=== PATIENT | female | born 1995 | race Two or more races ===

== ENCOUNTER 2023-04-12 13:47 | Emergency (ER) | payer SELFPAY ==
[2023-04-12 13:53] VITALS: BP 142/80; PULSE 83; RESP 18; TEMP 36.7; O2SAT 99; BMI 21.9
--- NOTE | 2023-04-12 14:11 | XR_ITS ---
The [address] [address] Patient Name: TRU SINGH MRN: [facility]:[id number] date: 1995 Sex: F Assigned Patient Location: ED.MAIN Current Patient Location: ED.MAIN Accession/Order Number: [id number] Exam Date: 04/12/2023 14:30 Report Date: 04/12/2023 14:48 At the request of: AARON VILLA Procedure: XR toe LT min 2V PROCEDURE: XR toe LT min 2V HISTORY: pain ; left first toe pain and swelling for 2 months; no known injury COMPARISON: None. FINDINGS: BONES:No fracture, acute abnormality, or significant arthropathy. SOFT TISSUES:No visible soft tissue swelling. EFFUSION:None visible. OTHER: Negative. XR/XR toe LT min 2V IMPRESSION: 1. No appreciable bone or soft tissue abnormality of the left first toe. Electronically authenticated by: ADRIÁN KO Date: 04/12/2023 14:48
--- NOTE | 2023-04-12 14:47 | ED.LOWEXI1 ---
HPI - Extremity Injury (Lower) General Chief Complaint: Extremity Injury, Lower Stated Complaint: LOWER EXTREMITY PAIN TO BOTH FEET Time Seen by Provider: 04/12/23 14:07 Source: patient Mode of arrival: walk-in History of Present Illness HPI Narrative: pt presents for left great toe pain, denies injury or trama. she states she has also had some similar pain to the right but has subsided. she denies injury or trama, denies hisroty or gout. pt afebrile nontoxic . no redness or swelling to great toe on exam Related Data Home Medications Medication Instructions Recorded Confirmed methylprednisolone 4 mg tablets in 4 mg PO DAILY 04/12/23 04/12/23 a dose pack (Medrol (Duong)) Allergies Allergy/AdvReac Type Severity Reaction Status Date / Time No Known Drug Allergies Allergy Verified 04/12/23 13:53 Review of Systems ROS Narrative All Systems are negative except as noted/marked.All systems reviewed and otherwise negative PFSH PFSH Social History Smoking status: Never smoker Exam Narrative Exam Narrative: Nurses note and vital signs reviewed and patient is not hypoxic. General: The patient appears well and in no apparent distress. Patient is resting comfortably on cart. Skin: Warm, dry, no pallor noted. There is no rash noted. Head: Normocephalic, atraumatic Eye: Normal conjunctiva, no drainage, EOMI. PERRL Ears, Nose, Mouth, and Throat: oral mucosa is moist. Nares patent. Mouth without vesicles. Ear canals patent. Tm's without Erythema Cardiovascular: Regular Rate and Rhythm Musculoskeletal:benign exam of left or right great toe, no redness or swelling. The patient has no evidence of calf tenderness, no pitting edema, symmetrical pulses noted bilaterally Neurological: A&O x4, normal speech Psychiatric: Cooperative Constitutional Vital Signs, click to edit/add: Last Vital Signs Temp 98.1 F 04/12/23 13:53 Pulse 83 04/12/23 13:53 Resp 18 04/12/23 13:53 BP 142/80 H 04/12/23 13:53 Pulse Ox 99 04/12/23 13:53 Course Vital Signs Vital signs: Vital Signs Temperature 98.1 F 04/12/23 13:53 Pulse Rate 83 04/12/23 13:53 Respiratory Rate 18 04/12/23 13:53 Blood Pressure 142/80 H 04/12/23 13:53 Pulse Oximetry 99 04/12/23 13:53 Temperature 98.1 F 04/12/23 13:53 Pulse Rate 83 04/12/23 13:53 Respiratory Rate 18 04/12/23 13:53 Blood Pressure 142/80 H 04/12/23 13:53 Pulse Oximetry 99 04/12/23 13:53 MDM - Extremity Injury (Lower) MDM Narrative Medical decision making narrative: pt presents for left great toe pain, xray is negative. pt states she has had pain to bilateral great toes recently but left more than right. exam is benign and xrays are normal. pt will be sent home with medrol dose duong to help with inflammation. pt encouraged to follow up with pcp. she verabalizes understanding and agrees with plan of care Medical Records Attestation: I reviewed the patient's medical records. Imaging Data foot: Attestation: I have reviewed the pertinent imaging results. My impression: Negative no acute fracture deformity no acute fracture deformity Radiologist's impression: TRU SINGH MRN: [facility]:[id number] date: 1995 Sex: F Assigned Patient Location: ED.MAIN Current Patient Location: ED.MAIN Accession/Order Number: [id number] Exam Date: 04/12/2023 14:30 Report Date: 04/12/2023 14:48 At the request of: AARON VILLA Procedure: XR toe LT min 2V PROCEDURE: XR toe LT min 2V HISTORY: pain ; left first toe pain and swelling for 2 months; no known injury COMPARISON: None. FINDINGS: BONES:No fracture, acute abnormality, or significant arthropathy. SOFT TISSUES:No visible soft tissue swelling. EFFUSION:None visible. OTHER: Negative. IMPRESSION: 1. No appreciable bone or soft tissue abnormality of the left first toe. Electronically authenticated by: ADRIÁN KO Date: 04/12/2023 14:48 Discharge Plan Discharge Chief Complaint: Extremity Injury, Lower Clinical Impression: Great toe pain Patient Disposition: Home, Self-Care Time of Disposition Decision: 14:45 Condition: Good Mode of Transportation: Private Vehicle Prescriptions / Home Meds: No Action methylprednisolone [Medrol (Duong)] 4 mg tablets,dose pack 4 mg PO DAILY Instructions: Arthralgia (ED) Stand Alone Forms: Portal Instructions Referrals: Physician,Non-Staff, MD [Primary Care Provider] - 1 week Discharge Date/Time: 04/12/23 15:05
== END 2023-04-12 15:05 | disposition home or self-care (01) ==
PROVIDERS: Emergency Provider Emergency Medicine
DX: M79.675 Pain in left toe(s) (principal)
CPT/HCPCS: 73660; 99283

== ENCOUNTER 2023-05-02 22:42 | Emergency (ER) | payer SELFPAY ==
--- OUTSIDE RECORDS SUMMARY | 2023-05-02 22:48 | XMS_ITS | CCD ---
Author Name Unknown Address [address] [place] [address] Organization [facility] Care Team Providers Care Unbundler Name Role Phone Fabrice Rey Attending Unavailable Fabrice Rey Admitting Unavailable NO FAMILY, PHYSICIAN Primary Care Unavailable Problems Problem Classification Problem Date Documented Da te Episodic/Chronic Unclassified (1 source) Cough, unspecified; Translations: [Cough, unspecified] Onset: 08-29-2022 Results Test Name Value Interpretation Reference Range Facil ity XR chest 1V portableon 08-29 XR chest 1V portable [facility] Main [place] [address] [place] [id number] XRay Report Signed Patient: Britney Tong MR#: [id number] 801 : 1995 Acct:[id number] Age/Sex: 27 / F ADM Date: 08/28/22 Loc: ER Room: Type: [facility] ER Attending Dr: Copies to: Fabrice Rey MD Ordering Provider: Fabrice Rey MD Date of Service: 08/28/22 XR/XR chest 1V portable: Upper Respiratory Infection XR chest 1V portable 08/28/2022 11:56 PM SIGNS AND SYMPTOMS: Cough PROTOCOL: Frontal radiograph of the chest COMPARISON: None FINDINGS: The trachea is midline. The heart and mediastinal structures are within normal limits. The lung parenchyma is clear. The bony thorax is intact. XR/XR chest 1V portable IMPRESSION: No acute cardiopulmonary pathology. Impression dictated by: Adelfo Shannon M.D.08/29/2022 8:58 AM Dictation Location: [place] [address] Transcribed By: [facility] 08/29/22 0858 Dictated By: Adelfo Shannon II, MD 08/29/22 0857 Signed By: 08/29/2258 [facility] Encounters Encounter Date Encounter Type Care Provider Facility Start: 08-29-2022 End: 08-29-2022 Emergency department patient visit Fabrice Rey Facility:[facility] Payers Date Payer Category Payer Self-pay 2022 Unknown [id number] Unknown [id number] Summary Purpose Family History No Family History Records Found Advance Directives No Advanced Directives Records Found Additional Source Comments INFORMATION SOURCE (unrecogn ized section and content) DATE CREATED AUTHOR 10/31/2022 [facility] FOR RECORDS PERTAINING TO PATIENTS WHO ARE OR HAVE BEEN ENROLLED IN A CHEMICAL DEPENDENCY/SUBSTANCEABUSE PROGRAM, SOME INFORMATION MAY BE OMITTED. This clinical summary was aggregated from multiple sources. Caution should be exercised in using it in the provision of clinical care. This summary normalizes information from multiple sources, and as a consequence, information in this document may materially change the coding, format and clinical context of patient data. In addition, data may be omitted in some cases. CLINICAL DECISIONS SHOULD BE BASED ON THE PRIMARY CLINICAL RECORDS. [email or web address] provides no warranty or guarantee of the accuracy or completeness of information in this document.
[2023-05-02 22:49] VITALS: BP 135/87; PULSE 110; RESP 18; TEMP 36.8; O2SAT 99; BMI 24.0
--- NOTE | 2023-05-02 23:10 | PC.NURSE ---
States it is constant for 1 month .No spinal tenderness. When palpating back she states she thinks it is here pointing to left flank area
--- NOTE | 2023-05-02 23:45 | XR_ITS ---
The [address] [address] Patient Name: TRU SINGH MRN: [facility]:[id number] date: 1995 Sex: F Assigned Patient Location: ER Current Patient Location: ER Accession/Order Number: [id number] Exam Date: 05/02/2023 23:56 Report Date: 05/03/2023 00:11 At the request of: DANIEL FELTON Procedure: XR lumbar spine 2-3V XR lumbar spine 2-3V 05/02/2023 11:56 PM EST CLINICAL INDICATION: Low back pain COMPARISON: None. TECHNIQUE: 2 views of the lumbar spine. FINDINGS: There are 5 nonrib-bearing lumbar vertebral bodies identified. Vertebral body heights and disc spaces appear maintained. No spondylolisthesis. Moderate stool burden. XR/XR lumbar spine 2-3V IMPRESSION: No acute osseous abnormality of the lumbar spine. Electronically authenticated by: BALBINA SANDOVAL Date: 05/03/2023 00:11
--- NOTE | 2023-05-02 23:46 | ED.BACK1 ---
HPI - Back Pain/Injury General Chief Complaint: Back Pain/Injury Stated Complaint: lower back pain Time Seen by Provider: 05/02/23 22:51 Source: patient Mode of arrival: walk-in Limitations: no limitations History of Present Illness HPI Narrative: About a month ago the patient developed pain to the mid lower back - she localizes it to the lumbosacral junction. She denied any known injury. 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 She has intermittently been taking tylenol or ibuprofen but nothing consistently. No fever or chills. No vomiting, diarrhea or urinary symptoms. She also complains that her left great toe, for which she was evaluated Apr 12, 2023, is also still hurting. She had negative xrays and was prescribed steroids during that encounter. Again, no injury to the great toe. Related Data Home Medications Medication Instructions Recorded Confirmed methylprednisolone 4 mg tablets in 4 mg PO DAILY 04/12/23 04/12/23 a dose pack (Medrol (Duong)) Previous Rx's Medication Instructions Recorded methocarbamol 750 mg tablet 750 mg PO Q6H pain #30 tabs 05/03/23 nabumetone 750 mg tablet 750 mg PO BID PRN pain #14 tabs 05/03/23 Allergies Allergy/AdvReac Type Severity Reaction Status Date / Time No Known Drug Allergies Allergy Verified 05/02/23 22:52 [facility] Social History Smoking status: Never smoker Exam Narrative Exam Narrative: General: Alert, no acute distress, patient resting comfortably Skin: warm, intact, no pallor noted Head: Normocephalic, atraumatic Eye: Normal conjunctiva Respiratory: No acute distress Abdomen: Normal bowel sounds, soft, nontender, no masses detected. No rebound, guarding, or rigidity noted. Back: inspection of the back shows no obvious deformity, no swelling, no ecchymosis, contusion, abrasion, swelling, erythema, fluctuance or induration. Tenderness noted to lumbosacral junction as well as to the lower right and left paralumbar soft tissue. Straight leg raise on left is negative. Straight leg raise on right is negative. No CVA tenderness noted bilaterally. Musculoskeletal: No deformity noted to bilateral lower extremities. no cyanosis or mottling noted. normal pulses at DP and PT 2+ bilaterally and symmetrically. Normal 5/5 strength at ankles with dorsiflexion and plantar flexion. Patient is able to ambulate. Normal sensation noted to both lower extremities. Neurological: AAOx4, normal sensory and motor observed. L5-S1 reflexes intact symmetrically. DTR 2+ at patellar bilaterally. Psychiatric: Cooperative and interactive. Constitutional Vital Signs, click to edit/add: Last Vital Signs Temp 98.3 F 05/02/23 22:49 Pulse 110 H 05/02/23 22:49 Resp 18 05/02/23 22:49 BP 135/87 05/02/23 22:49 Pulse Ox 99 05/02/23 22:49 O2 Del Method Room Air 05/02/23 22:49 Course Vital Signs Vital signs: Vital Signs Temperature 98.3 F 05/02/23 22:49 Pulse Rate 110 H 05/02/23 22:49 Respiratory Rate 18 05/02/23 22:49 Blood Pressure 135/87 05/02/23 22:49 Pulse Oximetry 99 05/02/23 22:49 Oxygen Delivery Method Room Air 05/02/23 22:49 Temperature 98.3 F 05/02/23 22:49 Pulse Rate 110 H 05/02/23 22:49 Respiratory Rate 18 05/02/23 22:49 Blood Pressure 135/87 05/02/23 22:49 Pulse Oximetry 99 05/02/23 22:49 Oxygen Delivery Method Room Air 05/02/23 22:49 MDM - Back Pain/Injury MDM Narrative Medical decision making narrative: Patient denied any chance of . She received IM Toradol and oral Robaxin and was sent for xrays of the lumber spine. XRays did not show any worrisome pathology, per radiologist report. Patient was informed of result and discharged home with prescriptions for relafen and robaxin and information of back exercises to help with the pain. Imaging Data xr lumbar spine: Radiologist's impression: Patient Name: TRU SINGH MRN: [facility]:[id number] date: 1995 Sex: F Assigned Patient Location: ER Current Patient Location: ER Accession/Order Number: [id number] Exam Date: 05/02/2023 23:56 Report Date: 05/03/2023 00:11 At the request of: DANIEL FELTON Procedure: XR lumbar spine 2-3V XR lumbar spine 2-3V 05/02/2023 11:56 PM EST CLINICAL INDICATION: Low back pain COMPARISON: None. TECHNIQUE: 2 views of the lumbar spine. FINDINGS: There are 5 nonrib-bearing lumbar vertebral bodies identified. Vertebral body heights and disc spaces appear maintained. No spondylolisthesis. Moderate stool burden. IMPRESSION: No acute osseous abnormality of the lumbar spine. Electronically authenticated by: BALBINA SANDOVAL Date: 05/03/2023 00:11 Discharge Plan Discharge Chief Complaint: Back Pain/Injury Clinical Impression: Low back pain, Great toe pain Patient Disposition: Home, Self-Care Time of Disposition Decision: 00:18 Prescriptions / Home Meds: New nabumetone 750 mg tablet 750 mg PO BID PRN (Reason: pain) Qty: 14 0RF methocarbamol 750 mg tablet 750 mg PO Q6H Qty: 30 0RF No Action methylprednisolone [Medrol (Duong)] 4 mg tablets,dose pack 4 mg PO DAILY Instructions: Acute Low Back Pain (ED), Lower Back Exercises (ED), Core Strengthening Exercises (ED) Stand Alone Forms: Portal Instructions Referrals: Physician,Non-Staff, MD [Primary Care Provider] - 1 week
[2023-05-03] MEDS: KETOROLAC TROMETHAMINE 60 MG/2 ML VIAL IM (00:07)
[2023-05-03] MEDS: METHOCARBAMOL 500 MG TABLET 1000 MG PO (00:08)
== END 2023-05-03 00:32 | disposition home or self-care (01) ==
PROVIDERS: Emergency Provider Emergency Medicine
DX: M54.50 Low back pain, unspecified (principal); M79.675 Pain in left toe(s)
CPT/HCPCS: 72100; 96374; 99284

== ENCOUNTER 2023-12-11 16:35 | Emergency (ER) | payer OTHER, SELFPAY ==
[2023-12-11 16:40] VITALS: BP 116/81; PULSE 101; TEMP 36.7; O2SAT 98; BMI 24.0
--- NOTE | 2023-12-11 16:53 | ECG_ITS ---
The [facility] Test Date: 2023-12-11 Pat Name: TRU SINGH Department: Room: - Gender: Female Emt Intermediate: : 1995 Requested By: Order Number: [id number] Reading MD: BRAD WADDELL Measurements Intervals [place] Rate: 89 P: 68 DC: 134 QRS: 58 QRSD: 76 T: 15 QT: 360 QTc: 406 Interpretive Statements 1100 Sinus rhythm 4068 Nonspecific Twave abnormality 8102 Low QRS voltage in chest leads 9130 borderline ECG No previous ECG available for comparison Electronically Signed On 12-11-2023 22:14:03 EDT by BRAD WADDELL
--- NOTE | 2023-12-11 16:54 | ED_ITS ---
HPI - Psych General Chief Complaint: Psychiatric Symptoms Stated Complaint: Anxiety Time Seen by Provider: 12/11/23 16:47 Source: Reports patient and family Mode of arrival: walk-in Limitations: Reports no limitations History of Present Illness HPI Narrative: Patient is a 28-year-old female referred to the emergency department by her primary care office in [place], the patient was being seen today for an emergenc y appointment regarding mental health issues after she answered several questions regarding depression and suicidality. She was referred from her [employer] office for an emergency appointment today at [facility] in [place], patient states when she got to the office they told her she needed to go to an emergency department. Patient states she has felt suicidal for most of her life. She attempted suicide 1 year ago but was never hospitalized. She states she often feels suicidal and often has a plan about how she would hurt herself but she does not currently feel suicidal or homicidal. She does not take any regular medications. She is not concerned for . She has no focal medical complaints Related Data Home Medications ?Medication ?Instructions ?Recorded ?Confirmed methylprednisolone 4 mg tablets in 4 mg PO DAILY 04/12/23 04/12/23 a dose pack (Medrol (Duong)) Previous Rx's ?Medication ?Instructions ?Recorded methocarbamol 750 mg tablet 750 mg PO Q6H pain #30 tabs 05/03/23 nabumetone 750 mg tablet 750 mg PO BID PRN pain #14 tabs 05/03/23 Allergies Allergy/AdvReac Type Severity Reaction Status Date / Time No Known Drug Allergies Allergy Verified 05/02/23 22:52 Review of Systems ROS Constitutional Denies: fever or chills Ears, nose, mouth, and throat Denies: throat pain or nasal congestion Cardiovascular Denies: chest pain Respiratory Denies: shortness of breath Gastrointestinal Denies: nausea or vomiting Integumentary/Breast Denies: rash Neurological Denies: headache Psychiatric Reports: suicidal ideation Hematologic/Lymphatic Denies: easy bruising or easy bleeding PFSH PFSH Social History Smoking status: Never smoker Exam Narrative Exam Narrative: Gen.: Awake, alert, in no distress Head: Normocephalic, atraumatic ENT: Moist mucous membranes Respiratory: No respiratory distress, lungs clear bilaterally Cardio: Regular rate and rhythm Extremities: Moves extremities equally Psych: Normal mood and affect Neuro: No focal neuro deficit Skin: Warm, dry, intact Constitutional Vital Signs, click to edit/add: Last Vital Signs Temp 98.1 F 12/11/23 16:40 Pulse 92 H 12/11/23 17:46 Resp 18 12/11/23 17:46 BP 129/78 12/11/23 17:46 Pulse Ox 98 12/11/23 17:46 O2 Del Method Room Air 12/11/23 16:40 Course Vital Signs Vital signs: Vital Signs Temperature 98.1 F 12/11/23 16:40 Pulse Rate 101 H 12/11/23 16:40 Respiratory Rate 18 12/11/23 16:40 Blood Pressure 116/81 12/11/23 16:40 Pulse Oximetry 98 12/11/23 16:40 Oxygen Delivery Method Room Air 12/11/23 16:40 Temperature 98.1 F 12/11/23 16:40 Pulse Rate 92 H 12/11/23 17:46 Respiratory Rate 18 12/11/23 17:46 Blood Pressure 129/78 12/11/23 17:46 Pulse Oximetry 98 12/11/23 17:46 Oxygen Delivery Method Room Air 12/11/23 16:40 MDM - Psych MDM Narrative Medical decision making narrative: 1817: While the patient was being evaluated, she had a screening conversation with [facility] mental health counseling services over the phone, they feel strongly that the patient does need counselor evaluation as she may need to be placed. Shortly after this conversation, the patient's family members became aggressive and combative stating that they wanted to leave. Because the counseling services had not yet evaluated the patient, a pink slip was filed to keep her in the emergency department until she was cleared by counseling services. At this time, her blood sugar is elevated but she has no evidence of acidosis and the remainder of her labs are pending. Patient was evaluated by counseling services and found to be appropriate for safety plan home. She was encouraged to recheck her blood sugar with primary care in the next several weeks. She has no electrolyte disturbance or evidence of acidosis. Return to the ER if symptoms change or worsen. SUPERVISED APC VISIT, PHYSICIAN ATTESTATION: Based on the medical record the care appears appropriate. ? Medical Records Attestation: I reviewed the patient's medical records. Lab Data Attestation: I reviewed the patient's lab results. Labs: Lab Results 12/11/23 12/11/23 Range/Units 16:59 17:03 WBC 11.6 H (4.0-11.0) 10^3/uL RBC 6.07 H (4.20-5.40) 10^6/uL Hgb 12.2 (12.0-16.0) g/dL Hct 40.6 (36.0-48.0) % MCV 66.9 L (81.0-99.0) fL MCH 20.1 L (26.7-34.0) pg MCHC 30.0 (29.9-35.2) g/dL RDW 15.8 H (11.0-15.0) % Plt Count 521 H (150-450) 10^3/uL MPV 9.9 (9.5-13.5) fL Neut % (Auto) 63.6 (43.0-75.0) % Lymph % (Auto) 26.7 (20.5-60.0) % [place] % (Auto) 7.1 (1.7-12.0) % Eos % (Auto) 1.6 (0.9-7.0) % Baso % (Auto) 0.8 (0.2-2.0) % Neut # (Auto) 7.4 H (1.4-6.5) 10^3/uL Lymph # (Auto) 3.1 (1.2-3.8) 10^3/uL [place] # (Auto) 0.8 (0.3-0.8) 10^3/uL Eos # (Auto) 0.2 (0.0-0.7) 10^3/uL Baso # (Auto) 0.1 (0.0-0.1) 10^3/uL Abs Immat Gran (auto) 0.02 (0.00-0.03) 10^3/uL Imm/Tot Granulo (auto) 0.2 (0.0-0.5) % Sodium 138 (136-145) mmol/L Potassium 3.9 (3.5-5.1) mmol/L Chloride 100 (98-107) mmol/L Carbon Dioxide 24.4 (21.0-32.0) mmol/L Anion Gap 17.5 BUN 8.0 (7.0-18.0) mg/dL Creatinine 0.93 (0.55-1.02) mg/dL Est GFR ( Amer) >60 (>=60) Est GFR (Non-Af Amer) >60 (>=60) BUN/Creatinine Ratio 8.6 Glucose 346 H (74-106) mg/dL Calcium 9.3 (8.5-10.1) mg/dL Total Bilirubin 0.5 (0.2-1.0) mg/dL AST 24 (15-37) U/L ALT 42 (14-59) U/L Alkaline Phosphatase 66 (46-116) U/L Total Protein 8.3 H (6.4-8.2) g/dL Albumin 4.1 (3.4-5.0) g/dL Globulin 4.2 g/dL Albumin/Globulin Ratio 1.0 Urine Opiates Screen Negative (NEGATIVE) Ur Buprenorphine Scrn Negative (NEGATIVE) Ur Oxycodone Screen Negative (NEGATIVE) Urine Methadone Screen Negative (NEGATIVE) Ur Barbiturates Screen Negative (NEGATIVE) U Tricyclic Antidepress Negative (NEGATIVE) Ur Phencyclidine Scrn Negative (NEGATIVE) Ur Amphetamines Screen Negative (NEGATIVE) U Methamphetamines Scrn Negative (NEGATIVE) U Benzodiazepines Scrn Negative (NEGATIVE) Urine Cocaine Screen Negative (NEGATIVE) U Cannabinoids Screen Negative (NEGATIVE) ECG Data Attestation: I personally reviewed and interpreted this ECG as follows: (Normal sinus rhythm at a rate of 89, no acute ST elevation or ectopy. EKG reviewed by attending physician) Discharge Plan Discharge Stand Alone Forms: Portal Instructions Chief Complaint: Psychiatric Symptoms Clinical Impression: Depression, Hyperglycemia Patient Disposition: Home, Self-Care Time of Disposition Decision: 18:57 Condition: Good Prescriptions / Home Meds: No Action nabumetone 750 mg tablet 750 mg PO BID PRN (Reason: pain) Qty: 14 0RF methocarbamol 750 mg tablet 750 mg PO Q6H Qty: 30 0RF methylprednisolone [Medrol (Duong)] 4 mg tablets,dose pack 4 mg PO DAILY Print Language: Romanian Instructions: Depression (ED), Nondiabetic Hyperglycemia (ED) Additional Instructions: Please follow up with [facility] counseling -Please see your primary care provider to have your blood sugar rechecked Referrals: Physician,Non-Staff, [Primary Care Provider] - 1 week
--- OUTSIDE RECORDS SUMMARY | 2023-12-11 17:02 | XMS_ITS | CCD ---
Author Organization [facility] Care Team Providers Care Senior Software Development Manager Name Role Phone Fabrice Rey Attending Unavailable Fabrice Rey Admitting Unavailable NO FAMILY, PHYSICIAN Primary Care Unavailable Problems Problem Classification Problem Date Documented Da te Episodic/Chronic Unclassified (1 source) Cough, unspecified; Translations: [Cough, unspecified] Onset: 08-29-2022 Results Test Name Value Interpretation Reference Range Facil ity XR chest 1V portableon 08-29 [address] [facility] Main [address] [address] XRay Report Signed Patient: Britney Tong MR#: [id number] 801 : 1995 Acct:[id number] Age/Sex: 27 / F ADM Date: 08/28/22 Loc: ER Room: Type: [facility] ER Attending Dr: Copies to: Fabrice Rey [...] Adelfo Shannon M.D.08/29/2022 8:58 AM Dictation Location: [place] [address] Transcribed By: [facility] 08/29/22 0858 Dictated By: Adelfo Shannon II, MD 08/29/22 0857 Signed By: 08/29/22 0858 [facility] Encounters Encounter Date Encounter Type Care Provider Facility Start: 08-29-2022 End: 08-29-2022 Emergency department patient visit Fabrice Rey Facility:[facility] Payers Date Payer Category Payer Self-pay 2022 Unknown [id number] Unknown [id number] Summary Purpose Family History No Family History Records Found Advance Directives No Advanced Directives Records Found Additional Source Comments INFORMATION SOURCE (unrecogn ized section and content) DATE CREATED AUTHOR 10/31/2022 [facility] FOR RECORDS PERTAINING TO PATIENTS WHO ARE [...] BE BASED ON THE PRIMARY CLINICAL RECORDS. [employer] provides no warranty or guarantee of the accuracy or completeness of information in this document.
[2023-12-11 17:04] VITALS: PULSE 74
[2023-12-11 17:35] LABS: Alanine Aminotransferase 42 U/L (14-59); Albumin Level 4.1 g/dL (3.4-5.0); Alkaline Phosphatase 66 U/L (46-116); Anion Gap 17.5; Aspartate Amino Transferase 24 U/L (15-37); BUN Creatinine Ratio 8.6; Bilirubin Total 0.5 mg/dL (0.2-1.0); Calcium 9.3 mg/dL (8.5-10.1); Carbon Dioxide 24.4 mmol/L (21.0-32.0); Chloride 100 mmol/L (98-107); Estimated GFR (African America >60 (>=60); Estimated GFR (Non-African Ame >60 (>=60); Globulin 4.2 g/dL; Glucose 346 mg/dL (74-106); Potassium 3.9 mmol/L (3.5-5.1); Sodium 138 mmol/L (136-145); Total Protein 8.3 g/dL (6.4-8.2)
[2023-12-11 17:46] VITALS: BP 129/78; PULSE 92; O2SAT 98
[2023-12-11 17:49] LABS: Basophils Absolute Auto 0.1 10^3/uL (0.0-0.1); Basophils Percent Auto 0.8 % (0.2-2.0); Eosinophils Absolute Auto 0.2 10^3/uL (0.0-0.7); Eosinophils Percent Auto 1.6 % (0.9-7.0); Hematocrit 40.6 % (36.0-48.0); Hemoglobin 12.2 g/dL (12.0-16.0); Immature Granulocytes Abs Auto 0.02 10^3/uL (0.00-0.03); Immature Granulocytes Pct Auto 0.2 % (0.0-0.5); Lymphocytes Absolute Auto 3.1 10^3/uL (1.2-3.8); Lymphocytes Percent Auto 26.7 % (20.5-60.0); Mean Corpuscular Hemoglobin 20.1 pg (26.7-34.0); Mean Corpuscular Volume 66.9 fL (81.0-99.0); Mean Platelet Volume 9.9 fL (9.5-13.5); Monocytes Absolute Auto 0.8 10^3/uL (0.3-0.8); Monocytes Percent Auto 7.1 % (1.7-12.0); Neutrophils Absolute Auto 7.4 10^3/uL (1.4-6.5); Neutrophils Percent Auto 63.6 % (43.0-75.0); Platelet Count 521 10^3/uL (150-450); Red Blood Count 6.07 10^6/uL (4.20-5.40); Red Cell Distribution Width 15.8 % (11.0-15.0); White Blood Count 11.6 10^3/uL (4.0-11.0)
[2023-12-11 18:11] LABS: Amphetamine Screen Urine NEGATIVE (NEGATIVE); Barbiturates Screen Urine NEGATIVE (NEGATIVE); Benzodiazepines Screen Urine NEGATIVE (NEGATIVE); Buprenorphine Screen Urine NEGATIVE (NEGATIVE); Cannabinoid Screen Urine NEGATIVE (NEGATIVE); Cocaine Screen Urine NEGATIVE (NEGATIVE); Methadone Screen Urine NEGATIVE (NEGATIVE); Methamphetamines Screen Urine NEGATIVE (NEGATIVE); Opiate Screen Urine NEGATIVE (NEGATIVE); Oxycodone Screen Urine NEGATIVE (NEGATIVE); Phencyclidine Screen Urine NEGATIVE (NEGATIVE); Tricyclic Antidepressant Urine NEGATIVE (NEGATIVE)
[2023-12-11 18:59] LABS: Ethanol <3 mg/dL
[2023-12-11 19:01] LABS: Acetaminophen <2.0 ug/mL (10.0-30.0)
[2023-12-11 19:02] LABS: Salicylate <2.8 mg/dL (<=19.9)
[2023-12-11 19:06] LABS: HCG Quantitative <1 mIU/mL
[2023-12-11 19:08] VITALS: BP 134/80; PULSE 70; O2SAT 99
== END 2023-12-11 19:08 | disposition home or self-care (01) ==
PROVIDERS: Physician Assistant; Emergency Provider Student in an Organized Health Care Education/Training Program
DX: F32.A Depression, unspecified (principal); R73.9 Hyperglycemia, unspecified
CPT/HCPCS: 36415; 80053; 80179; 80307; 80320; 80329; 84702; 85025; 93005; 99285

== ENCOUNTER 2024-03-04 15:17 | Emergency (ER) | payer OTHER, SELFPAY ==
[2024-03-04] VITALS (17 sets, daily range): BP systolic 108–120; BP diastolic 79–89; PULSE 78–98; TEMP 37.1; O2SAT 99–100; BMI 25.2
--- OUTSIDE RECORDS SUMMARY | 2024-03-04 15:27 | XMS_ITS | CCD ---
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 Name Role Phone MARGRET GABRIEL Referring Unavailable Oscar Logan Attending Unavailab Oscar Erazo Admitting Unavailab le [facility], PHYSICIAN Primary Care Unavailable NONE, XXXX Primary Care Physician Unavailab DO Jemma Pool Attending Unavailable Jemma Stout Attending Unavailable Medications Current Medications Medication Drug Class(es) Dates Sig (Normalized) Sig (Original) metFORMIN hydrochloride 1000 mg oral tablet (1 source) Biguanide Start: 02-29-2024 take 1 tablet by mouth twice daily metformin 1000 mg Tab 1,000 mg = 1 tab(s), Oral, BID, # 28 tab(s), Refills(s) 0, Pharmacy: [facility]/pharmacy #[id number], 162, cm, 02/28/24 23:04:00 EDT, Height/Length Dosing, 64.3, kg, 02/28/24 23:04:00 EDT, Weight Dosing Start Date: 02/29/24 Status: Ordered Problems Problem Classification Problem Date Documented Da te Episodic/Chronic Diabetes mellitus without complication (1 source) Type 2 diabetes mellitus without complication; Translations: [Type 2 diabetes mellitus without complications] Onset: 02-29-2024 Chronic Results Test Name Value Interpretation Reference Range Facility C Urineon 03-02-2024 Bacteria identified Cx Nom (U) Microbiology PROCEDURE: Urine Culture [R1] SOURCE: U CleanCatch BODY SITE: COLLECTED DATE/TIME: 02/29/2024 00:30 EDT RECEIVED DATE/TIME: 02/29/2024 05:52 EDT START DATE/TIME: 02/29/2024 05:52 EDT FREE TEXT SOURCE: Jemma Stout DO, DO, Kaylinn A FINAL REPORTS Final Report [] Verified Date/Time: 03/02/2024 10:46 EDT 50,000 cfu/ml Staphylococcus aureus SUSCEPTIBILITY RESULTS LEGEND: S=Susceptible, N/R=Not Reported, Blank=Data not available, or drug not advisable or tested, I=Intermediate, ESBL=Extended spectrum beta-lactamase, R=Resistant, TFG=Thymidine-depende nt strain, HERBERT=Beta-lactamase positive, TIFFANIE=mcg/m;(mg/L), S*=Predicted susceptible interp, R*=Predicted resistant interp SA Antibiotic TIFFANIE Dilutn TIFFANIE Interp Amoxicillin/ <=4/2 S Clavulanate Ampicillin <=2 HERBERT Ampicillin/ <=8/4 S Sulbactam Cefazolin <=8 S Ceftaroline <=0.5 S Ciprofloxacin <=1 S Daptomycin <=1 S Gentamicin <=4 S Levofloxacin <=1 S Linezolid <=2 S Nitrofurantoin <=32 S Oxacillin <=0.25 S Penicillin 0.12 HERBERT Rifampin <=1 S Tetracycline <=4 S Trimethoprim/ <=0.5/9.5 S Sulfa Vancomycin 1 S Performing Locations R1: This test was performed at: [facility], [address] [place] [address], [id number] , [place], Normal [facility] Comment on above: Performed By: #### 2 [id number] #### [facility] [address] [place] [id number] ED Clinical Summaryon 2023 ED Clinical Summary ED Clinical Summary [address] [address] ED Clinical Summary Person Information Name: TRU SINGH Jennifer/[facility] Age: 28 Years : 1995 Sex: Female Language: Icelandic PCP: NONE, XXXX Marital Status: Single Visit Id: Visit Reason: Hyperglycemia; HIGH BLOOD SUGAR Speciality: Acuity: 3 Enc Type: Emergency Med Service: Emergency Arrival: 02/28/2024 22:53:58 Discharge: 02/29/2024 01:56:15 LOS: 000 03:03 Checkin: 02/28/2024 22:53:58 Checkout: 02/29/2024 01:56:15 Dispo Type: Home (Routine DC) EVENTS: Event Name Event Status Request Date/Time Start Date/Time Complete Date/Time Arrive Complete 02/28/2024 22:53:58 02/28/2024 22:53:58 02/28/2024 22:53:58 Document Home Meds Request 02/28/2024 22:53:58 Triage Complete 02/28/2024 22:53:58 02/28/2024 23:04:37 02/28/2024 23:04:37 Bed Assign Complete 02/28/2024 22:57:55 02/28/2024 22:57:55 02/28/2024 22:57:55 Dr Exam Complete 02/28/2024 22:57:55 02/28/2024 22:58:41 02/28/2024 22:58:41 RN Exam Complete 02/28/2024 22:57:55 02/28/2024 23:28:31 02/28/2024 23:28:31 Registration Complete 02/28/2024 22:58:41 02/28/2024 23:05:15 02/28/2024 23:05:15 Pending Labs Complete 02/28/2024 23:03:17 02/28/2024 23:03:17 02/28/2024 23:03:18 Reg Complete Request 02/28/2024 23:05:15 Reg Bed Request Complete 02/28/2024 23:05:15 02/28/2024 23:05:15 02/28/2024 23:05:15 EKG Complete 02/28/2024 23:20:22 02/28/2024 23:30:55 Meds Admin Cancel 02/28/2024 23:20:22 02/28/2024 23:20:38 Pending Labs Complete 02/28/2024 23:20:22 02/29/2024 00:44:22 RT Tx/ABG Request 02/28/2024 23:20:22 Lab Complete 02/28/2024 23:20:22 02/29/2024 00:37:35 X-Ray Complete 02/28/2024 23:20:22 02/28/2024 23:52:35 02/29/2024 00:02:35 Pending Labs Complete 02/28/2024 23:50:55 02/28/2024 23:50:55 02/29/2024 00:13:56 Lab Complete 02/28/2024 23:50:55 02/28/2024 23:50:55 02/29/2024 00:13:56 Pending Labs Complete 02/28/2024 23:52:06 02/28/2024 23:52:06 02/29/2024 00:22:25 Pending Labs Complete 02/28/2024 23:52:42 02/28/2024 23:52:42 02/29/2024 00:25:49 Wet Read Request 02/29/2024 00:02:35 Pending Labs Complete 02/29/2024 00:20:06 02/29/2024 00:20:06 02/29/2024 00:20:07 Pending Labs Collected 02/29/2024 00:44:22 02/29/2024 00:44:22 Lab Collected 02/29/2024 00:44:22 02/29/2024 00:44:22 Meds Admin Cancel 02/29/2024 00:46:20 02/29/2024 00:49:12 Meds Admin Complete 02/29/2024 00:49:29 02/29/2024 01:32:17 Discharge Complete 02/29/2024 00:50:59 02/29/2024 01:56:19 02/29/2024 01:56:19 Transfer Complete 02/29/2024 01:56:19 02/29/2024 01:56:19 02/29/2024 01:56:19 ADDRESS: [address] [facility] [id number] PHYS DOC NOTES: MEDICAL INFORMATION: Prescriptions Given: New Medications [id number], [address] [place], [place] [id number], [phone] metformin (metformin 1000 mg Tab) 1 Tablets By Mouth 2 times a day. Refills: 0. PATIENT EDUCATION INFORMATION: Instructions: Type 2 Diabetes Mellitus, Diagnosis, Adult; Diabetes Mellitus Basics; Diabetes Mellitus and Nutrition, Adult Follow up: With: Address: When: Lilian Gomez [address], [address], [place] [address] [place] [address] Business (1) In 3 days 03/03/2024 Comments: Take the metformin twice a day. Please follow-up with your primary care doctor for further evaluation management. Please return to the ED for any new or worsening symptoms. With: Address: When: XXXX NONE , [place] In 3 days DIAGNOSIS: Diabetes Normal [facility] ED Note-Physicianon 02-29-20 ED Note-Physician ED Note-Physician Basic Information Time Seen: Jemma Stout DO 02/28/2024 22:58 Chief Complaint pt to ED with c/o high blood sugar. states not eating since 1600 and having a glucose of 357 at home. family member checked her sugar d/t signs and symptoms. pt denies known diabetes. glucose 215 in triage. denies n/v/d. History of Present Illness Patient is a 28-year-old female with no past medical history presenting to the ED for evaluation of elevated blood sugar. Patient states she has not been feeling well with chest pain, palpitations and general fatigue for the last several weeks. Several days ago family member checked her blood sugar and noted it was in the 300s. Is not feeling well again today and blood sugar was checked several hours after eating and was noted to be 357. Was starting to gain water on the way here blood sugars 215. Does not have a primary care doctor does have a family history of diabetes. Review of Systems A 10 point review of systems is negative except as noted above. Medical and Surgical History: Reviewed and noted Social history: Lives at home Tobacco: Denies Physical Exam Vitals & Measurements T: 36.7 ?C(Oral) HR: 77(Peripheral) RR: 18 BP: 122/79 SpO2: 99% HT: 162 cm WT: 64.3 kg BMI: 24.5 General: Well developed, non toxic appearing, no acute distress HEENT: Head atraumatic, Mucosa moist, hearing grossly normal Neck: No JVD, tracheal deviation Cardiac: Regular rate, rhythm, no murmurs, or gallops, 2+ radial pulses Respiratory: Lungs clear to auscultation B/L, normal respiratory effort Abdomen: Soft non tender, no rebound or guarding, no peritoneal signs Extremities: No edema noted in the LE B/L, no tenderness to palpation Neurologic: Alert and oriented, speech clear Skin: No rashes or lesions Psych: Appropriate mood and behavior Medical Decision Making MEDICAL DECISION MAKING Number and Complexity of Problems Differential Diagnosis: [] [facility] Data External documents reviewed: [] My EKG interpretation: [] My CT interpretation: [] My X-ray interpretation: [] My Ultrasound interpretation: [] Decision rules/scores evaluated: [] Discussed with: [] Treatment and Disposition ED Course: Patient is a 28-year-old female presenting to the ED for evaluation of elevated blood sugar. Patient is nontoxic and on arrival, no acute distress. Blood sugar on arrival was 215. Due to her complaints laboratory evaluation is obtained. Laboratory evaluation reveals an elevated blood glucose of 233, no evidence of DKA, A1c is elevated at 11.3. Patient started on metformin and is advised she needs to establish care with a primary care doctor is given referral. She is to follow-up with her primary care doctor for further evaluation management. She is to return to the ED for any new or worsening symptoms. Shared decision making: [] Code status: [] Assessment/Plan Diabetes (E11.9: Type 2 diabetes mellitus without complications) Orders: metformin, 1,000 mg = 2 tab(s), Tab, Oral, Once, Stop date 02/29/24 0:49:00 EDT, STAT, Start date 02/29/24 0:49:00 EDT, 02/29/24 0:49:00 EDT metformin, 1,000 mg = 1 tab(s), Oral, BID, # 28 tab(s), Refills(s) 0, Pharmacy: [facility]/pharmacy #[id number], 162, cm, 02/28/24 23:04:00 EDT, Height/Length Dosing, 64.3, kg, 02/28/24 23:04:00 EDT, Weight Dosing Basic Metabolic Panel Beta hCG Qual Beta-hydroxybutyrate Blood Gas Christofer CBC w/ Auto Diff ECG 12 Lead Adult ED Cardiac Monitoring eGFR Extra Blue Tube Hepatic Function Panel HgbA1c Routine Capillary Glucose POC Troponin UA with Cult Rflx Urine Culture XR Chest Single View Disposition Plan Discharge Prescription List Prescriptions metformin 1000 mg Tab, 1000 mg= 1 tab(s), Oral, BID Follow-up With When Contact Information Lilian Gomez In 3 days 03/03/2024 EDT [address], [place] [address] [place] [address] [facility] (1) Additional Instructions: Take the metformin twice a day. Please follow-up with your primary care doctor for further evaluation management. Please return to the ED for any new or worsening symptoms. XXXX NONE In 3 days [place] Additional Instructions: Patient Education Type 2 Diabetes Mellitus, Diagnosis, Adult Diabetes Mellitus Basics Diabetes Mellitus and Nutrition, Adult Problem List/Past Medical History Ongoing No qualifying data Historical No qualifying data Medications Inpatient No active inpatient medications Home No active home medications Allergies No Known Allergies Social History Alcohol - Denies Alcohol Use, 02/28/2024 Substance Abuse - Denies Substance Abuse, 02/28/2024 Tobacco - Denies Tobacco Use, 02/28/2024 Lab Results WBC: 10.6 E9/L (02/28/24 23:46:00) RBC: 5.7 E12/L (02/28/24 23:46:00) HGB: 11.9 gm/dL Low (02/28/24 23:46:00) Hct: 36.9 % (02/28/24 23:46:00) MCV: 64.6 fL Low (02/28/24 23:46:00) MCH: 20.8 pg Low (02/28/24 23:46:00) MCHC: 32.2 gm/dL (02/28/24 23:46:00) (more content not included)... Normal [facility] Comment on above: Result Comment: Elec tronically Signed By: Jemma Stout DO\.br\Date and Time Signed: 02/29/24 01:07 EDT ED Patient Summaryon 024 ED Patient Summary ED Patient Summary [address] [address] Patient Discharge Instructions Person Information Name: TRU SINGH Age: 28 Years Arrival Date: 02/28/2024 22:53:58 Discharge Diagnosis: Diabetes Primary Care Physician: NONE, XXXX Provider Information Primary Provider: Jemma Stout DO Advanced Editor City:[place] The exam and treatment you received in the Emergency Department were for an urgent problem and are not intended as complete care. It is important that you follow up with a doctor, nurse practitioner, or physician?s data assistant for ongoing care. If your symptoms become worse or you do not improve as expected and you are unable to reach your usual health care provider, you should return to the Emergency Department. We are available 24 hours a day. TRU SINGH has been given the following list of patient education materials, prescriptions and follow-up instructions: Follow-up Instructions: With: Address: When: Lilian Gomez [facility] [address], [address], [facility] [address] [place] [address] [facility] (1) In 3 days 03/03/2024 Comments: Take the metformin twice a day. Please follow-up with your primary care doctor for further evaluation management. Please return to the ED for any new or worsening symptoms. With: Address: When: XXXX [place] , [place] In 3 days In the event that this physician does not participate in your insurance network, please consult with your insurance company to find a nearby participating provider. Patient Education Materials: Type 2 Diabetes Mellitus, Diagnosis, Adult; Diabetes Mellitus Basics; Diabetes Mellitus and Nutrition, Adult A MESSAGE TO ALL PATIENTS REGARDING OPIOIDS PRESCRIPTION OPIOIDS: WHAT YOU NEED TO KNOW Prescription opioids can be used to help relieve qznktcud-am-qlyraz pain and are often prescribed following a surgery or injury, or for certain health conditions. These medications can be an important part of the treatment but also come with serious risks. It is important to work with your healthcare provider to make sure you are getting the safest, most effective care. WHAT ARE THE RISKS AND SIDE EFFECTS OF OPIOID USE? Prescription opioids carry serious risks of addiction and overdose, especially with prolonged use. An opioid overdose, often marked by slowed breathing, can cause sudden . The use of prescription opioids can have a number of side effects as well, even when taken as directed: ? Tolerance?meaning you might need to take more of the medication for the same pain relief ? Physical dependence?meaning you have symptoms of withdrawal when a medication is stopped ? Increased sensitivity to pain ? Constipation ? Nausea, vomiting, and dry mouth ? Sleepiness and dizziness ? Confusion ? Depression ? Low levels of testosterone that can result in lower sex drive, energy, and strength ? Itching and sweating RISKS ARE GREATER WITH: ? History of drug misuse, substance use disorder, or overdose ? Mental health conditions (such as depression or anxiety) ? Sleep apnea ? Older age (65 years and older) ? Avoid alcohol while taking prescription opioids. Also, unless specifically advised by your health care provider, medications to avoid include: ? Benzodiazepines (such as Xanax or Valium) ? Muscle relaxants (such as Soma or Flexeril) ? Hypnotics (such as Ambien or Lunesta) ? Other prescription opioids KNOW YOUR OPTIONS Talk to your health care provider about ways to manage your pain that don?t involve prescription opioids. Some of these options may actually work better and have fewer risks and side effects. Options may include: ? Pain relievers such as acetaminophen, ibuprofen, and naproxen ? Some medication that are also used for depression or seizures ? Physical therapy and exercise ? Cognitive behavioral therapy, a psychological, goal-directed approach, in which patients learn how to modify physical, behavioral, and emotional triggers of pain and stress. IF YOU ARE PRESCRIBED OPIOIDS FOR PAIN: ? Never take opioids in greater amounts or more often than prescribed. ? Follow up with your primary health care provider. o Work together to create a plan on how to manage your pain. o Talk about ways to help manage your pain that don?t involve prescription opioids. o Talk about any and all concerns and side effects. ? Help prevent misuse and abuse o Never sell or share prescription opioids. o Never use another person?s prescription opioids. ? Store prescription opioids in a secure place and out of reach of others (this may include visitors, children, friends, and family). ? Safely dispose of unused prescription opioids: Find your community drug take-back program or your pharmacy mail-back program, or flush them down the toilet, following guidance from the Food and Drug (more content not included)... Normal [facility] UA with Cult Rflxon 02-29-20 24 Bilirubin Ql (U) Negative Normal Negative [facility] Comment on above: Performed By: #### 4 [id number] #### [facility] [address] [place] [address] Clarity (U) Clear Normal Clear [facility] Comment on above: Performed By: #### 4 [id number] #### [facility] [address] [place] [address] Color (U) Light-Yellow Normal Yellow [facility] Comment on above: Result Comment: Micr oscopic readings are only performed on those samples that meet specific criteria set forth by [facility]. Performed By: #### 4 [id number] #### [facility] [address] [place] [address] Epithelial cells.squamous Auto (Urine sed) [#/Area] 0-2 Invalid Interpretation Code [facility] Comment on above: Performed By: #### 4 [id number] #### [facility] [address] [place] [address] Glucose Ql (U) 4+ mg/dL Abnormal Negative [facility] Comment on above: Performed By: #### 4 [id number] #### [facility] [address] [place] [address] Hemoglobin Auto test strip (U) [Mass/Vol] 3+ mg/dL Abnormal Negative [facility] Comment on above: Performed By: #### 4 [id number] #### [facility] [address] [place] [address] Ketones Auto test strip Ql (U) Negative Normal Negative [facility] Comment on above: Performed By: #### 4 [id number] #### [facility] [address] [place] [address] Leukocyte esterase Auto test strip Ql (U) Negative Normal Negative [facility] Comment on above: Performed By: #### 4 [id number] #### [facility] [address] [place] [address] Mucus Auto Ql (U) Negative Normal Negative [facility] Comment on above: Performed By: #### 4 [id number] #### [facility] [address] [place] [address] Nitrite Auto test strip Ql (U) Negative Normal Negative [facility] Comment on above: Performed By: #### 4 [id number] #### [facility] [address] [place] [address] pH (U) 6.0 [pH] Invalid Interpretation Code 5.0-9.0 [facility] Comment on above: Performed By: #### 4 [id number] #### [facility] [address] [place] [address] Protein Ql (U) Negative Normal Negative [facility] Comment on above: Performed By: #### 4 [id number] #### [facility] [address] [place] [address] RBC Ql (U) >75 Abnormal 0-3 [facility] Comment on above: Performed By: #### 4 [id number] #### [facility] [address] [place] [address] Specific gravity (U) [Rel density] 1.027 Invalid Interpretation Code 1.005-1.030 [facility] Comment on above: Performed By: #### 4 [id number] #### [facility] [address] [place] [address] Urobilinogen (U) [Mass/Vol] Negative Normal Negative [facility] Comment on above: Performed By: #### 4 [id number] #### [facility] [address] [place] [address] WBC Auto (Urine sed) [#/Area] 6-15 Abnormal 0-5 [facility] Comment on above: Performed By: #### 4 [id number] #### [facility] [address] [place] [address] URINALYSISOrdered By: SYSTEM SYSTEM on 02-29-2024 Bilirubin Ql (U) Negative Normal Negativemg/ d L [facility] UA Auto SS Clarity (U) Clear (02/29/24 12:30 AM) Normal Clear [facility] UA Auto SS Color (U) Light-Yellow 1 (02/29/24 12:30 AM) Normal Yellow [facility] UA Auto SS Comment on above: Interpretive Data: M icroscopic readings are only performed on those samples that meet specific criteria set forth by [facility]. Epithelial cells.squamous Auto (Urine sed) [#/Area] 0-2 graded/HPF Invalid Interpretation Code [facility] UA Auto SS Glucose Ql (U) 4+ mg/dL Invalid Interpretation Code Negativemg/d L [facility] UA Auto SS Hemoglobin Auto test strip (U) [Mass/Vol] 3+ mg/dL Invalid Interpretation Code Negativemg/d L [facility] UA Auto SS Ketones Auto test strip Ql (U) Negative Normal Negativemg/d L [facility] UA Auto SS Leukocyte esterase Auto test strip Ql (U) Negative Normal NegativeLeu/ uL [facility] UA Auto SS Mucus Auto Ql (U) Negative Normal Negativegr ad ed/LPF [facility] UA Auto SS Nitrite Auto test strip Ql (U) Negative Normal Negativemg/d L [facility] UA Auto SS pH (U) 6.0 *NA* (02/29/24 12:30 AM) Invalid Interpretation Code 5.0 - 9.0 [facility] UA Auto SS Protein Ql (U) Negative Normal Negativemg/d L [facility] UA Auto SS RBC Ql (U) >75 graded/HPF Invalid Interpretation Code 0-3graded/HP F [facility] UA Auto SS Specific gravity (U) [Rel density] 1.027 *NA* (02/29/24 12:30 AM) Invalid Interpretation Code 1.005 - 1.030 [facility] UA Auto SS Urobilinogen (U) [Mass/Vol] Negative Normal Negativemg/d L [facility] UA Auto SS WBC Auto (Urine sed) [#/Area] 6-15 graded/HPF Invalid Interpretation Code 0-5graded/HP F [facility] UA Auto SS URINALYSISOrdered By: Sweta Stout on 02-29-2024 UA Spec Desc Clean Catch (02/29/24 12:30 AM) Normal [facility] UA Auto SS XR Chest Single Viewon 02-28 XR Chest Single View Exam Date/Time: 02/29/2024 00:02 EDT Reason for Exam: Shortness of breath (SOB) Report IMPRESSION: NO ACUTE CARDIOPULMONARY DISEASE. CLINICAL HISTORY: Shortness of breath (SOB) COMPARISON: NONE. FINDINGS: Osseous structures are intact. Cardiopericardial silhouette is normal. Pulmonary vasculature is normal. Lungs are clear. Ordering Provider: Jemma Stout FINAL REPORT Dictated: 02/29/2024 8:20 am Benton Lea MD Signed (Electronic Signature): 02/29/2024 8:20 am Signed by: Benton Lea MD Transcribed by: BARRETT Technologist: WILDA Technical Comments Radiation Dose: Kar in mGy = na DAP = na Normal [facility] CHEMISTRYOrdered By: SYSTEM SYSTEM on 02-28-2024 Albumin [Mass/Vol] 4.1 g/dL Normal 3.3 - 5.0 gm/dL Remisol Chem Albumin/Globulin [Mass ratio] 1.2 {ratio} Normal 1.1 - 2.2 [facility] Chem ALP [Catalytic activity/Vol] 48 [iU]/d Normal 21 - 98 Int._Unit/L [facility] Chem ALT No additional P-5'-P [Catalytic activity/Vol] 19 [iU]/d Normal 6 - 46 Int._Unit/L [facility] Anion gap [Moles/Vol] 11 mmol/L Normal 6 - 16 mEq/L R emisol Chem AST [Catalytic activity/Vol] 14 [iU]/d Normal 5 - 43 Int._Unit/L [facility] Beta HB Qnt 0.13 mmol/L Normal 0.02 - 0.27 mmol/L [facility] Bilirubin [Mass/Vol] 0.3 mg/dL Normal 0.0 - 1 .1 mg/dL [facility] Bilirubin.direct [Mass/Vol] 0.1 mg/dL Normal 0.0 - 0.4 mg/dL [facility] Bilirubin.indirect [Mass or moles/Vol] 0.2 mg/dL Normal 0.1 - 0.9 mg/dL [facility] Calcium [Mass/Vol] 8.7 mg/dL Low 8.9 - 11. 1 mg/dL [facility] Chloride [Moles/Vol] 102 mmol/L Normal 101 - 1 11 mmol/L [facility] CO2 [Moles/Vol] 25 mmol/L Normal 21 - 31 mmol/L [facility] Creatinine [Mass/Vol] 0.5 mg/dL Normal 0.5 - 1.3 mg/dL [facility] eGFR 132 mL/min/1.73 m2 Normal >=59mL/mi n/1 .73 m2 [facility] Globulin (S) [Mass/Vol] 3.4 g/dL Normal 1.4 - 4.0 gm/dL [facility] Glucose [Mass/Vol] 233 mg/dL High 55 - 199 mg/dL [facility] Potassium [Moles/Vol] 3.6 mmol/L Normal 3.5 - 5.3 mmol/L [facility] Protein [Mass/Vol] 7.5 g/dL Normal 6.0 - 7.8 gm/dL [facility] Sodium [Moles/Vol] 134 mmol/L Low 135 - 145 mmol/L [facility] Troponin HS pg/mL Low 10.10 - 27.10 pg/mL [facility] Comment on above: Interpretive Data: T he 95% CI (Confidence Interval) PPV (Positive Predictive Value) for myocardial infarction in females is 38 pg/mL, in males 51 pg/mL. The results should be used in conjunction with clinical conditions of myocardial infarction. (Access High Sensitivity Troponin I Instructions For Use, Earle Gilda, December 2017) Urea nitrogen [Mass/Vol] 10 mg/dL Normal 5 - 21 mg/dL [facility] Urea nitrogen/Creatinine [Mass ratio] 20 mg/mg Normal 10 - 20 [facility] CHEMISTRYOrdered By: Keith adkinsolasio on 02-28-2024 HbA1c (Bld) [Mass fraction] 11.3 % High <=5.9% [facility] ChemAutoSS CHEMISTRYOrdered By: Lab ROP User on 02-28-2024 Glucose [Mass/Vol] 215 mg/dL High 55 - 99 mg/dL [facility] POC Subsection Comment on above: Result Comment: Tiffanie mendoza RN/ POC Device SN [id number] Invalid Interpretation Code [facility] [facility] Sub[place] POC User ID [id number] Invalid Interpretation Code [facility] Sub[place] POC Username TONY BARBOUR Invalid Interpretation Code [facility] Subsection FT Blood GasesOrdered By: Carlo Guzmán on 02-28-2024 Allens Test Not Applicable (02/28/24 11:47 PM) Normal [facility] Resp Auto SS Drawn by lab Invalid Interpretation Code [facility] [place] Auto SS FIO2 BG 21 1 Invalid Interpretation Code [facility] [place] Auto SS pCO2 Christofer 48.0 mm[Hg] Normal 38.0 - 50.0 mmHg [facility] [place] Auto SS pH (Bld) 7.327 [pH] Normal 7.320 - 7.430 [facility] [place] Auto SS Sample Site OTHER (02/28/24 11:47 PM) Normal [facility] [place] Auto SS Sample Type Venous Draw (02/28/24 11:47 PM) Normal [facility] Resp Auto SS HEMATOLOGYOrdered By: SYSTEM SYSTEM on 02-28-2024 Basophils/100 WBC (Bld) 0.9 % Normal 0.0 - 2.0 % Remisol Heme Basophils/Leukocytes Auto (Bld) [Pure # fraction] 0.1 E9/L Normal 0.0 - 0.2 E9/L Remisol Heme Eosinophils (Bld) [#/Vol] 0.3 E9/L Normal 0.0 - 0.5 E9/L Remisol Heme Eosinophils/100 WBC (Bld) 2.7 % Normal 0.0 - 8.0 % Remisol Heme Erythrocyte distribution width (RBC) [Ratio] 16.6 % High 10.9 - 14.2 % Remisol Heme Hematocrit (Bld) [Volume fraction] 36.9 % Normal 34.0 - 46.0 % Remisol Heme Hemoglobin (Bld) [Mass/Vol] 11.9 g/dL Low 12.0 - 16.0 gm/dL Remisol Heme Hypochromia Auto Ql (Bld) PRESENT *NA* (02/28/24 11:46 PM) Invalid Interpretation Code Remisol Heme Lymphocytes (Bld) [#/Vol] 3.9 E9/L Normal 1.0 - 4.0 E9/L Remisol Heme Lymphocytes/100 WBC (Bld) 36.7 % Normal 14.0 - 50.0 % Remisol Heme MCH (RBC) [Entitic mass] 20.8 pg Low 27.0 - 34.0 pg Remisol Heme MCHC (RBC) [Mass/Vol] 32.2 g/dL Normal 31.4 - 36.0 gm/dL Remisol Heme MCV (RBC) [Entitic vol] 64.6 fL Low 80.0 - 100.0 fL Remisol Heme Microcytes Ql (Bld) PRESENT *NA* (02/28/24 11:46 PM) Invalid Interpretation Code Remisol Heme Monocytes (Bld) [#/Vol] 0.7 E9/L Normal 0.2 - 1.0 E9/L Remisol Heme Monocytes/100 WBC (Bld) 6.6 % Normal 4.0 - 14.0 % Remisol Heme Neutrophils (Bld) [#/Vol] 5.7 E9/L Normal 2.0 - 7.5 E9/L Remisol Heme Neutrophils/100 WBC (Bld) 53.1 % Normal 36.0 - 75.0 % Remisol Heme Platelet 407.0 E9/L Normal 150.0 - 500.0 E9/L Remisol Heme Platelet mean volume (Bld) [Entitic vol] 8.1 fL Normal 6.4 - 10.8 fL Remisol Heme RBC (Bld) [#/Vol] 5.7 E12/L Normal 4.3 - 5.9 E12/L Remisol Heme RBC size Nom (Bld) SEE MORPHOLOGY *NA* (02/28/24 11:46 PM) Invalid Interpretation Code Remisol Heme WBC corrected for nucl RBC Auto (Bld) [#/Vol] 10.6 E9/L Normal 4.0 - 11.0 E9/L Remisol Heme SEROLOGYOrdered By: Keith guzman on 02-28-2024 Beta HCG ( test) Ql Negative (02/28/24 11:46 PM) Normal [facility] Man Sero UA with Cult Rflxon 02-28-20 Type of Urine collection method Clean Catch Normal [facility] Comment on above: Performed By: #### [id number] #### [facility] [address] [place] [address] Cytologyon 12-11-2023 Cytology Normal [facility] Comment on above: Result Comment: [facility] [address] [place] [address] Gynecologic Cytology Consultation Patient Name:DWAIN SINGHB:1995 (Age: 28)Gender:FTaken:4Reported:12/18/2023hysician(s):Margret Gabriel APRN-CNPCopy To: Rec. #:[id number]: #[id number] Final Cytologic Interpretation ThinPrep Pap Test (Cervical): Satisfactory for evaluation. A transformazion zone component is not identified via imaging-assisted review, using [facility] Thin Prep Imaging System, within 22 microscopic plaza of view. NEGATIVE FOR INTRAEPITHELIAL LESION OR MALIGNANCY. pjt/12/18/2023 [facility] [address] [place] [address], License number: [id number]. Electronically Signed Out By ROBYN Maher(ASCP) Date of Last Menstrual Period: 11/27/23 Other Clinical Conditions: Z01.419 Compensation And Benefits Analyst exam wo/abn findings Source of Specimen ThinPrep Pap Test (Cervical) Thin Prep Pap (SLAB LIFTING ENGINEER) Fee Code(s): G0145 The Pap test is a screening test with an inherent, but low, probability of error. The Pap test is primarily effective for the diagnosis and prevention of squamous cell carcinoma. Regular screening is critical for prevention. ThinPrep liquid-based slides, which meet the Senior Application Software Engineer criteria for automated screening, have been screened by the ThinPrep Imaging System (as of 01/27/07) along with an additional manual rescreening by a school childcare attendant and, if indicated, by a pathologist. Vital Signs Date Time Vital Sign Value Performing Clinician Faci lity 02-29-2024 01:29-0400 Heart rate 89 /min Jemma Whitmoreen [facility] 02-29-2024 01:29-0400 Respiratory rate 16 /min Swetan Dokken [facility] 02-29-2024 01:29-0400 SaO2% (BldA) [Mass fraction] 99 % Roldaninn Dokelseyen [facility] 02-28-2024 23:47-0400 SaO2% (BldA) [Mass fraction] 65.4 % Swetan kken [facility] [place] Auto SS 02-28-2024 22:58-0400 Body temperature 98.06 [degF] Jemma Stout [facility] 02-28-2024 22:58-0400 Diastolic blood pressure 79 mm[Hg] Swetan Myrandaen [facility] 02-28-2024 22:58-0400 Heart rate 77 /min Swetan kken [facility] 02-28-2024 22:58-0400 Respiratory rate 18 /min Jemma Whitmoreen [facility] 02-28-2024 22:58-0400 SaO2% (BldA) [Mass fraction] 99 % Jemma Whitmoreen [facility] 02-28-2024 22:58-0400 Systolic blood pressure 122 mm[Hg] Swetan kken [facility] Encounters Encounter Date Encounter Type Care Provider Facility Start: 02-28-2024 End: 02-29-2024 Emergency department patient visit Jemma Stout [facility] Start: 01-07-2024 ambulatory Oscar Claudio acility:[facility] Start: 12-11-2023 End: 12-11-2023 ambulatory [facility] Start: 12-11-2023 Encounter for gynecological examination (general) (routine) without abnormal findings [facility] Start: 12-11-2023 End: 12-11-2023 ambulatory [facility] Siddhartha [facility] Start: 12-11-2023 Encounter for gynecological examination (general) (routine) without abnormal findings [facility] Payers Date Payer Category Payer Self-pay 2023 Unknown [id number] 1995 Unknown [id number] [id number] 1995 Unknown [id number] [id number] [id number] 1995 Unknown [id number] [id number] [id number] 1995 Unknown [id number] [id number] [id number] Unknown [id number] [id number] [id number] Social History Date Type Detail Facility Tobacco smoking status No Smoking Status Entered [facility] Sex Assigned At Female [facility] Functional Status Date Assessment Result Facility 02-28-2024 Functional Status N/A [facility] Discharge instructions 02-29-2024 Note Date & Type Note Facility 02-29-2024 Hospital Discharg e instructions Patient Education 02/29/2024 01:50:28 Type 2 Diabetes Mellitus, Diagnosis, Adult Type 2 Diabetes Mellitus, Diagnosis, Adult Type 2 diabetes (type 2 diabetes mellitus) is a long-term, or chronic, disease. In type 2 diabetes, one or both of these problems may be present: The pancreas does not make enough of a hormone called insulin. Cells in the body do not respond properly to the insulin that the body makes (insulin resistance). Normally, insulin allows blood sugar (glucose) to enter cells in the body. The cells use glucose for energy. Insulin resistance or lack of insulin causes excess glucose to build up in the blood instead of going into cells. This causes high blood glucose (hyperglycemia). What are the causes? The exact cause of type 2 diabetes is not known. What increases the risk? The following factors may make you more likely to develop this condition: Having a family member with type 2 diabetes. Being overweight or obese. Being inactive (sedentary). Having been diagnosed with insulin resistance. Having a history of prediabetes, diabetes when you were (gestational diabetes), or polycystic ovary syndrome (PCOS). What are the signs or symptoms? In the early stage of this condition, you may not have symptoms. Symptoms develop slowly and may include: Increased thirst or hunger. Increased urination. Unexplained weight loss. Tiredness (fatigue) or weakness. Vision changes, such as blurry vision. Dark patches on the skin. How is this diagnosed? This condition is diagnosed based on your symptoms, your medical history, a physical exam, and your blood glucose level. Your blood glucose may be checked with one or more of the following blood tests: A fasting blood glucose (FBG) test. You will not be allowed to eat (you will fast) for 8 hours or longer before a blood sample is taken. A random blood glucose test. This test checks blood glucose at any time of day regardless of when you ate. An A1C (hemoglobin A1C) blood test. This test provides information about blood glucose levels over the previous 2 3 months. An oral glucose tolerance test (OGTT). This test measures your blood glucose at two times: ?After fasting. This is your baseline blood glucose level. ?Two hours after drinking a beverage that contains glucose. You may be diagnosed with type 2 diabetes if: Your fasting blood glucose level is 126 mg/dL (7.0 mmol/L) or higher. Your random blood glucose level is 200 mg/dL (11.1 mmol/L) or higher. Your A1C level is 6.5% or higher. Your oral glucose tolerance test result is higher than 200 mg/dL (11.1 mmol/L). These blood tests may be repeated to confirm your diagnosis. How is this treated? Your treatment may be managed by a specialist called an computer clerk. Type 2 diabetes may be treated by following instructions from your health care provider about: Making dietary and lifestyle changes. These may include: ?Following a personalized nutrition plan that is developed by a registered dietitian. ?Exercising regularly. ?Finding ways to manage stress. Checking your blood glucose level as often as told. Taking diabetes medicines or insulin daily. This helps to keep your blood glucose levels in the healthy range. Taking medicines to help prevent complications from diabetes. Medicines may include: ?Aspirin. ?Medicine to lower cholesterol. ?Medicine to control blood pressure. Your health care provider will set treatment goals for you. Your goals will be based on your age, other medical conditions you have, and how you respond to diabetes treatment. Generally, the goal of treatment is to maintain the following blood glucose levels: Before meals: 80 130 mg/dL (4.4 7.2 mmol/L). After meals: below 180 mg/dL (10 mmol/L). A1C level: less than 7%. Follow these instructions at home: Questions to ask your health care provider Consider asking the following questions: Should I meet with a certified diabetes care and educational manager? What diabetes medicines do I need, and when should I take them? What equipment will I need to manage my diabetes at home? How often do I need to check my blood glucose? Where can I find a support group for people with diabetes? What number can I call if I have questions? When is my next appointment? General instructions Take ywmo-wbl-yaujfsb and prescription medicines only as told by your health care provider. Keep all follow-up visits. This is important. Where to find more information For help and guidance and for more information about diabetes, please visit: [place] Diabetes Association (ADA): www.diabetes.org [place] Association of Diabetes Care and Education Specialists (ADCES): www.diabeteseducator.org International Diabetes Federation (IDF): www.idf.org Contact a health care provider if: Your blood glucose is at or above 240 mg/dL (13.3 mmol/L) for 2 days in a row. You have been sick or have had a fever for 2 days or longer, and you are not getting better. You have any of the following problems for more than 6 hours: ?You cannot eat or drink. ?You have nausea and vomiting. ?You have diarrhea. Get help right away if: You have severe hypoglycemia. This means your blood glucose is lower than 54 mg/dL (3.0 mmol/L). You become confused or you have trouble thinking clearly. You have difficulty breathing. You have moderate or large ketone levels in your urine. These symptoms may represent a serious problem that is an emergency. Do not wait to see if the symptoms will go away. Get medical help right away. Call your local emergency services (911 in the [place] Do not drive yourself to the hospital. Summary Type 2 diabetes mellitus is a long-term, or chronic, disease. In type 2 diabetes, the pancreas does not make enough of a hormone called insulin, or cells in the body do not respond properly to insulin that the body makes. This condition is treated by making dietary and lifestyle changes and taking diabetes medicines or insulin. Your health care provider will set treatment goals for you. Your goals will be based on your age, other medical conditions you have, and how you respond to diabetes treatment. Keep all follow-up visits. This is important. This information is not intended to replace advice given to you by your health care provider. Make sure you discuss any questions you have with your health care provider. Document Revised: 07/24/2021 Document Reviewed: 07/24/2021 [employer] Patient Education 2023 [email or web address] 02/29/2024 01:50:28 Diabetes Mellitus Basics Diabetes Mellitus Basics Diabetes mellitus, or diabetes, is a long-term (chronic) disease. It occurs when the body does not properly use sugar (glucose) that is released from food after you eat. Diabetes mellitus may be caused by one or both of these problems: Your pancreas does not make enough of a hormone called insulin. Your body does not react in a normal way to the insulin that it makes. Insulin lets glucose enter cells in your body. This gives you energy. If you have diabetes, glucose cannot get into cells. This causes high blood glucose (hyperglycemia). How to treat and manage diabetes You may need to take insulin or other diabetes medicines daily to keep your glucose in balance. If you are prescribed insulin, you will learn how to give yourself insulin by injection. You may need to adjust the amount of insulin you take based on the foods that you eat. You will need to check your blood glucose levels using a glucose monitor as told by your health care provider. The readings can help determine if you have low or high blood glucose. Generally, you should have these blood glucose levels: Before meals (preprandial): 80 130 mg/dL (4.4 7.2 mmol/L). After meals (postprandial): below 180 mg/dL (10 mmol/L). Hemoglobin A1c (HbA1c) level: less than 7%. Your health care provider will set treatment goals for you. Keep all follow-up visits. This is important. Follow these instructions at home: Diabetes medicines Take your diabetes medicines every day as told by your health care provider. List your diabetes medicines here: Name of medicine: ?Amount (dose): Time (a.m./p.m.): Notes: Name of medicine: ?Amount (dose): Time (a.m./p.m.): Notes: Name of medicine: ?Amount (dose): Time (a.m./p.m.): Notes: Insulin If you use insulin, list the types of insulin you use here: Insulin type: ?Amount (dose): Time (a.m./p.m.): Notes: Insulin type: ?Amount (dose): Time (a.m./p.m.): Notes: Insulin type: ?Amount (dose): Time (a.m./p.m.): Notes: Insulin type: ?Amount (dose): Time (a.m./p.m.): Notes: Insulin type: ?Amount (dose): Time (a.m./p.m.): Notes: Managing blood glucose Check your blood glucose levels using a glucose monitor as told by your health care provider. Write down the times that you check your glucose levels here: Time: Notes: Time: Notes: Time: Notes: Time: Notes: Time: Notes: Time: Notes: Low blood glucose Low blood glucose (hypoglycemia) is when glucose is at or below 70 mg/dL (3.9 mmol/L). Symptoms may include: Feeling: ?Hungry. ?Sweaty and clammy. ?Irritable or easily upset. ?Dizzy. ?Sleepy. Having: ?A fast heartbeat. ?A headache. ?A change in your vision. ?Numbness around the mouth, lips, or tongue. Having trouble with: ?Moving (coordination). ?Sleeping. Treating low blood glucose To treat low blood glucose, eat or drink something containing sugar right away. If you can think clearly and swallow safely, follow the 15:15 rule: Take 15 grams of a fast-acting carb (carbohydrate), as told by your health care provider. Some fast-acting carbs are: ?Glucose tablets: take 3 4 tablets. ?Hard candy: eat 3 5 pieces. ?Fruit juice: drink 4 oz (120 mL). ?Regular (not diet) soda: drink 4 6 oz (120 180 mL). ?Honey or sugar: eat 1 Tbsp (15 mL). Check your blood glucose levels 15 minutes after you take the carb. If your glucose is still at or below 70 mg/dL (3.9 mmol/L), take 15 grams of a carb again. If your glucose does not go above 70 mg/dL (3.9 mmol/L) after 3 tries, get help right away. After your glucose goes back to normal, eat a meal or a snack within 1 hour. Treating very low blood glucose If your glucose is at or below 54 mg/dL (3 mmol/L), you have very low blood glucose (severe hypoglycemia). This is an emergency. Do not wait to see if the symptoms will go away. Get medical help right away. Call your local emergency services (911 in the [place] Do not drive yourself to the hospital. Questions to ask your health care provider Should I talk with a primary special educator? What equipment will I need to care for myself at home? What diabetes medicines do I need? When should I take them? How often do I need to check my blood glucose levels? What number can I call if I have questions? When is my follow-up visit? Where can I find a support group for people with diabetes? Where to find more information [place] Diabetes Association: www.diabetes.org Association of Diabetes Care and Education Specialists: www.diabeteseducator.org Contact a health care provider if: Your blood glucose is at or above 240 mg/dL (13.3 mmol/L) for 2 days in a row. You have been sick or have had a fever for 2 days or more, and you are not getting better. You have any of these problems for more than 6 hours: ?You cannot eat or drink. ?You feel nauseous. ?You vomit. ?You have diarrhea. Get help right away if: Your blood glucose is lower than 54 mg/dL (3 mmol/L). You get confused. You have trouble thinking clearly. You have trouble breathing. These symptoms may represent a serious problem that is an emergency. Do not wait to see if the symptoms will go away. Get medical help right away. Call your local emergency services (911 in the [place] Do not drive yourself to the hospital. Summary Diabetes mellitus is a chronic disease that occurs when the body does not properly use sugar (glucose) that is released from food after you eat. Take insulin and diabetes medicines as told. Check your blood glucose every day, as often as told. Keep all follow-up visits. This is important. This information is not intended to replace advice given to you by your health care provider. Make sure you discuss any questions you have with your health care provider. Document Revised: 08/30/2020 Document Reviewed: 08/30/2020 [employer] Patient Education 2023 [email or web address] 02/29/2024 01:50:28 Diabetes Mellitus and Nutrition, Adult Diabetes Mellitus and Nutrition, Adult When you have diabetes, or diabetes mellitus, it is very important to have healthy eating habits because your blood sugar (glucose) levels are greatly affected by what you eat and drink. Eating healthy foods in the right amounts, at about the same times every day, can help you: Manage your blood glucose. Lower your risk of heart disease. Improve your blood pressure. Reach or maintain a healthy weight. What can affect my meal plan? Every person with diabetes is different, and each person has different needs for a meal plan. Your health care provider may recommend that you work with a dietitian to make a meal plan that is best for you. Your meal plan may vary depending on factors such as: The calories you need. The medicines you take. Your weight. Your blood glucose, blood pressure, and cholesterol levels. Your activity level. Other health conditions you have, such as heart or kidney disease. How do carbohydrates affect me? Carbohydrates, also called carbs, affect your blood glucose level more than any other type of food. Eating carbs raises the amount of glucose in your blood. It is important to know how many carbs you can safely have in each meal. This is different for every person. Your dietitian can help you calculate how many carbs you should have at each meal and for each snack. How does alcohol affect me? Alcohol can cause a decrease in blood glucose (hypoglycemia), especially if you use insulin or take certain diabetes medicines by mouth. Hypoglycemia can be a life-threatening condition. Symptoms of hypoglycemia, such as sleepiness, dizziness, and confusion, are similar to symptoms of having too much alcohol. Do not drink alcohol if: ?Your health care provider tells you not to drink. ?You are , may be , or are planning to become . If you drink alcohol: ?Limit how much you have to: ?0 1 drink a day for women. ?0 2 drinks a day for men. ?Know how much alcohol is in your drink. In the [place] one drink equals one 12 oz bottle of beer (355 mL), one 5 oz glass of wine (148 mL), or one 1 oz glass of hard liquor (44 mL). ?Keep yourself hydrated with water, diet soda, or unsweetened iced tea. Keep in mind that regular soda, juice, and other mixers may contain a lot of sugar and must be counted as carbs. What are tips for following this plan? Reading food labels Start by checking the serving size on the Nutrition Facts label of packaged foods and drinks. The number of calories and the amount of carbs, fats, and other nutrients listed on the label are based on one serving of the item. Many items contain more than one serving per package. Check the total grams (g) of carbs in one serving. Check the number of grams of saturated fats and trans fats in one serving. Choose foods that have a low amount or none of these fats. Check the number of milligrams (mg) of salt (sodium) in one serving. Most people should limit total sodium intake to less than 2,300 mg per day. Always check the nutrition information of foods labeled as low-fat or nonfat. These foods may be higher in added sugar or refined carbs and should be avoided. Talk to your dietitian to identify your daily goals for nutrients listed on the label. Shopping Avoid buying canned, pre-made, or processed foods. These foods tend to be high in fat, sodium, and added sugar. Shop around the outside edge of the grocery store. This is where you will most often find fresh fruits and vegetables, bulk grains, fresh meats, and fresh dairy products. Cooking Use low-heat cooking methods, such as baking, instead of high-heat cooking methods, such as deep frying. Cook using healthy oils, such as olive, canola, or sunflower oil. Avoid cooking with butter, cream, or high-fat meats. Meal planning Eat meals and snacks regularly, preferably at the same times every day. Avoid going long periods of time without eating. Eat foods that are high in fiber, such as fresh fruits, vegetables, beans, and whole grains. Eat 4 6 oz (112 168 g) of lean protein each day, such as lean meat, chicken, fish, eggs, or tofu. One ounce (oz) (28 g) of lean protein is equal to: ?1 oz (28 g) of meat, chicken, or fish. ?1 egg. ? cup (62 g) of tofu. Eat some foods each day that contain healthy fats, such as avocado, nuts, seeds, and fish. What foods should I eat? Fruits Berries. Apples. Oranges. Peaches. Apricots. Plums. Grapes. Mangoes. Papayas. Pomegranates. Kiwi. Cherries. Vegetables Leafy greens, including lettuce, spinach, kale, chard, cesar greens, mustard greens, and cabbage. Beets. Cauliflower. Broccoli. Carrots. Green beans. Tomatoes. Peppers. Onions. Cucumbers. [place]st sprouts. Grains Whole grains, such as whole-wheat or whole-grain bread, crackers, tortillas, cereal, and pasta. Unsweetened oatmeal. Quinoa. Brown or wild rice. Meats and other proteins Seafood. Poultry without skin. Lean cuts of poultry and beef. Tofu. Nuts. Seeds. Dairy Low-fat or fat-free dairy products such as milk, yogurt, and cheese. The items listed above may not be a complete list of foods and beverages you can eat and drink. Contact a dietitian for more information. What foods should I avoid? Fruits Fruits canned with syrup. Vegetables Canned vegetables. Frozen vegetables with butter or cream sauce. Grains Refined white flour and flour products such as bread, pasta, snack foods, and cereals. Avoid all processed foods. Meats and other proteins Fatty cuts of meat. Poultry with skin. Breaded or fried meats. Processed meat. Avoid saturated fats. Dairy Full-fat yogurt, cheese, or milk. Beverages Sweetened drinks, such as soda or iced tea. The items listed above may not be a complete list of foods and beverages you should avoid. Contact a dietitian for more information. Questions to ask a health care provider Do I need to meet with a certified diabetes care and educational manager? Do I need to meet with a dietitian? What number can I call if I have questions? When are the best times to check my blood glucose? Where to find more information: Spanish Diabetes Association: diabetes.org Academy of Nutrition and Dietetics: eatright.org National [place] of Diabetes and Digestive and Kidney Diseases: niddk.nih.gov Association of Diabetes Care & Education Specialists: diabeteseducator.org Summary It is important to have healthy eating habits because your blood sugar (glucose) levels are greatly affected by what you eat and drink. It is important to use alcohol carefully. A healthy meal plan will help you manage your blood glucose and lower your risk of heart disease. Your health care provider may recommend that you work with a dietitian to make a meal plan that is best for you. This information is not intended to replace advice given to you by your health care provider. Make sure you discuss any questions you have with your health care provider. Document Revised: 11/30/2020 Document Reviewed: 11/30/2020 [employer] Patient Education 2023 [email or web address]. Follow Up Care 02/28/2024 22:56:06 With:Lilian Gomez Address: [address], [address] [address] Business (1) When:03/03/2024 Comments:Take the metformin twice a day. Please follow-up with your primary care doctor for further evaluation management. Please return to the ED for any new or worsening symptoms. With:XXXX NONE Address: [place] When:Within 3 Day(s) [facility] Clinical Note 02-29-2024 Note Date & Type Note Facility 02-29-2024 Note ED Patient Education Note Endocrinology Type 2 Diabetes Mellitus, Diagnosis, Adult Type 2 diabetes (type 2 diabetes mellitus) is a long-term, or chronic, disease. In type 2 diabetes, one or both of these problems may be present: ? The pancreas does not make enough of a hormone called insulin. ? Cells in the body do not respond properly to the insulin that the body makes (insulin resistance). Normally, insulin allows blood sugar (glucose) to enter cells in the body. The cells use glucose for energy. Insulin resistance or lack of insulin causes excess glucose to build up in the blood instead of going into cells. This causes high blood glucose (hyperglycemia). What are the causes? The exact cause of type 2 diabetes is not known. What increases the risk? The following factors may make you more likely to develop this condition: ? Having a family member with type 2 diabetes. ? Being overweight or obese. ? Being inactive (sedentary). ? Having been diagnosed with insulin resistance. ? Having a history of prediabetes, diabetes when you were (gestational diabetes), or polycystic ovary syndrome (PCOS). What are the signs or symptoms? In the early stage of this condition, you may not have symptoms. Symptoms develop slowly and may include: ? Increased thirst or hunger. ? Increased urination. ? Unexplained weight loss. ? Tiredness (fatigue) or weakness. ? Vision changes, such as blurry vision. ? Dark patches on the skin. How is this diagnosed? This condition is diagnosed based on your symptoms, your medical history, a physical exam, and your blood glucose level. Your blood glucose may be checked with one or more of the following blood tests: ? A fasting blood glucose (FBG) test. You will not be allowed to eat (you will fast) for 8 hours or longer before a blood sample is taken. ? A random blood glucose test. This test checks blood glucose at any time of day regardless of when you ate. ? An A1C (hemoglobin A1C) blood test. This test provides information about blood glucose levels over the previous 2?3 months. ? An oral glucose tolerance test (OGTT). This test measures your blood glucose at two times: ? After fasting. This is your baseline blood glucose level. ? Two hours after drinking a beverage that contains glucose. You may be diagnosed with type 2 diabetes if: ? Your fasting blood glucose level is 126 mg/dL (7.0 mmol/L) or higher. ? Your random blood glucose level is 200 mg/dL (11.1 mmol/L) or higher. ? Your A1C level is 6.5% or higher. ? Your oral glucose tolerance test result is higher than 200 mg/dL (11.1 mmol/L). These blood tests may be repeated to confirm your diagnosis. How is this treated? Your treatment may be managed by a specialist called an computer clerk. Type 2 diabetes may be treated by following instructions from your health care provider about: ? Making dietary and lifestyle changes. These may include: ? Following a personalized nutrition plan that is developed by a registered dietitian. ? Exercising regularly. ? Finding ways to manage stress. ? Checking your blood glucose level as often as told. ? Taking diabetes medicines or insulin daily. This helps to keep your blood glucose levels in the healthy range. ? Taking medicines to help prevent complications from diabetes. Medicines may include: ? Aspirin. ? Medicine to lower cholesterol. ? Medicine to control blood pressure. Your health care provider will set treatment goals for you. Your goals will be based on your age, other medical conditions you have, and how you respond to diabetes treatment. Generally, the goal of treatment is to maintain the following blood glucose levels: ? Before meals: 80?130 mg/dL (4.4?7.2 mmol/L). ? After meals: below 180 mg/dL (10 mmol/L). ? A1C level: less than 7%. Follow these instructions at home: Questions to ask your health care provider Consider asking the following questions: ? Should I meet with a certified diabetes care and educational manager? ? What diabetes medicines do I need, and when should I take them? ? What equipment will I need to manage my diabetes at home? ? How often do I need to check my blood glucose? ? Where can I find a support group for people with diabetes? ? What number can I call if I have questions? ? When is my next appointment? General instructions ? Take itnn-sjw-qhrbikq and prescription medicines only as told by your health care provider. ? Keep all follow-up visits. This is important. Where to find more information For help and guidance and for more information about diabetes, please visit: ? [place] Diabetes Association (ADA): www.diabetes.org ? [place] Association of Diabetes Care and Education Specialists (ADCES): www.diabeteseducator.org ? International Diabetes Federation (IDF): www.idf.org Contact a health care provider if: ? Your blood glucose is at o (more content not included)... [facility] Evaluation + Plan note 02-28-2024 Note Date & Type Note Facility 02-28-2024 Evaluation + Plan note Extrac kit from: Title:ED Note Author:Jemma Stout DO Date :02/28/24 Diabetes (E11.9: Type 2 diab etes mellitus without complications) Orders: metformin, 1,000 mg = 2 tab(s), Tab, Oral, Once, Stop date 02/29/24 0:49:00 EDT, STAT, Start date 02/29/24 0:49:00 EDT, 02/29/24 0:49:00 EDT metformin, 1,000 mg = 1 tab(s), Oral, BID, # 28 tab(s), Refills(s) 0, Pharmacy: [facility]/pharmacy #[id number], 162, cm, 02/28/24 23:04:00 EDT, Height/Length Dosing, 64.3, kg, 02/28/24 23:04:00 EDT, Weight Dosing Basic Metabolic Panel Beta hCG Qual Beta-hydroxybutyrate Blood Gas Christofer CBC w/ Auto Diff ECG 12 Lead Adult ED Cardiac Monitoring eGFR Extra Blue Tube Hepatic Function Panel HgbA1c Routine Capillary Glucose POC Troponin UA with Cult Rflx Urine Culture XR Chest Single View Diagnostic Tests Pending * Urine Culture 02/29/24 [facility] Hospital course Narrative Note Date & Type Note Facility Hospital course Narrative No data available for this section [facility] Progress note Note Date & Type Note Facility Progress note No data available for this section [facility] Summary Purpose Family History No Family History Records FoundNo Family History Records FoundNo Family History Records Found No data available for this section No Family History Records FoundNo Family History Records Found Advance Directives No Advanced Directives Records FoundNo Advanced Directives Records FoundNo Advanced Directives Records FoundNo Advanced Directives Records FoundNo Advanced Directives Records Found Additional Source Comments INFORMATION SOURCE (unrecogn ized section and content) DATE CREATED AUTHOR 12/13/2023 [facility] DATE CREATED AUTHOR AUTHOR'S ORGANIZ ATION 12/21/2023 [facility] DATE CREATED AUTHOR AUTHOR'S ORGANIZ ATION 01/15/2024 [facility] DATE CREATED AUTHOR AUTHOR'S ORGANIZ ATION 03/02/2024 [place] DATE CREATED AUTHOR AUTHOR'S ORGANIZ ATION 03/03/2024 [place] FOR RECORDS PERTAINING TO PATIENTS WHO ARE [...] BE BASED ON THE PRIMARY CLINICAL RECORDS. [facility] Fwd: [employer] provides no warranty or guarantee of the accuracy or completeness of information in this document.
--- NOTE | 2024-03-04 15:30 | ECG_ITS ---
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
[2024-03-04 15:33] LABS: Glucometer 134 mg/dL (74-106)
--- NOTE | 2024-03-04 15:39 | ED.GENADUL1 ---
HPI HPI - General Adult General Chief complaint: Chest Pain Stated complaint: Dizziness Time Seen by Provider: 03/04/24 15:28 Source: patient and friend Mode of arrival: walk-in Limitations: no limitations History of Present Illness HPI narrative: Patient is a 28-year-old female who presents to the emergency department for a 2-hour history of dizziness that she describes as both a sensation of spinning and lightheadedness. She further complains of intermittent left anterior chest pain as well as shortness of breath and generalized weakness. She denies any syncopal episodes, she is able to ambulate. She denies fevers, chills, cough, congestion. She denies abdominal pain, nausea, vomiting, or peripheral edema. She denies a possibility of . She was started on metformin last week for an elevated hemoglobin A1c. Related Data Home Medications ?Medication ?Instructions ?Recorded ?Confirmed methylprednisolone 4 mg tablets in 4 mg PO DAILY 04/12/23 04/12/23 a dose pack (Medrol (Duong)) metformin 1,000 mg tablet 1,000 mg PO BID 03/04/24 03/04/24 Previous Rx's ?Medication ?Instructions ?Recorded methocarbamol 750 mg tablet 750 mg PO Q6H pain #30 tabs 05/03/23 nabumetone 750 mg tablet 750 mg PO BID PRN pain #14 tabs 05/03/23 cephalexin 500 mg capsule 500 mg PO Q8H 7 days #21 caps 03/04/24 meclizine 25 mg chewable tablet 25 mg PO QID PRN dizziness #12 tabs 03/04/24 (Antivert) ondansetron 4 mg disintegrating 4 mg PO Q6H PRN nausea and 03/04/24 tablet vomiting #12 tabs Allergies Allergy/AdvReac Type Severity Reaction Status Date / Time No Known Drug Allergies Allergy Verified 05/02/23 22:52 Opioid HPI Opioid Management Most Recent Opioid Data: Last Pain Scale 8 03/04/24 16:43 03/04/24 Last ED Pain Assessment 03/04/24 16:43 Ur Phencyclidine Scrn Negative (NEGATIVE) 12/11/23 16:59 12/11/23 Review of Systems ROS Constitutional Denies: fever or chills Ears, nose, mouth, and throat Denies: throat pain or nasal congestion Cardiovascular Reports: chest pain Respiratory Reports: shortness of breath Gastrointestinal Denies: abdominal pain, nausea or vomiting Genitourinary Denies: painful urination Integumentary/Breast Denies: rash Neurological Reports: dizziness; Denies: numbness in extremities or weakness in extremities Hematologic/Lymphatic Denies: easy bruising or easy bleeding PFSH PFSH Social History Smoking status: Never smoker Little interest or pleasure in doing things: not at all Feeling down, depressed, or hopeless: not at all Exam Narrative Exam Narrative: Gen.: Awake, alert, in no distress Head: Normocephalic, atraumatic ENT: Moist mucous membranes Respiratory: No respiratory distress, lungs clear bilaterally Cardio: Regular rate and rhythm Gastrointestinal: Abdomen is soft, nondistended and nontender to palpation Extremities: Moves extremities equally, no pedal edema Psych: Flat affect Neuro: No focal neuro deficit Skin: Warm, dry, intact Constitutional Vital Signs, click to edit/add: Last Vital Signs Temp 98.7 F 03/04/24 15:23 Pulse 90 03/04/24 15:23 Resp 18 03/04/24 15:23 BP 114/88 03/04/24 15:23 Pulse Ox 100 03/04/24 15:46 O2 Del Method Room Air 03/04/24 15:46 Course Vital Signs Vital signs: Vital Signs Temperature 98.7 F 03/04/24 15:23 Pulse Rate 90 03/04/24 15:23 Respiratory Rate 18 03/04/24 15:23 Blood Pressure 114/88 03/04/24 15:23 Pulse Oximetry 99 03/04/24 15:23 Oxygen Delivery Method Room Air 03/04/24 15:23 Temperature 98.7 F 03/04/24 15:23 Pulse Rate 90 03/04/24 15:23 Respiratory Rate 18 03/04/24 15:23 Blood Pressure 114/88 03/04/24 15:23 Pulse Oximetry 100 03/04/24 15:46 Oxygen Delivery Method Room Air 03/04/24 15:46 Medical Decision Making MDM Narrative Medical decision making narrative: CT of the brain, chest x-ray are unremarkable and lab studies including D-dimer and troponin are within normal limits. Patient found to have mild urinary tract infection. She was given IV fluids, Antivert in the ER and tolerated crackers and water with no difficulty. She is discharged home with Keflex, Antivert and Zofran. Work note provided and return to the ER if symptoms change or worsen. SUPERVISED APC VISIT, PHYSICIAN ATTESTATION: Based on the medical record the care appears appropriate. ? Medical Records Medical records reviewed: Yes I reviewed the patient's medical records Lab Data Lab results reviewed: Yes I reviewed the patient's lab results Labs: Lab Results 03/04/24 03/04/24 03/04/24 Range/Units 15:30 15:43 16:25 WBC 10.3 (4.0-11.0) 10^3/uL RBC 5.51 H (4.20-5.40) 10^6/uL Hgb 11.2 L (12.0-16.0) g/dL Hct 37.0 (36.0-48.0) % MCV 67.2 L (81.0-99.0) fL MCH 20.3 L (26.7-34.0) pg MCHC 30.3 (29.9-35.2) g/dL RDW 15.6 H (11.0-15.0) % Plt Count 457 H (150-450) 10^3/uL MPV 9.7 (9.5-13.5) fL Neut % (Auto) 51.7 (43.0-75.0) % Lymph % (Auto) 38.9 (20.5-60.0) % [place] % (Auto) 6.4 (1.7-12.0) % Eos % (Auto) 1.9 (0.9-7.0) % Baso % (Auto) 0.9 (0.2-2.0) % Neut # (Auto) 5.3 (1.4-6.5) 10^3/uL Lymph # (Auto) 4.0 H (1.2-3.8) 10^3/uL [place] # (Auto) 0.7 (0.3-0.8) 10^3/uL Eos # (Auto) 0.2 (0.0-0.7) 10^3/uL Baso # (Auto) 0.1 (0.0-0.1) 10^3/uL Abs Immat Gran (auto) 0.02 (0.00-0.03) 10^3/uL Imm/Tot Granulo (auto) 0.2 (0.0-0.5) % PT 10.6 (9.0-11.6) sec INR 1.00 D-Dimer <0.19 (<=0.59) mg/L FEU Sodium 138 (136-145) mmol/L Potassium 3.6 (3.5-5.1) mmol/L Chloride 101 (98-107) mmol/L Carbon Dioxide 25.1 (21.0-32.0) mmol/L Anion Gap 15.5 BUN 7.0 (7.0-18.0) mg/dL Creatinine 0.66 (0.55-1.02) mg/dL Est GFR ( Amer) >60 (>=60 mL/min/1.73m^2) Est GFR (Non-Af Amer) >60 (>=60 mL/min/1.73m^2) BUN/Creatinine Ratio 10.6 Glucose 134 H (74-106) mg/dL Lactate 1.9 (0.4-2.0) mmol/L Calcium 9.1 (8.5-10.1) mg/dL Total Bilirubin 0.4 (0.2-1.0) mg/dL AST 20 (15-37) U/L ALT 30 (14-59) U/L Alkaline Phosphatase 53 (46-116) U/L Troponin I High Sens <4.0 L (4.0-51.3) pg/mL Total Protein 8.1 (6.4-8.2) g/dL Albumin 3.8 (3.4-5.0) g/dL Globulin 4.3 g/dL Albumin/Globulin Ratio 0.9 TSH 3.265 (0.358-3.740) uIU/mL Serum HCG, Qual Negative (NEGATIVE) Urine Color Lt yellow (YELLOW) Urine Clarity Clear (CLEAR) Urine pH 5.5 (5.0-9.0) Ur Specific [place] <=1.005 A (1.005-1.025) Urine Protein Negative (NEG/TRACE) mg/dL Urine Glucose (UA) Negative (NEGATIVE) mg/dL Urine Ketones Negative (NEGATIVE) mg/dL Urine Occult Blood Small A (NEGATIVE) Urine Nitrite Negative (NEGATIVE) Urine Bilirubin Negative (NEGATIVE) Urine Urobilinogen 0.2 (0.2-1.0) EU/dL Ur Leukocyte Esterase Small A (NEGATIVE) Urine RBC 2-5 A (0-2) #/HPF Urine WBC 2-5 A (NONE SEEN) #/HPF Ur Squamous Epith Cells Few A (NONE/RARE) #/LPF Urine Crystals None seen (None Seen) #/HPF Urine Bacteria Small A (NONE SEEN) #/HPF Urine Casts None seen (NONE SEEN) #/LPF Urine Mucus None seen (NONE SEEN) Ur Culture Indicated? Yes POC Glucose 134 H (74-106) mg/dL Imaging Data CT scan - head: Attestation: I have reviewed the pertinent imaging results. Radiologist's impression: ITS Impressions Chest X-Ray 03/04/24 16:52 IMPRESSION: No acute abnormality identified. Electronically authenticated by: Kyra WU Date: 03/04/2024 17:[address] 03/04/24 16:54 IMPRESSION: No acute intracranial abnormality identified. Electronically authenticated by: Kyra WU Date: 03/04/2024 17:30 ECG Data Attestation: I personally reviewed and interpreted this ECG as follows: (Normal sinus rhythm at a rate of 89 with occasional PVC, no acute ST elevation. EKG reviewed by attending physician) Discharge Plan Discharge Chief Complaint: Chest Pain Clinical Impression: UTI (urinary tract infection), Chest pain, Dizziness Patient Disposition: Home, Self-Care Time of Disposition Decision: 17:44 Condition: Good Prescriptions / Home Meds: New cephalexin 500 mg capsule 500 mg PO Q8H 7 Days Qty: 21 0RF ondansetron 4 mg tablet,disintegrating 4 mg PO Q6H PRN (Reason: nausea and vomiting) Qty: 12 0RF meclizine [Antivert] 25 mg tablet,chewable 25 mg PO QID PRN (Reason: dizziness) Qty: 12 0RF No Action nabumetone 750 mg tablet 750 mg PO BID PRN (Reason: pain) Qty: 14 0RF methocarbamol 750 mg tablet 750 mg PO Q6H Qty: 30 0RF metformin 1,000 mg tablet 1,000 mg PO BID methylprednisolone [Medrol (Duong)] 4 mg tablets,dose pack 4 mg PO DAILY Print Language: Luxembourgish Instructions: Urinary Tract Infection in Women (ED), Dizziness (ED), Noncardiac Chest Pain (ED) Referrals: Physician,Non-Staff, MD [Primary Care Provider] - 1 week
[2024-03-04] MEDS: 0.9 % SODIUM CHLORIDE 1,000 ML 999 ML IV (15:43)
[2024-03-04] MEDS: MECLIZINE HCL 12.5 MG TABLET 25 MG PO (15:49)
[2024-03-04 15:50] LABS: Basophils Absolute Auto 0.1 10^3/uL (0.0-0.1); Basophils Percent Auto 0.9 % (0.2-2.0); Eosinophils Absolute Auto 0.2 10^3/uL (0.0-0.7); Eosinophils Percent Auto 1.9 % (0.9-7.0); Hemoglobin 11.2 g/dL (12.0-16.0); Immature Granulocytes Abs Auto 0.02 10^3/uL (0.00-0.03); Immature Granulocytes Pct Auto 0.2 % (0.0-0.5); Lymphocytes Percent Auto 38.9 % (20.5-60.0); Mean Corpuscular HGB Conc 30.3 g/dL (29.9-35.2); Mean Corpuscular Hemoglobin 20.3 pg (26.7-34.0); Mean Corpuscular Volume 67.2 fL (81.0-99.0); Mean Platelet Volume 9.7 fL (9.5-13.5); Monocytes Absolute Auto 0.7 10^3/uL (0.3-0.8); Monocytes Percent Auto 6.4 % (1.7-12.0); Neutrophils Absolute Auto 5.3 10^3/uL (1.4-6.5); Neutrophils Percent Auto 51.7 % (43.0-75.0); Platelet Count 457 10^3/uL (150-450); Red Blood Count 5.51 10^6/uL (4.20-5.40); Red Cell Distribution Width 15.6 % (11.0-15.0); White Blood Count 10.3 10^3/uL (4.0-11.0)
[2024-03-04 16:03] LABS: HCG Qualitative NEGATIVE (NEGATIVE); Internal Control Within Normal Limits
[2024-03-04 16:05] LABS: Alanine Aminotransferase 30 U/L (14-59); Albumin Globulin Ratio 0.9; Albumin Level 3.8 g/dL (3.4-5.0); Alkaline Phosphatase 53 U/L (46-116); Anion Gap 15.5; Aspartate Amino Transferase 20 U/L (15-37); BUN Creatinine Ratio 10.6; Bilirubin Total 0.4 mg/dL (0.2-1.0); Calcium 9.1 mg/dL (8.5-10.1); Carbon Dioxide 25.1 mmol/L (21.0-32.0); Chloride 101 mmol/L (98-107); Estimated GFR (African America >60 (>=60 mL/min/1.73m^2); Estimated GFR (Non-African Ame >60 (>=60 mL/min/1.73m^2); Globulin 4.3 g/dL; Glucose 134 mg/dL (74-106); Potassium 3.6 mmol/L (3.5-5.1); Sodium 138 mmol/L (136-145); Total Protein 8.1 g/dL (6.4-8.2)
[2024-03-04 16:06] LABS: Prothrombin Time 10.6 sec (9.0-11.6)
[2024-03-04 16:10] LABS: Lactate/Lactic Acid 1.9 mmol/L (0.4-2.0)
[2024-03-04 16:14] LABS: Thyroid Stimulating Hormone 3.265 uIU/mL (0.358-3.740); Troponin I High Sensitivity <4.0 pg/mL (4.0-51.3)
[2024-03-04 16:23] LABS: D Dimer <0.19 mg/L FEU (<=0.59)
[2024-03-04 16:38] LABS: Bilirubin Urine NEGATIVE (NEGATIVE); Blood Urine SMALL (NEGATIVE); Clarity Urine CLEAR (CLEAR); Color Urine LT YELLOW (YELLOW); Glucose Urine UA NEGATIVE (NEGATIVE); Ketones Urine NEGATIVE (NEGATIVE); Nitrite Urine NEGATIVE (NEGATIVE); Protein Urine NEGATIVE (NEG/TRACE); Specific Gravity Urine <=1.005 (1.005-1.025); Urobilinogen Urine 0.2 EU/dL (0.2-1.0); pH Urine 5.5 (5.0-9.0)
[2024-03-04 16:39] LABS: Leukocyte Esterase Urine SMALL (NEGATIVE); Urine Microscopic Indicated YES
[2024-03-04 16:46] LABS: Bacteria Urine SMALL #/HPF (NONE SEEN); Cast Seen? NONE SEEN #/LPF (NONE SEEN); Crystals Seen? None Seen #/HPF (None Seen); Mucus Urine NONE SEEN (NONE SEEN); Squamous Epithelial Cell Urine FEW #/LPF (NONE/RARE); Urine Culture Indicated YES
--- NOTE | 2024-03-04 16:52 | XR_ITS ---
The [address] [address] Patient Name: TRU SINGH MRN: [id number] date: 1995 Sex: F Assigned Patient Location: ER Current Patient Location: ER Accession/Order Number: [id number] Exam Date: 03/04/2024 16:48 Report Date: 03/04/2024 17:30 At the request of: GEORGINA WHEELER Procedure: XR chest 1V ONE-VIEW CHEST RADIOGRAPH, 03/04/2024 4:48 PM EDT COMPARISON: None. CLINICAL HISTORY: Chest pain, sweating with shortness of breath and dizziness. FINDINGS: No acute cardiopulmonary disease. No pulmonary edema, pneumothorax, or pleural effusion. Normal heart size. No acute osseous abnormality. XR/XR chest 1V IMPRESSION: No acute abnormality identified. Electronically authenticated by: Kyra WU Date: 03/04/2024 17:30
--- NOTE | 2024-03-04 16:54 | CT_ITS ---
The [address] [address] Patient Name: TRU SINGH MRN: [id number] date: 1995 Sex: F Assigned Patient Location: ER Current Patient Location: Accession/Order Number: [id number] Exam Date: 03/04/2024 16:50 Report Date: 03/04/2024 18:41 At the request of: GEORGINA WHEELER Procedure: CT head/brain wo con HEAD CT WITHOUT CONTRAST, 03/04/2024 4:50 PM EDT: COMPARISON: None CLINICAL HISTORY: Dizziness , chest pain, sweating and shortness of breath which started at 13:30 hours. Chest pain comes and goes TECHNIQUE: 3 mm axial images performed through the head without contrast. 3 mm sagittal and coronal MPR reconstructions performed. Dose reduction techniques were achieved by using automated exposure control and/or adjustment of mA and/or kV according to patient size and/or use of iterative reconstruction technique. FINDINGS: No acute hemorrhage, mass effect, or midline shift. The ventricles are normal in size, shape, and position. Visualized paranasal sinuses, mastoid air cells and bony structures are unremarkable. CT/CT head/brain wo con IMPRESSION: No acute intracranial abnormality identified. Electronically authenticated by: Kyra WU Date: 03/04/2024 18:41
== END 2024-03-04 17:53 | disposition home or self-care (01) ==
PROVIDERS: Physician Assistant; Emergency Provider Emergency Medicine
DX: N39.0 Urinary tract infection, site not specified (principal); R07.9 Chest pain, unspecified; R42 Dizziness and giddiness; Z79.84 Long term (current) use of oral hypoglycemic drugs
CPT/HCPCS: 36415; 70450; 71045; 80053; 81001; 83605; 84443; 84484; 84703; 85025; 85378; 85610; 87086; 93005; 96360; 99285

== ENCOUNTER 2024-03-14 10:38 | Outpatient (OUT) | payer OTHER, SELFPAY ==
--- OUTSIDE RECORDS SUMMARY | 2024-03-14 10:42 | XMS_ITS | CCD ---
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 Role Phone MARGRET GABRIEL Referring Unavailable NONE, XXXX Primary Care Physician Unavailab DO eJmma Pool Attending Unavailable Jemma Stout Attending Unavailable NO FAMILY, PHYSICIAN Primary Care Provider MD Oscar Fritz Attending Provider [phone] SpaANASTACIA huang Attending Provider [phone] Maliha Glass Attending Unavailable Maliha Glass Admitting Unavailable NO FAMILY, PHYSICIAN Primary Care Unavailable Oscar Logan Admitting Unavailab Oscar Erazo Attending Unavailab le Medications Current Medications Medication Drug Class(es) Dates Sig (Normalized) Sig (Original) azithromycin 250 mg oral tablet (1 source) Macrolide Antimicrobial Start: 08-29-2022 take 1 mg by mouth once daily Azithromycin (Zithromax) 250 mg tablet Active 250 MG PO Daily August 29, 2022 12:00am one daily x 4 days, first dose given in ER metFORMIN hydrochloride 1000 mg oral tablet (1 source) Biguanide Start: 02-29-2024 take 1 tablet by mouth twice daily metformin 1000 mg Tab 1,000 mg = 1 tab(s), Oral, BID, # 28 tab(s), Refills(s) 0, Pharmacy: [facility]/pharmacy #[id number], 162, cm, 02/28/24 23:04:00 EDT, Height/Length Dosing, 64.3, kg, 02/28/24 23:04:00 EDT, Weight Dosing Start Date: 02/29/24 Status: Ordered Problems Problem Classification Problem Date Documented Da te Episodic/Chronic Diabetes mellitus without complication (2 sources) Type 2 diabetes mellitus without complication; Translations: [Type 2 diabetes mellitus without complications] Onset: 02-29-2024 Chronic Pneumonia (except that caused by tuberculosis or sexually transmitted disease) (1 source) Pneumonia; Translations: [Pneumonia, unspecified organism] 04-24-2023 Episodic Results Test Name Value Interpretation Reference Range Facility Alanine aminotransferase [En zymatic activity/volume] in Serum or PlasmaOrdered By: Maliha Glass on 03-10-2024 ALT [Catalytic activity/Vol] 29 U/L Normal 7-52 [facility] Comment on above: Order Comment: Reaso n for Exam Type 2 diabetes mellitus without complication, without long- Performed By: #### C MP, TSH3 wRFLX, SCAN CBC, B12, LIPID #### [facility] [address] [place] [id number] [place] Albumin [Mass/volume] in Ser um or Plasma by Bromocresol green (BCG) dye binding methoOrdered By: Maliha Glass on 03-10-2024 Albumin BCG dye [Mass/Vol] 4.6 g/dL 3.5-5.7 [facility] Alkaline phosphatase [Enzyma tic activity/volume] in Serum or PlasmaOrdered By: Maliha Glass on 03-10-2024 ALP [Catalytic activity/Vol] 46 U/L Normal 34-104 [facility] Comment on above: Order Comment: Reaso n for Exam Type 2 diabetes mellitus without complication, without long- Performed By: #### C MP, TSH3 wRFLX, SCAN CBC, B12, LIPID #### [facility] [address] [place] [address] [place] Anisocytosis [Presence] in B lood by Light microscopyOrdered By: Maliha Glass on 03-10-2024 Anisocytosis Ql (Bld) Marked Normal [facility] Comment on above: Order Comment: Reaso n for Exam Type 2 diabetes mellitus without complication, without long- Performed By: #### C MP, TSH3 wRFLX, SCAN CBC, B12, LIPID #### [facility] [address] [place] [address] [place] Aspartate aminotransferase [ Enzymatic activity/volume] in Serum or PlasmaOrdered By: Maliha Glass on 03-10-2024 AST [Catalytic activity/Vol] 24 U/L Normal 13-39 [facility] Comment on above: Order Comment: Reaso n for Exam Type 2 diabetes mellitus without complication, without long- Performed By: #### C MP, TSH3 wRFLX, SCAN CBC, B12, LIPID #### [facility] [address] Automated basophil %Ordered By: Maliha Glass on 03-10-2024 Basophils/100 WBC (Bld) 0.3 % Normal . [facility] Comment on above: Order Comment: Reaso n for Exam Type 2 diabetes mellitus without complication, without long- Performed By: #### C MP, TSH3 wRFLX, SCAN CBC, B12, LIPID #### [facility] [address] Automated basophil countOrde red By: Maliha Rosec on 03-10-2024 Basophils (Bld) [#/Vol] 0.0 10*3/uL Normal 0.0-0.2 [facility] Comment on above: Order Comment: Reaso n for Exam Type 2 diabetes mellitus without complication, without long- Performed By: #### C MP, TSH3 wRFLX, SCAN CBC, B12, LIPID #### [facility] [address] Automated blood monocyte cou ntOrdered By: Maliha Glass on 03-10-2024 Monocytes (Bld) [#/Vol] 0.8 10*3/uL Normal 0.0-0.8 [facility] Comment on above: Order Comment: Reaso n for Exam Type 2 diabetes mellitus without complication, without long- Performed By: #### C MP, TSH3 wRFLX, SCAN CBC, B12, LIPID #### [facility] [address] Automated eosinophil %Ordere d By: Maliha Miltonc on 03-10-2024 Eosinophils/100 WBC (Bld) 2.3 % Normal . [facility] Comment on above: Order Comment: Reaso n for Exam Type 2 diabetes mellitus without complication, without long- Performed By: #### C MP, TSH3 wRFLX, SCAN CBC, B12, LIPID #### [facility] [address] Automated eosinophil countOr dered By: Maliha Miltonc on 03-10-2024 Eosinophils (Bld) [#/Vol] 0.2 10*3/uL Normal 0.0-0.45 [facility] Comment on above: Order Comment: Reaso n for Exam Type 2 diabetes mellitus without complication, without long- Performed By: #### C MP, TSH3 wRFLX, SCAN CBC, B12, LIPID #### [facility] [address] Automated monocyte %Ordered By: Maliha Miltonc on 03-10-2024 Monocytes/100 WBC (Bld) 7.6 % Normal . [facility] Comment on above: Order Comment: Reaso n for Exam Type 2 diabetes mellitus without complication, without long- Performed By: #### C MP, TSH3 wRFLX, SCAN CBC, B12, LIPID #### [facility] [address] Automated neutrophil %Ordere d By: Maliha Davontesic on 03-10-2024 Neutrophils/100 WBC (Bld) 55.6 % Normal . [facility] Comment on above: Order Comment: Reaso n for Exam Type 2 diabetes mellitus without complication, without long- Performed By: #### C MP, TSH3 wRFLX, SCAN CBC, B12, LIPID #### [facility] [address] [place] [address] [place] Bilirubin.total [Mass/volume ] in Serum or PlasmaOrdered By: Maliha Rosec on 03-10-2024 Bilirubin [Mass/Vol] 0.3 mg/dL Normal 0.3-1.0 [facility] Comment on above: Order Comment: Reaso n for Exam Type 2 diabetes mellitus without complication, without long- Performed By: #### C MP, TSH3 wRFLX, SCAN CBC, B12, LIPID #### [facility] [address] [place] [address] [place] Calcium [Mass/volume] in Ser um or PlasmaOrdered By: Maliha Spasic on 03-10-2024 Calcium [Mass/Vol] 10.5 mg/dL High 8.6-10.3 [facility] Comment on above: Order Comment: Reaso n for Exam Type 2 diabetes mellitus without complication, without long- Performed By: #### C MP, TSH3 wRFLX, SCAN CBC, B12, LIPID #### [facility] [address] [place] [id number] [place] Carbon dioxide, total [Moles /volume] in Serum or PlasmaOrdered By: Maliha Glass on 03-10-2024 CO2 [Moles/Vol] 28.3 mmol/L Normal 21.0-31.0 [facility] Comment on above: Order Comment: Reaso n for Exam Type 2 diabetes mellitus without complication, without long- Performed By: #### C MP, TSH3 wRFLX, SCAN CBC, B12, LIPID #### [facility] [address] [place] [id number] [place] Chloride [Moles/volume] in S rosie or PlasmaOrdered By: Maliha Glass on 03-10-2024 Chloride [Moles/Vol] 101 mmol/L Normal 98-107 [facility] Comment on above: Order Comment: Reaso n for Exam Type 2 diabetes mellitus without complication, without long- Performed By: #### C MP, TSH3 wRFLX, SCAN CBC, B12, LIPID #### [facility] [address] [place] [id number] [place] Cholesterol [Mass/volume] in Serum or PlasmaOrdered By: Maliha Glass on 03-10-2024 Cholesterol [Mass/Vol] 139 mg/dL Low 140-200 [facility] Comment on above: Chol less than 200 m g/dl low riskChol 201-239 mg/dl borderline riskChol 240 mg/dl and greater high risk Order Comment: Reaso n for Exam Type 2 diabetes mellitus without complication, without long- Result Comment: Chol less than 200 mg/dl low risk Chol 201-239 mg/dl borderline risk Chol 240 mg/dl and greater high risk Performed By: #### C MP, TSH3 wRFLX, SCAN CBC, B12, LIPID #### [facility] [address] [place] [id number] [place] Cholesterol in LDL Calc [Mas s/Vol]Ordered By: Maliha Glass on 03-10-2024 Cholesterol in LDL [Mass/Vol] 64 mg/dL 0-100 [facility] Comment on above: LDL ATP III CLASSIFI CATIONLDL less than 100 mg/dL OptimalLDL 100-129 mg/dL Near or above optimalLDL 130-159 mg/dL Borderline highLDL 160-189 mg/dL HighLDL greater than 189 mg/dL Very high Cholesterol in VLDL Calc [Ma ss/Vol]Ordered By: Maliha Glass on 03-10-2024 Cholesterol in VLDL [Mass/Vol] 36 mg/dL [facility] Comprehensive Metabolic Pane jed 03-10-2024 Albumin [Mass/Vol] 4.6 g/dL Normal 3.5-5.7 [facility] Comment on above: Order Comment: Reaso n for Exam Type 2 diabetes mellitus without complication, without long- Performed By: #### C MP, TSH3 wRFLX, SCAN CBC, B12, LIPID #### [facility] [address] [place] [address] GFR/1.73 sq M.predicted MDRD (S/P/Bld) [Vol rate/Area] mL/min/{1.73_m2} Normal [facility] Comment on above: Order Comment: Reaso n for Exam Type 2 diabetes mellitus without complication, without long- Performed By: #### C MP, TSH3 wRFLX, SCAN CBC, B12, LIPID #### [facility] [address] Creatinine [Mass/volume] in Serum or PlasmaOrdered By: Maliha Glass on 03-10-2024 Creatinine [Mass/Vol] 0.55 mg/dL Low 0.60-1.20 [facility] Comment on above: Order Comment: Reaso n for Exam Type 2 diabetes mellitus without complication, without long- Performed By: #### C MP, TSH3 wRFLX, SCAN CBC, B12, LIPID #### [facility] [address] [place] [address] [place] Erythrocyte distribution wid th [Ratio] by Automated countOrdered By: Maliha Glass on 03-10-2024 Erythrocyte distribution width (RBC) [Ratio] 16.5 % High 11.9-15.3 [facility] Comment on above: Order Comment: Reaso n for Exam Type 2 diabetes mellitus without complication, without long- Performed By: #### C MP, TSH3 wRFLX, SCAN CBC, B12, LIPID #### [facility] [address] Erythrocytes [#/volume] in B lood by Automated countOrdered By: Maliha Glass on 03-10-2024 RBC (Bld) [#/Vol] 5.80 10*6/uL High 3.60-5.00 [facility] Comment on above: Order Comment: Reaso n for Exam Type 2 diabetes mellitus without complication, without long- Performed By: #### C MP, TSH3 wRFLX, SCAN CBC, B12, LIPID #### [facility] [address] [place] [address] [place] Glucose [Mass/volume] in Ser um or PlasmaOrdered By: Maliha Glass on 03-10-2024 Glucose [Mass/Vol] 150 mg/dL High 70-100 [facility] Comment on above: ADA recommended refe rence rangeRandom Glucose Reference Range is dependent on time and content of last meal. Glucose of more than 200 mg/dL in a nonstressed, ambulatory subject supports the diagnosis of Diabetes Mellitus. Order Comment: Reaso n for Exam Type 2 diabetes mellitus without complication, without long- Result Comment: [place] om Glucose Reference Range is dependent on time and content of last meal. Glucose of more than 200 mg/dL in a nonstressed, ambulatory subject supports the diagnosis of Diabetes Mellitus. ADA recommended reference range Performed By: #### C MP, TSH3 wRFLX, SCAN CBC, B12, LIPID #### [facility] [address] [place] [address] [place] Hematocrit [Volume Fraction] of Blood by Automated countOrdered By: Maliha Glass on 03-10-2024 Hematocrit (Bld) [Volume fraction] 37.5 % Normal 34.0-46.4 [facility] Comment on above: Order Comment: Reaso n for Exam Type 2 diabetes mellitus without complication, without long- Performed By: #### C MP, TSH3 wRFLX, SCAN CBC, B12, LIPID #### [facility] [address] [place] [id number] [facility] Hemoglobin [Mass/volume] in BloodOrdered By: Maliha Glass on 03-10-2024 Hemoglobin (Bld) [Mass/Vol] 11.7 g/dL Low 11.8-15.4 [facility] Comment on above: Order Comment: Reaso n for Exam Type 2 diabetes mellitus without complication, without long- Performed By: #### C MP, TSH3 wRFLX, SCAN CBC, B12, LIPID #### [facility] [address] [place] [id number] [facility] Hypochromia LM Ql (Bld)Order ed By: Maliha Glass on 03-10-2024 Hypochromia Ql (Bld) Slight [facility] Leukocytes [#/volume] correc kit for nucleated erythrocytes in Blood by Automated counOrdered By: Maliha Glass on 03-10-2024 WBC corrected for nucl RBC Auto (Bld) [#/Vol] 10.7 10*3/uL 3.8-11.6 [facility] Leukocytes [#/volume] in Blo od by Automated countOrdered By: Maliha Glass on 03-10-2024 WBC (Bld) [#/Vol] 10.7 10*3/uL Normal 3.8-11.6 [facility] Comment on above: Order Comment: Reaso n for Exam Type 2 diabetes mellitus without complication, without long- Performed By: #### C MP, TSH3 wRFLX, SCAN CBC, B12, LIPID #### [facility] [address] [place] [id number] [facility] Lipid Panelon 03-10-2024 LDL Cholesterol,Calculated 64 mg/dL Normal 0-100 [facility] Comment on above: Order Comment: Reaso n for Exam Type 2 diabetes mellitus without complication, without long- Result Comment: LDL ATP III CLASSIFICATION LDL less than 100 mg/dL Optimal LDL 100-129 mg/dL Near or above optimal LDL 130-159 mg/dL Borderline high LDL 160-189 mg/dL High LDL greater than 189 mg/dL Very high Performed By: #### C MP, TSH3 wRFLX, SCAN CBC, B12, LIPID #### [address] Triglyceride w/Reflex 180 mg/dL High 0-149 [facility] Comment on above: Order Comment: Reaso n for Exam Type 2 diabetes mellitus without complication, without long- Result Comment: TRIG ATP III CLASSIFICATION TRIG less than 150 mg/dL Normal TRIG 150-199 mg/dL Borderline high TRIG 200-500 mg/dL High TRIG greater than 500 mg/dL Very high Standard traceable to the Center for Disease Conrtrol and Prevention (CDC) test method. Performed By: #### C MP, TSH3 wRFLX, SCAN CBC, B12, LIPID #### [address] VLDL CHOLESTEROL 36 mg/dL Normal [facility] Comment on above: Order Comment: Reaso n for Exam Type 2 diabetes mellitus without complication, without long- Performed By: #### C MP, TSH3 wRFLX, SCAN CBC, B12, LIPID #### [address] Lymphocytes [#/volume] in Bl ood by Automated countOrdered By: Maliha Glass on 03-10-2024 Lymphocytes (Bld) [#/Vol] 3.7 10*3/uL Normal 1.00-4.8 [facility] Comment on above: Order Comment: Reaso n for Exam Type 2 diabetes mellitus without complication, without long- Performed By: #### C MP, TSH3 wRFLX, SCAN CBC, B12, LIPID #### [place] [address] [place] Lymphocytes/100 leukocytes i n Blood by Automated countOrdered By: Maliha Glass on 03-10-2024 Lymphocytes/100 WBC (Bld) 34.2 % Normal . [facility] Comment on above: Order Comment: Reaso n for Exam Type 2 diabetes mellitus without complication, without long- Performed By: #### C MP, TSH3 wRFLX, SCAN CBC, B12, LIPID #### [place] [address] [place] MCH [Entitic mass] by Automa kit countOrdered By: Maliha Glass on 03-10-2024 MCH (RBC) [Entitic mass] 20.3 pg Low 24.7-34.3 [facility] Comment on above: Order Comment: Reaso n for Exam Type 2 diabetes mellitus without complication, without long- Performed By: #### C MP, TSH3 wRFLX, SCAN CBC, B12, LIPID #### [facility] [address] [place] [address] [place] MCHC Auto (RBC) [Mass/Vol]Or dered By: Maliha Glass on 03-10-2024 MCHC (RBC) [Mass/Vol] 31.3 g/dL Low 32.0-35.0 [facility] MCV [Entitic volume] by Auto mated countOrdered By: Maliha Glass on 03-10-2024 MCV (RBC) [Entitic vol] 64.7 fL Low 80-100 [facility] Comment on above: Order Comment: Reaso n for Exam Type 2 diabetes mellitus without complication, without long- Performed By: #### C MP, TSH3 wRFLX, SCAN CBC, B12, LIPID #### [facility] [address] Microcytes LM Ql (Bld)Ordere d By: Maliha Glass on 03-10-2024 Microcytes Ql (Bld) Marked [facility] Neutrophils [#/volume] in Bl ood by Automated countOrdered By: Maliha Glass on 03-10-2024 Neutrophils (Bld) [#/Vol] 5.9 10*3/uL Normal 1.8-7.7 [facility] Comment on above: Order Comment: Reaso n for Exam Type 2 diabetes mellitus without complication, without long- Performed By: #### C MP, TSH3 wRFLX, SCAN CBC, B12, LIPID #### [facility] [address] No Panel InformationOrdered By: Maliha Glass on 03-10-2024 Estimated GFR (CKD-EPI) > 60.0 mL/Min [facility] Creatinine Clearance (Chem N/A [facility] Nucleated erythrocytes [Pres ence] in Blood by Automated countOrdered By: Maliha Glass on 03-10-2024 Nucleated RBC Auto Ql (Bld) 0.0 /100{WBC} 0-0.5 [facility] Platelet adequacy [Presence] in Blood by Light microscopyOrdered By: Maliha Glass on 03-10-2024 Platelets LM Ql (Bld) Increased Normal [facility] Platelet mean volume [Entiti c volume] in Blood by Automated countOrdered By: Maliha Glass on 03-10-2024 Platelet mean volume (Bld) [Entitic vol] 8.1 fL Normal 6.3-10.7 [facility] Comment on above: Order Comment: Reaso n for Exam Type 2 diabetes mellitus without complication, without long- Performed By: #### C MP, TSH3 wRFLX, SCAN CBC, B12, LIPID #### [facility] [address] Platelet morphology finding [Identifier] in BloodOrdered By: Maliha Glass on 03-10-2024 Platelet morphology finding Nom (Bld) Normal Normal [facility] Platelets [#/volume] in Bloo d by Automated countOrdered By: Maliha Glass on 03-10-2024 Platelets (Bld) [#/Vol] 491 10*3/uL High 150-450 [facility] Comment on above: Order Comment: Reaso n for Exam Type 2 diabetes mellitus without complication, without long- Performed By: #### C MP, TSH3 wRFLX, SCAN CBC, B12, LIPID #### [facility] [address] [place] [address] [place] Poikilocytosis [Presence] in Blood by Light microscopyOrdered By: Maliha Glass on 03-10-2024 Poikilocytosis LM Ql (Bld) Moderate [facility] Potassium [Moles/volume] in Serum or PlasmaOrdered By: Maliha Glass on 03-10-2024 Potassium [Moles/Vol] 4.5 mmol/L Normal 3.5-5.1 [facility] Comment on above: Order Comment: Reaso n for Exam Type 2 diabetes mellitus without complication, without long- Performed By: #### C MP, TSH3 wRFLX, SCAN CBC, B12, LIPID #### [address] Protein [Mass/volume] in Ser um or PlasmaOrdered By: Maliha Glass on 03-10-2024 Protein [Mass/Vol] 8.0 g/dL Normal 6.4-8.9 [facility] Comment on above: Order Comment: Reaso n for Exam Type 2 diabetes mellitus without complication, without long- Performed By: #### C MP, TSH3 wRFLX, SCAN CBC, B12, LIPID #### [address] RBC morphologyOrdered By: Milana Glass on 03-10-2024 RBC morphology finding Nom (Bld) N/A [facility] Scan and CBCon 03-10-2024 Hypochromasia Slight Normal [facility] Comment on above: Order Comment: Reaso n for Exam Type 2 diabetes mellitus without complication, without long- Performed By: #### C MP, TSH3 wRFLX, SCAN CBC, B12, LIPID #### [address] Mean Corpuscular HGB Conc 31.3 g/dL Low 32.0-35.0 [facility] Comment on above: Order Comment: Reaso n for Exam Type 2 diabetes mellitus without complication, without long- Performed By: #### C MP, TSH3 wRFLX, SCAN CBC, B12, LIPID #### [address] Microcytosis Marked Normal [facility] Comment on above: Order Comment: Reaso n for Exam Type 2 diabetes mellitus without complication, without long- Performed By: #### C MP, TSH3 wRFLX, SCAN CBC, B12, LIPID #### [place] [address] [place] NRBC% 0.0 /100{WBC} Normal 0-0.5 [facility] Comment on above: Order Comment: Reaso n for Exam Type 2 diabetes mellitus without complication, without long- Performed By: #### C MP, TSH3 wRFLX, SCAN CBC, B12, LIPID #### [address] [place] [address] [place] Platelet Estimate Increased Normal Normal [facility] Comment on above: Order Comment: Reaso n for Exam Type 2 diabetes mellitus without complication, without long- Performed By: #### C MP, TSH3 wRFLX, SCAN CBC, B12, LIPID #### [facility] [address] [place] [address] Platelet Morphology Normal Normal Normal [facility] Comment on above: Order Comment: Reaso n for Exam Type 2 diabetes mellitus without complication, without long- Result Comment: PERF ORMED BY: [place] [address] PATHOLOGIST PROGRAM AIDE RANDOLPH BAH M.D. Performed By: #### C MP, TSH3 wRFLX, SCAN CBC, B12, LIPID #### [address] Poikilocytosis Moderate Normal [facility] Comment on above: Order Comment: Reaso n for Exam Type 2 diabetes mellitus without complication, without long- Performed By: #### C MP, TSH3 wRFLX, SCAN CBC, B12, LIPID #### [facility] [address] [place] [address] Serum globulin measurement b y calculation (mass/volume)Ordered By: Maliha Glass on 03-10-2024 Globulin (S) [Mass/Vol] 3.4 g/dL Normal [facility] Comment on above: Order Comment: Reaso n for Exam Type 2 diabetes mellitus without complication, without long- Performed By: #### C MP, TSH3 wRFLX, SCAN CBC, B12, LIPID #### [facility] [address] [place] [address] [place] Serum or plasma albumin/glob ulin mass ratioOrdered By: Maliha Glass on 03-10-2024 Albumin/Globulin [Mass ratio] 1.4 {ratio} Normal [facility] Comment on above: Order Comment: Reaso n for Exam Type 2 diabetes mellitus without complication, without long- Performed By: #### C MP, TSH3 wRFLX, SCAN CBC, B12, LIPID #### [facility] [address] [place] [address] Serum or plasma anion gap de terminationOrdered By: Maliha Glass on 03-10-2024 Anion gap [Moles/Vol] 12.2 mmol/L Normal 6.0-15.0 [facility] Comment on above: Order Comment: Reaso n for Exam Type 2 diabetes mellitus without complication, without long- Performed By: #### C MP, TSH3 wRFLX, SCAN CBC, B12, LIPID #### [facility] [address] Serum or plasma high density lipoprotein (HDL) cholesterol measurementOrdered By: Maliha Glass on 03-10-2024 Cholesterol in HDL [Mass/Vol] 39 mg/dL Normal 23-92 [facility] Comment on above: HDL CHOL ATP-III CLA SSIFICATION Cardiovascular RiskHDL > or equal to 60 mg/dL LOWHDL < 40 mg/dL HIGH Order Comment: Reaso n for Exam Type 2 diabetes mellitus without complication, without long- Result Comment: HDL CHOL ATP-III CLASSIFICATION Cardiovascular Risk HDL > or equal to 60 mg/dL LOW HDL < 40 mg/dL HIGH Performed By: #### C MP, TSH3 wRFLX, SCAN CBC, B12, LIPID #### [facility] [address] Serum or plasma total choles terol/high density lipoprotein (HDL) cholesterol mass ratOrdered By: Maliha Glass on 03-10-2024 Cholesterol.total/Meghna sterol in HDL [Mass ratio] 3.6 {ratio} Normal <5.0 [facility] Comment on above: Order Comment: Reaso n for Exam Type 2 diabetes mellitus without complication, without long- Performed By: #### C MP, TSH3 wRFLX, SCAN CBC, B12, LIPID #### [facility] [address] Sodium [Moles/volume] in Ser um or PlasmaOrdered By: Maliha Glass on 03-10-2024 Sodium [Moles/Vol] 137 mmol/L Normal 136-145 [facility] Comment on above: Order Comment: Reaso n for Exam Type 2 diabetes mellitus without complication, without long- Performed By: #### C MP, TSH3 wRFLX, SCAN CBC, B12, LIPID #### [facility] [address] Thyroid Stim Hormone w/Rflxo n 03-10-2024 Thyroid Stim Hormone w/Rflx 3.08 u[iU]/mL Normal 0.45-5.33 [facility] Comment on above: Order Comment: Reaso n for Exam Type 2 diabetes mellitus without complication, without long- Result Comment: PERF ORMED BY: [place] [address] PATHOLOGIST PROGRAM AIDE RANDOLPH BAH M.D. Performed By: #### C MP, TSH3 wRFLX, SCAN CBC, B12, LIPID #### [facility] [address] [place] [address] Thyrotropin [Units/volume] i n Serum or PlasmaOrdered By: Maliha Glass on 03-10-2024 TSH Qn 3.08 m[IU]/L 0.45-5.33 [facility] Triglyceride [Mass/volume] i n Serum or PlasmaOrdered By: Maliha Glass on 03-10-2024 Triglyceride [Mass/Vol] 180 mg/dL High 0-149 F [facility] Comment on above: TRIG ATP III CLASSIF ICATIONTRIG less than 150 mg/dL NormalTRIG 150-199 mg/dL Borderline highTRIG 200-500 mg/dL High TRIG greater than 500 mg/dL Very highStandard traceable to the Center for Disease Conrtrol and Prevention (CDC) test method. Urea nitrogen [Mass/volume] in Serum or PlasmaOrdered By: Maliha Glass on 03-10-2024 Urea nitrogen [Mass/Vol] 14 mg/dL Normal 7-25 [facility] Comment on above: Order Comment: Reaso n for Exam Type 2 diabetes mellitus without complication, without long- Performed By: #### C MP, TSH3 wRFLX, SCAN CBC, B12, LIPID #### [facility] [address] [place] [address] Vitamin B12 ser/plasOrdered By: Maliha Glass on 03-10-2024 Cobalamin (Vitamin B12) [Mass/Vol] 303 pg/mL Normal 180-914 [facility] Comment on above: Order Comment: Reaso n for Exam Type 2 diabetes mellitus without complication, without long- Performed By: #### C MP, TSH3 wRFLX, SCAN CBC, B12, LIPID #### [facility] [address] [place] [address] [facility] C Urineon 03-02-2024 Bacteria identified Cx Nom [...] Locations R1: This test was performed at: [facility], [address] [place] [address], [address]- , , [facility] Comment on above: Performed By: #### 2 [id number] #### [facility] [address] [place] [id number] ED Clinical Summaryon 2023 ED Clinical Summary ED Clinical Summary [address] [address] ED Clinical Summary Person Information Name: TRU SINGH/[facility] Age: 28 Years : 1995 Sex: Female Language: Belgian PCP: NONE, XXXX Marital Status: Single Visit [...] 02/29/2024 01:56:19 02/29/2024 01:56:19 ADDRESS: [address] [facility] [id number] PHYS DOC NOTES: MEDICAL INFORMATION: Prescriptions Given: New Medications [id number], [address], [place] [id number], [phone] metformin (metformin 1000 mg Tab) 1 Tablets By Mouth 2 times a day. Refills: 0. PATIENT EDUCATION INFORMATION: Instructions: Type 2 Diabetes Mellitus, Diagnosis, Adult; Diabetes Mellitus Basics; Diabetes Mellitus and Nutrition, Adult Follow up: With: Address: When: Ashanti Forman, [facility] [address] [place] [address] Business (1) In 3 days 03/03/2024 Comments: Take the metformin twice a day. Please follow-up with your primary care doctor for further evaluation management. Please return to the ED for any new or worsening symptoms. With: Address: When: XXXX NONE , [place] In 3 days DIAGNOSIS: Diabetes Normal [facility] ED Note-Physicianon 02-29-20 ED Note-Physician ED Note-Physician [...] and Complexity of Problems Differential Diagnosis: [] [facility] Data External documents reviewed: [] My [...] BID, # 28 tab(s), Refills(s) 0, Pharmacy: [id number], 162, cm, 02/28/24 23:04:00 EDT, Height/Length [...] Gomez In 3 days 03/03/2024 EDT [address], [address], [place] [address] [place] [address]- Business (1) Additional Instructions: Take the metformin twice [...] (02/28/24 23:46:00) (more content not included)... Normal [facility] Comment on above: Result Comment: Elec tronically Signed By: Jemma Stout DO\.br\Date and Time Signed: 02/29/24 01:07 EDT ED Patient Summaryon ED Patient Summary ED Patient Summary [place] [id number] Patient Discharge Instructions Person Information Name: TRU SINGH Age: 28 Years Arrival Date: 02/28/2024 22:53:58 Discharge Diagnosis: Diabetes Primary Care Physician: NONE, XXXX Provider Information Primary Provider: Jemma Stout DO Advanced Mica Layer:None The exam and treatment you received in the Emergency Department were for an urgent problem and are not intended as complete care. It is important that you follow up with a doctor, nurse practitioner, or physician?s dental assistant for ongoing care. If your symptoms become worse or you do not improve as expected and you are unable to reach your usual health care provider, you should return to the Emergency Department. We are available 24 hours a day. TRU SINGH has been given the following list of patient education materials, prescriptions and follow-up instructions: Follow-up Instructions: With: Address: When: Lilian Patricia [address] [place] [address] [place] [address] [facility] (1) In 3 days 03/03/2024 Comments: Take the metformin twice a day. Please follow-up with your primary care doctor for further evaluation management. Please return to the ED for any new or worsening symptoms. With: Address: When: XXXX [facility] , [place] In 3 days In the event that [...] opioids can be used to help relieve omrnzeva-ek-yxobuw pain and are often prescribed following a [...] and Drug (more content not included)... Normal [facility] UA with Cult Rflxon 02-29-20 Bilirubin Ql (U) Negative Normal Negative [facility] Comment on above: Performed By: #### 4 [id number] #### [facility] [address] [place] [address] Clarity (U) Clear Normal Clear [facility] Comment on above: Performed By: #### 4 [id number] #### [facility] [address] [place] [address] Color (U) Light-Yellow Normal Yellow [facility] Comment on above: Result Comment: Micr oscopic readings are only performed on those samples that meet specific criteria set forth by [facility]. Performed By: #### 4 [id number] #### [facility] [address] [place] [address] Epithelial cells.squamous Auto (Urine sed) [#/Area] 0-2 Invalid Interpretation Code [facility] Comment on above: Performed By: #### 4 [id number] #### [facility] [address] [place] [address] Glucose Ql (U) 4+ mg/dL Abnormal Negative [facility] Comment on above: Performed By: #### 4 [id number] #### [facility] [address] [place] [address] Hemoglobin Auto test strip (U) [Mass/Vol] 3+ mg/dL Abnormal Negative [facility] Comment on above: Performed By: #### 4 [id number] #### [facility] [address] [place] [address] Ketones Auto test strip Ql (U) Negative Normal Negative [facility] Comment on above: Performed By: #### 4 [id number] #### [facility] [address] [place] [address] Leukocyte esterase Auto test strip Ql (U) Negative Normal Negative [facility] Comment on above: Performed By: #### 4 [id number] #### [facility] [address] [place] [address] Mucus Auto Ql (U) Negative Normal Negative [facility] Comment on above: Performed By: #### 4 [id number] #### [facility] [address] [place] [address] Nitrite Auto test strip Ql (U) Negative Normal Negative [facility] Comment on above: Performed By: #### 4 [id number] #### [facility] [address] [place] [address] pH (U) 6.0 [pH] Invalid Interpretation Code 5.0-9.0 [facility] Comment on above: Performed By: #### 4 [id number] #### [facility] [address] [place] [address] Protein Ql (U) Negative Normal Negative [facility] Comment on above: Performed By: #### 4 [id number] #### [facility] [address] [place] [address] RBC Ql (U) >75 Abnormal 0-3 [facility] Comment on above: Performed By: #### 4 [id number] #### [facility] [address] [place] [address] Specific gravity (U) [Rel density] 1.027 Invalid Interpretation Code 1.005-1.030 [facility] Comment on above: Performed By: #### 4 [id number] #### [facility] [address] [place] [address] Urobilinogen (U) [Mass/Vol] Negative Normal Negative [facility] Comment on above: Performed By: #### 4 [id number] #### [facility] [address] [place] [address] WBC Auto (Urine sed) [#/Area] 6-15 Abnormal 0-5 [facility] Comment on above: Performed By: #### 4 [id number] #### [facility] [address] [place] [address] URINALYSISOrdered By: SYSTEM SYSTEM on 02-29-2024 Bilirubin Ql (U) Negative Normal Negativemg/ d L [facility] UA Auto SS Clarity (U) Clear (02/29/24 12:30 AM) Normal Clear [facility] UA Auto SS Color (U) Light-Yellow 1 (02/29/24 12:30 AM) Normal Yellow [facility] UA Auto SS Comment on above: Interpretive Data: M icroscopic readings are only performed on those samples that meet specific criteria set forth by [facility]. Epithelial cells.squamous Auto (Urine sed) [#/Area] 0-2 graded/HPF Invalid Interpretation Code [facility] UA Auto SS Glucose Ql (U) 4+ mg/dL Invalid Interpretation Code Negativemg/d L [facility] UA Auto SS Hemoglobin Auto test strip (U) [Mass/Vol] 3+ mg/dL Invalid Interpretation Code Negativemg/d L [facility] UA Auto SS Ketones Auto test strip Ql (U) Negative Normal Negativemg/d L [facility] UA Auto SS Leukocyte esterase Auto test strip Ql (U) Negative Normal NegativeLeu/ uL [facility] UA Auto SS Mucus Auto Ql (U) Negative Normal Negativegr ad ed/LPF [facility] UA Auto SS Nitrite Auto test strip Ql (U) Negative Normal Negativemg/d L [facility] UA Auto SS pH (U) 6.0 *NA* (02/29/24 12:30 AM) Invalid Interpretation Code 5.0 - 9.0 [facility] UA Auto SS Protein Ql (U) Negative Normal Negativemg/d L [facility] UA Auto SS RBC Ql (U) >75 graded/HPF Invalid Interpretation Code 0-3graded/HP F [facility] UA Auto SS Specific gravity (U) [Rel density] 1.027 *NA* (02/29/24 12:30 AM) Invalid Interpretation Code 1.005 - 1.030 [facility] UA Auto SS Urobilinogen (U) [Mass/Vol] Negative Normal Negativemg/d L [facility] UA Auto SS WBC Auto (Urine sed) [#/Area] 6-15 graded/HPF Invalid Interpretation Code 0-5graded/HP F [facility] UA Auto SS URINALYSISOrdered By: Sweta Stout on 02-29-2024 UA Spec Desc Clean Catch (02/29/24 12:30 AM) Normal [facility] UA Auto SS Work Phone: XR Chest Single Viewon 02-28 XR Chest [...] BARRETT Technologist: WILDA Technical Comments Radiation Dose: Ka,r in mGy = na DAP = na Normal [facility] CHEMISTRYOrdered By: SYSTEM SYSTEM on 02-28-2024 Albumin [...] Chem Comment on above: Interpretive Data: T katia 95% CI (Confidence Interval) PPV (Positive Predictive Value) for myocardial infarction in females is 38 pg/mL, in males 51 pg/mL. The results should be used in conjunction with clinical conditions of myocardial infarction. (Access High Sensitivity Troponin I Instructions For Use, Earle [employer], December 2017) Urea nitrogen [Mass/Vol] 10 mg/dL Normal 5 - 21 mg/dL Remisol Chem Urea nitrogen/Creatinine [Mass ratio] 20 mg/mg Normal 10 - 20 Remisol Chem CHEMISTRYOrdered By: Keith jones on 02-28-2024 HbA1c (Bld) [Mass fraction] 11.3 % High <=5.9% [facility] ChemAutoSS CHEMISTRYOrdered By: Lab ROP User on 02-28-2024 Glucose [Mass/Vol] 215 mg/dL High 55 - 99 mg/dL [facility] POC Subsection Comment on above: Result Comment: Tiffanie mendoza RN/ POC Device SN [id number] Invalid Interpretation Code [facility] POC Subsection POC User ID [id number] 1 Invalid Interpretation Code [facility] POC Subsection POC Username TONY BARBOUR Invalid Interpretation Code [facility] POC Subsection FT Blood GasesOrdered By: Carlo Guzmán on 02-28-2024 Allens Test Not Applicable (02/28/24 11:47 PM) Normal [facility] Resp Auto SS Drawn by lab Invalid Interpretation Code [facility] Resp Auto SS FIO2 BG 21 1 Invalid Interpretation Code [facility] Resp Auto SS pCO2 Christofer 48.0 mm[Hg] Normal 38.0 - 50.0 mmHg [facility] Resp Auto SS pH (Bld) 7.327 [pH] Normal 7.320 - 7.430 [facility] Resp Auto SS Sample Site OTHER (02/28/24 11:47 PM) Normal [facility] Resp Auto SS Sample Type Venous Draw (02/28/24 11:47 PM) Normal [facility] Resp Auto SS HEMATOLOGYOrdered By: SYSTEM SYSTEM [...] test) Ql Negative (02/28/24 11:46 PM) Normal [facility] Man Sero UA with Cult Rflxon 02-28-20 Type of Urine collection method Clean Catch Normal [facility] Comment on above: Performed By: #### 4 [id number] #### [facility] [address] [place] [address] Cytologyon 12-11-2023 Cytology Normal [facility] Comment on above: Result Comment: [facility] [address] [place] [address] Gynecologic Cytology Consultation Patient Name:DWAIN SINGHB:1995 (Age: 28)Gender:FTaken:4Reported:4Physician(s):Margret Gabriel APRN-CNPCopy To: Rec. #:[id number]: #[id number] Final Cytologic Interpretation ThinPrep Pap Test (Cervical): Satisfactory for evaluation. A transformazion zone component is not identified via imaging-assisted review, using [employer] Thin Prep Imaging System, within 22 microscopic plaza of view. NEGATIVE FOR INTRAEPITHELIAL LESION OR MALIGNANCY. pjt/12/18/2023 [facility]ation [facility] [place] [address], License number: [id number]. Electronically Signed Out By ROBYN Maher(ASCP) Date of Last Menstrual Period: 11/27/23 Other Clinical Conditions: Z01.419 Small Craft Operator exam wo/abn findings Source of Specimen ThinPrep Pap Test (Cervical) Thin Prep Pap (TOOL ADJUSTER) Fee Code(s): G0145 The Pap test is a screening test with an inherent, but low, probability of error. The Pap test is primarily effective for the diagnosis and prevention of squamous cell carcinoma. Regular screening is critical for prevention. ThinPrep liquid-based slides, which meet the Media Center Specialist criteria for automated screening, have been screened by the ThinPrep Imaging System (as of 01/27/07) along with an additional manual rescreening by a retail project merchandiser and, if indicated, by a pathologist. Vital Signs Date Time Vital Sign Value Performing Clinician Faci lity 02-29-2024 01:29-0400 Heart rate 89 /min [facility] 02-29-2024 01:29-0400 Respiratory rate 16 /min ashtyn Stout [facility] 02-29-2024 01:29-0400 SaO2% (BldA) [Mass fraction] 99 % ashtyn Stout [facility] 02-28-2024 23:47-0400 SaO2% (BldA) [Mass fraction] 65.4 % ashtyn Stout [facility] Resp Auto SS 02-28-2024 22:58-0400 Body temperature 98.06 [degF] ashtyn Stout [facility] 02-28-2024 22:58-0400 Diastolic blood pressure 79 mm[Hg] Swetan Argelia [facility] 02-28-2024 22:58-0400 Heart rate 77 /min [facility] 02-28-2024 22:58-0400 Respiratory rate 18 /min [facility] 02-28-2024 22:58-0400 SaO2% (BldA) [Mass fraction] 99 % shavonnegavi Stout [facility] 02-28-2024 22:58-0400 Systolic blood pressure 122 mm[Hg] [facility] Encounters Encounter Date Encounter Type Care Provider Facility Start: 03-10-2024 End: 03-10-2024 ambulatory PHYSICIAN NO [facility] Work Phone: Start: 03-10-2024 End: 03-10-2024 Departed Referred PHYSICIAN NO [facility] Start: 02-28-2024 End: 02-29-2024 Emergency department patient visit Jemma Stout [facility] Start: 01-07-2024 ambulatory PHYSICIAN NO [facility] ility:[facility] Start: 01-07-2024 Registered Recurring PHYSICIAN NO JOSE L [facility] Start: 12-11-2023 End: 12-11-2023 ambulatory [facility] Start: 12-11-2023 Encounter for gynecological examination (general) (routine) without abnormal findings [facility] Start: 12-11-2023 End: 12-11-2023 ambulatory [facility] Start: 12-11-2023 Encounter for gynecological examination (general) (routine) without abnormal findings [facility] Payers Date Payer Category Payer Self-pay 2023 Unknown [id number] 1995 Unknown [id number] 2.16.8 [id number] 1995 Unknown [id number] 2.16.8 [id number] 1995 Unknown [id number] 2.16.8 [id number] 1995 Unknown [id number] 2.16.8 [id number] Unknown HCAP/HFA/FAP Active [id number] Unknown [id number] 2.16.8 [id number] Unknown [id number] 2.16.8 [id number] Social History Date Type Detail Facility Tobacco smoking status [facility] Sex Assigned At Female [facility] Start: 08-28-2022 Tobacco smoking stat [facility] Never smoked tobacco (finding) [facility] Start: 1995 Sex Assigned At Female F [facility] Functional Status Date Assessment Result Facility 02-28-2024 Functional Status N/A [facility] Discharge instructions 02-29-2024 Note Date [...] be managed by a specialist called an unit reactor operator. Type 2 diabetes may be treated by [...] meet with a certified diabetes care and health education director? What diabetes medicines do I need, and when should I take them? What equipment will I need to manage my diabetes at home? How often do I need to check my blood glucose? Where can I find a support group for people with diabetes? What number can I call if I have questions? When is my next appointment? General instructions Take ghrd-eee-bjgsnbj and prescription medicines only as told by your health care provider. Keep all follow-up visits. This is important. Where to find more information For help and guidance and for more information about diabetes, please visit: [place] Diabetes Association (ADA): www.diabetes.org [place] Association of Diabetes Care and Education Specialists [...] provider. Document Revised: 07/24/2021 Document Reviewed: 07/24/2021 [employer] Patient Education 2023 [employer]. 02/29/2024 01:50:28 Diabetes Mellitus Basics Diabetes Mellitus [...] care provider Should I talk with a family living educator? What equipment will I need to [...] with diabetes? Where to find more information [place] Diabetes Association: www.diabetes.org Association of Diabetes Care [...] provider. Document Revised: 08/30/2020 Document Reviewed: 08/30/2020 [employer] Patient Education 2023 [employer]. 02/29/2024 01:50:28 Diabetes Mellitus and Nutrition, Adult [...] Carrots. Green beans. Tomatoes. Peppers. Onions. Cucumbers. Dexter sprouts. Grains Whole grains, such as whole-wheat [...] meet with a certified diabetes care and health education director? Do I need to meet with a dietitian? What number can I call if I have questions? When are the best times to check my blood glucose? Where to find more information: [place] Diabetes Association: diabetes.org Academy of Nutrition and Dietetics: eatright.org National [place] of Diabetes and Digestive and Kidney Diseases: [...] provider. Document Revised: 11/30/2020 Document Reviewed: 11/30/2020 [employer] Patient Education 2023 [employer]. Follow Up Care 02/28/2024 22:56:06 With:Lilian Gomez Address: [address] [place] [address] [facility] (1) When:03/03/2024 Comments:Take the metformin twice a day. Please follow-up with your primary care doctor for further evaluation management. Please return to the ED for any new or worsening symptoms. With:XXXX NONE Address: [place] When:Within 3 Day(s) [facility] Clinical Note 02-29-2024 Note Date & Type [...] be managed by a specialist called an unit reactor operator. Type 2 diabetes may be treated by [...] meet with a certified diabetes care and health education director? ? What diabetes medicines do I need, [...] my next appointment? General instructions ? Take dsqu-veh-pktalof and prescription medicines only as told by your health care provider. ? Keep all follow-up visits. This is important. Where to find more information For help and guidance and for more information about diabetes, please visit: ? [place] Diabetes Association (ADA): www.diabetes.org ? [place] Association of Diabetes Care and Education Specialists (ADCES): www.diabeteseducator.org ? International Diabetes Federation (IDF): www.idf.org Contact a health care provider if: ? Your blood glucose is at o (more content not included)... [facility] Evaluation + Plan note 02-28-2024 Note Date & Type Note Facility 10-18-2024 Evaluation + Plan note Extrac kit from: Title:ED Note Author:guillermo Sweta ADLERvi Velasquez Date :02/28/24 Diabetes (E11.9: Type 2 diab etes mellitus without complications) Orders: metformin, 1,000 mg = 2 tab(s), Tab, Oral, Once, Stop date 02/29/24 0:49:00 EDT, STAT, Start date 02/29/24 0:49:00 EDT, 02/29/24 0:49:00 EDT metformin, 1,000 mg = 1 tab(s), Oral, BID, # 28 tab(s), Refills(s) 0, [facility]acy[id number], 162, cm, 02/28/24 23:04:00 EDT, Height/Length [...] Diagnostic Tests Pending * Urine Culture 02/29/24 [facility] Evaluation note Note Date & Type Note Facility Evaluation note [facility]: Hospital course Narrative Note Date & Type Note Facility Hospital course Narrative No data available for this section [facility] Progress note Note Date & Type Note Facility Progress note No data available for this section [facility] Summary Purpose Family History No Family History Records FoundNo Family History Records Found No data available for this section No Family History Records FoundNo Family History Records FoundNo Family History Records Found Advance Directives No Advanced Directives Records Found Advance Directive Response Recorded Date/ Time Advance Directives No August 29, 023 12:08am Chief Complaint and Reason for Visit Chief Complaint bh Type 2 diabetes mellitus without complication, wit Additional Source Comments INFORMATION SOURCE (unrecogn ized section and content) DATE CREATED AUTHOR 12/13/2023 [facility] DATE CREATED AUTHOR AUTHOR'S ORGANIZ ATION 12/21/2023 [facility] DATE CREATED AUTHOR AUTHOR'S ORGANIZ ATION 03/02/2024 [facility] DATE CREATED AUTHOR AUTHOR'S ORGANIZ ATION 03/03/2024 [facility] DATE CREATED AUTHOR AUTHOR'S ORGANIZ ATION 03/12/2024 [facility] Care Teams (unrecognized sec tion and content) Team Status: Active Member Role Status Dates PHYSICIAN NO FAMILY Primary Care Provider Active Start: January 07, 2024 Oscar Logan MD Attending Provider Active Start: January 07, 2024 Team Status: Inactive Member Role Status Dates ANASTACIA James Attending Provider Active Start: March 10, 2024 End: March 10, 2024 Goals (unrecognized section and content) Goals may be documented in a n alternate section FOR RECORDS PERTAINING TO PATIENTS WHO ARE [...] BE BASED ON THE PRIMARY CLINICAL RECORDS. [employer] provides no warranty or guarantee of the accuracy or completeness of information in this document.
[2024-03-14 11:16] LABS: Estimated Average Glucose 252 mg/dL; Glycohemoglobin A1C 10.4 % (4.5-6.2)
== END 2024-03-14 10:39 | disposition home or self-care (01) ==
LOC: LAB 10:40
PROVIDERS: PCP Nurse Practitioner Adult Health; Visit Provider Nurse Practitioner Adult Health
DX: E11.9 Type 2 diabetes mellitus without complications (principal)
CPT/HCPCS: 36415; 83036

== ENCOUNTER 2025-03-21 20:56 | Emergency (ER) | payer OTHER, SELFPAY ==
--- OUTSIDE RECORDS SUMMARY | 2025-02-22 05:00 | XMS_ITS ---
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 Name Role Phone Maliha Glass Primary Care Provider [phone] Mylene Leary Unavailable [phone] Bia Raygoza Unavailable [phone] REASON FOR VISIT FILLING Social History Sex Assigned At : Social History Observation Description Sex Assigned At Female Encounters Encounter Location Date Provider Diagnosis [facility] [address] [place] [address] 02/22/2025 Bia Raygoza Plan Of Treatment Next Appt Details Provider Name:Maliha Maria Luisa, 03/30/2025 10:30:00 AM, [address] [facility], [place], [address], Provider Name:Hali Rand, 04/13/2025 04:30:00 PM, [address], [place], [address], Provider Name:Cyndi capone, 04/19/2025 11:45:00 AM, [address] [place], [address], Provider Name:Roland Montenegro, 0 06/23/2025 01:30:00 PM, [address] [place], [address], Provider Name:Roland Montenegro, 0 06/30/2025 03:00:00 PM, [address] [place], [address], Progress Notes * MATTIE SINGHDEREKB:1995 (29 yo F)Acc No.[id number]:02/22/2025 Patient:TRU LARA :?Bia IdalmisDOB:1995???Age:29 Y???Sex:Female Date:02/22/2025Phone:[phone]:[address] [place], [place]-[address] Pcp:Maliha Glass Subjective: * Chief Complaints: * F ILLING * Electronic signature of Bia Raygoza , [id number] on 03/21/2025 at 10:15 PM ESTSign off status: Pending * Provider: Reva Raygoza Date: Generated for Printing/Faxing/eTransmitting on:?03/21/2025 10:15 PM EST
--- OUTSIDE RECORDS SUMMARY | 2025-02-22 05:15 | XMS_ITS ---
Author Organization [facility] es Address [address] [place] [address] Care Team Providers Care Water Inspector Name Role Phone Maria Luisa Maliha Primary Care Provider SapphireMylene machado Unavailable [phone] Preeti Sheffield Unavailable REASON FOR VISIT FILLING (apt with Claudia at 11am) Social History Sex Assigned At : Social History Observation Description Sex Assigned At Female Encounters Encounter Location Date Provider Diagnosis [facility] [address] [place] [address] 02/22/2025 Preeti Bashir Plan Of Treatment Next Appt Details Provider Name:Maliha Glass, 03/30/2025 10:30:00 AM, [address] [facility], [address], [place], [address], Provider Name:Hali Rand, 04/13/2025 04:30:00 PM, [address], [place], [address], Provider Name:Cyndi capone, 04/19/2025 11:45:00 AM, [address] [place], [address], Provider Name:Roland Montenegro, 0 06/23/2025 01:30:00 PM, [address] [place], [address], Provider Name:Roland Montenegro, 0 06/30/2025 03:00:00 PM, [address] [facility] [place], [address], Progress Notes * MATTIE SINGHKEO:1995 (29 yo F)Acc No.[id number]:02/22/2025 Patient:?TRU SINGH :?PREETI BASHIR DDSDOB:1995???Age: 29 Y???Sex:FemaleDate:02/22/2025Phone:[phone]:[facility] [place], [place]-[address]Pcp:Maliha Glass Subjective: * Chief Complaints: * F ILLING (apt with Claudia at 11am) * Electronic signature of Preeti Bashir DDS on 03/21/2025 at 10:15 PM ESTSign off status: Pending * Provider: Shanon BASHIR DDS Date: Generated for Printing/Faxing/eTransmitting on:?03/21/2025 10:15 PM EST
--- OUTSIDE RECORDS SUMMARY | 2025-02-25 04:00 | XMS_ITS ---
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 Name Role Phone Maliha Glass Primary Care Provider [phone] Mylene Leary Unavailable [phone] REASON FOR VISIT BH 1 month f/u Social History Sex Assigned At : Social History Observation Description Sex Assigned At Female Encounters Encounter Location Date Provider Diagnosis [facility] Evel[address] [place] [address] 02/25/2025 Mylene Leary Plan Of Treatment Next Appt Details Provider Name:Maliha Glass, 03/30/2025 10:30:00 AM, [address] [facility], [place], [address], Provider Name:Hali Rand, 04/13/2025 04:30:00 PM, [address] [place], [address], Provider Name:Cyndi capone, 04/19/2025 11:45:00 AM, [address] [place], [address], Provider Name:Roland Montenegro, 0 06/23/2025 01:30:00 PM, [address] [place], [address], Provider Name:Roland Montenegro, 0 06/30/2025 03:00:00 PM, [address] [place], [address], Progress Notes * MATTIE SINGHADOB:1995 (29 yo F)Acc No.[id number]:02/25/2025 Behavioral Health Patient: TRU VIZCARRA :?Mylene Leary CNPDOB:1995???Age:29 Y ???Sex:FemaleDate:02/25/2025Phone:[phone]:[address] [place] [address]Pcp:Malhia Glass Subjective: * Chief Complaints: * B H 1 month f/u * Electronic signature of LILLIE Redd on 03/21/2025 at 10:14 PM ESTSign off status: Pending * Provider: Jake Leary CNP Date: Generated for Printing/Faxing/eTransmitting on:?03/21/2025 10:14 PM EST
--- OUTSIDE RECORDS SUMMARY | 2025-03-18 04:30 | XMS_ITS ---
Author Organization [facility] Address [address] [place] [address] Care Team Providers Care Bracelet Former Name Role Phone DavonteMaliha huang Primary Care Provider [phone] Mylene Leary Unavailable [phone] Allergies No Known Allergies REASON FOR VISIT BH 1 month f/u, Pt states she does not feel the medication is working; having more nightmares than usual., Pt states she wakes up in the middle of the night with sweats and shaking., Pt states appetite is good., Pt states she is not sleeping well due to nightmares; attempts to return to sleep but nightmares continue. Medications Medication SIG (Take, Route, Frequency, Duration) Notes Start Date End Date Status hydrOXYzine HCl 10 MG Tablet 1 tablet as needed Orally Once a day; Duration: 90 days ActiveVenlafaxine HCl ER 75 MG Capsule Extended Release 24 Hour 1 capsule with food Orally Once a day; Duration: 30 days total 225 mg 5ActiveOmeprazole 20 MG Capsule Delayed ReleaseTAKE 1 CAPSULE BY MOUTH 1/2 TO 1 HOUR BEFORE MORNING MEAL EACH DAY; Duration: 30ActiveTylenol 325 MG Tablet1 tablet as needed Orally every 6 hrsNot-Taking/PRNScopolamine 1 MG/3DAYS Patch 72 Hour 1 patch to skin behind the ear Transdermal every 72 hours; Duration: 30 days As needed ActivePrazosin HCl 5 MG Capsule1 capsule at bedtime Orally Once a day; Duration: 90 daysActiveFamotidine 40 MG TabletTAKE 1 TABLET BY MOUTH EVERYDAY AT BEDTIME; Duration: 30ActiveOLANZapine 2.5 MG Tablet1 tablet Orally Once a day; Duration: 30 days2025ActiveCariprazine HCl 3 MG Capsule1 capsule Orally Once a day; Duration: 30 01/25/2025Not-Taking/PRNVenlafaxine HCl ER 150 MG Capsule Extended Release 24 HourTAKE 1 CAPSULE BY MOUTH EVERY DAY WITH FOOD FOR 30 DAYS; Duration: 30 daysActivemetFORMIN HCl 500 MG TabletTAKE 1 TABLET BY MOUTH TWICE A DAY; Duration: ActiveFerrous Sulfate 325 (65 Fe) MG Tablet1 tablet Orally daily; Duration: 30 daysActiveLevothyroxine Sodium 25 MCG Tablet1 tablet in the morning on an empty stomach Orally Once a day; Duration: 30 5Active Synthroid 25 MCG TabletTAKE 1 TABLET BY MOUTH EVERY DAY IN THE MORNING ON EMPTY STOMACH; Duration: ActiveMetoprolol Succinate ER 25 MG Tablet Extended Release 24 Hour1/2 tablet Orally Once a day; Duration: 30 5Active Social History Tobacco Use: Social History Observation Description Date Details (start date - stop date) Never Smoker NA - NA Sex Assigned At : Social History Observation Description Sex Assigned At Female Social History GeneralSocial InfoQuestionAnswerNotesTransition of Care:ER//hospital since last office visit?NoSpecialist seen since last office visit?NoRapid Mood ScreeningHave there been at least 6 different periods of time (at least 2 weeks) when you felt deeply depressed?YesDid you have problems with depression before the age of 18?YesHave you ever had to stop or change your antidepressant because it made you highly irritable or hyper?NoHave you ever had a period of at least 1 week during which you were more talkative than normal withthoughts racing in your head?YesHave you ever had a period of at least 1 week during which you felt any of the following: unusuallyhappy; unusually outgoing; or unusually energetic?NoHave you ever had a period of at least 1 week during which you needed much less sleep than usual?YesDepression Screening (PHQ-9):Little interest or pleasure in doing thingsMore than half the daysFeeling down, depressed, or hopelessMore than half the daysTrouble falling or staying asleep, or sleeping too muchSeveral daysFeeling tired or having little energyNearly every dayPoor appetite or overeatingNot at allFeeling bad about yourself-or that you are a failure or have let yourself or your family downMore than half the daysTrouble concentrating on things, such as reading the newspaper or watching televisionNot at allMoving or speaking so slowly that other people could have noticed. Or the opposite being so fidgetyor restless that you have been moving around a lot more than usualNot at allThoughts that you would be better off , or of hurting yourself in some wayNot at allTotal [id number] Moderate DepressionSubstance abuse/mental health issues of patient/familyPatient -DeniesAbility to understand healthcare/treatmentPatient:FairSocial/Support Concerns:Patient:NoBehaviors affecting healthPoor/Risky Behaviors:Denies- Communication Barrier:Language Barrier?:NoFood Insecurity ScreeningSocial Info QuestionAnswerNotesFood Insecurity ScreeningWithin the last 12 months, have you been worried about your food running out before you received money to buy more? NoWithin the last 12 months, did the food you buy not last, and you didn't have money to buy more?NoWithin the last 12 months, have you had any difficulty affording to eat balanced meals including all food groups (fruits, vegetables, protein, and whole grains)?NoDrug/Alcohol:Social InfoQuestionAnswerNotesAUDIT-C (Standard)Did you have a drink containing alcohol in the past year?Yes? How often did you have a drink containing alcohol in the past year?Monthly or less (1 point)? How many drinks did you have on a typical day when you were drinking in the past year?1 or 2 drinks (0 point)? How often did you have six or more drinks on one occasion in the past year?Less than monthly (1 point)Points2 InterpretationNegativeDAST-10 (2020 Edition)1. Have you used drugs other than those required for medical reasons?No2. Do you abuse more than one drug at a time?No3. Are you always able to stop using drugs when you want to?No4. Have you had blackouts or flashbacks as a result of drug use?No5. Do you ever feel bad or guilty about your drug use?No6. Does your spouse (or parents) ever complain about your involvement with drugs?No7. Have you neglected your family because of your use of drugs?No8. Have you engaged in illegal activities in order to obtain drugs?No9. Have you ever experienced withdrawal symptoms (felt sick) when you stopped taking drugs?No10. Have you had medical problems as a result of your drug use (e.g., memory loss, hepatitis, convulsions, bleeding etc.)?NoResults:1Interpretation of Score:Low levelTobacco Use:Social Info QuestionAnswerNotesTobacco Control (Standard)Tobacco use:Nonsmoker Problems Problem Type SNOMED Code ICD Code Onset Dates Problem Status W/U Status Risk Notes Problem Nightmares ([id number]) Nightmares (F51.5) Activeconfirmed Vital Signs Temperature 97.5 degrees Fahrenheit 03/18/20 25 Blood pressure systolic 124 mm Hg 03/18/20 25 Blood pressure diastolic 81 mm Hg 025 Heart Rate 116 /min 03/18/2025 Height 64 in 03/18/2025 Weight 144.2 lbs 03/18/2025 BMI 24.75 kg/m2 03/18/2025 Oximetry 95 % 03/18/2025 Encounters Encounter Location Date Provider Diagnosis [address] [address] 03/18/2025 Mylene Sapphire Nightmares F51.5 and PTSD (post-traumatic stress disorder) F43.10 Assessments Encounter Date Diagnosis (ICD Code) Assessment Notes Treatment Notes Treatment Clinical Notes Section Notes 03/18/2025 Nightmares (ICD-10 - F51.5) will increase Prazosin to 5mg good sleep hygiene discussed. Avoid stimulants such as tv, electronic, exercises before bed. Relaxation techniques also discussed. f/u in 1 month and PRN 03/18/2025PTSD (post-traumatic stress disorder) (ICD-10 - F43.10) Post Traumatic Stress Disorder: -SSRI s -SNRI s -propranolol -Mirtazapine (for insomnia) continue medications as prescribed denies needing refills today f/u in 1 month and PRN Plan Of Treatment Medication Medication Name Sig Start Date Stop Date Notes Prazosin HCl 5 MG Capsule 1 capsule at b edtime Orally Once a day; Duration: 90 days Treatment Notes Assessment Notes Nightmares will increase Prazosin to 5mg good sleep hygiene discussed. Avoid stimulants such as tv, electronic, exercises before bed. Relaxation techniques also discussed. f/u in 1 month and PRN PTSD (post-traumatic stress disorder) Post Traumatic Stress Disorder: -SSRI s -SNRI s -propranolol -Mirtazapine (for insomnia) continue medications as prescribed denies needing refills today f/u in 1 month and PRN Next Appt Details Follow Up: 4 Weeks, Reason: BH Provider Name:Maliha Roseirvin, 03/30/2025 10:30:00 AM, [address] , [address], [place], [address], Provider Name:Hali Giorgi, 04/13/2025 04:30:00 PM, [address], [place], [address], Provider Name:Cyndi capone, 04/19/2025 11:45:00 AM, [address], [facility] [place], [address], Provider Name:Roland Montenegro, 0 06/23/2025 01:30:00 PM, [address], [place], [address], Provider Name:Roland Montenegro, 0 06/30/2025 03:00:00 PM, [address], [place], [address], History and Physical Notes * HPI (History of Present Illness) CategorySub-CategoryDetailNotesCategory NotesDepression ScreeningPHQ-2 (2015 Edition)Little interest or pleasure in doing things?: Not at all Pt is being seen today for follow up via in-office visit. Pt is taking medications daily and tolerating meds well. . Pt states she continues to have nightmares every night but different every night. SHe will wake up in the nightmare but when she tries to go back to sleep the same nightmare will continue. . Pt denies mood fluctuation. Energy and motivation are stable. Depressive symptoms are not persistent. Denies episodes of having sadness, anhedonia, isolating behaviors, or crying spells. Anxiety controlled. Concentration intact without distractibility. . is not sleeping through the night, never feels rested. c/o Nightmares. Appetite is good. . Denies Euphoria. Pervasive irritability is controlled today. Meaningful relationships intact. Denies increased goal-oriented behavior or increase in purposeless activity. Attending work as scheduled. . Denies suicidal or homicidal ideation or plan. No morbid thoughts. Interpersonal issues discussed. Support provided. Insight oriented/ Behavior modifying/ Supportive therapy . Feeling down, depressed, or hopeless?: Several daysTotal Score: 1 Examination CategorySub-CategoryDetailNotesCategory NotesGeneral Examination . AIMS EXAM: . AIMS Muscles of Facial Expression: None AIMS Lips and Perioral Area: None AIMS Jaw Area Involuntary Movements: None AIMS Tongue Involuntary Movements: None AIMS Upper Arms, Wrists, Hands, Fingers: None AIMS Lower Legs, Knees, Ankles, Toes: None AIMS Overall Abnormal Movement Severity: None AIMS Incapacitation Abnormal Movement: None AIMS Self Awareness of Abnormal Movement: Aware, None noted AIMS Current Teeth, Denture Problems: No AIMS Movements Disappear in Sleep: No . . MENTAL STATUS EXAM: . Appearance: Appropriately dressed and groomed, good eye contact, cooperative, pleasant Behavior/Motor Activity: Normal Gait/Station: Within normal limits Speech: Normal Mood: Good Affect: Full Thought processes/Associations: Logical and goal directed Thought Content: Non-psychotic Cognition/Attention/Memory/Concentration: Alert and oriented x 4; grossly intact attention; memory-recent/remote judged adequate by interviewer Insight: Good Judgement: Good language: Within normal limits Fund of Knowledge: Adequate . Progress Notes * ZACH SINGH:1995 (29 yo F)Acc No.[id number]:03/18/2025 Behavioral Health Patient: TRU VIZCARRA :?BECKY CobosB:1995???Age:29 Y ???Sex:FemaleDate:03/18/2025Phone:[phone]:[address] [facility], [id number]:Maliha Glass Subjective: * Chief Complaints: * B H 1 month f/uPt states she does not feel the medication is working; having more nightmares than usual.Pt states she wakes up in the middle of the night with sweats and shaking.Pt states appetite is good.Pt states she is not sleeping well due to nightmares; attempts to return to sleep but nightmares continue. * HPI: ???Depression Screening:?PHQ-2 (2015 Edition)?Little interest or pleasure in doing things? Not at all ?Feeling down, depressed, or hopeless??Several days ?Total Score?1 ? Pt is being seen today for follow up via in-office visit. Pt is taking medications daily and tolerating meds well. . Pt states she continues to have nightmares every night but different every night. SHe will wake up in the nightmare but when she tries to go back to sleep the same nightmare will continue.? . Pt denies mood fluctuation. Energy and motivation are stable. Depressive symptoms are not persistent. Denies episodes of having sadness, anhedonia, isolating behaviors, or crying spells. Anxiety controlled. Concentration intact without distractibility. . is not sleeping through the night, never feels rested.?c/o Nightmares. Appetite is good. . Denies Euphoria. Pervasive irritability is controlled today. Meaningful relationships intact. Denies increased goal-oriented behavior or increase in purposeless activity. Attending work? as scheduled. . Denies suicidal or homicidal ideation or plan. No morbid thoughts. Interpersonal issues discussed. Support provided. Insight oriented/ Behavior modifying/ Supportive therapy . * ROS: ???CONSTITUTIONAL: No fever, chills, sweats, weakness SKIN: No jaundice, rash, lesions, petechiae GASTROINTESTINAL: No nausea, vomiting, diarrhea, or GI bleeding MUSCULOSKELETAL: No muscle pain or weakness NEUROLOGIC: No headache, dizziness, numbness, or weakness . * Medical History: VERTIGO DM DEPRESSION Medical History Verified * Surgical History: left ear surgery ? Surgical History verified.? * [place] Diagn[place]ic [place] [facility] [place] [facility] [place] Hospitalization Verified.? * Family History: P aternal Grand Mother: diagnosed with Heart Disease. 3 brother(s) - healthy. . F amily History Verified.. * Social History: ???Drug/Alcohol:?DAST-10 (2020 Edition)?1. Have you used drugs other than those required for medical reasons?? No ?2. Do you abuse more than one drug at a time? No ?3. Are you always able to stop using drugs when you want to??No ?4. Have you had blackouts or flashbacks as a result of drug use??No ?5. Do you ever feel bad or guilty about your drug use??No ?6. Does your spouse (or parents) ever complain about your involvement with drugs??No ?7. Have you neglected your family because of your use of drugs??No ?8. Have you engaged in illegal activities in order to obtain drugs??No ?9. Have you ever experienced withdrawal symptoms (felt sick) when you stopped taking drugs??No ?10. Have you had medical problems as a resultof your drug use (e.g., memory loss, hepatitis, convulsions, bleeding etc.)??No ?Results:?1 ?Interpretation of Score:?Low level ?AUDIT-C (Standard)?Did you have a drink containing alcohol in the past year??Yes ?How often did you have a drink containing alcohol in the past year?? Monthly or less (1 point) ?How many drinks did you have on a typical daywhen you were drinking in the past year??1 or 2 drinks (0 point) ?How often did you have six or more drinks on one occasion in the past year??Less than monthly (1 point) ?Points?2 ?Interpretation?Negative ???General:?Depression Screening (PHQ-9)?Little interest or pleasure in doing things More than half the days ?Feeling down, depressed, or hopeless?More than half the days ?Trouble falling or staying asleep, or sleeping too much?Several days ?Feeling tired or having little energy?Nearly every day ?Poor appetite or overeating?Not at all ?Feeling bad about yourself-or that you are a failure or have let yourself or your family down?More than half the days ?Trouble concentrating on things, such as reading the newspaper or watching television?Not at all ?Moving or speaking so slowly that other people could have noticed. Or the opposite being so fidgety or restless that you have been moving around a lot more than usual?Not at all ?Thoughts that you would be better off , or of hurting yourself in some way?Not at all ?Total Score?10 ?Intepretation?Moderate Depression ?Rapid Mood Screening?Have there been at least 6 different periods of time (at least 2 weeks) when you felt deeply depressed??Yes ?Did you have problems with depression before the age of 18??Yes ?Have you ever had to stop or change your antidepressant because it made you highly irritable or hyper??No ?Have you ever had a period of at least 1 weekduring which you were more talkative than normal with thoughts racing in your head??Yes ?Have you ever had a period of at least 1 weekduring which you felt any of the following: unusually happy; unusually outgoing; or unusually energetic?? No ?Have you ever had a period of at least 1 weekduring which you needed much less sleep than usual??Yes ?Transition of Care?ER/UC/hospital since last office visit??No ?Specialist seen since last office visit??No ?Behaviors affecting health?Poor/Risky Behaviors:?Denies- ?Substance abuse/mental health issues of patient/family?Patient -?Denies ?Social/Support Concerns?Patient:?No ?Ability to understand healthcare/treatment?Patient:?Fair ?Communication Barrier?Language Barrier?:?No ???Food Insecurity Screening:?Food Insecurity Screening?Within the last 12 months, have you been worried about your food running out before you received money to buy more??No ?Within the last 12 months, did the food you buy not last, and you didn't have money to buy more??No ?Within the last 12 months, have you had any difficulty affording to eat balanced meals including all food groups (fruits, vegetables, protein, and whole grains)??No ???Tobacco Use:?Tobacco Control (Standard)?Tobacco use:?Nonsmoker ???Social History Verified. * Medications: T akingVenlafaxine HCl ER 150 MG Capsule Extended Release 24 Hour TAKE 1 CAPSULE BY MOUTH EVERY DAY WITH FOOD FOR 30 DAYS Venlafaxine HCl ER 75 MG Capsule Extended Release 24 Hour 1 capsule with food Orally Once a day total 225 mghydrOXYzine HCl 10 MG Tablet 1 tablet as needed Orally Once a day Omeprazole 20 MG Capsule Delayed Release TAKE 1 CAPSULE BY MOUTH 1/2 TO 1 HOUR BEFORE MORNING MEAL EACH DAY Scopolamine 1 MG/3DAYS Patch 72 Hour 1 patch to skin behind the ear Transdermal every 72 hours As neededmetFORMIN HCl 500 MG Tablet TAKE 1 TABLET BY MOUTH TWICE A DAY Levothyroxine Sodium 25 MCG Tablet 1 tablet in the morning on an empty stomach Orally Once a day Ferrous Sulfate 325 (65 Fe) MG Tablet 1 tablet Orally daily Metoprolol Succinate ER 25 MG Tablet Extended Release 24 Hour 1/2 tablet Orally Once a day Synthroid 25 MCG Tablet TAKE 1 TABLET BY MOUTH EVERY DAY IN THE MORNING ON EMPTY STOMACH Famotidine 40 MG Tablet TAKE 1 TABLET BY MOUTH EVERYDAY AT BEDTIME OLANZapine 2.5 MG Tablet 1 tablet Orally Once a day Prazosin HCl 2 MG Capsule TAKE 1 CAPSULE BY MOUTH AT BEDTIME ONCE A DAY Taking Venlafaxine HCl ER 150 MG Capsule Extended Release 24 Hour TAKE 1 CAPSULE BY MOUTH EVERY DAY WITH FOOD FOR 30 DAYS Taking Venlafaxine HCl ER 75 MG Capsule Extended Release 24 Hour 1 capsule with food Orally Once a day total 225 mgTaking hydrOXYzine HCl 10 MG Tablet 1 tablet as needed Orally Once a day Taking Omeprazole 20 MG Capsule Delayed Release TAKE 1 CAPSULE BY MOUTH 1/2 TO 1 HOUR BEFORE MORNING MEAL EACH DAY Taking Scopolamine 1 MG/3DAYS Patch 72 Hour 1 patch to skin behind the ear Transdermal every 72 hours As neededTaking metFORMIN HCl 500 MG Tablet TAKE 1 TABLET BY MOUTH TWICE A DAY Taking Levothyroxine Sodium 25 MCG Tablet 1 tablet in the morning on an empty stomach Orally Once a day Taking Ferrous Sulfate 325 (65 Fe) MG Tablet 1 tablet Orally daily Taking Metoprolol Succinate ER 25 MG Tablet Extended Release 24 Hour 1/2 tablet Orally Once a day Taking Synthroid 25 MCG Tablet TAKE 1 TABLET BY MOUTH EVERY DAY IN THE MORNING ON EMPTY STOMACH Taking Famotidine 40 MG Tablet TAKE 1 TABLET BY MOUTH EVERYDAY AT BEDTIME Taking OLANZapine 2.5 MG Tablet 1 tablet Orally Once a day Taking Prazosin HCl 2 MG Capsule TAKE 1 CAPSULE BY MOUTH AT BEDTIME ONCE A DAY Not-Taking/PRNTylenol 325 MG Tablet 1 tablet as needed Orally every 6 hrs Cariprazine HCl 3 MG Capsule 1 capsule Orally Once a day Medication List reviewed and reconciled with the patientNot-Taking/PRN Tylenol 325 MG Tablet 1 tablet as needed Orally every 6 hrs Not-Taking/PRN Cariprazine HCl 3 MG Capsule 1 capsule Orally Once a day Medication List reviewed and reconciled with the patient * Allergies: Lisa Lane.yesAllergies Verified. Objective: * Vitals: H t: 64 in, Wt: 144.2 lbs, BMI:24.75Index, Temp: 97.5 F, BP: 124/81 mm Hg, SaO2:95%, HR: 116 /min. * Examination: ???General Examination: ???. AIMS EXAM: . AIMS Muscles of Facial Expression: None AIMS Lips and Perioral Area: None AIMS Jaw Area Involuntary Movements: None AIMS Tongue Involuntary Movements: None AIMS Upper Arms, Wrists, Hands, Fingers: None AIMS Lower Legs, Knees, Ankles, Toes: None AIMS Overall Abnormal Movement Severity: None AIMS Incapacitation Abnormal Movement: None AIMS Self Awareness of Abnormal Movement: Aware, None noted AIMS Current Teeth, Denture Problems: No AIMS Movements Disappear in Sleep: No . . MENTAL STATUS EXAM: . Appearance: Appropriately dressed and groomed, good eye contact, cooperative, pleasant Behavior/Motor Activity: Normal Gait/Station: Within normal limits BH Speech: Normal Mood: Good Affect: Full Thought processes/Associations: Logical and goal directed Thought Content: Non-psychotic Cognition/Attention/Memory/Concentration: Alert and oriented x 4; grossly intact attention; memory-recent/remote judged adequate by interviewer Insight: Good Judgement: Good language: Within normal limits Fund of Knowledge: Adequate . . Assessment: * Assessment: 1.?PTSD (post-traumatic stress disorder) - F43.10 (Primary)???2.?Nightmares - F51.5??? Plan: * Treatment: Notes: Post Traumatic Stress Disorder: -SSRI s -SNRI s -propranolol -Mirtazapine (for insomnia) continue medications as prescribed? denies needing refills today f/u in 1 month and PRN??2.?Nightmares? Increase Prazosin HCl Capsule, 5 MG, 1 capsule at bedtime, Orally, Once a day, 90 days, 90 Capsule,Refills 1.?? Notes: will increase Prazosin to 5mg? ?good sleep hygiene discussed. ?Avoid stimulants such as tv, electronic, exercises before bed. ?Relaxation techniques also discussed. f/u in 1 month and PRN?? * Procedure Codes: 3 079F DIAST BP 80-89 MM [id number] SYST BP LT 130 MM [id number] RVW MEDS BY RX/DR IN [facility] * Preventive Medicine: ??COUNSELING:?Communication to patient:?Counseling for Nutrition Provided?Yes ?Counseling for Physical Activity Provided?Yes ?BMI management provided?Yes ?Nutrition/Dietary Counseling provided Yes ?Patient Primary Pharmacy Discussion?Patient agrees to primary pharmacy being set to [facility] [place]?No ?Patient Declines: Explain Why?Patient explained that location of pharmacy is a barrier ???[facility] pharmacy information given. * Follow Up: 4 Weeks (Reason: BH) Billing Information: * Procedure Codes: 3079F DIAST BP 80-89 MM HG. 3074F SYST BP LT 130 MM HG. 1160F RVW MEDS BY RX/DR IN [facility]. * ign off status: Completed true * Provider: Jake Leary CNP Date: 05/18/2024 Generated for Printing/Faxing/eTransmitting on:?03/21/2025 10:14 PM EST
[2025-03-21 21:05] VITALS: BP 134/99; PULSE 96; TEMP 37; O2SAT 97; BMI 24.0
--- NOTE | 2025-03-21 21:30 | ED.ABDPAIN1 ---
HPI - Abdominal Pain General Chief Complaint: Abdominal Pain Stated Complaint: Abdominal Pain Time Seen by Provider: 03/21/25 21:26 Source: patient Mode of arrival: walk-in History of Present Illness HPI narrative: cc - abdominal pain Pt developed right lower abd pain 2-3 days ago. Waxes and wanes but does not go away. No OTC pain meds tried at home. Admitted to some nausea but denied vomiting. Had some diarrhea today. No urinary symptoms. No blood in stool or urine. No flank pain or back pain. No adnexal or pelvic pain. No vaginal discharge or bleeding. Last menstrual period was March 01. She denies any other symptoms suggestive of . Related Data Home Medications ?Medication ?Instructions ?Recorded ?Confirmed famotidine 40 mg tablet 40 mg PO QPM 03/21/25 03/21/25 ferrous sulfate 325 mg (65 mg 325 mg PO DAILY 03/21/25 03/21/25 iron) tablet (iron) hydroxyzine HCl 10 mg tablet 10 mg PO DAILY PRN anxiety 03/21/25 03/21/25 levothyroxine 25 mcg tablet 25 mcg PO DAILY 03/21/25 03/21/25 metformin 500 mg tablet 500 mg PO BID 03/21/25 03/21/25 metoprolol succinate 25 mg 12.5 mg PO DAILY 03/21/25 03/21/25 tablet,extended release 24 hr olanzapine 2.5 mg tablet 2.5 mg PO DAILY 03/21/25 03/21/25 prazosin 5 mg capsule 5 mg PO DAILY 03/21/25 03/21/25 semaglutide 0.25 mg or 0.5 mg (2 0.5 mg subcut QWEEK 03/21/25 03/21/25 mg/3 mL) subcutaneous pen injector (Ozempic) venlafaxine 150 mg 150 mg PO DAILY 03/21/25 03/21/25 capsule,extended release 24 hr venlafaxine 37.5 mg 75 mg PO DAILY 03/21/25 03/21/25 capsule,extended release 24 hr Previous Rx's ?Medication ?Instructions ?Recorded hyoscyamine sulfate 0.125 mg 0.125 mg PO Q6H PRN abdominal pain 03/21/25 sublingual tablet (Levsin/SL) #20 tabs ondansetron 4 mg disintegrating 4 mg PO Q6H PRN nausea and 03/21/25 tablet vomiting #20 tabs Allergies Allergy/AdvReac Type Severity Reaction Status Date / Time No Known Drug Allergies Allergy Verified 05/02/23 22:52 PFSH PFS Social History Smoking status: Never smoker Little interest or pleasure in doing things: not at all Feeling down, depressed, or hopeless: not at all Exam Narrative Exam Narrative: Nurses notes and vital signs reviewed and patient is not hypoxic. afebrile General: Well-appearing and in no apparent distress. Skin: Warm, dry, no pallor noted. No rash to abdomen at location of pain. Eye: Pupils are equal, round and EOMI. No scleral icterus. Ears, Nose, Mouth, and Throat: Oral mucosa is moist Cardiovascular: Regular Rate and Rhythm without murmur, gallop or rub. Respiratory: No accessory muscle use or respiratory distress. Lungs are clear to auscultation, no wheezing, rales or rhonchi Back: No CVA tenderness Musculoskeletal: normal ROM, no calf or popliteal tenderness, no lower extremity edema/swelling GI: Abdomen is soft, non-distended. Normal bowel sounds. No masses appreciated. Diffuse right-sided tenderness to palpation. No rebound, guarding, or rigidity noted. Negative Rovsing's. No umbilicus tenderness. Negative heel strike. Neurological: A&O x4. No cranial nerve dysfunction observed. No truncal ataxia. Moves all extremities. Sensation intact. Psychiatric: Cooperative and interactive. Normal mood and affect. Constitutional Vital Signs, click to edit/add: Last Vital Signs Temp 98.6 F 03/21/25 21:05 Pulse 96 H 03/21/25 21:05 Resp 18 03/21/25 21:05 BP 134/99 H 03/21/25 21:05 Pulse Ox 97 03/21/25 21:05 O2 Del Method Room Air 03/21/25 21:05 Course Vital Signs Vital signs: Vital Signs Temperature 98.6 F 03/21/25 21:05 Pulse Rate 96 H 03/21/25 21:05 Respiratory Rate 18 03/21/25 21:05 Blood Pressure 134/99 H 03/21/25 21:05 Pulse Oximetry 97 03/21/25 21:05 Oxygen Delivery Method Room Air 03/21/25 21:05 Temperature 98.6 F 03/21/25 21:05 Pulse Rate 96 H 03/21/25 21:05 Respiratory Rate 18 03/21/25 21:05 Blood Pressure 134/99 H 03/21/25 21:05 Pulse Oximetry 97 03/21/25 21:05 Oxygen Delivery Method Room Air 03/21/25 21:05 MDM - Abdominal Pain MDM Narrative Medical decision making narrative: Urine sent for testing and was negative. Blood was also sent for testing and found to be unremarkable with normal white blood cell count, unremarkable CMP including normal bilirubin. Urinalysis did not reveal acute urinary tract infection. the patient was ordered to undergo CT scanning of the abdomen pelvis with IV contrast. Radiologist report indicated no acute process. Appendix is normal. No evidence of inflamed small bowel or colon. No obstruction. No associated mesenteric adenopathy. Vasculature is unremarkable. There is some hepatomegaly and hepatic steatosis noted incidentally. The patient was informed of results and discharged home with prescription for Zofran and Levsin to be taken as needed. We discussed clear liquid diet. Advancement as tolerated. Lab Data Attestation: I reviewed the patient's lab results. Labs: Lab Results 03/21/25 03/21/25 Range/Units 21:20 21:41 WBC 10.8 (4.0-11.0) 10^3/uL RBC 5.40 (4.20-5.40) 10^6/uL Hgb 15.3 (12.0-16.0) g/dL Hct 44.7 (36.0-48.0) % MCV 82.8 (81.0-99.0) fL MCH 28.3 (26.7-34.0) pg MCHC 34.2 (29.9-35.2) g/dL RDW 12.2 (11.0-15.0) % Plt Count 341 (150-450) 10^3/uL MPV 9.5 (9.5-13.5) fL Neut % (Auto) 45.3 (43.0-75.0) % Lymph % (Auto) 43.2 (20.5-60.0) % [place] % (Auto) 7.7 (1.7-12.0) % Eos % (Auto) 2.3 (0.9-7.0) % Baso % (Auto) 0.9 (0.2-2.0) % Neut # (Auto) 4.9 (1.4-6.5) 10^3/uL Lymph # (Auto) 4.7 H (1.2-3.8) 10^3/uL [place] # (Auto) 0.8 (0.3-0.8) 10^3/uL Eos # (Auto) 0.3 (0.0-0.7) 10^3/uL Baso # (Auto) 0.1 (0.0-0.1) 10^3/uL Abs Immat Gran (auto) 0.06 H (0.00-0.03) 10^3/uL Imm/Tot Granulo (auto) 0.6 H (0.0-0.5) % Sodium 135 L (136-145) mmol/L Potassium 3.8 (3.5-5.1) mmol/L Chloride 100 (98-107) mmol/L Carbon Dioxide 27.2 (21.0-32.0) mmol/L Anion Gap 11.6 BUN 8.0 (7.0-18.0) mg/dL Creatinine 0.69 (0.55-1.02) mg/dL Est GFR ( Amer) >60 (>=60 mL/min/1.73m^2) Est GFR (Non-Af Amer) >60 (>=60 mL/min/1.73m^2) BUN/Creatinine Ratio 11.6 Glucose 310 H (74-106) mg/dL Calcium 9.4 (8.5-10.1) mg/dL Total Bilirubin 0.3 (0.2-1.0) mg/dL AST 29 (15-37) U/L ALT 82 H (14-59) U/L Alkaline Phosphatase 55 (46-116) U/L Total Protein 7.9 (6.4-8.2) g/dL Albumin 4.2 (3.4-5.0) g/dL Globulin 3.7 g/dL Albumin/Globulin Ratio 1.1 Lipase 46.0 (16.0-77.0) U/L Urine Color Lt. yellow (YELLOW) Urine Clarity Clear (CLEAR) Urine pH 7.5 (5.0-9.0) Ur Specific [place] 1.015 (1.005-1.025) Urine Protein Negative (NEG/TRACE) mg/dL Urine Glucose (UA) >=1000 A (NEGATIVE) mg/dL Urine Ketones Trace A (NEGATIVE) mg/dL Urine Occult Blood Negative (NEGATIVE) Urine Nitrite Negative (NEGATIVE) Urine Bilirubin Negative (NEGATIVE) Urine Urobilinogen 0.2 (0.2-1.0) EU/dL Ur Leukocyte Esterase Negative (NEGATIVE) Urine HCG, Qual Negative (NEGATIVE) Imaging Data CT scan - abdomen: Attestation: I have reviewed the pertinent imaging results. Radiologist's impression: No acute process. Hepatomegaly and hepatic steatosis. Discharge Plan Discharge Chief Complaint: Abdominal Pain Clinical Impression: Abdominal pain Patient Disposition: Home, Self-Care Time of Disposition Decision: 22:36 Prescriptions / Home Meds: New hyoscyamine sulfate [Levsin/SL] 0.125 mg tablet, sublingual 0.125 mg PO Q6H PRN (Reason: abdominal pain) Qty: 20 0RF ondansetron 4 mg tablet,disintegrating 4 mg PO Q6H PRN (Reason: nausea and vomiting) Qty: 20 0RF No Action ferrous sulfate [iron] 325 mg (65 mg iron) tablet 325 mg PO DAILY famotidine 40 mg tablet 40 mg PO QPM hydroxyzine HCl 10 mg tablet 10 mg PO DAILY PRN (Reason: anxiety) levothyroxine 25 mcg tablet 25 mcg PO DAILY metformin 500 mg tablet 500 mg PO BID metoprolol succinate 25 mg tablet extended release 24 hr 12.5 mg PO DAILY olanzapine 2.5 mg tablet 2.5 mg PO DAILY prazosin 5 mg capsule 5 mg PO DAILY Ozempic 0.25 mg or 0.5 mg (2 mg/3 mL) pen injector 0.5 mg SUBCUT QWEEK venlafaxine 150 mg capsule,extended release 24hr 150 mg PO DAILY venlafaxine 37.5 mg capsule,extended release 24hr 75 mg PO DAILY Print Language: Sami Instructions: Abdominal Pain (ED) Referrals: Maliha Glass NP [Primary Care Provider] - 1 week
[2025-03-21 21:38] LABS: Glucose Urine UA >=1000 mg/dL (NEGATIVE)
[2025-03-21 21:45] LABS: HCG Qualitative Urine* NEGATIVE (NEGATIVE)
[2025-03-21 21:49] LABS: Hematocrit 44.7 % (36.0-48.0); Hemoglobin 15.3 g/dL (12.0-16.0); Immature Granulocytes Abs Auto 0.06 10^3/uL (0.00-0.03); Immature Granulocytes Pct Auto 0.6 % (0.0-0.5); Lymphocytes Absolute Auto 4.7 10^3/uL (1.2-3.8); Mean Corpuscular HGB Conc 34.2 g/dL (29.9-35.2); Mean Corpuscular Hemoglobin 28.3 pg (26.7-34.0); Mean Corpuscular Volume 82.8 fL (81.0-99.0); Platelet Count 341 10^3/uL (150-450); Red Blood Count 5.40 10^6/uL (4.20-5.40); White Blood Count 10.8 10^3/uL (4.0-11.0)
[2025-03-21 22:06] LABS: Alanine Aminotransferase 82 U/L (14-59); Albumin Globulin Ratio 1.1; Albumin Level 4.2 g/dL (3.4-5.0); Alkaline Phosphatase 55 U/L (46-116); Anion Gap 11.6; Aspartate Amino Transferase 29 U/L (15-37); Blood Urea Nitrogen 8.0 mg/dL (7.0-18.0); Calcium 9.4 mg/dL (8.5-10.1); Carbon Dioxide 27.2 mmol/L (21.0-32.0); Chloride 100 mmol/L (98-107); Estimated GFR (African America >60 (>=60 mL/min/1.73m^2); Estimated GFR (Non-African Ame >60 (>=60 mL/min/1.73m^2); Globulin 3.7 g/dL; Glucose 310 mg/dL (74-106); Lipase 46.0 U/L (16.0-77.0); Potassium 3.8 mmol/L (3.5-5.1); Sodium 135 mmol/L (136-145); Total Protein 7.9 g/dL (6.4-8.2)
--- OUTSIDE RECORDS SUMMARY | 2025-03-21 22:15 | XMS_ITS | CCD ---
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 Role Phone NONE, XXXX Primary Care Physician Unavailab DO Jemma Pool Attending Unavailable NO FAMILY, PHYSICIAN Primary Care Provider Unava MD Oscar Hernandez Attending Provider Spasic, OIL DRILLING ENGINEER-C Pamela E Attending Provider Unavailable Primary Care Provider Unavailabl e Spasic OIL DRILLING ENGINEER-C, Pamela E Primary Care Provider Spasic OIL DRILLING ENGINEER-C, Pamela E Referring Provider Юлия Troncoso APRN Attending Provider Unavailable Primary Care Provider Unavailabl e Spasic OIL DRILLING ENGINEER-C, Pamela E Primary Care Provider Spasic OIL DRILLING ENGINEER-C, Pamela E Referring Provider Юлия Troncoso APRN Attending Provider Spasic OIL DRILLING ENGINEER-C, Pamela E Attending Provider SPASIC, PAMELA E Primary Care Physician BOBY MCPHERSON Attending Unavailable BOBY MCPHERSON Attending Unavailable BOBY MCPHERSON Attending Unavailable PARISA DENT Attending Unavailable Unavailable Primary Care Provider UnavailMARGRET Hutchinson Attending Unavailable MARGRET GABRIEL Referring Unavailable MARGRET WAGNER Attending Unavailable MARGRET WAGNER Referring Unavailable Fabrice Cavanaugh Attending Unavailable Renato Terry Attending Unavailable Renato Terry Attending Unavailable Fabrice Cavanaugh Attending Unavailable Spasic OIL DRILLING ENGINEER-C, Pamela Reva Attending Provider Spasic OIL DRILLING ENGINEER-CPamela Referring Provider Юлия Troncoso APRN Attending Provider NO FAMILY, PHYSICIAN Primary Care Provider Oscar Fritz MD Attending Provider [phone] CHETAN GIVENS Referring Unavailab cecily GIVENS, CHETAN Brown Attending Unavailab cecily GIVENS, CHETAN Brown Attending Unavailab cecily GIVENS, CHETAN Ardon. Admitting Unavailab Fabrice Crawford Attending Unavailable BRIAN CEJA Attending Unavailable BRIAN CEJA Admitting Unavailable YASHIRA GIVENS Admitting Unavailable YASHIRA GIVENS Attending Unavailable SpasicPamela Referring Unavailable Юлия Troncoso Admitting Unavail able Aba, Юлия Montgomery Attending Unavail able NO FAMILY, PHYSICIAN Primary Care Unavailable Spasic, Pamela E Admitting Unavailable Spasic, Pamela Ardon Attending Unavailable Spasic, Pamela Ardon Attending Unavailable Spasic, Pamela E Admitting Unavailable Spasic, Pamela E Attending Unavailable Spasic, Pamela E Admitting Unavailable Spasic, Pamela E Attending Unavailable Spasic, Pamela E Admitting Unavailable NO FAMILY, PHYSICIAN Primary Care Unavailable Oscar Logan Admitting Unavailab Oscar Erazo Attending Unavailab le BRIAN CEJA Admitting Unavailable BRIAN CEJA Attending Unavailable Renato Terry Attending Unavailable YASHIRA GIVESN Attending Unavailable SPASIPAMELA Santamaria Admitting Unavailable SPASIC, PAMELA Ardon Attending Unavailable SPASIC, PAMELA E Referring Unavailable Fabrice Cavanaugh Attending Unavailable Renato Terry Attending Unavailable YASHIRA GIVENS Attending Unavailable YASHIRA GIVENS Attending Unavailable Medications Current Medications MedicationDrug Class(es)DatesSig (Normalized)Sig (Original)acetaminophen 325 mg / oxyCODONE hydrochloride 5 mg oral tablet (1 source)Opioid AgonistStart: 07-07-2024 End: 05-53-6446Zkbhouqq 5 mg-325 mg oral tablet 1 tab(s), Oral, q6hr for 3 day(s), 10 tab(s), Refill(s) 0, [id number], 163, cm, 07/07/24 21:13:00 EST, Height/Length Dosing, 63.9, kg, 07/07/24 21:13:00 EST, Weight Dosing Start Date: 07/07/24 Stop Date: 07/10/24 Status: Orderedbrompheniramine maleate 0.4 mg/ml / dextromethorphan hydrobromide 2 mg/ml / pseudoephedrine hydrochloride 6 mg/ml oral solution (2 sources)alpha-Adrenergic Agonist, Uncompetitive D-fzayjq-L-aspartate Receptor Antagonist, Sigma-1 AgonistStart: 26-81-9854jbrk 5 mL by mouth four times daily Bromfed DM oral syrup 5 mL, Oral, QID for cold symptoms, 200 mL, Refill(s) 0, [facility]/pharmacy #[id number], 163, cm, 09/23/24 7:48:00 EDT, Height/Length Dosing, 63.9, kg, 09/23/24 7:48:00 EDT, Weight Dosing Start Date: 09/23/24 Status: Ordered Quantity: 200.0 Unit: mL Repeat number: 1cyclobenzaprine hydrochloride 10 mg oral tablet (2 sources)Muscle RelaxantStart: 42-71-2309lsrp 1 tablet by mouth twice daily as neededcyclobenzaprine (Flexeril) 10 MG tablet TAKE 1 TABLET BY MOUTH TWICE A DAY NEEDED FOR 30 DAYS 05/28/2024 Active0.5 ml dulaglutide 3 mg/ml auto-injector (5 sources)GLP-1 Receptor AgonistStart: 64-47-3534Nzgkmvvui 1.5 MG/0.5ML solution auto-injector INJECT 1 PEN SUBCUTANEOUSLY ONCE A WEEK DIRECTED ActiveStart: 18-39-2236bmaptezcts 40 mg oral tablet (3 sources)Histamine-2 Receptor AntagonistStart: 37-03-6986mgfbmjbaad (PEPCID) 40 mg tablet Take 1 tablet (40 mg total) by mouth. 07/02/2024 Activeferrous sulfate 325 mg oral tablet (8 sources)Start: 25-28-7171xxid 1 tablet by mouth every other daytake 1 tablet by mouth once daily at breakfastferrous sulfate 325 (65 FE) MG tablet Take 1 tablet (325 mg total) by mouth daily with breakfast. Activegabapentin 100 mg oral capsule (3 sources)Anti-epileptic AgentStart: 31-60-6450yjvp 1 capsule by mouth every twelve hoursgabapentin (NEURONTIN) 100 mg capsule 1 capsule (100 mg total) every 12 (twelve) hours. 07/22/2024 Activeibuprofen 800 mg oral tablet (8 sources)Nonsteroidal Anti-inflammatory DrugStart: 60-12-3298pzfo 1 tablet by mouth three times daily as neededibuprofen (MOTRIN) 800 mg tablet TAKE 1 TABLET BY MOUTH 3 TIMES A DAY NEEDED WITH MILK OR FOOD 03/12/2024 Activeketorolac tromethamine 10 mg oral tablet (8 sources)Nonsteroidal Anti-inflammatory Drug, Cyclooxygenase InhibitorStart: 02-73-4023fpll 1 tablet by mouth every eight hoursStart: 32-17-1198pkpv 1 tablet by mouth every six hours at mealtime as neededketorolac (TORADOL) 10 mg tablet TAKE 1 TABLET BY MOUTH EVERY 6 HOURS WITH FOOD OR MILK NEEDED FOR 5 DAYS 05/28/2024 Activelevothyroxine sodium 0.025 mg oral tablet (1 source)l-ThyroxineStart: 02-04-9607cqzvaxymxiomh (SYNTHROID, LEVOTHROID) 25 MCG tablet Take 1 tablet (25 mcg total) by mouth. 11/20/2024 ActivemetFORMIN hydrochloride 1000 mg oral tablet (15 sources)BiguanideStart: 58-78-2822jgaMUXKFY (GLUCOPHAGE) 1000 mg tablet Take 0.5 tablets (500 mg total) by mouth. 02/29/2024 ActiveStart: 55-05-1626azgj 1 tablet by mouth twice dailymethylPREDNISolone 4 mg oral tablet (3 sources)CorticosteroidStart: 14-24-4514Bacwsb Dosepack 4 mg Tab = 1 tab(s), Oral, As Directed, Take as directed on pack, # 1 EA, Refills(s) 0, Pharmacy: [facility]/pharmacy #[id number], 163, cm, 09/23/24 7:48:00 EDT, Height/Length Dosing, 63.9, kg, 09/23/24 7:48:00 EDT, Weight Dosing Start Date: 09/23/24 Status: Ordered Quantity: 1.0 Unit: EA Repeat number: 1Start: 07-07-2024 End: 72-48-1094Giyfsf 4 mg Tab = 1 packet(s), Oral, As Directed, as directed on package labeling, X 6 day(s), # 21tab(s), Refills(s) 0, [id number] 163, cm, 07/07/24 21:13:00 EST, Height/Length Dosing, 63.9, kg, 07/07/24 21:13:00 EST, Weight Dosing Start Date: 07/07/24 Stop Date: 07/13/24 Status: O rderedmetoprolol tartrate 25 mg oral tablet (3 sources)beta-Adrenergic Blockertake 1 tablet by mouth in the morning, then take 1 tablet by mouth at bedtimemetoprolol tartrate (LOPRESSOR) 25 mg tablet Take 1 tablet (25 mg total) by mouth in the morning and 1 tablet (25 mg total) before bedtime. ActivemetroNIDAZOLE 500 mg oral tablet (1 source)Nitroimidazole AntimicrobialStart: 09-17-2024 End: 13-68-5879ekrb 1 tablet by mouth in the morning, then take 1 tablet by mouth at bedtimemetroNIDAZOLE (FLAGYL) 500 mg tablet Indications: BV (bacterial vaginosis) Take 1 tablet (500 mg total) by mouth in the morning and 1 tablet (500 mg total) before bedtime. Do all this for 7 days. 14 tablet 09/17/2024 09/24/2024 Activenaproxen 500 mg oral tablet (1 source)Nonsteroidal Anti-inflammatory DrugStart: 07-07-2024 End: 62-36-1785upqz 1 tablet by mouth twice dailynaproxen 500 mg Tab 500 mg = 1 tab(s), Oral, BID, X 10 day(s), # 20 tab(s), Refills(s) 0, Pharmacy:[facility]/pharmacy #[id number], 163, cm, 07/07/24 21:13:00 EST, Height/Length Dosing, 63.9, kg, 07/07/24 21:13:00 EST, Weight Dosing Start Date: 07/07/24 Stop Date: 07/17/24 Status: Orderedomeprazole 20 mg delayed release oral capsule (3 sources)Proton Pump InhibitorStart: 79-29-5955wrfg 1 capsule by mouth once daily at breakfastomeprazole (PriLOSEC) 20 mg capsule TAKE 1 CAPSULE BY MOUTH 1/2 TO 1 HOUR BEFORE MORNING MEAL EACH DAY 07/02/2024 Activeprazosin 1 mg oral capsule (8 sources)alpha-Adrenergic BlockerStart: 11-00-0950dimyrfaf (MINIPRESS) 1 mg capsule 2 capsules (2 mg total) once daily at bedtime. 05/28/2024 ActiveStart: 54-65-9384xwba 1 capsule by mouth once daily at opaojzf97 hr scopolamine 0.0139 mg/hr transdermal system (3 sources)AnticholinergicStart: 53-85-2897utreq 1 dose transdermal route once dailyscopolamine (TRANSDERM-SCOP) 1 mg/3 days Apply 1 patch topically. 11/20/2024 ActiveStart: 07-22-2024 End: 98-20-5601pnrqqsrcopz (TRANSDERM-SCOP) 1 mg/3 days 1 patch to skin behind the ear as needed Transdermal every72 hours for 30 days 07/22/2024 09/20/2024 Activetirzepatide (MOUNJARO) 2.5 mg/0.5 mL pen injector (3 sources)Start: 13-72-2534lsmwwlubqsm (MOUNJARO) 2.5 mg/0.5 mL pen injector 07/27/2024 ActivetiZANidine 2 mg oral tablet (1 source)Central alpha-2 Adrenergic AgonistStart: 07-07-2024 End: 54-51-1910oqrg 1 tablet by mouth every eight hourstiZANidine 2 mg Tab 2 mg = 1 tab(s), Oral, q8hr, X 7 day(s), # 21 tab(s), Refills(s) 0, [facility]: [id number], 163, cm, 07/07/24 21:13:00 EST, Height/Length Dosing, 63.9, kg, 07/07/24 21:13:00EST, Weight Dosing Start Date: 07/07/24 Stop Date: 07/14/24 Status: Orderedvenlafaxine 75 mg oral tablet (11 sources)Serotonin and Norepinephrine Reuptake InhibitorStart: 03-80-5183zcxh 1 tablet by mouth once dailyStart: 31-74-9032btzeipmxbsr XR (EFFEXOR XR) 75 mg 24 hr capsule 2 capsules (150 mg total). 05/28/2024 ActiveStart: 71-15-6640gfcp 1 capsule by mouth once daily at mealtimevenlafaxine XR (Effexor XR) 75 MG 24 hr capsule TAKE 1 CAPSULE BY MOUTH EVERY DAY WITH FOOD FOR 30 DAYS 05/28/2024 ActiveStart: 04-28-2024 End: 49-29-3659hgpa 1 capsule by mouth once dailyVenlafaxine 37.5 mg capsule,extended release 24hr Discontinued 37.5 MG PO Daily April 28, 2024 1:00am June 09, 2024 3:22pm Completed/Discontinued Medications MedicationDrug Class(es)DatesSig (Normalized)Sig (Original)acetaminophen 325 mg oral capsule (3 sources)Start: 04-02-2024 End: 14-36-3689urfw 1 capsule by mouth every six hours as neededAcetaminophen 325 mg capsule Discontinued 325 MG PO Every 6 hours as needed April 02, 2024 1:00am April 14, 2024 9:55amazithromycin 250 mg oral tablet (4 sources)Macrolide AntimicrobialStart: 08-29-2022 End: 29-16-4456hvuu 1 mg by mouth once dailyAzithromycin (Zithromax) 250 mg tablet Discontinued 250 MG PO Daily August 29, 2022 12:00am April 02, 2024 9:26am one daily x 4 days, first dose given in ER24 hr buPROPion hydrochloride 150 mg extended release oral tablet (3 sources)AminoketoneStart: 04-14-2024 End: 72-05-1575uxyd 1 tablet by mouth every twenty-four hoursBupropion Hcl 150 mg tablet extended release 24 hr Discontinued MG PO April 14, 2024 1:00am April 28, 2024 3:24pmStart: 04-14-2024 End: 25-41-7623thnr 1 tablet by mouth every twenty-four hoursBupropion Hcl 150 mg tablet extended release 24 hr Discontinued MG PO April 14, 2024 12:00am April 28, 2024 2:24pmmeclizine hydrochloride 12.5 mg oral tablet (3 sources)AntiemeticStart: 04-02-2024 End: 75-08-3842ywjs 1 tablet by mouth three times daily as neededMeclizine 12.5 mg tablet Discontinued 12.5 MG PO Three times daily as needed April 02, 2024 1:00am April 14, 2024 9:55amondansetron 4 mg disintegrating oral tablet (3 sources)Serotonin-3 Receptor AntagonistStart: 04-13-2024 End: 91-65-2694Elcqmigalqv 4 mg tablet,disintegrating Discontinued 4 MG PO As Directed April 13, 2024 1:00am April 14, 2024 9:55amtemazepam 15 mg oral capsule (3 sources)BenzodiazepineStart: 04-28-2024 End: 68-50-5786fyip 1 capsule by mouth once daily at bedtimeTemazepam 15 mg capsule Discontinued 15 MG PO Daily at bedtime April 28, 2024 1:00am June 09, 2024 3:22pm Problems Active Problems Problem ClassificationProblemDateDocumented DateEpisodic/ChronicAbdominal pain (2 sources)Pain in pelvis; Translations: [Pelvic and perineal pain]Onset: [id number] and other anemia (3 sources)Iron deficiency anemia due to blood loss; Translations: [Iron deficiency anemia secondary to blood loss (chronic)]64-97-1861SurvfxwGfrzlcpxas and other anemia (3 sources)Thalassemia; Translations: [Thalassemia, unspecified]04-14-2024 ChronicDeficiency and other anemia (6 sources)Iron deficiency anemia secondary to blood loss (chronic); Translations: [Iron deficiency anemia secondary to blood loss (chronic)] 71-68-4521HcfngegXupczaedkl and other anemia (7 sources)Thalassemia, unspecified; Translations: [Thalassemia, unspecified] Onset: 869670-32-5773RokqpdmQzskypeepg and other anemia (3 sources)Anemia; Translations: [Anemia, unspecified]51-65-8153Cpxsngds Deficiency and other anemia (3 sources)Iron deficiency anemia; Translations: [Iron deficiency anemia, unspecified]41-12-2138FdltxzdeNkgwvworyn and other anemia (6 sources)Anemia, unspecified; Translations: [Anemia, unspecified]04-14-2024 EpisodicDiabetes mellitus without complication (2 sources)Type 2 diabetes mellitus without complication; Translations: [Type 2 diabetes mellitus without complications]Onset: 02-66-3864OqceiixNhilvxvhluedp and screening for infectious disease (1 source)Patient encounter status; Translations: [Encounter for screening for infections with a predominantly sexual mode of transmission]35-67-9283Qcccmxfv Inflammatory diseases of female pelvic organs (1 source)Bacterial vaginosis; Translations: [Acute vaginitis]73-39-2446Lnbssasj Nonspecific chest pain (1 source)Chest pain; Translations: [Chest pain, unspecified]Onset: 09-23-2024 EpisodicOther ear and sense organ disorders (3 sources)Conductive hearing loss, unilateral, left ear, with unrestricted hearing on the contralateral side;Translations: [Conductive hearing loss, unilateral]24-25-2297PuoxcmtXhmbk female genital disorders (1 source)Pain in female genitalia on intercourse; Translations: [Unspecified dyspareunia]22-75-3941QammepvUsvxz female genital disorders (1 source)Unspecified dyspareunia; Translations: [Unspecified dyspareunia]Onset: 23-42-8820EohkdjoBknys female genital disorders (1 source)Burning sensation of vagina; Translations: [Other specified conditions associated with female genital organs and menstrual cycle]87-62-3673Omgfixya Other non-traumatic joint disorders (1 source)Pain of left hip joint; Translations: [Pain in left hip]Onset: 22-38-0499YulvgmxlPppui upper respiratory infections (1 source)Acute upper respiratory infection; Translations: [Acute upper respiratory infection, unspecified]Onset: 72-12-7078JpiofssaOyyjpn media and related conditions (3 sources)Perforation of left tympanic membrane; Translations: [Unspecified perforation of tympanic membrane,left ear]98-54-2639LlfgrcuyTrrlzgiwg (except that caused by tuberculosis or sexually transmitted disease) (4 sources)Pneumonia; Translations: [Pneumonia, unspecified organism]04-24-2023 EpisodicComment on above:Problem List clean-up per request of Phys. EHR Cmte Screening and history of mental health and substance abuse codes (3 sources)Standardized adult depression screening tool completed ; Translations: [Encounter for screening fordepression]Onset: EpisodicSpondylosis; intervertebral disc disorders; other back problems (2 sources)Lumbar radiculopathy; Translations: [Radiculopathy, lumbar region] Onset: 82-48-7016RcfdqgbjZrmixek and intentional self-inflicted injury (1 source)Suicidal thoughts; Translations: [Suicidal ideations]Onset: 11-03-2024 EpisodicUnclassified (1 source)Annual ExamOnset: 11-03-0421Wljsjagdtqcj (1 source)Pain with IntercourseOnset: 09-16-2024 Past or Other Problems Problem ClassificationProblemDateDocumented DateEpisodic/Chronic Administrative/social admission (1 source)Other problems related to medical facilities and other health care; Translations: [Other specified conditions influencing health status]12-11-2023 EpisodicDeficiency and other anemia (7 sources)Iron deficiency anemia, unspecified; Translations: [Iron deficiency anemia, unspecified]Onset: 410647-50-6279NjhqumppDpks disorders (5 sources)Mood disordersOnset: 12-11-2023 Resolved: Results Test NameValueInterpretationReference RangeFacilityMRI Spine Lumbar w/o Contrast on 70-61-6272SMG Spine Lumbar w/o ContrastExam Date/Time: 03/15/2025 09:28 EST Reason for Exam: M54.16, M51.9 Report IMPRESSION: MODERATE L5-S1 DISC HERNIATION, NOTED. OTHERWISE, NEGATIVE LUMBAR SPINE MRI EXAM: MRI Spine Lumbar w/o Contrast DATE: 03/15/2025 8:51 AM CLINICAL HISTORY: M54.16, M51.9. Technologist Comments: PT states lower back pain for 2 yrs. denies injury or sx. COMPARISON: 07/07/2024. TECHNIQUE: Multiplanar MR imaging of the lumbar spine was performed without contrast. FINDINGS: The spine is visualized from T11-12 through S2, on the diagnostic sagittal sequences. Bone marrow signal/fracture: Unremarkable. Alignment: Lumbar lordosis and alignment are maintained. Conus: The conus is within normal limits of signal intensity and morphology. Paraspinal soft tissues: The visualized soft tissues are unremarkable. Lower thoracic spine: No central spinal stenosis or neural foraminal narrowing. L1-2: No significant disc space narrowing, discrete disc protrusion, central spinal stenosis or neural foraminal narrowing. L2-3: No significant disc space narrowing, discrete disc protrusion, central spinal stenosis or neural foraminal narrowing. L3-4: No significant disc space narrowing, discrete disc protrusion, central spinal stenosis or neural foraminal narrowing. L4-5: No significant disc space narrowing, discrete disc protrusion, central spinal stenosis or neural foraminal narrowing. L5-S1: Approximately 1.0 x 1.2 x 1.3 cm (AP, transverse and sagittal dimensions) central disc protrusion/extrusion, which results in euyk-kz-cenpwacv central spinal stenosis No significant neural foraminal narrowing. Sacrum and iliac wings: Unremarkable visualized segments. Report Ordering Provider: , FINAL REPORT Dictated: 03/16/2025 4:20 pm Matthew Lal MD Signed (Electronic Signature): 03/16/2025 4:20 pm Signed by: Matthew Lal MD Transcribed by: BARRETT Technologist: [facility] CenterED Note-Physicianon [id number] Note-PhysicianED Note-Physician Basic Information Time Seen: Gal Reynolds PA-C. 03/08/2025 15:27 Chief Complaint pt rpeorts SLATER, cough, congestion, and body aches. states started yesterday. History of Present Illness A 29-year-old female reports to the ED with concerns of headache cough congestion and bodyaches. Reports all symptoms started yesterday. Reports sick contacts at work. Just has not been feeling well.Like to get checked out. No allergies. No known fevers but has felt feverish. Denies any medications that she is taken for symptoms so far. Would like to be evaluated. Review of Systems No other aggravating or relieving factors no other associated symptoms no other prior treatments orcomplaints. Family: Reviewed and noncontributory Social: lives at home Review of systems negative unless otherwise specified in the HPI. Physical Exam Vitals & Measurements T: 37 ???C(Tympanic) HR: 88(Monitored) RR: 18 BP: 122/82 SpO2: 99% HT: 463 cm WT: 66 kg BMI: 3.08 General: The patient appears well and in no apparent distress. Patient is resting comfortably on bed. Afebrile Skin: Warm, dry, no pallor noted. Head: Normocephalic, atraumatic Neck: No JVD Eye: PERRLA, EOMI ENT: Moist mucus membranes. Pharynx pink moist no erythema or exudates. Cardiovascular: Regular rate. normal peripheral perfusion Respiratory: No respiratory distress. no accessory muscle use. no obvious audible wheezing. Lung sounds clear to auscultation Chest Wall: no deformity Musculoskeletal: normal ROM, no deformity, no swelling GI: No obvious distention Neurological: A&O. moves all extremities equal strength and symmetry Psychiatric: Cooperative and appropriate Medical Decision Making 29-year-old female reports to the ED with concerns of cough congestion body aches. Symptoms startedyesterday. Has had sick contacts at work. Reports that she wants to be evaluated and thinks something going on. Patient is nontoxic- appearing. No acute distress. Due to concerns, we did do a chest x-ray. No signs of pneumonia. Discussed likely viral URI. Discussed with patient was understanding. Discussed supportive treatment. Follow-up with your primary care provider in 3 to 5 days. If symptoms worsen, do not improve, or new symptoms arise please report back to emergency department for furtherevaluation. The patient was understanding and agreeable to plan moving forward. [x] The patient was diagnosed with upper respiratory infection and was not prescribed an antibiotic. [SATISFIES MIPS PERFORMANCE] [ ] The patient has competing comorbid condition within the last 12 months. The comorbid condition was [] (e.g., neutropenia, cystic fibrosis, chronic bronchitis, pulmonary edema, respiratory failure, rheumatoid lung disease). [MIPS PERFORMANCE EXCEPTION/EXCLUSION [ ] The patient is already on antibiotics, or has taken them within the last 30 days. [MIPS PERFORMANCE EXCEPTION/EXCLUSION] [ ] The patient had a competing diagnosis of [] (e.g. acute otitis media, chronic sinusitis, UTI, etc.) [MIPS PERFORMANCE EXCEPTION/EXCLUSION] [ ] The patient was diagnosed with upper respiratory infection and was prescribed or dispensed an antibiotic. [DOES NOT SATISFY MIPS PERFORMANCE] Assessment/Plan Acute URI (J06.9: Acute upper respiratory infection, unspecified) Orders: brompheniramine/dextromethorphan/PSE, 5 mL, Oral, QID for cold symptoms, 200 mL, Refill(s) 0, [facility]/pharmacy #[id number], 463, cm, 03/08/25 15:30:00 EDT, Height/Length Dosing, 66, kg, 03/08/25 15:30:00 EDT, Weight Dosing methylPREDNISolone, = 1 tab(s), Oral, As Directed, Take as directed on pack, # 1 EA, Refills(s) 0, Pharmacy: [facility]/pharmacy #[id number], 463, cm, 03/08/25 15:30:00 EDT, Height/Length Dosing, 66, kg, 03/08/2515:30:00 EDT, Weight Dosing XR Chest 2 Views Disposition Plan Patient Discharge Condition Stable Discharge Disposition To home Discharge Prescription List Prescriptions Bromfed DM oral syrup, 5 mL, Oral, QID, PRN Medrol Dosepack 4 mg Tab, 1 tab(s), Oral, As Directed Follow-up With When Contact Information PAMELA SU In 3 days 03/11/2025 EDT [address] [address] [facility] (1) Additional Instructions: Call Dr for diagnosis based follow up Patient Education Upper Respiratory Infection, Adult Attestation Patient seen and evaluated by the physician assistant statistician. Attending physician was present in the emergency department and supervised care. This visit was performed by both the physician and an APC. I performed all aspects of the MDM as documented. This report was transcribed using voice recognition software. Every effort was made to ensure accuracy, however, inadvertently computerized community center coordinator mistakes may be present. Appropriate healthcare PPE was used in evaluating this patient. The patient was placed in a mask. The healthcare provider was wearing mask, gloves, and utilizing proper hand hygiene. All equipment was properly cleansed. I performed a substanti (more content not included)...[facility] HospitalComment on above:Result Comment: Electronically Signed By: Gal Reynolds PA-C\.br\Date and Time Signed: 03/08/2519:20 EDT\.br\Electronically Co-Signed By: Fabrice Cavanaugh DO\.syed\Date and Time Co-Signed: 10/28/25 14:57 EDTED Clinical Summaryon [id number] Clinical SummaryED Clinical Summary [place] [id number] ED Clinical Summary Person Information Name: BRITNEY TONG/[place] Age: 29 Years : 1995 Sex: Female Language: Hungarian PCP: PAMELA SU CNP Marital Status: Single Visit Id: Visit Reason: Sinus Pain/Congestion; Cough; Malaise; Body aches; CHEST PAIN, DIZZINESS Speciality: Acuity: 4 Enc Type: Emergency Med Service: Emergency Arrival: 03/08/2025 15:23:18 Discharge: 03/08/2025 17:14:06 LOS: 000 01:51 Checkin: 03/08/2025 15:23:18 Checkout: 03/08/2025 17:14:06 Dispo Type: Home (Routine DC) EVENTS: Event Name Event Status Request Date/Time Start Date/Time Complete Date/Time Arrive Complete 03/08/2025 15:23:18 03/08/2025 15:23:18 03/08/2025 15:23:18 Document Home Meds Request 03/08/2025 15:23:18 Triage Complete 03/08/2025 15:23:18 03/08/2025 15:30:17 03/08/2025 15:30:17 Bed Assign Complete 03/08/2025 15:26:31 03/08/2025 15:26:31 03/08/2025 15:26:31 Dr Exam Complete 03/08/2025 15:26:31 03/08/2025 15:27:47 03/08/2025 15:27:47 RN Exam Complete 03/08/2025 15:26:31 03/08/2025 16:12:30 03/08/2025 16:12:30 Registration Complete 03/08/2025 15:27:47 03/08/2025 15:27:58 03/08/2025 15:29:11 Reg Complete Request 03/08/2025 15:29:11 Reg Bed Request Complete 03/08/2025 15:29:11 03/08/2025 15:29:11 03/08/2025 15:29:11 Dr Exam Complete 03/08/2025 15:29:13 03/08/2025 15:29:13 03/08/2025 15:29:13 Registration Request 03/08/2025 15:29:13 X-Ray Complete 03/08/2025 15:41:45 03/08/2025 16:09:49 03/08/2025 16:17:35 Wet Read Request 03/08/2025 16:17:35 Discharge Complete 03/08/2025 17:02:24 03/08/2025 17:14:39 03/08/2025 17:14:39 Transfer Complete 03/08/2025 17:14:39 03/08/2025 17:14:39 03/08/2025 17:14:39 ADDRESS: [address] [id number] PHYS DOC NOTES: MEDICAL INFORMATION: Prescriptions Given: Medications to Continue Taking That Have Changed [facility]/pharmacy #[id number], [address], [place] [id number], [phone] START: brompheniramine/dextromethorphan/PSE (Bromfed DM oral syrup) 5 Milliliter By Mouth 4 times aday as needed for cold symptoms. Refills: 0. START: methylPREDNISolone (Medrol Dosepack 4 mg Tab) 1 Tablets By Mouth As Directed. Take as directed on pack. Refills: 0. Other Medications START: brompheniramine/dextromethorphan/PSE (Bromfed DM oral syrup) 5 Milliliter By Mouth 4 times aday as needed for cold symptoms. Refills: 0. START: methylPREDNISolone (Medrol Dosepack 4 mg Tab) 1 Tablets By Mouth As Directed. Take as directed on pack. Refills: 0. Medications to Continue with No Changes Other Medications chlorhexidine topical (chlorhexidine 0.12% mucous membrane liquid) famotidine (famotidine 40 mg Tab) ferrous sulfate (ferrous sulfate 325 mg Tab) hydrOXYzine (hydrOXYzine hydrochloride 10 mg Tab) levothyroxine (levothyroxine 25 mcg (0.025 mg) Tab) metformin (metformin 1000 mg Tab) 1 Tablets By Mouth 2 times a day. Refills: 0. prazosin (prazosin 2 mg oral capsule) scopolamine (scopolamine 1 mg/72 hr transdermal film, extended release) semaglutide (Ozempic 2 mg/3 mL (0.25 mg or 0.5 mg dose) subcutaneous solution) venlafaxine (venlafaxine 75 mg Cap-ER) PATIENT EDUCATION INFORMATION: Instructions: Upper Respiratory Infection, Adult Follow up: With: Address: When: PAMELA SHARLENE [address] [place] [address] [facility] () In 3 days 03/11/2025 Comments: Call Dr for diagnosis based follow up DIAGNOSIS: Acute [facility]INormalFisher [facility] Patient Summaryon [id number] Patient SummaryED Patient Summary [address] [address] Patient Discharge Instructions Person Information Name: BRITNEY TONG Age: 29 Years Arrival Date: 03/08/2025 15:23:18 Discharge Diagnosis: Acute URI Primary Care Physician: PAMELA SU CNP Provider Information Primary Provider: Fabrice Cavanaugh DO Advanced Cephalometric Analyst:Gal Reynolds PA-C. The exam and treatment you received in the Emergency Department were for an urgent problem and are not intended as complete care. It is important that you follow up with a doctor, nurse practitioner,or physician???s assistant statistician for ongoing care. If your symptoms become worse or you do not improve asexpected and you are unable to reach your usual health care provider, you should return to the Emergency Department. We are available 24 hours a day. BRITNEY TONG has been given the following list of patient education materials, prescriptions and follow-up instructions: Follow-up Instructions: With: Address: When: PAMELARon SU [address] [place] [address] [facility] (1) In 3 days 03/11/2025 Comments: Call Dr for diagnosis based follow up In the event that this physician does not participate in your insurance network, please consult with your insurance company to find a nearby participating provider. Patient Education Materials: Upper Respiratory Infection, Adult A MESSAGE TO ALL PATIENTS REGARDING OPIOIDS PRESCRIPTION OPIOIDS: WHAT YOU NEED TO KNOW Prescription opioids can be used to help relieve qcwrkkcw-gs-lumaze pain and are often prescribed following a [...] as well, even when taken as directed: ??? Tolerance???meaning you might need to take more of the medication for the same pain relief ??? Physical dependence???meaning you have symptoms of withdrawal when a medication is stopped ??? Increased sensitivity to pain ??? Constipation ??? Nausea, vomiting, and dry mouth ??? Sleepiness and dizziness ??? Confusion ??? Depression ??? Low levels of testosterone that can result in lower sex drive, energy, and strength ??? Itching and sweating RISKS ARE GREATER WITH: ??? History of drug misuse, substance use disorder, or overdose ??? Mental health conditions (such as depression or anxiety) ??? Sleep apnea ??? Older age (65 years and older) ??? Avoid alcohol while taking prescription opioids. Also, unless specifically advised by your health care provider, medications to avoid include: ??? Benzodiazepines (such as Xanax or Valium) ??? Muscle relaxants (such as Soma or Flexeril) ??? Hypnotics (such as Ambien or Lunesta) ??? Other prescription opioids KNOW YOUR OPTIONS Talk to your health care provider about ways to manage your pain that don???t involve prescription opioids. Some of these options may actually work better and have fewer risks and side effects. Options may include: ??? Pain relievers such as acetaminophen, ibuprofen, and naproxen ??? Some medication that are also used for depression or seizures ??? Physical therapy and exercise ??? Cognitive behavioral therapy, a psychological, goal-directed approach, in which patients learn how to modify physical, behavioral, and emotional triggers of pain and stress. IF YOU ARE PRESCRIBED OPIOIDS FOR PAIN: ??? Never take opioids in greater amounts or more often than prescribed. ??? Follow up with your primary health care provider. o Work together to create a plan on how to manage your pain. o Talk about ways to help manage your pain that don???t involve prescription opioids. o Talk about any and all concerns and side effects. ??? Help prevent misuse and abuse o Never sell or share prescription opioids. o Never use another person???s prescription opioids. ??? Store prescription opioids in a secure place and out of reach of others (this may include visitors, children, friends, and family). ??? Safely dispose of unused prescription opioids: Find your community drug take-back program or your pharmacy mail-back program, or flush them down the toilet, following guidance from the Food and Drug Administration (www.fda.gov/Drugs/ResourcesForYou). ??? Visit www.cdc.gov/drugoverdose to learn about the risks of opioids abuse and overdose. ??? If you believe you may be strug (more content not included)...[facility] HospitalXR Chest 2 Viewson [id number] Chest 2 ViewsExam Date/Time: 03/08/2025 16:17 EDT Reason for Exam: Cough Report IMPRESSION: NO EVIDENCE OF ACTIVE CARDIOPULMONARY DISEASE. EXAM: XR Chest 2 Views DATE: 03/08/2025 4:09 PM CLINICAL HISTORY: Cough. Technologist Comments: pt reports SLATER, cough, congestion, and body aches. states started yesterday. denies hx of surgery. nonsmoker. COMPARISON: Portable chest 09/23/2024. TECHNIQUE: Upright PA and lateral radiographs of the chest were obtained. FINDINGS: There are shallow inspiratory volumes, without significant infiltrate, cardiomegaly, vascular congestion, pleural effusion, pneumothorax, or other significant changes identified. Ordering Provider: Gal Reynolds FINAL REPORT Dictated: 03/08/2025 4:44 pm Matthew Lal MD Signed (Electronic Signature): 03/08/2025 4:44 pm Signed by: Matthew Lal MD Transcribed by: BARRETT Technologist: SAMSONMercy Health St. [facility] HospitalCapillary Glucose POCon [id number] [Mass/Vol]216 mg/dCCrwx92-44WufxdcGrant HospitalComment on above:Result Comment: Notified RN/MDPerformed By: #### [id number] #### [facility] [address] [place], [place] [id number] Clinical Summaryon [id number] Clinical SummaryED Clinical Summary [address] [address] ED Clinical Summary Person Information Name: BRITNEY TONG Jennifer/[facility] Age: 29 Years : 1995 Sex: Female Language: Hungarian PCP: PAMELA SU CNP Marital Status: Single Visit Id: Visit Reason: Hyperglycemia; HYPERGLYCEMIA, DIZZINESS Speciality: Acuity: 3 Enc Type: Emergency Med Service: Emergency Arrival: 01/28/2025 22:32:25 Discharge: 01/29/2025 01:30:37 LOS: 000 02:58 Checkin: 01/28/2025 22:32:25 Checkout: 01/29/2025 01:30:37 Dispo Type: Home (Routine DC) EVENTS: Event Name Event Status Request Date/Time Start Date/Time Complete Date/Time Arrive Complete 01/28/2025 22:32:25 01/28/2025 22:32:25 01/28/2025 22:32:25 Document Home Meds Request 01/28/2025 22:32:25 Triage Complete 01/28/2025 22:32:25 01/28/2025 22:43:37 01/28/2025 22:43:37 Registration Complete 01/28/2025 22:35:26 01/28/2025 22:35:26 01/28/2025 22:35:26 Reg Complete Request 01/28/2025 22:35:26 Reg Bed Request Complete 01/28/2025 22:35:26 01/28/2025 22:35:26 01/28/2025 22:35:26 Bed Assign Complete 01/28/2025 22:52:26 01/28/2025 22:52:26 01/28/2025 22:52:26 Dr Exam Complete 01/28/2025 22:52:26 01/28/2025 23:42:19 01/28/2025 23:42:19 RN Exam Complete 01/28/2025 22:52:26 01/28/2025 23:18:16 01/28/2025 23:18:16 EKG Complete 01/28/2025 22:56:23 01/29/2025 00:01:26 Pending Labs Complete 01/28/2025 22:56:23 01/29/2025 00:49:37 RT Tx/ABG Request 01/28/2025 22:56:23 Lab Complete 01/28/2025 22:56:23 01/28/2025 23:40:55 Pending Labs Complete 01/28/2025 23:10:37 01/28/2025 23:10:37 01/28/2025 23:40:55 Lab Complete 01/28/2025 23:10:37 01/28/2025 23:10:37 01/28/2025 23:40:55 Registration Request 01/28/2025 23:42:19 Pending Labs Complete 01/29/2025 00:02:15 01/29/2025 00:02:15 01/29/2025 00:02:15 Meds Admin Request 01/29/2025 00:21:29 Pending Labs Complete 01/29/2025 00:49:37 01/29/2025 00:49:37 01/29/2025 00:59:33 Pending Labs Complete 01/29/2025 01:16:04 01/29/2025 01:16:04 01/29/2025 01:16:04 Discharge Complete 01/29/2025 01:17:06 01/29/2025 01:30:41 01/29/2025 01:30:41 Transfer Complete 01/29/2025 01:30:41 01/29/2025 01:30:41 01/29/2025 01:30:41 ADDRESS: [address] [place] [id number] PHYS DOC NOTES: MEDICAL INFORMATION: Prescriptions Given: Medications to Continue with No Changes Other Medications brompheniramine/dextromethorphan/PSE (Bromfed DM oral syrup) 5 Milliliter By Mouth 4 times a day asneeded for cold symptoms. Refills: 0. chlorhexidine topical (chlorhexidine 0.12% mucous membrane liquid) famotidine (famotidine 40 mg Tab) ferrous sulfate (ferrous sulfate 325 mg Tab) hydrOXYzine (hydrOXYzine hydrochloride 10 mg Tab) levothyroxine (levothyroxine 25 mcg (0.025 mg) Tab) metformin (metformin 1000 mg Tab) 1 Tablets By Mouth 2 times a day. Refills: 0. methylPREDNISolone (Medrol Dosepack 4 mg Tab) 1 Tablets By Mouth As Directed. Take as directed on pack. Refills: 0. prazosin (prazosin 2 mg oral capsule) scopolamine (scopolamine 1 mg/72 hr transdermal film, extended release) semaglutide (Ozempic 2 mg/3 mL (0.25 mg or 0.5 mg dose) subcutaneous solution) venlafaxine (venlafaxine 75 mg Cap-ER) PATIENT EDUCATION INFORMATION: Instructions: Hyperglycemia; Diabetes Mellitus and Nutrition, Adult Follow up: With: Address: When: PAMELA SU [address] [place] [address] [facility] ([place] In 3 days 02/01/2025 Comments: Call the office of your primary care doctor to arrange for follow-up within the above-stated timeframe. Follow-up with your primary care doctor about this ED visit. You should review your labs, imaging, and diagnoses from this ED visit with your primary care physician. There are occasionally non-emergent findings that require additional follow-up after your ED visit. If you were prescribed medications you should discuss possible side-effects and drug interactions with your pharmacist. Call 911 or go to the nearest Emergency Department if you develop any new or worsening symptoms. DIAGNOSIS: HyperglycemiaNormalFisher Adarsh Medical CenterED Note-Physicianon [id number] Note-PhysicianED Note-Physician Basic Information Time Seen: Renato Terry DO 01/28/2025 23:42 Chief Complaint states blood sugar has been elevated to day. 322 at home after insulin. denies nausea History of Present Illness 29-year-old female to the emergency department with chief complaint of elevated blood glucose. She reports it was 322 at home. Her fianc??? reports she did eat a lot of sweets today. She denies any nausea or vomiting. She is otherwise at her baseline health. Her htzmts-vj-jvv gave her 10 units of fast acting insulin prior to her coming here. She has been a diabetic for a little over a year. She takes Ozempic, metformin. Review of Systems A 10 point review of systems is negative except as noted above. Medical and Surgical History: Reviewed and noted Social history: Lives at home Tobacco: Denies Physical Exam Vitals & Measurements T: 36.6 ???C(Oral) HR: 89(Monitored) RR: 19 BP: 123/86 SpO2: 99% HT: 163 cm WT: 66.3 kg BMI: 24.95 VITALS: I have reviewed the triage vital signs. GENERAL: Well developed, well appearing adult female in no acute distress. NEURO: Alert and oriented. Moves all extremities. Face is symmetric and expressive. EYES: PERRL. No scleral icterus or conjunctival injection. No discharge. HENT: Normocephalic, atraumatic. Hearing is grossly intact. Nares grossly patent and without discharge. Mucous membranes moist. NECK: No JVD. Patient moves neck without restriction. CARDIO: Rhythm regular. Normal rate. No murmur, rub, or gallop. Pulses equal bilaterally in the upper and lower extremity. No lower extremity edema. PULM: Lungs clear to auscultation in all plaza. No wheezes, rales, or rhonchi. No conversational dyspnea. No splinting, stridor, or accessory muscle use. GI/: Abdomen is soft and non-tender. Normoactive bowel sounds. EXTREMITIES: Symmetric muscle bulk. No joint swelling. No clubbing, cyanosis, or deformity. SKIN: Warm and dry. Normal turgor. No rash or lesions appreciated. PSYCH: Mood, affect, and interaction is appropriate to the setting. Medical Decision Making 29-year-old female to the emergency department chief complaint of elevated blood sugar. Vital stable, the patient is afebrile. Patient has no other complaints. She was given rapid acting insulin justprior to arrival. Basic labs, VBG obtained to rule out DKA. Fluids. Patient agrees with this plan. She request a work note. CBC and chemistry without major abnormality. She is hyperglycemic at 273 on the chemistry. VBG withnormal pH. She is not in DKA. Fluids were given. Blood glucose is less than 250, at a safe point. She instructed maintain a diabetic diet. Return precautions were discussed. All questions were answered she will follow-up with lilliana. Patient was discharged home. Assessment/Plan Hyperglycemia (R73.9: Hyperglycemia, unspecified) Orders: Sodium Chloride 0.9% intravenous solution 1,000 mL, 1,000 mL, IV, 999 mL/hr, STAT, Start date 01/29/25 0:21:00 EDT, 1 hour(s), Total volume (mL): 1,000, 66.3 kg, 1.73, m2 Basic Metabolic Panel Blood Gas Christofer CBC w/ Auto Diff ECG 12 Lead Adult ED Cardiac Monitoring eGFR Extra Blue Tube Extra SST Tube Routine Capillary Glucose POC UA with Cult Rflx SP Disposition Plan Patient Discharge Condition Stable Home Discharge Prescription List Prescriptions No active prescription medications Follow-up With When Contact Information PAMELA SU In 3 days 02/01/2025 EDT [address] [place] [address]- Business (1) Additional Instructions: Call the office of your primary care doctor to arrange for follow-up within the above-stated timeframe. Follow-up with your primary care doctor about this ED visit. You should review your labs, imaging, and diagnoses from this ED visit with your primary care physician. There are occasionally non-emergent findings that require additional follow-up after your ED visit. If you were prescribed medications you should discuss possible side- effects and drug interactions with your pharmacist. Call 911 or go to the nearest Emergency Department if you develop any new or worsening symptoms. Patient Education Hyperglycemia Diabetes Mellitus and Nutrition, Adult Problem List/Past Medical History Ongoing No qualifying data Historical No qualifying data Procedure/Surgical History Ear drum (07/11/2024). Medications Inpatient Sodium Chloride 0.9% IV Dipti 1000 mL 1,000 mL, 1000 mL, IV Home Bromfed DM oral syrup, 5 mL, Oral, QID, PRN chlorhexidine 0.12% mucous membrane liquid famotidine 40 mg Tab ferrous sulfate 325 mg Tab hydrOXYzine hydrochloride 10 mg Tab levothyroxine 25 mcg (0.025 mg) Tab Medrol Dosepack 4 mg Tab, 1 tab(s), Oral, As Directed metformin 1000 mg Tab, 1000 mg= 1 tab(s), Oral, BID Ozempic 2 mg/3 mL (0.25 mg or 0.5 mg dose) subcutaneous solution prazosin 2 mg oral capsule scopolamine 1 mg/72 hr transdermal film, extended release venlafaxine 75 mg Cap-ER Allergies No (more content not included)...[facility]erry HospitalComment on above:Result Comment: Electronically Signed By: Renato Terry DO\.br\Date and Time Signed: 01/29/25 01:27 EDTED Patient Summaryon [id number] Patient Summary ED Patient Summary [address] [address] Patient Discharge Instructions Person Information Name: BRITNEY TONG Age: 29 Years Arrival Date: 01/28/2025 22:32:25 Discharge Diagnosis: Hyperglycemia Primary Care Physician: PAMELA SU CNP Provider Information Primary Provider: Renato Terry DO Advanced Cephalometric Analyst:None The exam and treatment you received in the Emergency Department were for an urgent problem and are not intended as complete care. It is important that you follow up with a doctor, nurse practitioner,or physician???s assistant statistician for ongoing care. If your symptoms become worse or you do not improve asexpected and you are unable to reach your usual health care provider, you should return to the Emergency Department. We are available 24 hours a day. BRITNEY TONG has been given the following list of patient education materials, prescriptions and follow-up instructions: Follow-up Instructions: With: Address: When: PAMELA SU [address] [place] [address] [facility] (1) In 3 days 02/01/2025 Comments: Call the office of your primary care doctor to arrange for follow-up within the above-stated timeframe. Follow-up with your primary care doctor about this ED visit. You should review your labs, imaging, and diagnoses from this ED visit with your primary care physician. There are occasionally non-emergent findings that require additional follow-up after your ED visit. If you were prescribed medications you should discuss possible side-effects and drug interactions with your pharmacist. Call 911 or go to the nearest Emergency Department if you develop any new or worsening symptoms. In the event that this physician does not participate in your insurance network, please consult with your insurance company to find a nearby participating provider. Patient Education Materials: Hyperglycemia; Diabetes Mellitus and Nutrition, Adult A MESSAGE TO ALL PATIENTS REGARDING OPIOIDS PRESCRIPTION OPIOIDS: WHAT YOU NEED TO KNOW Prescription opioids can be used to help relieve ukdprmkr-ko-mkhfws pain and are often prescribed following a [...] as well, even when taken as directed: ??? Tolerance???meaning you might need to take more of the medication for the same pain relief ??? Physical dependence???meaning you have symptoms of withdrawal when a medication is stopped ??? Increased sensitivity to pain ??? Constipation ??? Nausea, vomiting, and dry mouth ??? Sleepiness and dizziness ??? Confusion ??? Depression ??? Low levels of testosterone that can result in lower sex drive, energy, and strength ??? Itching and sweating RISKS ARE GREATER WITH: ??? History of drug misuse, substance use disorder, or overdose ??? Mental health conditions (such as depression or anxiety) ??? Sleep apnea ??? Older age (65 years and older) ??? Avoid alcohol while taking prescription opioids. Also, unless specifically advised by your health care provider, medications to avoid include: ??? Benzodiazepines (such as Xanax or Valium) ??? Muscle relaxants (such as Soma or Flexeril) ??? Hypnotics (such as Ambien or Lunesta) ??? Other prescription opioids KNOW YOUR OPTIONS Talk to your health care provider about ways to manage your pain that don???t involve prescription opioids. Some of these options may actually work better and have fewer risks and side effects. Options may include: ??? Pain relievers such as acetaminophen, ibuprofen, and naproxen ??? Some medication that are also used for depression or seizures ??? Physical therapy and exercise ??? Cognitive behavioral therapy, a psychological, goal-directed approach, in which patients learn how to modify physical, behavioral, and emotional triggers of pain and stress. IF YOU ARE PRESCRIBED OPIOIDS FOR PAIN: ??? Never take opioids in greater amounts or more often than prescribed. ??? Follow up with your primary health care provider. o Work together to create a plan on how to manage your pain. o Talk about ways to help manage your pain that don???t involve prescription opioids. o Talk about any and all concerns and side effects. ??? Help prevent misuse and abuse o Never sell or share prescription opioids. o Never use another pe (more content not included)...NormalGrant HospitalExtra Blueon [id number] Collected PlasmaYesInvalid Interpretation Code Grant HospitalComment on above:Performed By: #### [id number] #### [facility] [address] [place], [place] [address]VV with Cult Rflxon [id number] (U)ColorlessAbnormalYellow Grant HospitalComment on above:Order Comment: Added by Eryn ExpertResult Comment: Microscopic readings are only performed on those samples that meet specific criteria set forth by [facility]. Performed By: #### [id number] #### [facility] [address] [place], [place] [address]Tumgizq Ql (U)NegativeNormalNegativeGrant Hospital Comment on above:Order Comment: Added by Eryn ExpertPerformed By: #### [id number] #### [facility] [address] [place], [place] [id number] BloodNegativeNormalNegFirelands Regional Medical Center [facility] Comment on above:Order Comment: Added by Eryn ExpertPerformed By: #### [id number] #### [facility] [address] [place], [place] [address]PW ClarityClearNormalClearGrant HospitalComment on above:Order Comment: Added by Eryn ExpertPerformed By: #### [id number] #### [facility] [address] [place], [place] [id number] Glucose4+ mg/dLAbnormParkview Health Comment on above:Order Comment: Added by Eryn ExpertPerformed By: #### [id number] #### [facility] [address] [place], [place] [address]XG Leuk EstNegativeNormalNegFirelands Regional [facility] Comment on above:Order Comment: Added by Eryn ExpertPerformed By: #### [id number] #### [facility] [address] [place], [place] [address]PB NitriteNegativeNormalNegFirelands Regional [facility] Comment on above:Order Comment: Added by Eryn ExpertPerformed By: #### [id number] #### [facility] [address] [place], [place] [id number] pH6.0Invalid Interpretation Code5.0-9.0Grant HospitalComment on above:Order Comment: Added by Eryn ExpertPerformed By: #### [id number] #### [facility] [address] [place], [place] [id number] ProteinNegativeNormalNegFirelands Regional [facility] Comment on above:Order Comment: Added by Eryn ExpertPerformed By: #### [id number] #### [facility] [address] [place], [place] [id number] Spec Grav1.006Invalid Interpretation Code1.005-1.030Grant HospitalComment on above:Order Comment: Added by Discern Expert Performed By: #### [id number] #### [facility] [address] [place], [place] [address]CX UrobilinogenNegativeNormalNegFirelands Regional Medical Center South CampusComment on above:Order Comment: Added by Eryn ExpertPerformed By: #### [id number] #### [facility] [address], [place] [address]Lwvbpzdsofow (U) [Mass/Vol]NegativeNormalNegFirelands Regional Medical Center South CampusComment on above:Order Comment: Added by Discern ExpertPerformed By: #### [id number] #### [facility] [address], [place] [address]UTXqj 71-99-2882Wipts gap [Moles/Vol]15 mmol/LNormal6-16Grant HospitalComment on above:Performed By: #### [id number] #### [facility] [address], [place] [address]VTV/Creat Ratio18 No PpbzoTyzthj85-83XblhhcGrant HospitalComment on above:Performed By: #### [id number] #### [facility] [address], [place] [address]Spumzlq [Mass/Vol]9.0 mg/dLNormal8.9-11.1FTriHealth Good Samaritan HospitalComment on above:Performed By: #### [id number] #### [facility] [address], [place] [address]Xvrnxygx [Moles/Vol]98 mmol/MSqf916-156DeyjnuGrant HospitalComment on above:Performed By: #### [id number] #### [facility] [address], [place] [address]TB0 [Moles/Vol]23 mmol/FYxdahm57-25ClqivmGrant Hospital Comment on above:Performed By: #### [id number] #### [facility] [address], [place] [address]Exlhwrnhge [Mass/Vol]0.6 mg/dLNormal0.5-1.3FTriHealth Good Samaritan HospitalComment on above:Performed By: #### [id number] #### [facility] [address], [place] [address]Aukapgh [Mass/Vol]273 mg/tDYqmp24-373DvkpunGrant HospitalComment on above:Performed By: #### [id number] #### [facility] [address], [place] [address]Khiqajacb [Moles/Vol]3.9 mmol/LNormal3.5-5.3FTriHealth Good Samaritan HospitalComment on above:Performed By: #### [id number] #### [facility] [address] [place], [place] [address]Mggcwc [Moles/Vol]132 mmol/FBpb094-768OhczlqGrant HospitalComment on above:Performed By: #### [id number] #### [facility] [address], [place] [address]Cpvk nitrogen [Mass/Vol]11 mg/dLNormal5-21Grant HospitalComment on above:Performed By: #### [id number] #### [facility] [address], [place] [address]Msa Gas Venon 83-73-2543Gdamho TestNot ApplicableNormalGrant HospitalComment on above:Performed By: #### [id number] #### [facility] [address], [place] [address]Ytntm byERInvalid Interpretation [facility] Medical CenterComment on above:Performed By: #### [id number] #### [facility] [address], [place] [address]MLZ8 FZ30Dqrprsd Interpretation [facility] Comment on above:Performed By: #### [id number] #### [facility] [address] [place], [place] [address]Gswrtd saturation in Blood94.1 %High50.0-70.0Grant HospitalComment on above:Performed By: #### [id number] #### [facility] [address] [place], [place] [address]zWN7 Ven38.9 lgCpXjqrsr32.0-50.0[facility] Comment on above:Performed By: #### [id number] #### [facility] [address] [place], [place] [address]xH Ven7.395Izsszc3.320-7.430Grant HospitalComment on above:Performed By: #### [id number] #### [facility] [address] [place] [address]Srjmwl SiteOTHERNormalGrant HospitalComment on above:Performed By: #### [id number] #### [facility] [address] [place] [address]Qtizlb TypeVenous DrawNormalGrant HospitalComment on above:Performed By: #### [id number] #### [facility] [address] [place] [address]TEH w/ Auto Diffon 37-22-8510Oodtwjdw Absolute0.2 E9/LNormal 0.0-0.2FTriHealth Good Samaritan HospitalComment on above:Performed By: #### [id number] #### [facility] [address] [place] [address]Svpwypqpp/100 WBC (Bld)1.3 %Normal0.0-2.0Grant HospitalComment on above:Performed By: #### [id number] #### [facility] [address] [place] [address]Jyl Absolute0.3 E9/LNormal0.0-0.5FTriHealth [facility] Comment on above:Performed By: #### [id number] #### [facility] [address] [place] [address]Ofiomdhhqkh/100 WBC (Bld)2.2 %Normal0.0-8.0Grant HospitalComment on above:Performed By: #### [id number] #### [facility] [address] [place] [address]Gonolfuzmes distribution width (RBC) [Ratio]12.4 %Normal 10.9-14.2FTriHealth Good Samaritan HospitalComment on above:Performed By: #### [id number] #### [facility] [address] [place] [address]Tauiaaweyq (Bld) [Volume fraction]42.6 %Chmgrw54.0-46.0Grant HospitalComment on above:Performed By: #### [id number] #### [facility] [address] [place], [place] [address]Ufsoufusxn (Bld) [Mass/Vol]14.3 g/qGGzcbuy65.0-16.0Grant HospitalComment on above:Performed By: #### [id number] #### [facility] [address] [place] [address]Sztad Absolute4.0 E9/LNormal1.0-4.0[facility] Comment on above:Performed By: #### [id number] #### [facility] [address] [place] [address]Zziagbplvwe/100 WBC (Bld)34.0 %Fnvfwu89.0-50.0Grant HospitalComment on above:Performed By: #### [id number] #### [facility] [address] [place] [address]INB (RBC) [Entitic mass]27.8 xyIrpimg50.0-34.0Grant HospitalComment on above:Performed By: #### [id number] #### [facility] [address] [place] [address]UYUG (RBC) [Mass/Vol]33.6 g/zISddwfb77.4-36.0Grant HospitalComment on above:Performed By: #### [id number] #### [facility] [address] [place] [address]MTN (RBC) [Entitic vol]82.8 tYWbxcxl30.0-100.0Grant HospitalComment on above:Performed By: #### [id number] #### [facility] [address] [place] [address]Sqqi Absolute0.8 E9/LNormal0.2-1.0[facility] Comment on above:Performed By: #### [id number] #### [facility] [address] [place], [place] [address]Rhqoqixki/100 WBC (Bld)6.7 %Normal4.0-14.0Grant HospitalComment on above:Performed By: #### [id number] #### [facility] [address] [place], [place] [address]Ndyzvv Absolute6.5 E9/LNormal2.0-7.5FTri[facility] Comment on above:Performed By: #### [id number] #### [facility] [address] [place], [place] [address]Izjwgo Auto55.8 %Rswbaw24.0-75.0[facility] Comment on above:Performed By: #### [id number] #### [facility] [address] [place], [place] [address]Vwktwjcy860.0 E9/XIzaepj713.0-500.0[facility] Comment on above:Performed By: #### [id number] #### [facility] [address] [place], [place] [address]Uqiaslxk mean volume (Bld) [Entitic vol]7.3 fLNormal6.4-10.8 Grant HospitalComment on above:Performed By: #### [id number] #### [facility] [address] [place], [place] [address]AYG6.2 E12/LNormal4.3-5.9Grant HospitalComment on above:Performed By: #### [id number] #### [facility] [address], [place] [address]HCU39.7 E9/LHigh4.0-11.0Grant HospitalComment on above:Performed By: #### [id number] #### [facility] [address], [place] [address]QO with Cult Rflx SPon 80-29-5484WO Spec DescClean CatchNormal Grant HospitalComment on above:Performed By: #### [id number] #### [facility] [address], [place] [address]iYKWzv 08-84-8934rCPK995 mL/min/1.73 u6Kxuwvr>=59Grant HospitalComment on above:Performed By: #### [id number] #### [facility] [address] [place] [address]Siuutfj IIon 34-59-0000PSG Qn1.34 m[IU]/LNormal0.34-5.60Grant HospitalComment on above:Performed By: #### [id number] #### [facility] [address] [place] [address]PVA6.70 ng/dLNormal5.90-13.10Grant HospitalComment on above:Performed By: #### [id number] #### [facility] [address] [place] [address]S42.7 microgram/dLNormal4.6-9.1FT[facility] Comment on above:Performed By: #### [id number] #### [facility] [address] [place] [address]C5 Avkryd04.2 %Qnuuzl42.0-48.4FTri[facility] Comment on above:Performed By: #### [id number] #### [facility] [address] [place] [address]AIG w/ Auto Diffon 54-43-3834Yalslzii Absolute0.1 E9/LNormal 0.0-0.2FTriHealth Good Samaritan HospitalComment on above:Performed By: #### [id number] #### [facility] [address] [place] [address]Rgessqxes/100 WBC (Bld)0.8 %Normal0.0-2.0Grant HospitalComment on above:Performed By: #### [id number] #### [facility] [address] [place] [address]Lsd Absolute0.3 E9/LNormal0.0-0.5FT[facility] Comment on above:Performed By: #### [id number] #### [facility] [address] [place] [address]Nwpgchzghep/100 WBC (Bld)2.1 %Normal0.0-8.0Grant HospitalComment on above:Performed By: #### [id number] #### [facility] [address] [place], [place] [address]Ympsvkjjdll distribution width (RBC) [Ratio]12.0 %Normal 10.9-14.2FTriHealth Good Samaritan HospitalComment on above:Performed By: #### [id number] #### [facility] [address] [place], [place] [address]Mgrkdfbmjg (Bld) [Volume fraction]43.7 %Fmdvof98.0-46.0Grant HospitalComment on above:Performed By: #### [id number] #### [facility] [address] [place], [place] [address]Fwngnthqgg (Bld) [Mass/Vol]14.6 g/iESilnzc18.0-16.0Grant HospitalComment on above:Performed By: #### [id number] #### [facility] [address] [place] [address]Mhzyq Absolute3.6 E9/LNormal1.0-4.0[facility] Comment on above:Performed By: #### [id number] #### [facility] [address] [place] [address]Ifxhumqaece/100 WBC (Bld)27.4 %Rxbhsy80.0-50.0Grant HospitalComment on above:Performed By: #### [id number] #### [facility] [address], [place] [address]PKH (RBC) [Entitic mass]27.8 qlPpuzuf47.0-34.0Grant HospitalComment on above:Performed By: #### [id number] #### [facility] [address] [place], [place] [address]TYLP (RBC) [Mass/Vol]33.4 g/wXVlgdea73.4-36.0Grant HospitalComment on above:Performed By: #### [id number] #### [facility] [address] [place], [place] [address]YXB (RBC) [Entitic vol]83.4 sFPawvmu69.0-100.0Grant HospitalComment on above:Performed By: #### [id number] #### [facility] [address] [place], [place] [address]Hbfu Absolute1.0 E9/LNormal0.2-1.0[facility] Comment on above:Performed By: #### [id number] #### [facility] [address], [place] [address]Cpbykvtbu/100 WBC (Bld)7.5 %Normal4.0-14.0Grant HospitalComment on above:Performed By: #### [id number] #### [facility] [address], [place] [address]Cqukcr Absolute8.2 E9/LHigh2.0-7.5FT[facility] Comment on above:Performed By: #### [id number] #### [facility] [address], [place] [address]Hmwkhp Auto62.2 %Bgxgjo89.0-75.0[facility] Comment on above:Performed By: #### [id number] #### [facility] [address], [place] [address]Lvtxdwni490.0 E9/FOeccko099.0-500.0[facility] Comment on above:Performed By: #### [id number] #### [facility] [address], [place] [address]Yjulqisi mean volume (Bld) [Entitic vol]7.1 fLNormal6.4-10.8 Grant HospitalComment on above:Performed By: #### [id number] #### [facility] [address], [place] [address]EPY8.2 E12/LNormal4.3-5.9Grant HospitalComment on above:Performed By: #### [id number] #### [facility] [address], [place] [address]YKD46.1 E9/LHigh4.0-11.0Grant HospitalComment on above:Performed By: #### [id number] #### [facility] [address], [place] [address]IFKub 80-75-4253Nindwkk [Mass/Vol]4.8 g/dLNormal3.3-5.0Grant HospitalComment on above:Performed By: #### [id number] #### [facility] [address] [place], [place] [address]Wdsfsjj/Globulin [Mass ratio]1.4 {ratio}Normal1.1-2.2FTriHealth Good Samaritan HospitalComment on above:Performed By: #### [id number] #### [facility] [address] [place], [place] [address]Wwu Phos46 Int._Unit/HChmhlq33-30CbytruGrant Hospital Comment on above:Performed By: #### [id number] #### [facility] [address], [place] [address]NEF06 Int._Unit/LNormal6-46Grant HospitalComment on above:Performed By: #### [id number] #### [facility] [address], [place] [address]Ygxhj gap [Moles/Vol]12 mmol/LNormal6-16Grant HospitalComment on above:Performed By: #### [id number] #### [facility] [address], [place] [address]LTX14 Int._Unit/LNormal5-43Grant HospitalComment on above:Performed By: #### [id number] #### [facility] [address] [place], [place] [address]Xust Total0.2 mg/dLNormal0.0-1.1FT[facility] Comment on above:Performed By: #### [id number] #### [facility] [address], [place] [address]YAV/Creat Ratio17 No AwdqdHwfoew28-17JcuhxoGrant HospitalComment on above:Performed By: #### [id number] #### [facility] [address], [place] [address]Ezielcp [Mass/Vol]9.4 mg/dLNormal8.9-11.1FTriHealth Good Samaritan HospitalComment on above:Performed By: #### [id number] #### [facility] [address], [place] [address]Sdpmuesj [Moles/Vol]102 mmol/ZRwirua454-889EpkgkvGrant HospitalComment on above:Performed By: #### [id number] #### [facility] [address], [place] [address]BN6 [Moles/Vol]25 mmol/ESdghtg30-47LnkutyGrant Hospital Comment on above:Performed By: #### [id number] #### [facility] [address], [place] [address]Mfgmorrdqv [Mass/Vol]0.6 mg/dLNormal0.5-1.3FTriHealth [facility] Samaritan HospitalComment on above:Performed By: #### [id number] #### [facility] [address], [place] [address]Zduzrixb (S) [Mass/Vol]3.4 g/dLNormal1.4-4.0Grant HospitalComment on above:Performed By: #### [id number] #### [facility] [address], [place] [address]Qbejcgp [Mass/Vol]150 mg/vHUhtsfe48-576ZbaannGrant HospitalComment on above:Performed By: #### [id number] #### [facility] [address], [place] [address]Gobwmqzyc [Moles/Vol]4.1 mmol/LNormal3.5-5.3FTri[facility] Samaritan HospitalComment on above:Performed By: #### [id number] #### [facility] [address], [place] [address]Jykjtqn [Mass/Vol]8.2 g/dLHigh6.0-7.8Grant HospitalComment on above:Performed By: #### [id number] #### [facility] [address], [place] [address]Serzbn [Moles/Vol]135 mmol/VWnqame454-914EivdrcGrant HospitalComment on above:Performed By: #### [id number] #### [facility] [address] [place] [address], [place] [address]Ghdh nitrogen [Mass/Vol]10 mg/dLNormal5-21Grant HospitalComment on above:Performed By: #### [id number] #### [facility] [address], [place] [address]Eanjwokwds 54-37-2534Ibdmbdlr Lec108 ng/hXNstipx97-708WkeufjGrant HospitalComment on above:Performed By: #### [id number] #### [facility] [address], [place] [address]Mcjciu 39-81-4327Xpvz05 microgram/wOUnabjr57-302LsleeqGrant HospitalComment on above:Performed By: #### [id number] #### [facility] [address], [place] [address]Xpck Saturationon 48-22-0188Tyso Sat9 %Tun92-96EmgqlbGrant HospitalComment on above:Performed By: #### [id number] #### [facility] [address], [place] [address]NUKC809 microgram/rVJnui993-485TulpdwGrant Hospital Comment on above:Performed By: #### [id number] #### [facility] [address], [place] [address]NVH With T4fr Reflexon 73-18-1705PYE Qn1.18 m[IU]/LNormal 0.34-5.60Grant HospitalComment on above:Performed By: #### [id number] #### [facility] [address], [place] [address]Xpfpzwiftkvev 06-56-9257Qnjvnaxwonl [Mass/Vol]298 mg/dLNormal 200-370Grant HospitalComment on above:Performed By: #### [id number] #### [facility] [address], [place] [address]Ayy B12on 52-56-6791Asvdgdo B12 Lvl>2172Qlkbzo16-1119KpbgatGrant HospitalComment on above:Performed By: #### [id number] #### [facility] [address], [place] [address]wPWXze 80-99-6820uXUI497 mL/min/1.73 t1Brvffd>=59Grant HospitalComment on above:Performed By: #### [id number] #### [facility] [address], [place] [address]Emredbr aminotransferase [Enzymatic activity/volume] in Serum or PlasmaOrdered By: Pamela Su on 03-09-4550WCU [Catalytic activity/Vol]32 U/LNormal7-52A[facility]ike Medical CenterComment on above:Order Comment: Reason for Exam Type 2 diabetes mellitus without complication, without long-Performed By: #### SCAN CBC, B12, LIPID, CMP, TSH3 wRFLX #### [facility] [address] [id number] USAAlbumin [Mass/volume] in Serum or Plasma by Bromocresol green (BCG) dye binding methoOrdered By: Pamela Su on 48-35-8578Blhzxsy BCG dye [Mass/Vol]4.5 g/dL3.5-5.7FWooster Community HospitalAlkaline phosphatase [Enzymatic activity/volume] in Serum or PlasmaOrdered By: Pamela Su on 31-69-7715KGW [Catalytic activity/Vol]38 U/NAkemuy00-979LihcbkbmjAdena Pike Medical CenterComment on above:Order Comment: Reason for Exam Type 2 diabetes mellitus without complication, without long-Performed By: #### SCAN CBC, B12, LIPID, CMP, TSH3 wRFLX #### [facility] [address] [id number] USAAspartate aminotransferase [Enzymatic activity/volume] in Serum or PlasmaOrdered By: Pamela Su on 99-92-0884FJW [Catalytic activity/Vol]21 U/JQxyoht19-23KqeerbeclAdena Pike Medical CenterComment on above: Order Comment: Reason for Exam Type 2 diabetes mellitus without complication, without long-Performed By: #### SCAN CBC, B12, LIPID, CMP, TSH3 wRFLX #### [facility] [address] [place] [address] USABasophils [#/volume] in Blood by Automated countOrdered By: Pamela Su on 14-88-3486Eqcrsunqx (Bld) [#/Vol]0.1 10*3/uLNormal0.0-0.2 [facility] Medical CenterComment on above:Order Comment: Reason for Exam Type 2 diabetes mellitus without complication, without long-Result Comment: PERFORMED BY: [place] [address] PATHOLOGIST NONPROFIT FUNDRAISER BRYANNA SARAVIA M.D.Performed By: #### SCAN CBC, B12, LIPID, CMP, TSH3 wRFLX #### [facility] [address] [place], [place] [id number] USABasophils/100 leukocytes in Blood by Automated count Ordered By: Pamela Su on 45-10-3020Hvvpdlgfs/100 WBC (Bld)0.9 %Normal. [facility] Medical CenterComment on above:Order Comment: Reason for Exam Type 2 diabetes mellitus without complication, without long-Performed By: #### SCAN CBC, B12, LIPID, CMP, TSH3 wRFLX #### [facility] [address] [id number] USABilirubin.total [Mass/volume] in Serum or PlasmaOrdered By: Pamela Su on 88-57-7546Qmpdixbpm [Mass/Vol]0.5 mg/dLNormal0.3-1.0 [facility] CenterComment on above:Order Comment: Reason for Exam Type 2 diabetes mellitus without complication, without long-Performed By: #### SCAN CBC, B12, LIPID, CMP, TSH3 wRFLX #### [facility] [address] [place] [address] USACalcium [Mass/volume] in Serum or PlasmaOrdered By: Pamela Su on 59-26-1988Mnvkxnx [Mass/Vol]9.3 mg/dLNormal8.6-10.3FWooster Community HospitalComment on above:Order Comment: Reason for Exam Type 2 diabetes mellitus without complication, without long-Performed By: #### SCAN CBC, B12, LIPID, CMP, TSH3 wRFLX #### [facility] [address] [place] [address] USACarbon dioxide, total [Moles/volume] in Serum or Plasma Ordered By: Pamela Su on 66-56-9482DY7 [Moles/Vol]23.0 mmol/YXeplzp05.0-31.0 [facility] Medical CenterComment on above:Order Comment: Reason for Exam Type 2 diabetes mellitus without complication, without long-Performed By: #### SCAN CBC, B12, LIPID, CMP, TSH3 wRFLX #### [facility] [address] [place] [address] USAChloride [Moles/volume] in Serum or PlasmaOrdered By: Pamela Su on 47-78-9142Xnxvqiac [Moles/Vol]104 mmol/EAalusp86-075QsxoxoxehAdena Pike Medical CenterComment on above:Order Comment: Reason for Exam Type 2 diabetes mellitus without complication, without long-Performed By: #### SCAN CBC, B12, LIPID, CMP, TSH3 wRFLX #### [facility] [address] [place] [address] USAComplete Blood Count Auto Diffon 03-93-6705Weew Corpuscular HGB Conc33.4 g/mDAfkuaf75.0-35.0The [facility] Physician GroupComment on above:Order Comment: Reason for Exam Type 2 diabetes mellitus without complication, without long-Performed By: #### SCAN CBC, B12, LIPID, CMP, TSH3 wRFLX #### [facility] [address] [place] [address] USANRBC%0.1 /100{WBC}Normal0-0.5[facility] Comment on above:Order Comment: Reason for Exam Type 2 diabetes mellitus without complication, without long-Performed By: #### SCAN CBC, B12, LIPID, CMP, TSH3 wRFLX #### [facility] [address] [place] [address] USAWhite Blood Count8.7 [CFU]/mLNormal3.8-11.6The [facility] Physician GroupComment on above:Order Comment: Reason for Exam Type 2 diabetes mellitus without complication, without long-Performed By: #### SCAN CBC, B12, LIPID, CMP, TSH3 wRFLX #### [place] [address] USAComprehensive Metabolic Panelon 07-25-4116Uduogek [Mass/Vol]4.5 g/dLNormal3.5-5.7The [facility] Physician GroupComment on above: Order Comment: Reason for Exam Type 2 diabetes mellitus without complication, without long-Performed By: #### SCAN CBC, B12, LIPID, CMP, TSH3 wRFLX #### [facility] [address] [place] [address] USAGFR/1.73 sq M.predicted MDRD (S/P/Bld) [Vol rate/Area] mL/min/{1.73_m2}NormalThe [facility] Hospital Physician GroupComment on above:Order Comment: Reason for Exam Type 2 diabetes mellitus without complication, without long-Performed By: #### SCAN CBC, B12, LIPID, CMP, TSH3 wRFLX #### [place] [address] USACreatinine [Mass/volume] in Serum or PlasmaOrdered By: Pamela Su on 14-30-0466Wjemzojgin [Mass/Vol]0.48 mg/dLLow0.60-1.20A[facility]ike Medical CenterComment on above:Order Comment: Reason for Exam Type 2 diabetes mellitus without complication, without long-Performed By: #### SCAN CBC, B12, LIPID, CMP, TSH3 wRFLX #### [facility] [address] [place] [address] USAEosinophils [#/volume] in Blood by Automated countOrdered By: Pamela Su on 69-73-5918Lwsvxufxqqq (Bld) [#/Vol]0.2 10*3/uLNormal0.0-0.45 [facility] CenterComforest health medical center on above:Order Comment: Reason for Exam Type 2 diabetes mellitus without complication, without long-Performed By: #### SCAN CBC, B12, LIPID, CMP, TSH3 wRFLX #### [facility] [address] [place] [address] USAEosinophils/100 leukocytes in Blood by Automated count Ordered By: Pamela Su on 15-45-1598Ngwnakbtpma/100 WBC (Bld)2.7 %Normal. [facility] Medical CenterComment on above:Order Comment: Reason for Exam Type 2 diabetes mellitus without complication, without long-Performed By: #### SCAN CBC, B12, LIPID, CMP, TSH3 wRFLX #### [place] [id number] USAErythrocyte distribution width [Ratio] by Automated count Ordered By: Pamela Su on 67-32-6880Wghjxiaqxez distribution width (RBC) [Ratio]12.1 %Rjhsog53.9-15.3FWooster Community HospitalComment on above: Order Comment: Reason for Exam Type 2 diabetes mellitus without complication, without long-Performed By: #### SCAN CBC, B12, LIPID, CMP, TSH3 wRFLX #### [facility] [address] [place] [address] USAErythrocytes [#/volume] in Blood by Automated countOrdered By: Pamela Su on 25-35-0119ZOP (Bld) [#/Vol]4.90 10*6/uLNormal3.60-5.00 [facility] CenterComforest health medical center on above:Order Comment: Reason for Exam Type 2 diabetes mellitus without complication, without long-Performed By: #### SCAN CBC, B12, LIPID, CMP, TSH3 wRFLX #### [facility] [address] [place] [address] USAGlucose [Mass/volume] in Serum or PlasmaOrdered By: Pamela Su on 15-80-7542Tyfwuxm [Mass/Vol]181 mg/qXIgjb04-144QgkyvkvtcAdena Pike Medical CenterComment on above:ADA recommended reference rangeRandom Glucose Reference Range is dependent on time and content of last meal. Glucose of more than 200 mg/dL in a nonstressed, ambulatory subject supports the diagnosisof Diabetes Mellitus.Order Comment: Reason for Exam Type 2 diabetes mellitus without complication, without long-Result Comment: Random Glucose Reference Range is dependent on time and content of last meal. Glucose of more than 200 mg/dL in a nonstressed, ambulatory subject supports the diagnosis of Diabetes Mellitus. ADA recommended reference rangePerformed By: #### SCAN CBC, B12, LIPID, CMP, TSH3 wRFLX #### [facility] [address] [place] [address] USAHematocrit [Volume Fraction] of Blood by Automated count Ordered By: Pamela Su on 26-32-8521Nvgtugdxld (Bld) [Volume fraction]42.4 % Gzejhq49.0-46.4FWooster Community HospitalComment on above:Order Comment: Reason for Exam Type 2 diabetes mellitus without complication, without long-Performed By: #### SCAN CBC, B12, LIPID, CMP, TSH3 wRFLX #### [facility] [address] [place] [address] USAHemoglobin [Mass/volume] in BloodOrdered By: Pamela Su on 32-11-9239Ucabwfheqv (Bld) [Mass/Vol]14.2 g/bVGtfuha58.8-15.4FWooster Community HospitalComment on above:Order Comment: Reason for Exam Type 2 diabetes mellitus without complication, without long-Performed By: #### SCAN CBC, B12, LIPID, CMP, TSH3 wRFLX #### [facility] [address] [place] [address] USAIron [Mass/volume] in Serum or PlasmaOrdered By: Pamela Su on 70-07-8820Ippq [Mass/Vol]88 ug/rPNnrhja15-583EephqypdcAdena Pike Medical CenterComment on above:Order Comment: Reason for Exam Type 2 diabetes mellitus without complication, without long-Performed By: #### SCAN CBC, B12, LIPID, CMP, TSH3 wRFLX #### [facility] [address] [place] [address] USAIron and TIBC Profileon 11-17-2024% Iron Yrfwwmgdit97.0 % Tcdnpc74-08Mhy [facility] Physician GroupComment on above:Order Comment: Reason for Exam Type 2 diabetes mellitus without complication, without long-Performed By: #### SCAN CBC, B12, LIPID, CMP, TSH3 wRFLX #### [facility] [address] [place] [id number] USATotal Iron Binding Ngpwntke627 ug/xEHlnrkq522-292Qjr [facility] Physician GroupComment on above:Order Comment: Reason for Exam Type 2 diabetes mellitus without complication, without long-Performed By: #### SCAN CBC, B12, LIPID, CMP, TSH3 wRFLX #### [facility] [address] [place] [address] USALeukocytes [#/volume] corrected for nucleated erythrocytes in Blood by Automated counOrdered By: Pamela Su on 18-59-2884SPT corrected for nucl RBC Auto (Bld) [#/Vol]8.7 10*3/uL3.8-11.6FWooster Community HospitalLeukocytes [#/volume] in Blood by Automated countOrdered By: Pamela Su on 57-47-5764UPY (Bld) [#/Vol]8.7 10*3/uLNormal3.8-11.6FWooster Community HospitalComment on above:Order Comment: Reason for Exam Type 2 diabetes mellitus without complication, without long-Performed By: #### SCAN CBC, B12, LIPID, CMP, TSH3 wRFLX #### [facility] [address] [place] [address] USALymphocytes [#/volume] in Blood by Automated countOrdered By: Pamela Su on 94-61-4272Kubevfvqvnv (Bld) [#/Vol]2.5 10*3/uLNormal1.00-4.8 [facility] CenterComment on above:Order Comment: Reason for Exam Type 2 diabetes mellitus without complication, without long-Performed By: #### SCAN CBC, B12, LIPID, CMP, TSH3 wRFLX #### [facility] [address] [place] [address] USALymphocytes/100 leukocytes in Blood by Automated count Ordered By: Pamela Su on 16-90-0134Pgcmdeyqovd/100 WBC (Bld)28.4 %Normal. [facility] Medical CenterComment on above:Order Comment: Reason for Exam Type 2 diabetes mellitus without complication, without long-Performed By: #### SCAN CBC, B12, LIPID, CMP, TSH3 wRFLX #### [facility] [address] [place] [address] USAH [Entitic mass] by Automated countOrdered By: Pamela Su on 78-72-3671VAM (RBC) [Entitic mass]28.9 miNmhdaw79.7-34.3FWooster Community HospitalComment on above:Order Comment: Reason for Exam Type 2 diabetes mellitus without complication, without long-Performed By: #### SCAN CBC, B12, LIPID, CMP, TSH3 wRFLX #### [facility] [address] [place] [address] USAHC Auto (RBC) [Mass/Vol]Ordered By: Pamela Su on 40-02-5011MYUH (RBC) [Mass/Vol]33.4 g/dL32.0-35.0A[facility]a Pike Medical CenterMCV [Entitic volume] by Automated countOrdered By: Pamela Su on 36-86-8143VZW (RBC) [Entitic vol]86.6 mDTdtsyr50-848EbjnqdynaAdena Pike Medical CenterComment on above:Order Comment: Reason for Exam Type 2 diabetes mellitus without complication, without long-Performed By: #### SCAN CBC, B12, LIPID, CMP, TSH3 wRFLX #### [facility] [address] [place] [address] USAMonocytes [#/volume] in Blood by Automated countOrdered By: Pamela Su on 01-27-2324Nkotzksmy (Bld) [#/Vol]0.7 10*3/uLNormal0.0-0.8 [facility] CenterComment on above:Order Comment: Reason for Exam Type 2 diabetes mellitus without complication, without long-Performed By: #### SCAN CBC, B12, LIPID, CMP, TSH3 wRFLX #### [facility] [address] [place] [address] USAMonocytes/100 leukocytes in Blood by Automated count Ordered By: Pamela Su on 20-76-7673Rxmnrvhlz/100 WBC (Bld)7.8 %Normal. [facility] Medical CenterComment on above:Order Comment: Reason for Exam Type 2 diabetes mellitus without complication, without long-Performed By: #### SCAN CBC, B12, LIPID, CMP, TSH3 wRFLX #### [facility] [address] [place] [address] USANeutrophils [#/volume] in Blood by Automated countOrdered By: Pamela Su on 92-91-6620Ahwvoyggtdn (Bld) [#/Vol]5.2 10*3/uLNormal1.8-7.7 [facility] CenterComment on above:Order Comment: Reason for Exam Type 2 diabetes mellitus without complication, without long-Performed By: #### SCAN CBC, B12, LIPID, CMP, TSH3 wRFLX #### [facility] [address] [place] [address] USANeutrophils/100 leukocytes in Blood by Automated count Ordered By: Pamela Su on 53-54-5585Yqxnoupkpci/100 WBC (Bld)60.2 %Normal. [facility] Medical CenterComment on above:Order Comment: Reason for Exam Type 2 diabetes mellitus without complication, without long-Performed By: #### SCAN CBC, B12, LIPID, CMP, TSH3 wRFLX #### [facility] [address] [place] [address] USANo Panel InformationOrdered By: Pamela Su on 11-17-2024 Estimated GFR (CKD-EPI)> 60.0 mL/MinAdena Pike Medical CenterPharmacy Creatinine Clearance (ChemN/[facility] SouthNucleated erythrocytes [Presence] in Blood by Automated countOrdered By: Pamela Su on 44-32-7383Hpzuxdspo RBC Auto Ql (Bld)0.1 /100{WBC}0-0.5FWooster Community HospitalPlatelet mean volume [Entitic volume] in Blood by Automated count Ordered By: Pamela Su on 24-37-5436Hdfnyemu mean volume (Bld) [Entitic vol] 7.7 fLNormal6.3-10.7FWooster Community HospitalComment on above:Order Comment: Reason for Exam Type 2 diabetes mellitus without complication, without long-Performed By: #### SCAN CBC, B12, LIPID, CMP, TSH3 wRFLX #### [facility] [address] [place] [address] USAPlatelets [#/volume] in Blood by Automated countOrdered By: Pamela Su on 20-68-0398Mwveusnqg (Bld) [#/Vol]333 10*3/rIKtticx219-941 [facility] CenterComment on above:Order Comment: Reason for Exam Type 2 diabetes mellitus without complication, without long-Performed By: #### SCAN CBC, B12, LIPID, CMP, TSH3 wRFLX #### [facility] [address] [place] [id number] USAPotassium [Moles/volume] in Serum or PlasmaOrdered By: Pamela Su on 78-65-1222Pbxvqchbb [Moles/Vol]4.1 mmol/LNormal3.5-5.1FWooster Community HospitalComment on above:Order Comment: Reason for Exam Type 2 diabetes mellitus without complication, without long-Performed By: #### SCAN CBC, B12, LIPID, CMP, TSH3 wRFLX #### [facility] [address] [place] [address] USAProtein [Mass/volume] in Serum or PlasmaOrdered By: Pamela Su on 23-49-5906Yqqjzod [Mass/Vol]7.4 g/dLNormal6.4-8.9[facility] Medical CenterComment on above:Order Comment: Reason for Exam Type 2 diabetes mellitus without complication, without long-Performed By: #### SCAN CBC, B12, LIPID, CMP, TSH3 wRFLX #### [facility] [address] [place] [id number] USASerum globulin measurement by calculation (mass/volume) Ordered By: Pamela Su on 69-79-5433Fnhntyus (S) [Mass/Vol]2.9 g/dLNormal [facility] CenterComment on above:Order Comment: Reason for Exam Type 2 diabetes mellitus without complication, without long-Performed By: #### SCAN CBC, B12, LIPID, CMP, TSH3 wRFLX #### [facility] [address] [place] [id number] USASerum or plasma albumin/globulin mass ratioOrdered By: Pamela Su on 60-31-3751Dlxtsko/Globulin [Mass ratio]1.6 {ratio}Normal [facility] Medical CenterComment on above:Order Comment: Reason for Exam Type 2 diabetes mellitus without complication, without long-Performed By: #### SCAN CBC, B12, LIPID, CMP, TSH3 wRFLX #### [facility] [address] [place] [id number] USASerum or plasma anion gap determinationOrdered By: Pamela Su on 44-81-7388Rzlsd gap [Moles/Vol]13.1 mmol/LNormal6.0-15.0[facility] Medical CenterComment on above:Order Comment: Reason for Exam Type 2 diabetes mellitus without complication, without long-Performed By: #### SCAN CBC, B12, LIPID, CMP, TSH3 wRFLX #### [facility] [address] [place], [place] [address] USASerum or plasma iron binding capacity measurement (mass/volume)Ordered By: Pamela Su on 66-86-2589Xdae binding capacity [Mass/Vol]400 ug/zM434-298GvyhaviwsUniversity Hospitals Conneaut Medical Centererum or plasma iron saturation measurement (mass fraction)Ordered By: Pamela Su on 64-33-4318Wglm saturation [Mass fraction]22.0 %20-50[facility] Conneaut Medical Centerodium [Moles/volume] in Serum or PlasmaOrdered By: Pamela Su on 83-71-2355Kubwxt [Moles/Vol]136 mmol/LJujmvi270-527OwfdurvhqAdena Pike Medical CenterComment on above:Order Comment: Reason for Exam Type 2 diabetes mellitus without complication, without long-Performed By: #### SCAN CBC, B12, LIPID, CMP, TSH3 wRFLX #### [facility] [address] [place] [id number] USAThyroid Stim Hormone w/Rflxon 44-99-7198Rjwoqph Stim Hormone w/Rflx1.31 u[iU]/mLNormal0.45-5.33The [facility] Physician GroupComment on above:Order Comment: Reason for Exam Type 2 diabetes mellitus without complication, without long-Result Comment: PERFORMED BY: [place] [address] PATHOLOGIST NONPROFIT FUNDRAISER BRYANNA SARAVIA M.D.Performed By: #### SCAN CBC, B12, LIPID, CMP, TSH3 wRFLX #### [place] [id number] USAThyrotropin [Units/volume] in Serum or PlasmaOrdered By: Pamela Su on 76-03-2551XIW Qn1.31 m[IU]/L0.45-5.33[facility] Medical CenterTransferrin [Mass/volume] in Serum or PlasmaOrdered By: Pamela Su on 98-45-3117Rtuyweacwkq [Mass/Vol]286 mg/iOWqqojv734-219BrffnwncwAdena Pike Medical CenterComment on above:Order Comment: Reason for Exam Type 2 diabetes mellitus without complication, without long-Performed By: #### SCAN CBC, B12, LIPID, CMP, TSH3 wRFLX #### [facility] [address] [place], [place] [address] USAUrea nitrogen [Mass/volume] in Serum or PlasmaOrdered By: Pamela Su on 22-25-6323Ueyk nitrogen [Mass/Vol]11 mg/dLNormal7-25[facility] Medical CenterComment on above:Order Comment: Reason for Exam Type 2 diabetes mellitus without complication, without long-Performed By: #### SCAN CBC, B12, LIPID, CMP, TSH3 wRFLX #### [facility] [address] [place], [place] [address] USAVitamin B12 ser/plasOrdered By: Pamela Su on 11-17-2024 Cobalamin (Vitamin B12) [Mass/Vol]352 pg/wMFyjmvy155-179JkcjjfehlAdena Pike Medical CenterComment on above:Order Comment: Reason for Exam Type 2 diabetes mellitus without complication, without long-Performed By: #### SCAN CBC, B12, LIPID, CMP, TSH3 wRFLX #### [facility] [address] [place] [id number] USAED Note-Physicianon 07-47-4513YD Note-PhysicianED Note-Physician Basic Information Time Seen: Mohamud Mari PA-C 11/03/2024 10:10 Chief Complaint To ED from Mental Health office for SI with plan of stabbing self in the heart. Denies HI. History of Present Illness 29-year-old female comes to the ED for evaluation of suicidal ideations. She has a history of depression. She was seeing her counselor today when she confessed the suicidal thoughts were sent to the ED for further evaluation. Started she has been dealing with these suicidal thoughts for the last few days. Reportedly she did voice a plan to the counselor, but does not state any specific plans at this time. Denies any attempts at harming herself. Denies any drug or alcohol use. Denies any medicalcomplaints. Review of Systems A 10 point review of systems is negative except as noted above. Medical and Surgical History: Reviewed and noted Social history: Lives at home Tobacco: Denies Physical Exam Vitals & Measurements T: 36.7 ???C(Oral) HR: 96(Peripheral) RR: 20 BP: 145/10 SpO2: 97% HT: 163 cm WT: 63 kg BMI: 23.71 Nurses notes and vital signs reviewed and patient is not hypoxic. General: Awake alert, Xalix in bed, cooperative Skin: Warm, dry. Head: Atraumatic. Neck: No JVD. Eye: Normal conjunctiva. Ears, Nose, Mouth, and Throat: Moist mucous membranes. Cardiovascular: Strong distal pulses. Chest wall: Respiratory: Respirations are nonlabored. Back: Normal range of motion. Musculoskeletal: Normal ROM with no gross deformity. Gastrointestinal: Urological: Neurological: Awake and alert. No focal deficits. Follows commands. Psychiatric: Cooperative. Suicidal Medical Decision Making Laboratory studies reviewed and noted. Patient medically clear for psychiatric evaluation. Patient was evaluated by mental health. She became agitated wanted to leave the emergency department, therefore she was pink slipped as she is making active suicidal comments. Ultimately mental [facility] has made arrangements for inpatient psychiatric treatment. Patient will be transferred to [facility] for treatment. Critical Care Time: 40 minutes, critical care time is separate from any procedures that are performed. The following was considered in the determination of critical care but not limited to the level medical decision-making, intensive cardiac and/or respiratory monitor, frequent vital sign monitoring, evaluation of laboratory studies, evaluation of a radiographic studies, oxygen monitoring and constant monitoring. Assessment/Plan 1. Suicidal ideations (R45.851: Suicidal ideations) Orders: CBC w/ Auto Diff Communication Order Comprehensive Metabolic Panel Consult to Mental Health Drug Screen Urine ECG 12 Lead Adult eGFR Ethanol Level Extra Blue Tube Extra SST Tube Transfer Patient UA with Cult Rflx Disposition Plan Patient Discharge Condition Disposition: Transferred Condition: Improved and stable Counseled: Patient and/or family were counseled to workup, results, treatment plan and follow-up recommendations Discharge Prescription List Prescriptions No active prescription medications Follow-up No qualifying data available Attestation I performed a substantive part of the MDM during the patient???s E/M visit. I personally made or approved the documented management plan and acknowledge its risk of complications. (Independent Interpretation) My (EKG/X-Ray/US/CT) interpretation as above. (Discussion) Management/test interpretation discussed with APC. This report was transcribed using voice recognition software. Every effort was made to ensure accuracy, however, inadvertently computerized community center coordinator mistakes may be present. Appropriate healthcare PPE was used in evaluating this patient. Problem List/Past Medical History Ongoing No qualifying data Historical No qualifying data Medications Inpatient No active inpatient medications Home Bromfed DM oral syrup, 5 mL, Oral, QID, PRN Medrol Dosepack 4 mg Tab, 1 tab(s), Oral, As Directed metformin 1000 mg Tab, 1000 mg= 1 tab(s), Oral, BID Allergies No Known Allergies Social History Alcohol - Denies Alcohol Use, 02/28/2024 Substance Abuse - Denies Substance Abuse, 02/28/2024 Tobacco - Denies Tobacco Use, 02/28/2024 Never (less than 100 in lifetime) Tobacco Use:. Never Smokeless Tobacco Use:., 09/23/2024 Lab Results WBC: 9.7 E9/L (11/03/24 10:31:00) RBC: 5.3 E12/L (11/03/24 10:31:00) HGB: 15.3 gm/dL (11/03/24 10:31:00) Hct: 44.8 % (11/03/24 10:31:00) MCV: 84.9 fL (11/03/24 10:31:00) MCH: 29 pg (11/03/24 10:31:00) MCHC: 34.1 gm/dL (11/03/24 10:31:00) RDW: 12.3 % (11/03/24 10:31:00) Platelet: 411 E9/L (11/03/24 10:31:00) MPV: 7.5 fL (11/03/24 10::) Neutro Auto: 60.4 % (11/03/24 10:31:00) Lymph Auto: 31.1 % (11/03/24 10:31:00) Glasscock Auto: 6 % (11/03/24 10::00) Eos Auto: 1.9 % (11/03/24 10:31:00) Basophil Auto: 0.6 % (11/03/24 10:31:00) Neutro Absolute: 5.9 E9/L (11/03/24 10:31 (more content not included)...Normal [facility] HospitalComment on above:Result Comment: Electronically Signed By: Mohamud Mari PA-C\.br\Date and Time Signed: 11/03/2516:47 EDT\.br\Electronically Co-Signed By: Fabrice Cavanaugh DO\.br\Date and Time Co- Signed: 11/06/24 08:39 EDTCBC w/ Auto Diffon 80-87-8328Srrurdoh Absolute0.1 E9/L Normal0.0-0.2Fisher The [facility] Enoch Pratt HospitalComment on above:Performed By: #### [id number] #### [facility] [address] [place], [place] [address]Lzrojdwke/100 WBC (Bld)0.6 %Normal0.0-2.0FishKennedy Krieger InstituteComment on above:Performed By: #### [id number] #### [facility] [address] [place], [place] [address]Wjc Absolute0.2 E9/LNormal0.0-0.5FTriHealth [facility] Comment on above:Performed By: #### [id number] #### [facility] [address] [place], [place] [address]Vegkabocadx/100 WBC (Bld)1.9 %Normal0.0-8.0[facility] HospitalComment on above:Performed By: #### [id number] #### [facility] [address] [place], [place] [address]Kroarpyrmxo distribution width (RBC) [Ratio]12.3 %Normal 10.9-14.2FTriHealth Good Samaritan HospitalComment on above:Performed By: #### [id number] #### [facility] [address] [place], [place] [address]Mrgjuzfszb (Bld) [Volume fraction]44.8 %Gxiaif04.0-46.0[facility] HospitalComment on above:Performed By: #### [id number] #### [facility] [address] [place], [place] [address]Ryphfciykv (Bld) [Mass/Vol]15.3 g/cVPunzga07.0-16.0[facility] HospitalComment on above:Performed By: #### [id number] #### [facility] [address] [place], [place] [address]Xjdub Absolute3.0 E9/LNormal1.0-4.0[facility] Comment on above:Performed By: #### [id number] #### [facility] [address] [place], [place] [address]Hvxwzhkhmlq/100 WBC (Bld)31.1 %Keixje10.0-50.0[facility] HospitalComment on above:Performed By: #### [id number] #### [facility] [address] [place], [place] [address]HPX (RBC) [Entitic mass]29.0 ddDansek67.0-34.0[facility] HospitalComment on above:Performed By: #### [id number] #### [facility] [address] [place] [address]QMPG (RBC) [Mass/Vol]34.1 g/dNOhdylh46.4-36.0[facility] HospitalComment on above:Performed By: #### [id number] #### [facility] [address] [place] [address]VKP (RBC) [Entitic vol]84.9 mCYcquug20.0-100.0[facility] HospitalComment on above:Performed By: #### [id number] #### [facility] [address] [place] [address]Rxvc Absolute0.6 E9/LNormal0.2-1.0[facility] Comment on above:Performed By: #### [id number] #### [facility] [address] [place] [address]Cjxgpvuzy/100 WBC (Bld)6.0 %Normal4.0-14.0[facility] HospitalComment on above:Performed By: #### [id number] #### [facility] [address] [place] [address]Mpckle Absolute5.9 E9/LNormal2.0-7.5FTriHealth [facility] Comment on above:Performed By: #### [id number] #### [facility] [address] [place] [address]Ekyadd Auto60.4 %Noytbp13.0-75.0[facility] Comment on above:Performed By: #### [id number] #### [facility] [address] [place] [address]Sisbeviq461.0 E9/DXsjsrb209.0-500.0[facility] Comment on above:Performed By: #### [id number] #### [facility] [address] [place] [address]Nwwddycr mean volume (Bld) [Entitic vol]7.5 fLNormal6.4-10.8 [facility] HospitalComment on above:Performed By: #### [id number] #### [facility] [address] [place] [address]VTJ2.3 E12/LNormal4.3-5.9[facility] HospitalComment on above:Performed By: #### [id number] #### [facility] [address] [place] [address]QJN3.7 E9/LNormal4.0-11.0[facility] HospitalComment on above:Performed By: #### [id number] #### [facility] [address] [place] [address]MZCGWKJGDFogbqxo By: SYSTEM SYSTEM on 21-41-3952Pybibeyufjxq Screen method >1000 ng/mL Ql (U)NEGATIVE 7 (11/03/24 10:38 AM)NormalNEGATIVERemisol ChemComment on above:Interpretive Data: Negative Cutoff: <1000 ng/mLBarbiturates Screen Ql (U)NEGATIVE 8 (11/03/24 10:38 AM)NormalNEGATIVERemisol ChemComment on above:Interpretive Data: Negative Cutoff: <200 ng/mLBenzodiazepines Ql (U)NEGATIVE 1 (11/03/24 10:38 AM)NormalNEGATIVERemisol ChemComment on above:Interpretive Data: Negative Cutoff: <200 ng/mLCannabinoids Screen Ql (U)NEGATIVE 6 (11/03/24 10:38 AM)NormalNEGATIVERemisol ChemComment on above:Interpretive Data: Negative Cutoff: <50 ng/mLCocaine Ql (U)NEGATIVE 2 (11/03/24 10:38 AM)NormalNEGATIVERemisol ChemComment on above:Interpretive Data: Negative Cutoff: <300 ng/mLOpiates Screen Ql (U)NEGATIVE 4 (11/03/24 10:38 AM)NormalNEGATIVERemisol ChemComment on above:Interpretive Data: Negative Cutoff: <300 ng/mLPhencyclidine Screen method >25 ng/mL Ql (U)NEGATIVE 5 (11/03/24 10:38 AM)NormalNEGATIVERemisol ChemComment on above:Interpretive Data: Negative Cutoff: <25 ng/mL These drug screen results are to be used for medical (i.e., treatment) purposes only. Unconfirmed drug screening results must not be used for non-medical purposes (e.g., employment testing, legal testing).U FentanylNEGATIVE 9 (11/03/24 10:38 AM)NormalNEGATIVERemisol ChemComment on above:Interpretive Data: Negative Cutoff: <5 ng/mL These drug screen results are to be used for medical (i.e., treatment) purposes only. Unconfirmed drug screening results must not be used for non-medical purposes (e.g., employment testing, legal testing).Albumin [Mass/Vol]4.7 g/dL Normal3.3 - 5.0 gm/dLRemisol ChemAlbumin/Globulin [Mass ratio]1.5 {ratio}Normal 1.1 - 2.2Remisol ChemALP [Catalytic activity/Vol]39 [iU]/vSipnpw37 - 98 Int._Unit/LRemisol ChemALT No additional P-5'-P [Catalytic activity/Vol]34 [iU]/dNormal6 - 46 Int._Unit/LRemisol ChemAnion gap [Moles/Vol]13 mmol/LNormal6 - 16 mEq/LRemisol ChemAST [Catalytic activity/Vol]25 [iU]/dNormal5 - 43 Int._Unit/LRemisol ChemBilirubin [Mass/Vol]0.5 mg/dLNormal0.0 - 1.1 mg/dLRemisol ChemCalcium [Mass/Vol]9.0 mg/dLNormal8.9 - 11.1 mg/dLRemisol ChemChloride [Moles/Vol]103 mmol/UWbqhpv404 - 111 mmol/LRemisol ChemCO2 [Moles/Vol]23 mmol/L Arjmcf31 - 31 mmol/LRemisol ChemCreatinine [Mass/Vol]0.4 mg/dLLow0.5 - 1.3 mg/dL Remisol ChemEthanol Lvlmg/dLNormal<=11mg/dLRemisol ChemGFR/1.73 sq M.predicted MDRD (S/P/Bld) [Vol rate/Area]139 mL/min/1.73 l7Rtwfbk>=59mL/min/1.73 y2Fiudots ChemGlobulin (S) [Mass/Vol]3.2 g/dLNormal1.4 - 4.0 gm/dLRemisol ChemGlucose [Mass/Vol]178 mg/mDJohvuh96 - 199 mg/dLRemisol ChemPotassium [Moles/Vol]4.0 mmol/LNormal3.5 - 5.3 mmol/LRemisol ChemProtein [Mass/Vol]7.9 g/dLHigh6.0 - 7.8 gm/dLRemisol ChemSodium [Moles/Vol]135 mmol/YJxsvfq262 - 145 mmol/LRemisol Chem Urea nitrogen [Mass/Vol]5 mg/dLNormal5 - 21 mg/dLRemisol ChemUrea nitrogen/Creatinine [Mass ratio]12 mg/foNhvaty51 - 20Remisol ChemCMPon 99-39-2595Nzlkilb [Mass/Vol]4.7 g/dLNormal3.3-5.0[facility] Comment on above:Performed By: #### [id number] #### [facility] [address] [place], [place] [address]Oomzxty/Globulin [Mass ratio]1.5 {ratio}Normal1.1-2.2FTriHealth Good Samaritan HospitalComment on above:Performed By: #### [id number] #### [facility] [address] [place], [place] [address]Ayy Phos39 Int._Unit/JAvlmzc02-82UwpyquGrant Hospital Comment on above:Performed By: #### [id number] #### [facility] [address] [place], [place] [address]TBJ01 Int._Unit/LNormal6-46[facility] HospitalComment on above:Performed By: #### [id number] #### [facility] [address] [place], [place] [address]Pbgpu gap [Moles/Vol]13 mmol/LNormal6-16Grant HospitalComment on above:Performed By: #### [id number] #### [facility] [address] [place], [place] [address]PME78 Int._Unit/LNormal5-43[facility] HospitalComment on above:Performed By: #### [id number] #### [facility] [address] [place] [address]Gzxv Total0.5 mg/dLNormal0.0-1.1FTriHealth [facility] Comment on above:Performed By: #### [id number] #### [facility] [address] [place], [place] [address]IRI/Creat Ratio12 No AmnloSdgtql58-90KbxmizGrant HospitalComment on above:Performed By: #### [id number] #### [facility] [address] [place], [place] [address]Zubwedi [Mass/Vol]9.0 mg/dLNormal8.9-11.1FTriHealth Good Samaritan HospitalComment on above:Performed By: #### [id number] #### [facility] [address] [place], [place] [address]Qbgpqocz [Moles/Vol]103 mmol/TFtzirz069-624UmjubnGrant HospitalComment on above:Performed By: #### [id number] #### [facility] [address] [place] [address]IL0 [Moles/Vol]23 mmol/VJrianj31-05QhpnciGrant Hospital Comment on above:Performed By: #### [id number] #### [facility] [address] [place], [place] [address]Cpmobmsecl [Mass/Vol]0.4 mg/dLLow0.5-1.3FTriHealth Good Samaritan HospitalComment on above:Performed By: #### [id number] #### [facility] [address] [place], [place] [address]Zaqxdlyw (S) [Mass/Vol]3.2 g/dLNormal1.4-4.0Grant HospitalComment on above:Performed By: #### [id number] #### [facility] [address] [place], [place] [address]Sytmquk [Mass/Vol]178 mg/mFRwbyhw63-756OpwljdGrant HospitalComment on above:Performed By: #### [id number] #### [facility] [address] [place] [address]Dsszbgowk [Moles/Vol]4.0 mmol/LNormal3.5-5.3Fisher [facility] Pratt HospitalComment on above:Performed By: #### [id number] #### [facility] [address] [place] [address]Iokorif [Mass/Vol]7.9 g/dLHigh6.0-7.8Grant HospitalComment on above:Performed By: #### [id number] #### [facility] [address] [place] [address]Afccuy [Moles/Vol]135 mmol/DIkosak448-207WvpwnjGrant HospitalComment on above:Performed By: #### [id number] #### [facility] [address] [place] [address]Raml nitrogen [Mass/Vol]5 mg/dLNormal5-21Grant HospitalComment on above:Performed By: #### [id number] #### [facility] [address] [place] [address] 612[address]HQ Clinical Summaryon 68-85-4140PM Clinical SummaryED Clinical Summary [address] [address] ED Clinical Summary Person Information Name: BRITNEY TONG Jennifer/[facility] Age: 29 Years : 1995 Sex: Female Language: Hungarian PCP: PAMELA SU CNP Marital Status: Single Visit Id: Visit Reason: Suicidal ideation; SI Speciality: Acuity: 2 Enc Type: Emergency Med Service: Emergency Arrival: 11/03/2024 10:09:36 Discharge: 11/03/2024 20:25:00 LOS: 000 10:16 Checkin: 11/03/2024 10:09:36 Checkout: 11/03/2024 20:25:00 Dispo Type: Undefined HC Fac EVENTS: Event Name Event Status Request Date/Time Start Date/Time Complete Date/Time Arrive Complete 11/03/2024 10:09:36 11/03/2024 10:09:36 11/03/2024 10:09:36 Document Home Meds Request 11/03/2024 10:09:36 Triage Complete 11/03/2024 10:09:36 11/03/2024 10:17:16 11/03/2024 10:17:16 Bed Assign Complete 11/03/2024 10:09:36 11/03/2024 10:09:36 11/03/2024 10:09:36 Dr Exam Complete 11/03/2024 10:09:36 11/03/2024 10:10:48 11/03/2024 10:10:48 RN Exam Complete 11/03/2024 10:09:36 11/03/2024 11:06:39 11/03/2024 11:06:39 Registration Complete 11/03/2024 10:10:48 11/03/2024 11:05:50 11/03/2024 11:05:50 Dr Exam Complete 11/03/2024 10:11:34 11/03/2024 10:11:34 11/03/2024 10:11:34 Consult Request 11/03/2024 10:13:44 EKG Complete 11/03/2024 10:13:44 11/03/2024 10:27:02 Pending Labs Complete 11/03/2024 10:13:44 11/03/2024 11:19:36 Lab Complete 11/03/2024 10:13:44 11/03/2024 11:19:36 Urine Collect Complete 11/03/2024 10:13:44 11/03/2024 11:19:36 Patient Care Request 11/03/2024 10:13:44 Pending Labs Complete 11/03/2024 10:35:02 11/03/2024 10:35:02 11/03/2024 11:01:50 Lab Complete 11/03/2024 10:35:02 11/03/2024 10:35:02 11/03/2024 11:01:50 Pending Labs Complete 11/03/2024 10:37:20 11/03/2024 10:37:20 11/03/2024 10:37:20 Reg Complete Request 11/03/2024 11:05:50 Reg Bed Request Complete 11/03/2024 11:05:50 11/03/2024 11:05:50 11/03/2024 11:05:50 Patient Care Request 11/03/2024 17:44:13 Transfer Complete 11/03/2024 17:44:13 11/03/2024 20:34:27 11/03/2024 20:34:27 Discharge Complete 11/03/2024 20:34:27 11/03/2024 20:34:27 11/03/2024 20:34:27 ADDRESS: [address] [place] [phone] PHYS DOC NOTES: MEDICAL INFORMATION: Prescriptions Given: Medications to Continue with No Changes Other Medications brompheniramine/dextromethorphan/PSE (Bromfed DM oral syrup) 5 Milliliter By Mouth 4 times a day asneeded for cold symptoms. Refills: 0. metformin (metformin 1000 mg Tab) 1 Tablets By Mouth 2 times a day. Refills: 0. methylPREDNISolone (Medrol Dosepack 4 mg Tab) 1 Tablets By Mouth As Directed. Take as directed on pack. Refills: 0. PATIENT EDUCATION INFORMATION: Instructions: Follow up: DIAGNOSIS: 1:Suicidal ideationsNormalRegency Hospital Company Medical CenterED Note-Nursingon 45-67-8133LP Note-NursingED Note-Nursing Report called to [facility] [place] Patient Education Noteon 80-20-7459ON Patient Education NoteED Patient Education Note [facility] CenterED Patient Summaryon 36-79-7631ND Patient SummaryED Patient Summary [address] [address] Patient Discharge Instructions Person Information Name: BRITNEY TONG Age: 29 Years Arrival Date: 11/03/2024 10:09:36 Discharge Diagnosis: 1:Suicidal ideations Primary Care Physician: PAMELA SU CNP Provider Information Primary Provider: Fabrice Cavanaugh DO Advanced Cephalometric Analyst:Mohamud Mari PA-C The exam and treatment you received in the Emergency Department were for an urgent problem and are not intended as complete care. It is important that you follow up with a doctor, nurse practitioner,or physician???s assistant statistician for ongoing care. If your symptoms become worse or you do not improve asexpected and you are unable to reach your usual health care provider, you should return to the Emergency Department. We are available 24 hours a day. BRITNEY TONG has been given the following list of patient education materials, prescriptions and follow-up instructions: Follow-up Instructions: In the event that this physician does not participate in your insurance network, please consult with your insurance company to find a nearby participating provider. Patient Education Materials: A MESSAGE TO ALL PATIENTS REGARDING OPIOIDS PRESCRIPTION OPIOIDS: WHAT YOU NEED TO KNOW Prescription opioids can be used to help relieve ijbyoywt-gt-zoqarb pain and are often prescribed following a [...] as well, even when taken as directed: ??? Tolerance???meaning you might need to take more of the medication for the same pain relief ??? Physical dependence???meaning you have symptoms of withdrawal when a medication is stopped ??? Increased sensitivity to pain ??? Constipation ??? Nausea, vomiting, and dry mouth ??? Sleepiness and dizziness ??? Confusion ??? Depression ??? Low levels of testosterone that can result in lower sex drive, energy, and strength ??? Itching and sweating RISKS ARE GREATER WITH: ??? History of drug misuse, substance use disorder, or overdose ??? Mental health conditions (such as depression or anxiety) ??? Sleep apnea ??? Older age (65 years and older) ??? Avoid alcohol while taking prescription opioids. Also, unless specifically advised by your health care provider, medications to avoid include: ??? Benzodiazepines (such as Xanax or Valium) ??? Muscle relaxants (such as Soma or Flexeril) ??? Hypnotics (such as Ambien or Lunesta) ??? Other prescription opioids KNOW YOUR OPTIONS Talk to your health care provider about ways to manage your pain that don???t involve prescription opioids. Some of these options may actually work better and have fewer risks and side effects. Options may include: ??? Pain relievers such as acetaminophen, ibuprofen, and naproxen ??? Some medication that are also used for depression or seizures ??? Physical therapy and exercise ??? Cognitive behavioral therapy, a psychological, goal-directed approach, in which patients learn how to modify physical, behavioral, and emotional triggers of pain and stress. IF YOU ARE PRESCRIBED OPIOIDS FOR PAIN: ??? Never take opioids in greater amounts or more often than prescribed. ??? Follow up with your primary health care provider. o Work together to create a plan on how to manage your pain. o Talk about ways to help manage your pain that don???t involve prescription opioids. o Talk about any and all concerns and side effects. ??? Help prevent misuse and abuse o Never sell or share prescription opioids. o Never use another person???s prescription opioids. ??? Store prescription opioids in a secure place and out of reach of others (this may include visitors, children, friends, and family). ??? Safely dispose of unused prescription opioids: Find your community drug take-back program or your pharmacy mail-back program, or flush them down the toilet, following guidance from the Food and Drug Administration (www.fda.gov/Drugs/ResourcesForYou). ??? Visit www.cdc.gov/drugoverdose to learn about the risks of opioids abuse and overdose. ??? If you believe you may be struggling with addiction, tell your health healthcare sales representative and askfor guidance or call [facility]???S National Helpline at 6-695-367-HELP. v Source: US Department of Health and Human Services/[place] fo (more content not included)...NormalGrant HospitalEthanolon 90-27-4872Ydxnlbb Lvl<10 Normal<=11Grant HospitalComment on above:Performed By: #### [id number] #### [facility] [address] [place], [place] [address]Ospde Blueon 55-27-2617Fstb Collected PlasmaYesInvalid Interpretation CodeFisher [facility]ch Pratt HospitalComment on above:Performed By: #### [id number] #### [facility] [address] [place], [place] [address]TKWNTHYEZAJcvmzyx By: SYSTEM SYSTEM on 94-81-2470Mmbjicbnk/100 WBC (Bld)0.6 %Normal0.0 - 2.0 %Remisol HemeBasophils/Leukocytes Auto (Bld) [Pure # fraction]0.1 E9/LNormal0.0 - 0.2 E9/LRemisol HemeEosinophils (Bld) [#/Vol]0.2 E9/LNormal0.0 - 0.5 E9/LRemisol HemeEosinophils/100 WBC (Bld)1.9 %Normal0.0 - 8.0 %Remisol HemeErythrocyte distribution width (RBC) [Ratio]12.3 %Ypwgyz40.9 - 14.2 %Remisol HemeHematocrit (Bld) [Volume fraction]44.8 %Fcycsq93.0 - 46.0 % Remisol HemeHemoglobin (Bld) [Mass/Vol]15.3 g/wIGtheve58.0 - 16.0 gm/dLRemisol HemeLymphocytes (Bld) [#/Vol]3.0 E9/LNormal1.0 - 4.0 E9/LRemisol Heme Lymphocytes/100 WBC (Bld)31.1 %Zdkvfg97.0 - 50.0 %Remisol HemeMCH (RBC) [Entitic mass]29.0 ktSofacb75.0 - 34.0 pgRemisol HemeMCHC (RBC) [Mass/Vol]34.1 g/dL Dmvnxd50.4 - 36.0 gm/dLRemisol HemeMCV (RBC) [Entitic vol]84.9 qCFjusrl09.0 - 100.0 fLRemisol HemeMonocytes (Bld) [#/Vol]0.6 E9/LNormal0.2 - 1.0 E9/LRemisol HemeMonocytes/100 WBC (Bld)6.0 %Normal4.0 - 14.0 %Remisol HemeNeutrophils (Bld) [#/Vol]5.9 E9/LNormal2.0 - 7.5 E9/LRemisol HemeNeutrophils/100 WBC (Bld)60.4 % Fikwun56.0 - 75.0 %Remisol HemePlatelet mean volume (Bld) [Entitic vol]7.5 fL Normal6.4 - 10.8 fLRemisol HemePlatelets (Bld) [#/Vol]411.0 E9/WHgcnug502.0 - 500.0 E9/LRemisol HemeRBC (Bld) [#/Vol]5.3 E12/LNormal4.3 - 5.9 E12/LRemisol HemeWBC corrected for nucl RBC Auto (Bld) [#/Vol]9.7 E9/LNormal4.0 - 11.0 E9/L Remisol HemePre-Arrival Noteon 06-66-4508Uvj-Arrival NotePre-Arrival Note Pre-[facility] Current Date: 11/03/2024 10:10:02 EDT Gender: Female Date of : Age: 29 Pre-Arrival Type: EMS ETA: 11/03/2024 10:36:00 EDT Primary Care Physician: Presenting Problem: SI Pre-Arrival User: Winston Rich Referring Source: Location: [place] Completion Date/Time: 11/03/2024 10:06:00 [facility] Emergency Department Pre-Hospital Report Form Vital Signs: Pre-Hospital Report: Treatment in Route: Response to Treatment: Misc. Issues:NormalGrant HospitalU Drug Screenon 11-03-2024U Amph ScrNegativeNormalNEGATIVEGrant HospitalComment on above:Result Comment: Negative Cutoff: <1000 ng/mLPerformed By: #### [id number] #### [facility] [address] [facility], [place] [address]Q Rand ScrNegativeNormalNEGKettering Health Main Campus Comment on above:Result Comment: Negative Cutoff: <200 ng/mLPerformed By: #### [id number] #### [facility] [address] [facility], [place] [address]B Benzodia ScrNegativeNormalNEGKettering Health Main Campus Comment on above:Result Comment: Negative Cutoff: <200 ng/mLPerformed By: #### [id number] #### [facility] [address] [facility], [place] [address]D Cannab ScrNegativeNormalNEGKettering Health Main Campus Comment on above:Result Comment: Negative Cutoff: <50 ng/mLPerformed By: #### [id number] #### [facility] [address] [facility], [place] [address]P Cocaine ScrNegativeNormalNEGKettering Health Main Campus Comment on above:Result Comment: Negative Cutoff: <300 ng/mLPerformed By: #### [id number] #### [facility] [address] [facility], [place] [address]Z FentanylNegativeNormalNEGKettering Health Main Campus Comment on above:Result Comment: Negative Cutoff: <5 ng/mL These drug screen results are to be used for medical (i.e., treatment) purposes only. Unconfirmed drug screening results must not be used for non-medical purposes (e.g., employment testing, legal testing).Performed By: #### [id number] #### [facility] [address] [facility], [place] [address]K Opiate ScrNegativeNormalNEGKettering Health Main Campus Comment on above:Result Comment: Negative Cutoff: <300 ng/mLPerformed By: #### [id number] #### [facility] [address] [facility], [place] [address]T PCP ScrNegativeNormalNEGKettering Health Main Campus Comment on above:Result Comment: Negative Cutoff: <25 ng/mL These drug screen results are to be used for medical (i.e., treatment) purposes only. Unconfirmed drug screening results must not be used for non-medical purposes (e.g., employment testing, legal testing).Performed By: #### [id number] #### [facility] [address] [place], [place] [address]LU with Cult Rflxon 92-97-6274Kfxjb (U)Light-YellowNormalYellow Grant HospitalComment on above:Result Comment: Microscopic readings are only performed on those samples that meet specific criteria set forth by [facility].Performed By: #### [id number] #### [facility] [address] [place], [place] [address]Hmhmxxy Ql (U)NegativeNormalNegativeGrant Hospital Comment on above:Performed By: #### [id number] #### [facility] [address] [place], [place] [address]QO BloodNegativeNormalNegFirelands Regional Medical Center South [facility] Comment on above:Performed By: #### [id number] #### [facility] [address] [place], [place] [address]XV ClarityClearNormalClearGrant HospitalComment on above:Performed By: #### [id number] #### [facility] [address] [place], [place] [address]BM Glucose4+ mg/dLAbnormalNegFirelands Regional Medical Center South [facility] Comment on above:Performed By: #### [id number] #### [facility] [address] [place], [place] [address]NO Leuk EstNegativeNormalNegFirelands Regional Medical [facility] Comment on above:Performed By: #### [id number] #### [facility] [address] [place], [place] [address]YR NitriteNegativeNormalNegFirelands Regional Medical Center South [facility] Comment on above:Performed By: #### [id number] #### [facility] [address] [place], [place] [address]ZU pH6.0Invalid Interpretation Code5.0-9.0Grant HospitalComment on above:Performed By: #### [id number] #### [facility] [address] [place] [address]YT ProteinNegativeNormalNegativeGrant Hospital Comment on above:Performed By: #### [id number] #### [facility] [address] [place] [address]GD Spec Grav1.013Invalid Interpretation Code1.005-1.030Grant HospitalComment on above:Performed By: #### [id number] #### [facility] [address] [place] [address]II UrobilinogenNegativeNormalNegativeGrant HospitalComment on above:Performed By: #### [id number] #### [facility] [address] [place] [address]Yeyvgqsxmhoo (U) [Mass/Vol]NegativeNormalNegativeGrant HospitalComment on above:Performed By: #### [id number] #### [facility] [address] [place] [address]JR Spec DescClean CatchNormalGrant HospitalComment on above:Performed By: #### [id number] #### [facility] [address] [place] [address]VKOEJMKCDPCffrfns By: SYSTEM SYSTEM on 23-09-5623Jqliudimv Ql (U)NegativeNormalNegativemg/dLCEDAR RIDGE [facility] [place] UA Auto SSClarity (U)Clear (11/03/24 10:38 AM)NormalClearFTM UA Auto SSColor (U)Light-Yellow 3 (11/03/24 10:38 AM)NormalYellowFT UA Auto SSComment on above:Interpretive Data: Microscopic readings are only performed on those samples that meet specific criteria set forth by [facility].Glucose Ql (U)4+ mg/dLInvalid Interpretation CodeNegativemg/dLCEDAR RIDGE HOSPITAL [facility] [place] UA Auto SSHemoglobin Auto test strip (U) [Mass/Vol]NegativeNormalNegativemg/dLCEDAR RIDGE HOSPITAL [facility] [place] UA Auto SSKetones Auto test strip Ql (U)NegativeNormalNegativemg/dLCEDAR RIDGE [facility] [place] UA Auto SSLeukocyte esterase Auto test strip Ql (U)NegativeNormalNegativeLeu/uLCEDAR RIDGE [facility]PITAL [facility] [place] UA Auto SSNitrite Auto test strip Ql (U)NegativeNormalNegativemg/dLCEDAR RIDGE [facility]PITAL [facility] [place] UA Auto SSpH (U)6.0 *NA* (11/03/24 10:38 AM)Invalid Interpretation Code5.0 - 9.0[facility] [place] UA Auto SSProtein Ql (U)NegativeNormalNegativemg/dLCEDAR RIDGE [facility] [place] UA Auto SSSpecific gravity (U) [Rel density] 1.013 *NA* (11/03/24 10:38 AM)Invalid Interpretation Code1.005 - 1.030[facility] [place] UA Auto SS Urobilinogen (U) [Mass/Vol]NegativeNormalNegativemg/dLCEDAR RIDGE [facility]OSPITAL [facility] [place] UA Auto SSURINALYSIS Ordered By: Mohamud Mari on 18-58-3441UQ Spec DescClean Catch (11/03/24 10:38 AM)NormalCEDAR RIDGE HOSPITAL [facility] [place] UA Auto SS eGFRon 84-63-6985lNOR996 mL/min/1.73 b9Hntyip>=59Replaced By [facility]er [facility] HospitalComment on above:Performed By: #### [id number] #### [facility] [address] [place] [id number] with Estimated Average Gluon 62-75-5123Ucckrpj [Mass/Vol] 157 mg/dLNoLifeCare Hospitals of North Carolina Physician GroupComment on above:Order Comment: Reason for Exam Type 2 diabetes mellitus without complication, without long-Result Comment: PERFORMED BY: [facility] [address] [place] [address] PATHOLOGIST NONPROFIT FUNDRAISER MAO DUMONT M.D.Performed By: #### SCAN CBC, B12, LIPID, CMP, TSH3 wRFLX #### [facility] [address] [place] [address] USAAlanine aminotransferase [Enzymatic activity/volume] in Serum or PlasmaOrdered By: Pamela Su on 63-22-4983FDT [Catalytic activity/Vol]27 U/LNormal7-52A[facility] Pike Medical CenterComment on above: Order Comment: Reason for Exam Type 2 diabetes mellitus without complication, without long-Performed By: #### A1C WTH eA, CMP, T4F, TSH3 wRFLX, CBC #### [facility] [address] [place] [address] USAAlbumin [Mass/volume] in Serum or Plasma by Bromocresol green (BCG) dye binding methoOrdered By: Pamela Su on 69-88-5315Vaqrgbu BCG dye [Mass/Vol]4.6 g/dL3.5-5.7FWooster Community HospitalAlkaline phosphatase [Enzymatic activity/volume] in Serum or PlasmaOrdered By: Pamela Su on 01-84-1731FFZ [Catalytic activity/Vol]39 U/XSkaxkh35-070BefxcliviAdena Pike Medical CenterComment on above:Order Comment: Reason for Exam Type 2 diabetes mellitus without complication, without long-Performed By: #### A1C WTH eA, CMP, T4F, TSH3 wRFLX, CBC #### [facility] [address] [place] [address] USAAspartate aminotransferase [Enzymatic activity/volume] in Serum or PlasmaOrdered By: Pamela Su on 71-57-1690UGK [Catalytic activity/Vol]17 U/EOqxlun94-96XxlegteqxAdena Pike Medical CenterComment on above: Order Comment: Reason for Exam Type 2 diabetes mellitus without complication, without long-Performed By: #### A1C WTH eA, CMP, T4F, TSH3 wRFLX, CBC #### [facility] [address] [place] [address] USABasophils [#/volume] in Blood by Automated countOrdered By: Pamela Su on 80-92-1383Xkauhuqbg (Bld) [#/Vol]0.1 10*3/uLNormal0.0-0.2 [facility]ike Medical CenterComment on above:Order Comment: Reason for Exam Type 2 diabetes mellitus without complication, without long-Result Comment: PERFORMED BY: [place] [id number] PATHOLOGIST NONPROFIT FUNDRAISER MAO DUMONT M.D.Performed By: #### A1C WTH eA, CMP, T4F, TSH3 wRFLX, CBC #### [facility] [address] [place] [address] USABasophils/100 leukocytes in Blood by Automated count Ordered By: Pamela Su on 12-18-9331Xrvrjslbw/100 WBC (Bld)1.0 %Normal. [facility] Pike Medical CenterComment on above:Order Comment: Reason for Exam Type 2 diabetes mellitus without complication, without long-Performed By: #### A1C WTH eA, CMP, T4F, TSH3 wRFLX, CBC #### [place] [address] USABilirubin.total [Mass/volume] in Serum or PlasmaOrdered By: Pamela Su on 75-18-9529Issqneien [Mass/Vol]0.4 mg/dLNormal0.3-1.0 [facility] Medical CenterComment on above:Order Comment: Reason for Exam Type 2 diabetes mellitus without complication, without long-Performed By: #### A1C WTH eA, CMP, T4F, TSH3 wRFLX, CBC #### [facility] [address] [place] [address] USABlood estimated average glucose determination by estimation from glycated hemoglobinOrdered By: Pamela Su on 65-37-2015Ecpnrvi glucose Estimated from glycated hemoglobin (Bld) [Mass/Vol]157 mg/dLAdena Pike Medical CenterCalcium [Mass/volume] in Serum or PlasmaOrdered By: Pamela Su on 95-14-2353Xdoseti [Mass/Vol]9.0 mg/dLNormal8.6-10.3FWooster Community HospitalComment on above:Order Comment: Reason for Exam Type 2 diabetes mellitus without complication, without long-Performed By: #### A1C WTH eA, CMP, T4F, TSH3 wRFLX, CBC #### [facility] [address] [place] [address] USACarbon dioxide, total [Moles/volume] in Serum or Plasma Ordered By: Pamela Su on 55-86-6327JU0 [Moles/Vol]27.3 mmol/NQlpmlx43.0-31.0 [facility] Medical CenterComment on above:Order Comment: Reason for Exam Type 2 diabetes mellitus without complication, without long-Performed By: #### A1C WTH eA, CMP, T4F, TSH3 wRFLX, CBC #### [facility] [address] [place] [address] USAChloride [Moles/volume] in Serum or PlasmaOrdered By: Pamela Su on 59-20-8732Qaacwmhv [Moles/Vol]101 mmol/SKxojqt27-884RfzhptwdcAdena Pike Medical CenterComment on above:Order Comment: Reason for Exam Type 2 diabetes mellitus without complication, without long-Performed By: #### A1C WTH eA, CMP, T4F, TSH3 wRFLX, CBC #### [facility] [address] [place] [id number] USAComplete Blood Count Auto Diffon 28-94-3145Qibd Corpuscular HGB Conc33.8 g/uQFiybbk00.0-35.0The [facility] Physician GroupComment on above:Order Comment: Reason for Exam Type 2 diabetes mellitus without complication, without long-Performed By: #### A1C WTH eA, CMP, T4F, TSH3 wRFLX, CBC #### [facility] [address] [place] [address] USANRBC%0.0 /100{WBC}Normal0-0.5The [facility] Comment on above:Order Comment: Reason for Exam Type 2 diabetes mellitus without complication, without long-Performed By: #### A1C WTH eA, CMP, T4F, TSH3 wRFLX, CBC #### [facility] [address] [place] [id number] USAComprehensive Metabolic Panelon 12-15-3004Zjxmoti [Mass/Vol]4.6 g/dLNormal3.5-5.7The [facility] Physician GroupComment on above: Order Comment: Reason for Exam Type 2 diabetes mellitus without complication, without long-Performed By: #### A1C WTH eA, CMP, T4F, TSH3 wRFLX, CBC #### [facility] [address] [place] [address] USAGFR/1.73 sq M.predicted MDRD (S/P/Bld) [Vol rate/Area] mL/min/{1.73_m2}NormalThe [facility] Physician GroupComment on above:Order Comment: Reason for Exam Type 2 diabetes mellitus without complication, without long-Performed By: #### A1C WTH eA, CMP, T4F, TSH3 wRFLX, CBC #### [facility] [address] [place] [address] USACreatinine [Mass/volume] in Serum or PlasmaOrdered By: Pamela Su on 03-25-5830Xygvauzerk [Mass/Vol]0.56 mg/dLLow0.60-1.20Adena Pike Medical CenterComment on above:Order Comment: Reason for Exam Type 2 diabetes mellitus without complication, without long-Performed By: #### A1C WTH eA, CMP, T4F, TSH3 wRFLX, CBC #### [facility] [address] [place] [address] USAEosinophils [#/volume] in Blood by Automated countOrdered By: Pamela Su on 52-33-5474Hwvnpfaxqye (Bld) [#/Vol]0.1 10*3/uLNormal0.0-0.45 [facility]ike Medical CenterComment on above:Order Comment: Reason for Exam Type 2 diabetes mellitus without complication, without long-Performed By: #### A1C WTH eA, CMP, T4F, TSH3 wRFLX, CBC #### [facility] [address] [place] [address] USAEosinophils/100 leukocytes in Blood by Automated count Ordered By: Pamela Su on 70-79-8810Nkbpggoqmmv/100 WBC (Bld)1.3 %Normal. [facility] Pike Medical CenterComment on above:Order Comment: Reason for Exam Type 2 diabetes mellitus without complication, without long-Performed By: #### A1C WTH eA, CMP, T4F, TSH3 wRFLX, CBC #### [facility] [address] [place] [address] USAErythrocyte distribution width [Ratio] by Automated count Ordered By: Pamela Su on 94-69-1802Mqudmvkemak distribution width (RBC) [Ratio]12.5 %Vmmqbe07.9-15.3FWooster Community HospitalComment on above: Order Comment: Reason for Exam Type 2 diabetes mellitus without complication, without long-Performed By: #### A1C WTH eA, CMP, T4F, TSH3 wRFLX, CBC #### [facility] [address] [place] [address] USAErythrocytes [#/volume] in Blood by Automated countOrdered By: Pamela Su on 05-78-7535XCL (Bld) [#/Vol]4.87 10*6/uLNormal3.60-5.00 [facility]ike Medical CenterComment on above:Order Comment: Reason for Exam Type 2 diabetes mellitus without complication, without long-Performed By: #### A1C WTH eA, CMP, T4F, TSH3 wRFLX, CBC #### [facility] [address] [place] [address] USAGlucose [Mass/volume] in Serum or PlasmaOrdered By: Pamela Su on 14-79-0504Vpgrpoe [Mass/Vol]193 mg/gYFxla43-299NzodnbgshAdena Pike Medical CenterComment on above:ADA recommended reference rangeRandom Glucose Reference Range is dependent on time and content of last meal. Glucose of more than 200 mg/dL in a nonstressed, ambulatory subject supports the diagnosisof Diabetes Mellitus.Order Comment: Reason for Exam Type 2 diabetes mellitus without complication, without long-Result Comment: Random Glucose Reference Range is dependent on time and content of last meal. Glucose of more than 200 mg/dL in a nonstressed, ambulatory subject supports the diagnosis of Diabetes Mellitus. ADA recommended reference rangePerformed By: #### A1C WTH eA, CMP, T4F, TSH3 wRFLX, CBC #### [facility] [address] [place] [address] USAHematocrit [Volume Fraction] of Blood by Automated count Ordered By: Pamela Su on 87-32-5407Liarpckchv (Bld) [Volume fraction]42.0 % Tfjxzd52.0-46.4FWooster Community HospitalComment on above:Order Comment: Reason for Exam Type 2 diabetes mellitus without complication, without long-Performed By: #### A1C WTH eA, CMP, T4F, TSH3 wRFLX, CBC #### [facility] [address] [place] [address] USAHemoglobin A1c/Hemoglobin.total in BloodOrdered By: Pamela Su on 75-10-4919UhA9a (Bld) [Mass fraction]7.1 %High4.3-5.6FWooster Community HospitalComment on above:Increased risk for diabetes: 5.7 - 6.4diabetes: >6.4glycemic control for adults with diabetes: <7.0Order Comment: Reason for Exam Type 2 diabetes mellitus without complication, without long-Result Comment: Increased risk for diabetes: 5.7 - 6.4 diabetes: >6.4 glycemic control for adults with diabetes: <7.0Performed By: #### SCAN CBC, B12, LIPID, CMP, TSH3 wRFLX #### [facility] [address] [place] [address] USAHemoglobin [Mass/volume] in BloodOrdered By: Pamela Su on 75-68-2030Rjywmhjuej (Bld) [Mass/Vol]14.2 g/fJJnyzhp22.8-15.4FWooster Community HospitalComment on above:Order Comment: Reason for Exam Type 2 diabetes mellitus without complication, without long-Performed By: #### A1C WTH eA, CMP, T4F, TSH3 wRFLX, CBC #### [facility] [address] [place] [address] USALeukocytes [#/volume] corrected for nucleated erythrocytes in Blood by Automated counOrdered By: Pamela Su on 18-21-1720BSP corrected for nucl RBC Auto (Bld) [#/Vol]10.9 10*3/uL3.8-11.6FWooster Community HospitalLeukocytes [#/volume] in Blood by Automated countOrdered By: Pamela Su on 11-80-7331ZOV (Bld) [#/Vol]10.9 10*3/uLNormal3.8-11.6FWooster Community HospitalComment on above:Order Comment: Reason for Exam Type 2 diabetes mellitus without complication, without long-Performed By: #### A1C WTH eA, CMP, T4F, TSH3 wRFLX, CBC #### [facility] [address] [place] [address] USALymphocytes [#/volume] in Blood by Automated countOrdered By: Pamela Su on 32-25-0519Awoxpwdhmpy (Bld) [#/Vol]4.3 10*3/uLNormal1.00-4.8 [facility]ike Medical CenterComment on above:Order Comment: Reason for Exam Type 2 diabetes mellitus without complication, without long-Performed By: #### A1C WTH eA, CMP, T4F, TSH3 wRFLX, CBC #### [facility] [address] [place] [address] USALymphocytes/100 leukocytes in Blood by Automated count Ordered By: Pamela Su on 08-60-3742Nosbncipqnl/100 WBC (Bld)39.5 %Normal. [facility] Pike Medical CenterComment on above:Order Comment: Reason for Exam Type 2 diabetes mellitus without complication, without long-Performed By: #### A1C WTH eA, CMP, T4F, TSH3 wRFLX, CBC #### [facility] [address] [place] [address] [facility] [Entitic mass] by Automated countOrdered By: Pamela Su on 23-29-1234AUI (RBC) [Entitic mass]29.1 vwLcpgzv80.7-34.3FWooster Community HospitalComment on above:Order Comment: Reason for Exam Type 2 diabetes mellitus without complication, without long-Performed By: #### A1C WTH eA, CMP, T4F, TSH3 wRFLX, CBC #### [facility] [address] [place] [address] [facility] Auto (RBC) [Mass/Vol]Ordered By: Pamela Su on 15-04-4148ODUN (RBC) [Mass/Vol]33.8 g/dL32.0-35.0Fire[facility] CenterMCV [Entitic volume] by Automated countOrdered By: Pamela Su on 56-92-2919HWG (RBC) [Entitic vol]86.2 cMRzkgax17-625WzyitieokAdena Pike Medical CenterComment on above:Order Comment: Reason for Exam Type 2 diabetes mellitus without complication, without long-Performed By: #### A1C WTH eA, CMP, T4F, TSH3 wRFLX, CBC #### [facility] [address] [place] [address] USAMonocytes [#/volume] in Blood by Automated countOrdered By: Pamela Su on 80-17-1711Owytematg (Bld) [#/Vol]0.9 10*3/uLHigh0.0-0.8 [facility]ike Medical CenterComment on above:Order Comment: Reason for Exam Type 2 diabetes mellitus without complication, without long-Performed By: #### A1C WTH eA, CMP, T4F, TSH3 wRFLX, CBC #### [facility] [address] [place] [address] USAMonocytes/100 leukocytes in Blood by Automated count Ordered By: Pamela Su on 24-83-0199Qvtxulfqq/100 WBC (Bld)8.2 %Normal. [facility] Pike Medical CenterComment on above:Order Comment: Reason for Exam Type 2 diabetes mellitus without complication, without long-Performed By: #### A1C WTH eA, CMP, T4F, TSH3 wRFLX, CBC #### [facility] [address] [place] [address] USANeutrophils [#/volume] in Blood by Automated countOrdered By: Pamela Su on 64-48-9445Zjydexoycic (Bld) [#/Vol]5.5 10*3/uLNormal1.8-7.7 [facility] Pike Medical CenterComment on above:Order Comment: Reason for Exam Type 2 diabetes mellitus without complication, without long-Performed By: #### A1C WTH eA, CMP, T4F, TSH3 wRFLX, CBC #### [facility] [address] [place] [address] USANeutrophils/100 leukocytes in Blood by Automated count Ordered By: Pamela Su on 25-26-2928Jfmbalhtfqs/100 WBC (Bld)50.0 %Normal. [facility] Pike Medical CenterComment on above:Order Comment: Reason for Exam Type 2 diabetes mellitus without complication, without long-Performed By: #### A1C WTH eA, CMP, T4F, TSH3 wRFLX, CBC #### [facility] [address] [place] [id number] USANo Panel InformationOrdered By: Pamela Su on 09-29-2024 Estimated GFR (CKD-EPI)> 60.0 mL/MinAdena Pike Medical CenterPharmacy Creatinine Clearance (ChemN/[facility] SouthNucleated erythrocytes [Presence] in Blood by Automated countOrdered By: Pamela Su on 68-41-1668Rtxlnieuo RBC Auto Ql (Bld)0.0 /100{WBC}0-0.5FWooster Community HospitalPlatelet mean volume [Entitic volume] in Blood by Automated count Ordered By: Pamela Su on 38-70-0486Elvzhjwn mean volume (Bld) [Entitic vol] 7.5 fLNormal6.3-10.7FWooster Community HospitalComment on above:Order Comment: Reason for Exam Type 2 diabetes mellitus without complication, without long-Performed By: #### A1C WTH eA, CMP, T4F, TSH3 wRFLX, CBC #### [facility] [address] [place] [address] USAPlatelets [#/volume] in Blood by Automated countOrdered By: Pamela Su on 54-11-7819Vzkjwrnpz (Bld) [#/Vol]401 10*3/jRTtrudq154-057 [facility] Pike Medical CenterComment on above:Order Comment: Reason for Exam Type 2 diabetes mellitus without complication, without long-Performed By: #### A1C WTH eA, CMP, T4F, TSH3 wRFLX, CBC #### [facility] [address] [place] [address] USAPotassium [Moles/volume] in Serum or PlasmaOrdered By: Pamela Su on 58-58-3122Cknpzjrym [Moles/Vol]3.9 mmol/LNormal3.5-5.1FWooster Community HospitalComment on above:Order Comment: Reason for Exam Type 2 diabetes mellitus without complication, without long-Performed By: #### A1C WTH eA, CMP, T4F, TSH3 wRFLX, CBC #### [facility] [address] [place] [address] USAProtein [Mass/volume] in Serum or PlasmaOrdered By: Pamela Su on 96-41-2746Yfmhnkq [Mass/Vol]7.6 g/dLNormal6.4-8.9Adena Pike Medical CenterComment on above:Order Comment: Reason for Exam Type 2 diabetes mellitus without complication, without long-Performed By: #### A1C WTH eA, CMP, T4F, TSH3 wRFLX, CBC #### [facility] [address] [place] [address] USASerum globulin measurement by calculation (mass/volume) Ordered By: Pamela Su on 55-54-5265Azypiauu (S) [Mass/Vol]3.0 g/dLNormal [facility]ike Medical CenterComment on above:Order Comment: Reason for Exam Type 2 diabetes mellitus without complication, without long-Performed By: #### A1C WTH eA, CMP, T4F, TSH3 wRFLX, CBC #### [facility] [address] [place] [address] USASerum or plasma albumin/globulin mass ratioOrdered By: Pamela Su on 99-84-0777Hvbqrkm/Globulin [Mass ratio]1.5 {ratio}Normal [facility] Pike Medical CenterComment on above:Order Comment: Reason for Exam Type 2 diabetes mellitus without complication, without long-Performed By: #### A1C WTH eA, CMP, T4F, TSH3 wRFLX, CBC #### [facility] [address] [place] [address] USASerum or plasma anion gap determinationOrdered By: Pamela Su on 45-31-4769Mpssx gap [Moles/Vol]13.6 mmol/LNormal6.0-15.0Aden[facility] Pike Medical CenterComment on above:Order Comment: Reason for Exam Type 2 diabetes mellitus without complication, without long-Performed By: #### A1C WTH eA, CMP, T4F, TSH3 wRFLX, CBC #### [facility] [address] [place] [address] USASodium [Moles/volume] in Serum or PlasmaOrdered By: Pamela Su on 14-00-6489Jlpmtm [Moles/Vol]138 mmol/INxmzxi954-376TufuewzcmAdena Pike Medical CenterComment on above:Order Comment: Reason for Exam Type 2 diabetes mellitus without complication, without long-Performed By: #### A1C WTH eA, CMP, T4F, TSH3 wRFLX, CBC #### [facility] [address] [place] [address] USAThyroid Stim Hormone w/Rflxon 50-10-8979Mnpmvvt Stim Hormone w/Rflx5.39 u[iU]/mLHigh0.45-5.33[facility] Physician GroupComment on above:Order Comment: Reason for Exam Type 2 diabetes mellitus without complication, without long-Result Comment: PERFORMED BY: [place] [id number] PATHOLOGIST NONPROFIT FUNDRAISER MAO DUMONT M.D.Performed By: #### A1C WT eA, CMP, T4F, TSH3 wRFLX, CBC #### [facility] [address] [place] [address] USAThyrotropin [Units/volume] in Serum or PlasmaOrdered By: Pamela Su on 09-68-2912ESP Qn5.39 m[IU]/LHigh0.45-5.33Adena Pike Medical CenterThyroxine (T4) free [Mass/volume] in Serum or PlasmaOrdered By: Pamela Su on 37-49-9877Iuqs T4 [Mass/Vol]1.01 ng/dLNormal0.61-1.12A[facility] Pike Medical CenterComment on above:Order Comment: Reason for Exam Type 2 diabetes mellitus without complication, without long-Performed By: #### A1C WTH eA, CMP, T4F, TSH3 wRFLX, CBC #### [facility] [address] [place] [address] USAUrea nitrogen [Mass/volume] in Serum or PlasmaOrdered By: Pamela Su on 84-93-2212Ulee nitrogen [Mass/Vol]14 mg/dLNormal7-25Adena Pike Medical CenterComment on above:Order Comment: Reason for Exam Type 2 diabetes mellitus without complication, without long-Performed By: #### A1C WTH eA, CMP, T4F, TSH3 wRFLX, CBC #### [facility] [address] [place] [address] USABMPon 50-08-5333Wnhol gap [Moles/Vol]15 mmol/LNormal6-16 [facility] HospitalComment on above:Performed By: #### [id number] #### [facility] [address] [place], [place] [address]Txuttki [Mass/Vol]9.0 mg/dLNormal8.9-11.1FTriHealth Good Samaritan HospitalComment on above:Performed By: #### [id number] #### [facility] [address] [place], [place] [address]Tuikiori [Moles/Vol]104 mmol/JMekesv332-118HcwyleGrant HospitalComment on above:Performed By: #### [id number] #### [facility] [address] [place], [place] [address]UU5 [Moles/Vol]23 mmol/PZjvkyn85-11XkkfpdGrant Hospital Comment on above:Performed By: #### [id number] #### [facility] [address] [place], [place] [address]Uptxasmgue [Mass/Vol]0.5 mg/dLNormal0.5-1.3FTriHealth Good Samaritan HospitalComment on above:Performed By: #### [id number] #### [facility] [address] [place], [place] [address]Nxoyaaf [Mass/Vol]190 mg/uKNpboyi98-425GlznqrGrant HospitalComment on above:Performed By: #### [id number] #### [facility] [address] [place], [place] [address]Jjndxfxft [Moles/Vol]3.8 mmol/LNormal3.5-5.3FTriHealth Good Samaritan HospitalComment on above:Performed By: #### [id number] #### [facility] [address] [place] [address]Slwnnc [Moles/Vol]138 mmol/ESnctfu299-012IwzoeqGrant HospitalComment on above:Performed By: #### [id number] #### [facility] [address] [place], [place] [address]Lmqc nitrogen [Mass/Vol]10 mg/dLNormal5-21Grant HospitalComment on above:Performed By: #### [id number] #### [facility] [address] [place] [address]Quck nitrogen/Creatinine [Mass ratio]20 No FhbokQcrbww23-89 [facility] HospitalComment on above:Performed By: #### [id number] #### [facility] [address] [place] [address]JNQ w/ Auto Diffon 35-47-2885Ugvabpvbb/100 WBC (Bld)0.6 %Normal 0.0-2.0[facility] HospitalComment on above:Performed By: #### [id number] #### [facility] [address] [place] [address]Lnowgsxhb/Leukocytes Auto (Bld) [Pure # fraction]0.1 E9/LNormal 0.0-0.2FTriHealth Good Samaritan HospitalComment on above:Performed By: #### [id number] #### [facility] [address] [place] [address]Xfxqkchpzwe (Bld) [#/Vol]0.2 E9/LNormal0.0-0.5FTriHealth Good Samaritan HospitalComment on above:Performed By: #### [id number] #### [facility] [address] [place] [address]Fvcxnbkxypf/100 WBC (Bld)1.9 %Normal0.0-8.0Grant HospitalComment on above:Performed By: #### [id number] #### [facility] [address] [place] [address]Umqorxbmqih distribution width (RBC) [Ratio]12.8 %Normal 10.9-14.2FTriHealth Good Samaritan HospitalComment on above:Performed By: #### [id number] #### [facility] [address] [place] [address]Jugaiaudla (Bld) [Volume fraction]41.0 %Xzvbzg95.0-46.0[facility] HospitalComment on above:Performed By: #### [id number] #### [facility] [address] [place] [address]Wscgphkfed (Bld) [Mass/Vol]14.2 g/tVYjvseo41.0-16.0[facility] HospitalComment on above:Performed By: #### [id number] #### [facility] [address] [place] [address]Cafxfccubej (Bld) [#/Vol]2.5 E9/LNormal1.0-4.0[facility] HospitalComment on above:Performed By: #### [id number] #### [facility] [address] [place] [address]Joxxxsdbrin/100 WBC (Bld)27.8 %Tjrllg14.0-50.0[facility] HospitalComment on above:Performed By: #### [id number] #### [facility] [address] [place] [address]YTL (RBC) [Entitic mass]29.2 kdSarxxj22.0-34.0[facility] HospitalComment on above:Performed By: #### [id number] #### [facility] [address] [place] [address]TMEA (RBC) [Mass/Vol]34.6 g/eCWjpfvn86.4-36.0[facility] HospitalComment on above:Performed By: #### [id number] #### [facility] [address] [place] [address]YWU (RBC) [Entitic vol]84.4 jBRtlvbb96.0-100.0[facility] HospitalComment on above:Performed By: #### [id number] #### [facility] [address] [place] [address]Ycxbmqlye (Bld) [#/Vol]0.6 E9/LNormal0.2-1.0[facility] HospitalComment on above:Performed By: #### [id number] #### [facility] [address] [place] [address]Vugfrmdftpc (Bld) [#/Vol]5.8 E9/LNormal2.0-7.5FTriHealth Good Samaritan HospitalComment on above:Performed By: #### [id number] #### [facility] [address] [place] [address]Jmaifptnbwo/100 WBC (Bld)63.6 %Kvreqt76.0-75.0[facility] HospitalComment on above:Performed By: #### [id number] #### [facility] [address] [place] [address]Drfnozom mean volume (Bld) [Entitic vol]7.6 fLNormal6.4-10.8 [facility] HospitalComment on above:Performed By: #### [id number] #### [facility] [address] [place] [address]Goxuqbyua (Bld) [#/Vol]389.0 E9/PUrqdqu566.0-500.0[facility] HospitalComment on above:Performed By: #### [id number] #### [facility] [address] [place] [address]YYQ (Bld) [#/Vol]4.9 E12/LNormal4.3-5.9[facility] HospitalComment on above:Performed By: #### [id number] #### [facility] [address] [place] [address]PKE corrected for nucl RBC Auto (Bld) [#/Vol]9.1 E9/LNormal 4.0-11.0Fisher [facility] Pratt HospitalComment on above:Performed By: #### [id number] #### [facility] [address] [place], [place] [address]ZGPZRTYLBQcdycoa By: SYSTEM SYSTEM on 86-36-3880Udhhqatz HS pg/mLLow10.10 - 27.10 pg/mLRemisol ChemComment on above:Interpretive Data: The 95% CI (Confidence Interval) PPV (Positive Predictive Value) for myocardial i nfarction in females is 38 pg/mL, in males 51 pg/mL. The results should be used in conjunction withclinical conditions of myocardial infarction. (Access High Sensitivity Troponin I Instructions For Use, [place], December 2017)Anion gap [Moles/Vol]15 mmol/LNormal6 - 16 mEq/LRemisol ChemCalcium [Mass/Vol]9.0 mg/dLNormal8.9 - 11.1 mg/dLRemisol ChemChloride [Moles/Vol]104 mmol/YAdeurk702 - 111 mmol/LRemisol ChemCO2 [Moles/Vol]23 mmol/HWbhfbz34 - 31 mmol/LRemisol ChemCreatinine [Mass/Vol]0.5 mg/dLNormal0.5 - 1.3 mg/dLRemisol UfcttBQJ695 mL/min/1.73 q4Onaizt>=59mL/min/1.73 j3Mrupzpn ChemGlucose [Mass/Vol] 190 mg/zURqcybl92 - 199 mg/dLRemisol ChemPotassium [Moles/Vol]3.8 mmol/LNormal 3.5 - 5.3 mmol/LRemisol ChemSodium [Moles/Vol]138 mmol/RObxinw651 - 145 mmol/L Remisol ChemTroponin HSpg/mLLow10.10 - 27.10 pg/mLRemisol ChemComment on above: Interpretive Data: The 95% CI (Confidence Interval) PPV (Positive Predictive Value) for myocardial infarction in females is 38 pg/mL, in males 51 pg/mL. The results should be used in conjunction withclinical conditions of myocardial infarction. (Access High Sensitivity Troponin I Instructions For Use, Earle Gilda, December 2017)Urea nitrogen [Mass/Vol]10 mg/dLNormal5 - 21 mg/dLRemisol ChemUrea nitrogen/Creatinine [Mass ratio]20 mg/xxDhosez29 - 20Remisol ChemCOAGULATION Ordered By: Nadia Hopper on 47-80-2467oBJC Coag (PPP) [Time]41.5 sHigh25.1 - 36.5 second(s)[facility] [place] Auto CoagComment on above:Interpretive Data: Parameter 15 days - 4 weeks 1 - 5 months 6 - 11 months 1 - 5 years 6 - 10 years 11 - 17 years PTT Mean: 35.4 (27.6-45.6) Mean: 33.5 (24.8-40.7) Mean: 32.4 (25.1-40.7) Mean: 31.6 (24.0-39.2) Mean: 31.6 (26.9-38.7) Mean: 31.0 (24.6-38.4) Pediatric Reference ranges were obtained from a study by Abhijit Mtz et al. prepared from 1437 samples obtained at 7 different centers using the same coagulation reagent and instrumentation as [facility]. Currently there are no coagulation studies available worldwide for children to 14 days, andno normal ranges. Heparin therapeutic range (represented by Anti-Factor Xa activity of 0.2 - 0.4 U/mL) corresponds to PTT of 56.6 - 109.0 sec.INR Coag (PPP) [Relative time]0.99 {INR}Invalid Interpretation CodeCEDAR RIDGE HOSPITAL – [place] Auto CoagComment on above:Interpretive Data: INR results are specifically intended to assess patients stabilized on long-term Anticoagulation therapy suggested INR s Less Intensive Anticoagulation 2.0 3.0 Conventional Range 3.0 4.5PT Coag (PPP) [Time]11.1 sNormal9.4 - 12.5 second(s) [facility] [place] Auto CoagComment on above:Interpretive Data: 15 days - 4 weeks 1 - 5 months 6 -11 months 1 5 years 6 10 years 11 -17 years Mean: 11.2 (9.5 12.6) Mean: 11.0 (9.7 12.8) Mean: 11.0 (9.8 13.0) Mean: 11.3 (9.9 13.4) Mean: 11.7 (10.0 14.6) Mean: 11.8 (10.0 - 14.1) Pediatric Reference ranges were obtained from a study by shirley Aguiar al. prepared from 1437 samples obtained at 7 different centers using the same coagulation reagent and instrumentation as [facility]. Currently there are no coagulation studies available worldwide for children to 14 days, andno normal ranges.ED Clinical Summaryon [id number] Clinical SummaryED Clinical Summary [place] [id number] ED Clinical Summary Person Information Name: BRITNEY TONG Jennifer/[facility] Age: 29 Years : 1995 Sex: Female Language: Hungarian PCP: PAMELA SU CNP Marital Status: Single Visit Id: Visit Reason: Headache; Shortness of breath; Chest pain; HEART PALPITATIONS - DIZZINESS - SOB Speciality: Acuity: 3 Enc Type: Emergency Med Service: Emergency Arrival: 09/23/2024 07:42:37 Discharge: 09/23/2024 09:42:58 LOS: 000 02:00 Checkin: 09/23/2024 07:42:37 Checkout: 09/23/2024 09:42:58 Dispo Type: Home (Routine DC) EVENTS: Event Name Event Status Request Date/Time Start Date/Time Complete Date/Time Arrive Complete 09/23/2024 07:42:37 09/23/2024 07:42:37 09/23/2024 07:42:37 Document Home Meds Request 09/23/2024 07:42:37 Triage Complete 09/23/2024 07:42:37 09/23/2024 07:48:42 09/23/2024 07:48:42 Bed Assign Complete 09/23/2024 07:45:26 09/23/2024 07:45:26 09/23/2024 07:45:26 Dr Exam Complete 09/23/2024 07:45:26 09/23/2024 08:07:02 09/23/2024 08:07:02 RN Exam Complete 09/23/2024 07:45:26 09/23/2024 07:50:11 09/23/2024 07:50:11 EKG Complete 09/23/2024 07:47:08 09/23/2024 07:50:37 Pending Labs Complete 09/23/2024 07:53:46 09/23/2024 09:30:57 Lab Complete 09/23/2024 07:53:46 09/23/2024 08:27:05 X-Ray Complete 09/23/2024 07:53:46 09/23/2024 08:09:30 09/23/2024 08:47:32 Pending Labs Complete 09/23/2024 08:04:28 09/23/2024 08:04:28 09/23/2024 08:27:05 Lab Complete 09/23/2024 08:04:28 09/23/2024 08:04:28 09/23/2024 08:27:05 Pending Labs Complete 09/23/2024 08:04:50 09/23/2024 08:04:50 09/23/2024 08:04:50 Registration Complete 09/23/2024 08:07:02 09/23/2024 08:41:07 09/23/2024 08:41:07 Dr Exam Complete 09/23/2024 08:12:13 09/23/2024 08:12:13 09/23/2024 08:12:13 Reg Complete Request 09/23/2024 08:41:07 Reg Bed Request Complete 09/23/2024 08:41:07 09/23/2024 08:41:07 09/23/2024 08:41:07 Wet Read Request 09/23/2024 08:47:32 Discharge Complete 09/23/2024 09:39:40 09/23/2024 09:43:02 09/23/2024 09:43:02 Transfer Complete 09/23/2024 09:43:02 09/23/2024 09:43:02 09/23/2024 09:43:02 ADDRESS: [address] [id number] PHYS DOC NOTES: MEDICAL INFORMATION: Prescriptions Given: New Medications [id number], [address], [place] [id number], [phone] brompheniramine/dextromethorphan/PSE (Bromfed DM oral syrup) 5 Milliliter By Mouth 4 times a day asneeded for cold symptoms. Refills: 0. methylPREDNISolone (Medrol Dosepack 4 mg Tab) 1 Tablets By Mouth As Directed. Take as directed on pack. Refills: 0. Medications to Continue with No Changes Other Medications metformin (metformin 1000 mg Tab) 1 Tablets By Mouth 2 times a day. Refills: 0. PATIENT EDUCATION INFORMATION: Instructions: Upper Respiratory Infection, Adult; Nonspecific Chest Pain, Adult, Nmea-au-Imkh Follow up: With: Address: When: PAMELA SU [address] [place] [address] Business (1) In 3 days 09/26/2024 Comments: Call Dr for diagnosis based follow up DIAGNOSIS: Acute URI; Nonspecific chest painNormalGleason Canyon Medical CenterED Note-Nursingon [id number] Note-NursingED Note-Nursing Pt refusing to wear cardiac monitoring leads.NormalGleason Adarsh Medical CenterED Note-Physicianon [id number] Note-PhysicianED Note-Physician Basic Information Time Seen: Rodolfo ASHFORD, Gal Rossi. 09/23/2024 08:07 Chief Complaint pt states she wooke up with chest pain and sob along with a SLATER. states she woke up not feeling well. History of Present Illness 29-year-old female reports to the emergency department with concerns of headache, some mild shortness of breath and chest discomfort. Reports that she woke up this morning with it. Reports no real cough with this. Denies any fevers. Denies any nausea or vomiting. No abdominal pain. Denies any cardiac history. Reports that she is diabetic. She states no allergies to medications. She denies any fevers or chills. Reports no sick contacts, but does work at [employer] so is exposed to multiple people throughout the day. Reports that she did have to miss work today. Reports otherwise healthy. Denies any cardiac history. Review of Systems No other aggravating or relieving factors no other associated symptoms no other prior treatments orcomplaints. Family: Reviewed and noncontributory Social: lives at home Review of systems negative unless otherwise specified in the HPI. Physical Exam Vitals & Measurements T: 36.8 ???C(Oral) HR: 90(Monitored) RR: 15 BP: 113/77 SpO2: 97% HT: 163 cm WT: 63.9 kg BMI: 24.05 General: The patient appears well and in no apparent distress. Patient is resting comfortably on bed. Skin: Warm, dry, no pallor noted. Head: Normocephalic, atraumatic Neck: No JVD Eye: PERRLA, EOMI ENT: Moist mucus membranes Cardiovascular: Regular rate. normal peripheral perfusion Respiratory: No respiratory distress. no accessory muscle use. no obvious audible wheezing Chest Wall: no deformity Musculoskeletal: normal ROM, no deformity, no swelling GI: No obvious distention Neurological: A&O. moves all extremities equal strength and symmetry Psychiatric: Cooperative and appropriate Medical Decision Making Heart Score for Major Cardiac Event History: Example factors for history - pattern of chest pain, onset, duration, relation with exercise, stress or cold, localization, concominant symptoms. reaction to sublingual nitrates, [] Highly suspicious +2 [] Moderately suspicious +1 [x] Slightly suspicious 0 EKG: [] Significant ST-Depression +2 [] Non specific repolarization disturbance +1 [x] Normal 0 Age: [] >= 65 +2 [] 45-65 + 1 [x] <45 0 Risk Factors: (HLD, HTN, DM, Cigarette Smoking, Pos Family Hx, Obesity) [] >3 risk factors or hx of atheroslerotic disease + 2 [x] 1-2 risk factors + 1 [] No risk factors known 0 Troponin: [] >= 3X normal + 2 [] 1-3X normal + 1 [x] <= Normal 0 [x] 0-3 Points 0.9 - 1.7% risk of major adverse cardiac event in 6 weeks [] 4-6 Points 12-16.6% risk of major adverse cardiac event in 6 weeks [] 7-10 Points 50-65% risk of major adverse cardiac event in 6 weeks [x] 0-3 Points with 2 sets of negative cardiac markers <1% risk of major adverse cardiac event in 30 days. 29-year-old female reports emergency department with some chest discomfort, as well as headache. Reports symptoms started this morning when she woke up. Reports no fevers. Exam the patient is rather benign. No acute findings on my exam. Nontoxic-appearing. Lung sounds clear. Due to concern to do a full cardiac workup. Cardiac workup complete benign. Negative EKG. 2 negative troponins. Patient hada heart score of 1. I discussed with patient she likely has a viral illness, which she was agreeable with. Discussed supportive treatments. Discussed return precautions. Follow-up with your primary care provider in 3 to 5 days. If symptoms worsen, do not improve, or new symptoms arise please report back to emergency department for further evaluation. The patient was understanding and agreeable toplan moving forward. [x] The patient was diagnosed with upper respiratory infection and was not prescribed an antibiotic. [SATISFIES MIPS PERFORMANCE] [ ] The patient has competing comorbid condition within the last 12 months. The comorbid condition was [] (e.g., neutropenia, cystic fibrosis, chronic bronchitis, pulmonary edema, respiratory failure, rheumatoid lung disease). [MIPS PERFORMANCE EXCEPTION/EXCLUSION [ ] The patient is already on antibiotics, or has taken them within the last 30 days. [MIPS PERFORMANCE EXCEPTION/EXCLUSION] [ ] The patient had a competing diagnosis of [] (e.g. acute otitis media, chronic sinusitis, UTI, etc.) [MIPS PERFORMANCE EXCEPTION/EXCLUSION] [ ] The patient was diagnosed with upper respiratory infection and was prescribed or dispensed an antibiotic. [DOES NOT SATISFY MIPS PERFORMANCE] Assessment/Plan Acute URI (J06.9: Acute upper respiratory infection, unspecified) Nonspecific chest pain (R07.9: Chest pain, unspecified) Orders: brompheniramine/dextromethorphan/PSE, 5 mL, Oral, QID for cold symptoms, 200 mL, Refill(s) 0, CVS/p(more content not included)...[facility] HospitalComment on above:Result Comment: Electronically Signed By: Gal Reynolds PA-C\.br\Date and Time Signed: 09/23/2509:09 EDT\.br\Electronically Co-Signed By: Renato Terry DO\.br\Date and Time Co-Signed: 09/23/2509:11 EDTED Patient Summaryon [id number] Patient SummaryED Patient Summary [address] [address] Patient Discharge Instructions Person Information Name: BRITNEY TONG Age: 29 Years Arrival Date: 09/23/2024 07:42:37 Discharge Diagnosis: Acute URI; Nonspecific chest pain Primary Care Physician: PAMELA SU CNP Provider Information Primary Provider: Renato Terry DO Advanced Cephalometric Analyst:Gal Reynolds PA-C The exam and treatment you received in the Emergency Department were for an urgent problem and are not intended as complete care. It is important that you follow up with a doctor, nurse practitioner,or physician???s assistant statistician for ongoing care. If your symptoms become worse or you do not improve asexpected and you are unable to reach your usual health care provider, you should return to the Emergency Department. We are available 24 hours a day. BRITNEY TONG has been given the following list of patient education materials, prescriptions and follow-up instructions: Follow-up Instructions: With: Address: When: PAMELA SU [address] [place] [address] [facility] (1) In 3 days 09/26/2024 Comments: Call Dr for diagnosis based follow up In the event that this physician does not participate in your insurance network, please consult with your insurance company to find a nearby participating provider. Patient Education Materials: Upper Respiratory Infection, Adult; Nonspecific Chest Pain, Adult, Plvc-um-Jmrh A MESSAGE TO ALL PATIENTS REGARDING OPIOIDS PRESCRIPTION OPIOIDS: WHAT YOU NEED TO KNOW Prescription opioids can be used to help relieve pmlzbhdq-sg-cdxhzq pain and are often prescribed following a [...] as well, even when taken as directed: ??? Tolerance???meaning you might need to take more of the medication for the same pain relief ??? Physical dependence???meaning you have symptoms of withdrawal when a medication is stopped ??? Increased sensitivity to pain ??? Constipation ??? Nausea, vomiting, and dry mouth ??? Sleepiness and dizziness ??? Confusion ??? Depression ??? Low levels of testosterone that can result in lower sex drive, energy, and strength ??? Itching and sweating RISKS ARE GREATER WITH: ??? History of drug misuse, substance use disorder, or overdose ??? Mental health conditions (such as depression or anxiety) ??? Sleep apnea ??? Older age (65 years and older) ??? Avoid alcohol while taking prescription opioids. Also, unless specifically advised by your health care provider, medications to avoid include: ??? Benzodiazepines (such as Xanax or Valium) ??? Muscle relaxants (such as Soma or Flexeril) ??? Hypnotics (such as Ambien or Lunesta) ??? Other prescription opioids KNOW YOUR OPTIONS Talk to your health care provider about ways to manage your pain that don???t involve prescription opioids. Some of these options may actually work better and have fewer risks and side effects. Options may include: ??? Pain relievers such as acetaminophen, ibuprofen, and naproxen ??? Some medication that are also used for depression or seizures ??? Physical therapy and exercise ??? Cognitive behavioral therapy, a psychological, goal-directed approach, in which patients learn how to modify physical, behavioral, and emotional triggers of pain and stress. IF YOU ARE PRESCRIBED OPIOIDS FOR PAIN: ??? Never take opioids in greater amounts or more often than prescribed. ??? Follow up with your primary health care provider. o Work together to create a plan on how to manage your pain. o Talk about ways to help manage your pain that don???t involve prescription opioids. o Talk about any and all concerns and side effects. ??? Help prevent misuse and abuse o Never sell or share prescription opioids. o Never use another person???s prescription opioids. ??? Store prescription opioids in a secure place and out of reach of others (this may include visitors, children, friends, and family). ??? Safely dispose of unused prescription opioids: Find your community drug take-back program or your pharmacy mail-back program, or flush them down the toilet, following guidance from the Food and Drug Administration (www.fda.gov/Drugs/ResourcesForYou). ??? Visit www.cdc.gov/drugoverdose to learn about the risks (more content not included)...[facility] Ferry HospitalHEMATOLOGYOrdered By: SYSTEM SYSTEM on [id number]/100 WBC (Bld)0.6 %Normal0.0 - 2.0 %Remisol Heme Basophils/Leukocytes Auto (Bld) [Pure # fraction]0.1 E9/LNormal0.0 - 0.2 E9/L Remisol HemeEosinophils (Bld) [#/Vol]0.2 E9/LNormal0.0 - 0.5 E9/LRemisol Heme Eosinophils/100 WBC (Bld)1.9 %Normal0.0 - 8.0 %Remisol HemeErythrocyte distribution width (RBC) [Ratio]12.8 %Ktlmkp93.9 - 14.2 %Remisol HemeHematocrit (Bld) [Volume fraction]41.0 %Ooziku51.0 - 46.0 %Remisol HemeHemoglobin (Bld) [Mass/Vol]14.2 g/nHNnzwjr47.0 - 16.0 gm/dLRemisol HemeLymphocytes (Bld) [#/Vol] 2.5 E9/LNormal1.0 - 4.0 E9/LRemisol HemeLymphocytes/100 WBC (Bld)27.8 %Normal 14.0 - 50.0 %Remisol HemeMCH (RBC) [Entitic mass]29.2 kvFlavor95.0 - 34.0 pg Remisol HemeMCHC (RBC) [Mass/Vol]34.6 g/oBEdkjbn00.4 - 36.0 gm/dLRemisol HemeMCV (RBC) [Entitic vol]84.4 lRWxuzkk47.0 - 100.0 fLRemisol HemeMonocytes (Bld) [#/Vol]0.6 E9/LNormal0.2 - 1.0 E9/LRemisol HemeMonocytes/100 WBC (Bld)6.1 % Normal4.0 - 14.0 %Remisol HemeNeutrophils (Bld) [#/Vol]5.8 E9/LNormal2.0 - 7.5 E9/LRemisol HemeNeutrophils/100 WBC (Bld)63.6 %Vsupwf99.0 - 75.0 %Remisol Heme Platelet mean volume (Bld) [Entitic vol]7.6 fLNormal6.4 - 10.8 fLRemisol Heme Platelets (Bld) [#/Vol]389.0 E9/HQcjcxh744.0 - 500.0 E9/LRemisol HemeRBC (Bld) [#/Vol]4.9 E12/LNormal4.3 - 5.9 E12/LRemisol HemeWBC corrected for nucl RBC Auto (Bld) [#/Vol]9.1 E9/LNormal4.0 - 11.0 E9/LRemisol HemePT & PTTon 28-09-6368hZOT Coag (PPP) [Time]41.5 second(s)High25.1-36.5Fisher The [facility] & Enoch Pratt HospitalComment on above:Result Comment: Parameter 15 days - 4 weeks 1 - 5 months 6 - 11 months 1 - 5 years 6 - 10 years 11 - 17 years PTT Mean: 35.4 (27.6-45.6) Mean: 33.5 (24.8-40.7) Mean: 32.4 (25.1-40.7) Mean: 31.6 (24.0-39.2) Mean: 31.6 (26.9-38.7) Mean: 31.0 (24.6-38.4) Pediatric Reference ranges were obtained from a study by Abhijit Mtz et al. prepared from 1437 samples obtained at 7 different centers using the same coagulation reagent and instrumentation as [facility]. Currently there are no coagulation studies available worldwide for children to 14 days, andno normal ranges. Heparin therapeutic range (represented by Anti-Factor Xa activity of 0.2 - 0.4 U/mL) corresponds to PTT of 56.6 - 109.0 sec.Performed By: #### [id number] #### [facility] [address] [place], [place] [address]MHV Coag (PPP) [Relative time]0.99 {INR}Invalid Interpretation CodeGrant HospitalComment on above:Result Comment: INR results are specifically intended to assess patients stabilized on long-term Anticoagulation therapy suggested INR???s ???Less Intensive Anticoagulation??? 2.0 ??? 3.0 Conventional Range 3.0 ??? 4.5Performed By: #### [id number] #### [facility] [address] [place], [place] [address]XM Coag (PPP) [Time]11.1 second(s)Normal9.4-12.5Fisher The She[facility] & Enoch Pratt HospitalComment on above:Result Comment: 15 days - 4 weeks 1 - 5 months 6 -11 months 1 ??? 5 years 6 ??? 10 years 11 -17 years Mean: 11.2 (9.5 ??? 12.6) Mean: 11.0 (9.7 ??? 12.8) Mean: 11.0 (9.8 ??? 13.0) Mean: 11.3 (9.9 ??? 13.4) Mean: 11.7 (10.0 ??? 14.6) Mean: 11.8 (10.0 - 14.1) Pediatric Reference ranges were obtained from a study by Abhijit Mtz et al. prepared from 1437 samples obtained at 7 different centers using the same coagulation reagent and instrumentation as [facility]. Currently there are no coagulation studies available worldwide for children to 14 days, andno normal ranges.Performed By: #### [id number] #### [facility] [address] [place], [place] [address]Rmefkxuc 0 Hr.on 35-20-2450Nhpdiktd HS<2.30Dde57.10-27.10Grant HospitalComment on above:Result Comment: The 95% CI (Confidence Interval) PPV (Positive Predictive Value) for myocardial infarction in females is 38 pg/mL, in males 51 pg/mL. The results should be used in conjunction with clinical conditions of myocardial infarction. (Access High Sensitivity Troponin I Instructions For Use, [employer], December 2017)Performed By: #### [id number] #### [facility] [address] [place], [place] [address]Flkkrdhh 1 Hr.on 30-69-0029Cjfbbhtm HS<2.60Jme74.10-27.10Grant HospitalComment on above:Result Comment: The 95% CI (Confidence Interval) PPV (Positive Predictive Value) for myocardial infarction in females is 38 pg/mL, in males 51 pg/mL. The results should be used in conjunction with clinical conditions of myocardial infarction. (Access High Sensitivity Troponin I Instructions For Use, [employer], December 2017)Performed By: #### [id number] #### [facility] [address] [place], [place] [address]BD Chest Single Viewon [id number] Chest Single ViewExam Date/Time: 09/23/2024 08:47 EDT Reason for Exam: Chest pain Report IMPRESSION: NO RADIOGRAPHIC EVIDENCE OF ACUTE INTRATHORACIC PROCESS. EXAM: XR Chest Single View History: Chest pain. Shortness of breath. Technique: Portable AP view of the chest. Comparison: 02/28/2024 Findings: The cardiomediastinal silhouette is within normal limits. No pneumothorax, pleural effusion, or consolidation. No acute osseous abnormality. Ordering Provider: Renato Terry FINAL REPORT Dictated: 09/23/2024 10:00 am Carlitos Moralez DO Signed (Electronic Signature): 09/23/2024 10:00 am Signed by: Carlitos Moralez DO Transcribed by: BARRETT Technologist: AlonGrant HospitaleGFRon [id number] mL/min/1.73 p5Ftyjol>=59Grant HospitalComment on above:Performed By: #### [id number] #### [facility] [address] [place], [place] [address]QI PELVIC WITH TRANSVAGINALon [id number] PELVIC WITH TRANSVAGINALUS PELVIC WITH TRANSVAGINAL CLINICAL INFORMATION: Pelvic pain; Dyspareunia, female COMPARISON: None. PROCEDURE: Transabdominal imaging was obtained for the detection of extra- adnexal pathology. Transvaginal imaging was obtained for better visualization of the adnexa and endometrium. FINDINGS: The uterus measures 6.9 x 3.8 x 4.7 cm. Endometrial thickness is 4 mm. The right ovary measures 2.8x 2.2 x 2.0 cm. The left ovary measures 3.1 x 1.7 x 2.2 cm. Normal follicles. No free fluid. IMPRESSION: * No acute findings. Finalized by Leroy Russ MD on 09/22/2024 1:[address] [facility] CenterCHLAMYDIA/GC BY PCR PRAVIN SWABon [id number]/GC BY PCR PRAVIN SWABCHLAMYDIA DNA(PCR) Negative Chlamydia trachomatis not detected by nucleic acid amplification. This does not exclude the possibility of infection because results are dependent on adequate specimen collection. GONORRHOEAE DNA(PCR) Negative Neisseria gonorrhoeae not detected by nucleic acid amplification. This does not exclude the possibility of infection because results are dependent on adequate specimen collection.[facility] Ambulatory PPGComment on above: Performed By: #### CGS #### [facility] ([facility]) [address] [place] [address] VIRGRAM STAINon [id number] observation Gram stain Nom (Unsp spec)GRAM STAIN Positive for Bacterial Vaginosis (Based on Eduardo Scorign, validated for vaginal specimens) No yeast seenAbHoag Memorial Hospital [facility]byterian Ambulatory PPGComment on above:Order Comment: Gram stain for BVPerformed By: #### GRAM #### [facility] ([facility]) [address] [place] [address] VIRYEAST CULTUREon [id number] CULTURECULTURE RESULTS No yeast isolated at 5 days FUNGAL SMEAR No fungal elements seen On Direct SmearNoSt. John's Regional [facility] Ambulatory PPGComment on above:Performed By: #### YSTCUL #### [facility] (TT) [address] [place] [address] VIRED Clinical Summaryon [id number] Clinical SummaryED Clinical Summary [address] [address] ED Clinical Summary Person Information Name: BRITNEY TONG [place] Age: 29 Years : 1995 Sex: Female Language: Hungarian PCP: PAMELA SU CNP Marital Status: Single Visit Id: Visit Reason: Hip pain-swelling; Back pain; BACK PAIN, PAIN IN LEFT LEG Speciality: Acuity: 3 Enc Type: Emergency Med Service: Emergency Arrival: 07/07/2024 20:46:16 Discharge: 07/08/2024 00:12:54 LOS: 000 03:26 Checkin: 07/07/2024 20:46:16 Checkout: 07/08/2024 00:12:54 Dispo Type: Home (Routine DC) EVENTS: Event Name Event Status Request Date/Time Start Date/Time Complete Date/Time Arrive Complete 07/07/2024 20:46:16 07/07/2024 20:46:16 07/07/2024 20:46:16 Document Home Meds Request 07/07/2024 20:46:16 Triage Complete 07/07/2024 20:46:16 07/07/2024 21:13:44 07/07/2024 21:13:44 Registration Complete 07/07/2024 20:54:06 07/07/2024 20:54:06 07/07/2024 20:54:06 Reg Complete Request 07/07/2024 20:54:06 Reg Bed Request Complete 07/07/2024 20:54:06 07/07/2024 20:54:06 07/07/2024 20:54:06 Bed Assign Complete 07/07/2024 21:14:42 07/07/2024 21:14:42 07/07/2024 21:14:42 Dr Exam Complete 07/07/2024 21:14:42 07/07/2024 21:15:11 07/07/2024 21:15:11 RN Exam Complete 07/07/2024 21:14:42 07/07/2024 21:26:11 07/07/2024 21:26:11 Registration Request 07/07/2024 21:15:11 Dr Exam Complete 07/07/2024 21:16:14 07/07/2024 21:16:14 07/07/2024 21:16:14 X-Ray Complete 07/07/2024 21:24:21 07/07/2024 21:25:44 07/07/2024 21:48:34 Wet Read Complete 07/07/2024 21:48:34 07/07/2024 21:48:42 07/07/2024 21:48:42 Meds Admin Complete 07/07/2024 22:25:44 07/07/2024 22:34:53 Meds Admin Complete 07/07/2024 22:27:08 07/07/2024 22:34:54 Meds Admin Complete 07/07/2024 23:51:53 07/08/2024 00:08:37 Discharge Complete 07/07/2024 23:53:24 07/08/2024 00:13:21 07/08/2024 00:13:21 Transfer Complete 07/08/2024 00:13:21 07/08/2024 00:13:21 07/08/2024 00:13:21 ADDRESS: [address] [id number] PHYS DOC NOTES: MEDICAL INFORMATION: Prescriptions Given: New Medications [id number], [address], [place] [id number], [phone] acetaminophen-oxycodone (Percocet 5 mg-325 mg oral tablet) 1 Tablets By Mouth every 6 hours for 3 Days. Refills: 0. methylPREDNISolone (Medrol 4 mg Tab) 1 Packets By Mouth As Directed for 6 Days. as directed on package labeling. Refills: 0. naproxen (naproxen 500 mg Tab) 1 Tablets By Mouth 2 times a day for 10 Days. Refills: 0. tizanidine (tiZANidine 2 mg Tab) 1 Tablets By Mouth every 8 hours for 7 Days. Refills: 0. Medications to Continue with No Changes Other Medications metformin (metformin 1000 mg Tab) 1 Tablets By Mouth 2 times a day. Refills: 0. PATIENT EDUCATION INFORMATION: Instructions: Lumbosacral Radiculopathy; Hip Pain Follow up: With: Address: When: Reg Boswell [address], [address] [place] [phone] Business (1) In 3 days 07/10/2024 With: Address: When: PAMELA SHARLENE [address] [place], [place] [id number] Business (1) In 3 days DIAGNOSIS: Left hip pain; Low back pain; Lumbar radiculopathyNormalFisher Adarsh Medical CenterED Note-Physicianon [id number] Note-PhysicianED Note-Physician Basic Information Time Seen: Jermain Barcenas PA-C 07/07/2024 21:15 Chief Complaint Pt arrives to ED from home with c/o left lower back pain worsening into her hip, started Saturday. Denies abd pain/n/v. States she started her period this week. 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 History of Present Illness Patient is a 29-year-old female presents today for evaluation of her lower back pain with radicularsymptoms into her left lower extremity. Patient states that the symptoms started on Saturday. She does have radiation of her symptoms into her left hip. Denies any nausea, vomiting, abdominal pain. Denies any loss of bowel or bladder control, lower extremity weakness, or saddle anesthesia. No meds delilah or to arrival. She is never had this pain in the past. Review of Systems No other aggravating or relieving factors no other associated symptoms no other prior treatments orcomplaints. Family: Reviewed and noncontributory Social: lives at home Review of systems negative unless otherwise specified in the HPI. Physical Exam Vitals & Measurements T: 36.6 ???C(Oral) HR: 91(Monitored) RR: 18 BP: 129/86 SpO2: 100% HT: 163 cm WT: 63.9 kg BMI: 24.05 Vital Signs reviewed and noted. General: Alert, no acute distress, patient resting comfortably Skin: warm, intact, no pallor noted Head: Normocephalic, atraumatic Eye: Normal conjunctiva Cardiac: Normal peripheral perfusion Respiratory: No acute distress Musculoskeletal: No deformity, full ROM. Lumbar spine: Mild to moderate left-sided lower lumbar spinal tenderness. No midline tenderness. Negative straight leg raise. No step-off or crepitus appreciated. Intact strength and sensation to bilateral lower extremities. DPP 2+ bilaterally. Neurological: alert and oriented, normal sensory and motor observed. Psychiatric: Cooperative Medical Decision Making Patient is a 29-year-old female that presents today for evaluation of her lower back pain with radicular symptoms into the left lower extremity. Symptoms started on Saturday. No meds prior to arrival. Denies any signs or symptoms concerning for cauda equina syndrome. On exam the patient is afebrile nontoxic- appearing. She does have mild to moderate left-sided lower lumbar spinal tenderness. No midline tenderness. Negative straight leg raise. No step-off or crepitus. Intact strength and sensation of bilateral lower extremities. DPP 2+ bilaterally. 3 view lumbosacral and 2 view left hip with pelvic view x-rays interpreted by myself are negative for any acute abnormality. Patient was given a dose of IM Decadron, Toradol, Percocet here in the ED. Patient reports to nursing that her pain has changed and improved but when I talk with her she states that her pain still feels somewhat similar. She is able to walk with nursing but when I walk into the room and speak with the patient she says that she cannot walk. I am able to visualize her walking with nursing without complication and does notwince with pain. She likely has pain stemming from her lumbar spine leading to lumbar radiculopathywhich we discussed at length. Given she is able to walk with nursing without complication and she is intact neurovascularly she will be discharged home. Will provide her with Medrol Dosepak, naproxen, tizanidine and Percocet for breakthrough pain. Given her significant pain I will provide her with Dr. Boswell neurosurgery to follow-up with as an outpatient. We discussed if she has new or worsening symptoms she should prompt return to the ED for evaluation. Return to ED precautions were reviewed with the patient at length. Assessment/Plan Left hip pain (M25.552: Pain in left hip) Low back pain (M54.50: Low back pain, unspecified) Lumbar radiculopathy (M54.16: Radiculopathy, lumbar region) Orders: acetaminophen-oxycodone, 1 tab(s), Tab, Oral, Once, Stop date 07/07/24 22:25:00 EST, STAT, Start date 07/07/24:25:00 EST acetaminophen-oxycodone, 1 tab(s), Oral, q6hr for 3 day(s), 10 tab(s), Refill(s) 0, [facility]/pharmacy #[id number], 163, cm, 07/07/24 21:13:00 EST, Height/Length Dosing, 63.9, kg, 07/07/24 21:13:00 EST, Weight Dosing acetaminophen-oxycodone, 1 tab(s), Tab, Oral, Once, Stop date 07/07/24 23:51:00 EST, STAT, Start date 07/07/24 23:51:00 EST dexamethasone, 10 mg = 1 mL, Injection, IntraMuscular, Once, Stop date 07/07/24 22:26:00 EST, STAT,Start date 07/07/24 22:26:00 EST, Administer over no less than one minute, 07/07/24 22:26:00 EST ketorolac, 30 mg = 1 mL, Injection, IntraMuscular, Once, Stop date 07/07/24 22:26:00 EST, STAT, Start date 07/07/24 22:26:00 EST, 07/07/24 22:26:00 EST methylPREDNISolone, = 1 packet(s), Oral, As Directed, as directed on package labeling, X 6 day(s), # 21 tab(s), Refills(s) 0, Pharmacy: [facility]/pharmacy #[id number], 163, cm, 07/07/24 21:13:00 EST, Height/Length Dosing, 63.9, kg, 07/07/24 21:13:00 EST, Weight Dosing naproxen, 500 mg = 1 tab(s), Oral, BID, X 10 day(s), # 20 tab(s), Refills(s) 0, Pharmacy: [facility]/pharmacy #[id number], 163, cm, 07/07/24 21:13:00 EST, Height/ (more content not included)...[facility] HospitalComment on above:Result Comment: Electronically Signed By: Swapna Jermain ASHFORD.\.br\Date and Time Signed: 07/08/2499:59 EST\.br\Electronically Co-Signed By: Fabrice Cavanaugh DO\.br\Date and Time Co-Signed: 07/08/24 06:36 ESTED Patient Summaryon [id number] Patient SummaryED Patient Summary [place] [id number] Patient Discharge Instructions Person Information Name: BRITNEY TONG Age: 29 Years Arrival Date: 07/07/2024 20:46:16 Discharge Diagnosis: Left hip pain; Low back pain; Lumbar radiculopathy Primary Care Physician: PAMELA SU CNP Provider Information Primary Provider: Fabrice Cavanaugh DO Advanced Cephalometric Analyst:Jermain Barcenas PA-C The exam and treatment you received in the Emergency Department were for an urgent problem and are not intended as complete care. It is important that you follow up with a doctor, nurse practitioner,or physician???s assistant statistician for ongoing care. If your symptoms become worse or you do not improve asexpected and you are unable to reach your usual health care provider, you should return to the Emergency Department. We are available 24 hours a day. BRITNEY TONG has been given the following list of patient education materials, prescriptions and follow-up instructions: Follow-up Instructions: With: Address: When: Reg Boswell [address] [facility], [address] [place] [address] [phone] [employer] (1) In 3 days 07/10/2024 With: Address: When: PAMELA SU [address] [place] [address] Business (1) In 3 days In the event that this physician does not participate in your insurance network, please consult with your insurance company to find a nearby participating provider. Patient Education Materials: Lumbosacral Radiculopathy; Hip Pain A MESSAGE TO ALL PATIENTS REGARDING OPIOIDS PRESCRIPTION OPIOIDS: WHAT YOU NEED TO KNOW Prescription opioids can be used to help relieve aqwscbhl-od-ipcmrm pain and are often prescribed following a [...] as well, even when taken as directed: ??? Tolerance???meaning you might need to take more of the medication for the same pain relief ??? Physical dependence???meaning you have symptoms of withdrawal when a medication is stopped ??? Increased sensitivity to pain ??? Constipation ??? Nausea, vomiting, and dry mouth ??? Sleepiness and dizziness ??? Confusion ??? Depression ??? Low levels of testosterone that can result in lower sex drive, energy, and strength ??? Itching and sweating RISKS ARE GREATER WITH: ??? History of drug misuse, substance use disorder, or overdose ??? Mental health conditions (such as depression or anxiety) ??? Sleep apnea ??? Older age (65 years and older) ??? Avoid alcohol while taking prescription opioids. Also, unless specifically advised by your health care provider, medications to avoid include: ??? Benzodiazepines (such as Xanax or Valium) ??? Muscle relaxants (such as Soma or Flexeril) ??? Hypnotics (such as Ambien or Lunesta) ??? Other prescription opioids KNOW YOUR OPTIONS Talk to your health care provider about ways to manage your pain that don???t involve prescription opioids. Some of these options may actually work better and have fewer risks and side effects. Options may include: ??? Pain relievers such as acetaminophen, ibuprofen, and naproxen ??? Some medication that are also used for depression or seizures ??? Physical therapy and exercise ??? Cognitive behavioral therapy, a psychological, goal-directed approach, in which patients learn how to modify physical, behavioral, and emotional triggers of pain and stress. IF YOU ARE PRESCRIBED OPIOIDS FOR PAIN: ??? Never take opioids in greater amounts or more often than prescribed. ??? Follow up with your primary health care provider. o Work together to create a plan on how to manage your pain. o Talk about ways to help manage your pain that don???t involve prescription opioids. o Talk about any and all concerns and side effects. ??? Help prevent misuse and abuse o Never sell or share prescription opioids. o Never use another person???s prescription opioids. ??? Store prescription opioids in a secure place and out of reach of others (this may include visitors, children, friends, and family). ??? Safely dispose of unused prescription opioids: Find your community drug take-back program or your pharmacy mail-back program, or flush them down the toilet, following guidance from the Food and Drug Administration (www.fda.gov/Drugs/ResourcesForYou). ??? Visit ww (more content not included)...[facility] HospitalXR Hip 2-3 Views Left + Pelvison [id number] Hip 2-3 Views Left + PelvisExam Date/Time: 07/07/2024 21:48 EST Reason for Exam: Pain, Non Traumatic Report IMPRESSION: NO ACUTE OSSEOUS ABNORMALITY. EXAMINATION: XR Hip 2-3 Views Left + Pelvis HISTORY: Hip pain COMPARISONS: None available TECHNIQUE: Frontal view the pelvis and frontal and lateral views of the hip. FINDINGS: No acute proximal femur fracture. No hip dislocation. Joint space of the hip is maintained. Visualized bones of the pelvis are within normal limits. Soft tissues are within normal limits. Ordering Provider: Jermain Barcenas FINAL REPORT Dictated: 07/08/2024 8:35 am Carlitos Moralez DO Signed (Electronic Signature): 07/08/2024 8:35 am Signed by: Carlitos Moralez DO Transcribed by: BARRETT Technologist: [facility] HOSPITALRosarioSelect Medical Specialty Hospital - [facility], IncXR Spine Lumbosacral 2 or 3 Viewson 29-46-1470IQ Spine Lumbosacral 2 or 3 ViewsExam Date/Time: 07/07/2024 21:48 EST Reason for Exam: Pain, Non Traumatic Report IMPRESSION: NO ACUTE OSSEOUS ABNORMALITY. EXAMINATION: XR Spine Lumbosacral 2 or 3 Views TECHNIQUE: AP and lateral views of the lumbar spine and coned-down lateral view of the lumbosacral junction HISTORY: Low back pain COMPARISONS: None available. FINDINGS: Lumbar spine alignment is within normal limits. Lumbar vertebral body heights are maintained. Intervertebral disc heights are preserved. No acute fracture. No spondylolysis or spondylolisthesis. Ordering Provider: Jermain Barcenas FINAL REPORT Dictated: 07/08/2024 8:36 am Carlitos Moralez DO Signed (Electronic Signature): 07/08/2024 8:36 am Signed by: Carlitos Moralez DO Transcribed by: BARRETT Technologist: [facility] Medical CenterAlanine aminotransferase [Enzymatic activity/volume] in Serum or PlasmaOrdered By: Pamela Su on 56-39-7045BVG [Catalytic activity/Vol]Alanine aminotransferase [Enzymatic activity/volume] in Serum or Plasma7-52[facility] Medical CenterAlbumin [Mass/volume] in Serum or Plasma by Bromocresol green (BCG) dye binding methoOrdered By: Pamela Su on 03-48-5158Yypdsdl BCG dye [Mass/Vol] Albumin [Mass/volume] in Serum or Plasma by Bromocresol green (BCG) dye binding metho3.5-5.7FWooster Community HospitalAlkaline phosphatase [Enzymatic activity/volume] in Serum or PlasmaOrdered By: Pamela Su on 46-11-3345QPL [Catalytic activity/Vol]Alkaline phosphatase [Enzymatic activity/volume] in Serum or Hmdied08-491HocmrbhyaAdena Pike Medical CenterAspartate aminotransferase [Enzymatic activity/volume] in Serum or PlasmaOrdered By: Pamela Su on 80-40-1159OBM [Catalytic activity/Vol]Aspartate aminotransferase [Enzymatic activity/volume] in Serum or Rniqps81-17XtouakfgpAdena Pike Medical Center Basophils Auto (Bld) [#/Vol]Ordered By: Pamela Su on 66-47-0205Goyskuzku (Bld) [#/Vol]Automated basophil count0.0-0.2FWooster Community Hospital Basophils/100 WBC Auto (Bld)Ordered By: Pamela Su on 20-56-9676Clsmzpdna/100 WBC (Bld)Automated basophil %.[facility] Medical CenterBilirubin.total [Mass/volume] in Serum or PlasmaOrdered By: Pamela Su on 64-80-6670Ypbduzneu [Mass/Vol]Bilirubin.total [Mass/volume] in Serum or Plasma0.3-1.0[facility] Medical CenterCalcium [Mass/volume] in Serum or PlasmaOrdered By: Pamela Su on 59-82-8540Cfhlwrp [Mass/Vol]Calcium [Mass/volume] in Serum or Plasma 8.6-10.3FWooster Community HospitalCarbon dioxide, total [Moles/volume] in Serum or PlasmaOrdered By: Pamela Su on 29-98-7203EI5 [Moles/Vol]Carbon dioxide, total [Moles/volume] in Serum or Onpale76.0-31.0[facility] Medical CenterChloride [Moles/volume] in Serum or PlasmaOrdered By: Pamela Su on 52-44-4558Cskklkqs [Moles/Vol]Chloride [Moles/volume] in Serum or Plasma 98-107[facility] CenterCholesterol [Mass/volume] in Serum or PlasmaOrdered By: Pamela Su on 23-05-0645Fgfeqncwltm [Mass/Vol]Cholesterol [Mass/volume] in Serum or MhicwyEzq517-433SmlypoyikAdena Pike Medical Center Comment on above:Chol less than 200 mg/dl low riskChol 201-239 mg/dl borderline riskChol 240 mg/dl and greater high riskCholesterol in HDL [Mass/volume] in Serum or PlasmaOrdered By: Pamela Su on 42-17-5337Qyjngivfqck in HDL [Mass/Vol]Serum or plasma high density lipoprotein (HDL) cholesterol measurement 23-92A[facility] Medical CenterComment on above:HDL CHOL ATP-III CLASSIFICATION Cardiovascular RiskHDL > or equal to 60 mg/dL LOWHDL < 40 mg/dL HIGHCholesterol in LDL Calc [Mass/Vol]Ordered By: Pamela Su on 07-02-2024 Cholesterol in LDL [Mass/Vol]Cholesterol in LDL [Mass/volume] in Serum or Plasma by calculation0-100[facility] Medical CenterComment on above:LDL ATP III CLASSIFICATIONLDL less than 100 mg/dL OptimalLDL 100-129 mg/dL Near or above tyhbpanHPK058-802 mg/dL Borderline highLDL 160-189 mg/dL HighLDL greater than 189 mg/dL Very highCholesterol in VLDL Calc [Mass/Vol]Ordered By: Pamela Su on 29-80-4868Yoaaeuzpaqa in VLDL [Mass/Vol]Cholesterol in VLDL [Mass/volume] in Serum or Plasma by calculationAdena Pike Medical CenterComprehensive Metabolic Panelon 61-78-1612Wnvoivc [Mass/Vol]4.4 g/dLNormal3.5-5.7The [facility] Physician GroupComment on above:Performed By: #### SCAN CBC, B12, LIPID, CMP, TSH3 wRFLX #### [facility] [address] [place] [address] USAAlbumin/Globulin [Mass ratio]1.5 {ratio}NormalThe [facility] Physician GroupComment on above:Performed By: #### SCAN CBC, B12, LIPID, CMP, TSH3 wRFLX #### [place] [address] USAALP [Catalytic activity/Vol]42 U/RMqouba32-354Auk [facility] Physician GroupComment on above:Performed By: #### SCAN CBC, B12, LIPID, CMP, TSH3 wRFLX #### [place] [address] USAALT [Catalytic activity/Vol]30 U/LNormal7-52The [facility] Physician GroupComment on above:Performed By: #### SCAN CBC, B12, LIPID, CMP, TSH3 wRFLX #### [place] [address] USAAnion gap [Moles/Vol]12.0 mmol/LNormal6.0-15.0The [facility] Physician GroupComment on above:Performed By: #### SCAN CBC, B12, LIPID, CMP, TSH3 wRFLX #### [place] [address] USAAST [Catalytic activity/Vol]18 U/KUdmbps72-79Ozx [facility] Physician GroupComment on above:Performed By: #### SCAN CBC, B12, LIPID, CMP, TSH3 wRFLX #### [place] [address] USABilirubin [Mass/Vol]0.3 mg/dLNormal0.3-1.0The [facility] Physician GroupComment on above:Performed By: #### SCAN CBC, B12, LIPID, CMP, TSH3 wRFLX #### [facility] [address] [place] [address] USACalcium [Mass/Vol]9.2 mg/dLNormal8.6-10.3The [facility] Physician GroupComment on above:Performed By: #### SCAN CBC, B12, LIPID, CMP, TSH3 wRFLX #### [facility] [address] [place] [address] USAChloride [Moles/Vol]103 mmol/JAwkkvd77-587Onh [facility] Physician GroupComment on above:Performed By: #### SCAN CBC, B12, LIPID, CMP, TSH3 wRFLX #### [place] [address] USACO2 [Moles/Vol]24.9 mmol/ORtlisn15.0-31.0The [facility] Physician GroupComment on above:Performed By: #### SCAN CBC, B12, LIPID, CMP, TSH3 wRFLX #### [place] [address] USACreatinine [Mass/Vol]0.48 mg/dLLow0.60-1.20The [facility] Physician GroupComment on above:Performed By: #### SCAN CBC, B12, LIPID, CMP, TSH3 wRFLX #### [place] [address] USAGFR/1.73 sq M.predicted MDRD (S/P/Bld) [Vol rate/Area] mL/min/{1.73_m2}NormalThe [facility] Physician GroupComment on above:Performed By: #### SCAN CBC, B12, LIPID, CMP, TSH3 wRFLX #### [facility] [address] [place] [address] USAGlobulin (S) [Mass/Vol]2.9 g/dLNormalThe [facility] Physician GroupComment on above:Performed By: #### SCAN CBC, B12, LIPID, CMP, TSH3 wRFLX #### [place] [address] USAGlucose [Mass/Vol]164 mg/nFVmis66-138Xdy [facility] Physician GroupComment on above:Result Comment: Random Glucose Reference Range is dependent on time and content of last meal. Glucose of more than 200 mg/dL in a nonstressed, ambulatory subject supports the diagnosis of Diabetes Mellitus. ADA recommended reference rangePerformed By: #### SCAN CBC, B12, LIPID, CMP, TSH3 wRFLX #### [place] [address] USAPotassium [Moles/Vol]3.9 mmol/LNormal3.5-5.1The [facility] Physician GroupComment on above:Performed By: #### SCAN CBC, B12, LIPID, CMP, TSH3 wRFLX #### [place] [address] USAProtein [Mass/Vol]7.3 g/dLNormal6.4-8.9The [facility] Physician GroupComment on above:Performed By: #### SCAN CBC, B12, LIPID, CMP, TSH3 wRFLX #### [place] [address] USASodium [Moles/Vol]136 mmol/WVntkdj094-495Fym [facility] Physician GroupComment on above:Performed By: #### SCAN CBC, B12, LIPID, CMP, TSH3 wRFLX #### [place] [address] USAUrea nitrogen [Mass/Vol]7 mg/dLNormal7-25The [facility] Physician GroupComment on above:Performed By: #### SCAN CBC, B12, LIPID, CMP, TSH3 wRFLX #### [place] [address] USACreatinine [Mass/volume] in Serum or PlasmaOrdered By: Pamela Su on 23-80-1971Emgsspxiji [Mass/Vol]Creatinine [Mass/volume] in Serum or PlasmaLow0.60-1.20[facility] Medical CenterEosinophils Auto (Bld) [#/Vol]Ordered By: Pamela Su on 04-59-1707Zdykqprpygf (Bld) [#/Vol]Automated eosinophil count0.0-0.45[facility] Medical CenterEosinophils/100 WBC Auto (Bld)Ordered By: Pamela Su on 77-65-7915Wwnmlxrgbiv/100 WBC (Bld) Automated eosinophil %.[facility] Medical CenterErythrocyte distribution width Auto (RBC) [Ratio]Ordered By: Pamela Su on 47-72-4810Aykhhcfdprb distribution width (RBC) [Ratio]Erythrocyte distribution width [Ratio] by Automated sfhywOrku09.9-15.3FWooster Community HospitalErythrocyte morphology finding [Identifier] in BloodOrdered By: Pamela Su on 07-02-2024 RBC morphology finding Nom (Bld)RBC morphologyAdena Pike Medical Center Globulin Calc (S) [Mass/Vol]Ordered By: Pamela Su on 37-09-7923Yyhdolgx (S) [Mass/Vol]Serum globulin measurement by calculation (mass/volume)[facility] CenterGlucose [Mass/volume] in Serum or PlasmaOrdered By: Pamela Su on 11-55-4694Yryzkmx [Mass/Vol]Glucose [Mass/volume] in Serum or Plasma Nnst59-737QxxcvjdnmAdena Pike Medical CenterComment on above:ADA recommended reference rangeRandom Glucose Reference Range is dependent on time and content of last meal. Glucose of more than 200 mg/dL in a nonstressed, ambulatory subject supports the diagnosisof Diabetes Mellitus.Hematocrit Auto (Bld) [Volume fraction]Ordered By: Pamela Su on 47-95-4124Wpeavaljyn (Bld) [Volume fraction]Hematocrit [Volume Fraction] of Blood by Automated count34.0-46.4 [facility] CenterHemoglobin [Mass/volume] in BloodOrdered By: Pamela Su on 37-84-5960Jxhjvhgrvy (Bld) [Mass/Vol]Hemoglobin [Mass/volume] in Blood11.8-15.4FWooster Community HospitalLeukocytes [#/volume] corrected for nucleated erythrocytes in Blood by Automated counOrdered By: Pamela Su on 47-11-3946ISX corrected for nucl RBC Auto (Bld) [#/Vol]Leukocytes [#/volume] corrected for nucleated erythrocytes in Blood by Automated coun3.8-11.6FWooster Community HospitalLipid Panelon 11-26-4403Fdfbmjqdfsl [Mass/Vol]137 mg/dL Vhu784-948Shs [facility] Physician GroupComment on above:Result Comment: Chol less than 200 mg/dl low risk Chol 201-239 mg/dl borderline risk Chol 240 mg/dl and greater high riskPerformed By: #### SCAN CBC, B12, LIPID, CMP, TSH3 wRFLX #### [facility] [address] [place] [address] USACholesterol in HDL [Mass/Vol]31 mg/hLPjwrst80-22Kun [facility] Physician GroupComment on above:Result Comment: HDL CHOL ATP-III CLASSIFICATION Cardiovascular Risk HDL > or equal to 60 mg/dL LOW HDL < 40 mg/dL HIGHPerformed By: #### SCAN CBC, B12, LIPID, CMP, TSH3 wRFLX #### [facility] [address] [place] [address] USACholesterol.total/Cholesterol in HDL [Mass ratio]4.4 {ratio}Normal<5.0The [facility] Physician GroupComment on above:Performed By: #### SCAN CBC, B12, LIPID, CMP, TSH3 wRFLX #### [facility] [address] [place] [address] USALDL Cholesterol,Lmbtpytxhd04 mg/dLNormal0-100The [facility] Physician GroupComment on above:Result Comment: LDL ATP III CLASSIFICATION LDL less than 100 mg/dL Optimal LDL 100-129 mg/dL Near or above optimal LDL 130-159 mg/dL Borderline high LDL 160-189 mg/dL High LDL greater than 189 mg/dL Very highPerformed By: #### SCAN CBC, B12, LIPID, CMP, TSH3 wRFLX #### [facility] [address] [place] [address] USATriglyceride w/Deupwr041 mg/dLHigh0-149The [facility] Physician GroupComment on above:Result Comment: TRIG ATP III CLASSIFICATION TRIG less than 150 mg/dL Normal TRIG 150-199 mg/dL Borderline high TRIG 200-500 mg/dL High TRIG greater than 500 mg/dL Very high Standard traceable to the Center for Disease Conrtrol and Prevention (CDC) test method.Performed By: #### SCAN CBC, B12, LIPID, CMP, TSH3 wRFLX #### [facility] [address] [place] [address] USAVLDL ITVODBKYKBY20 mg/dLNoLifeCare Hospitals of North Carolina Physician GroupComment on above:Performed By: #### SCAN CBC, B12, LIPID, CMP, TSH3 wRFLX #### [facility] [address] [place] [address] USALymphocytes Auto (Bld) [#/Vol]Ordered By: Pamela Su on 29-29-6357Hnuzfwvwenp (Bld) [#/Vol]Lymphocytes [#/volume] in Blood by Automated count1.00-4.8[facility] Medical CenterLymphocytes/100 WBC Auto (Bld) Ordered By: Pamela Rosec on 62-04-1663Fovauxhcuyr/100 WBC (Bld)Lymphocytes/100 leukocytes in Blood by Automated count.[facility] CenterH Auto (RBC) [Entitic mass]Ordered By: Pamela Su on 11-89-7794BFA (RBC) [Entitic mass]MCH [Entitic mass] by Automated count24.7-34.3FWooster Community HospitalMCHC Auto (RBC) [Mass/Vol]Ordered By: Pamela Su on 70-90-5078VQKN (RBC) [Mass/Vol]MCHC [Mass/volume] by Automated count32.0-35.0[facility] Medical CenterMCV Auto (RBC) [Entitic vol]Ordered By: Pamela Su on 07-02-2024 MCV (RBC) [Entitic vol]MCV [Entitic volume] by Automated xzkteEnp18-099VdxtbgahsAdena Pike Medical CenterMonocytes Auto (Bld) [#/Vol]Ordered By: Pamela Davontesic on 09-01-5237Htqcaufcz (Bld) [#/Vol]Automated blood monocyte count0.0-0.8[facility] Medical CenterMonocytes/100 WBC Auto (Bld)Ordered By: Pamela Spasic on 05-66-6283Gntvfrexu/100 WBC (Bld)Automated monocyte %.[facility] Medical CenterNeutrophils Auto (Bld) [#/Vol]Ordered By: Pamela Rosec on 07-02-2024 Neutrophils (Bld) [#/Vol]Neutrophils [#/volume] in Blood by Automated count 1.8-7.7FWooster Community HospitalNeutrophils/100 WBC Auto (Bld)Ordered By: Pamela Su on 95-39-3459Czhofvqyxlt/100 WBC (Bld)Automated neutrophil %. [facility] CenterNo Panel InformationOrdered By: Pamela Su on 01-49-8095Hosxpwocs GFR (CKD-EPI)> 60.0 mL/MinAdena Pike Medical Center Pharmacy Creatinine Clearance (ChemN/AFWooster Community HospitalNucleated erythrocytes [Presence] in Blood by Automated countOrdered By: Pamela Su on 05-57-0512Eslubnnzd RBC Auto Ql (Bld)Nucleated erythrocytes [Presence] in Blood by Automated count0-0.5FWooster Community HospitalOvalocytes [Presence] in Blood by Light microscopyOrdered By: Pamela Su on 40-55-1894Pjjpflnwuf LM Ql (Bld)Ovalocyte detectionAdena Pike Medical CenterPlatelet adequacy [Presence] in Blood by Light microscopyOrdered By: Pamela Su on 07-02-2024 Platelets LM Ql (Bld)Platelet adequacy [Presence] in Blood by Light microscopy NormalAdena Pike Medical CenterPlatelet mean volume Auto (Bld) [Entitic vol]Ordered By: Pamela Su on 32-99-5517Aawlkiaz mean volume (Bld) [Entitic vol]Platelet mean volume [Entitic volume] in Blood by Automated count6.3-10.7 [facility] Medical CenterPlatelet morphology finding [Identifier] in BloodOrdered By: Pamela Su on 15-24-0596Ynlajsyx morphology finding Nom (Bld) Platelet morphology finding [Identifier] in BloodNormalAdena Pike Medical CenterPlatelets Auto (Bld) [#/Vol]Ordered By: Pamela Su on 07-02-2024 Platelets (Bld) [#/Vol]Platelets [#/volume] in Blood by Automated -979 [facility] Medical CenterPoikilocytosis [Presence] in Blood by Light microscopyOrdered By: Pamela Su on 30-61-7912Tffhusegxkqdrb LM Ql (Bld) Poikilocytosis [Presence] in Blood by Light microscopyAdena Pike Medical CenterPolychromasia [Presence] in Blood by Light microscopyOrdered By: Pamela Su on 24-54-0552Jgpmskyrxonov LM Ql (Bld)Polychromasia [Presence] in Blood by Light microscopyAdena Pike Medical CenterPotassium [Moles/volume] in Serum or PlasmaOrdered By: Pamela Su on 49-77-0111Lxhsejlya [Moles/Vol] Potassium [Moles/volume] in Serum or Plasma3.5-5.1FWooster Community HospitalProtein [Mass/volume] in Serum or PlasmaOrdered By: Pamela Rose on 54-33-1557Nqueyjp [Mass/Vol]Protein [Mass/volume] in Serum or Plasma6.4-8.9 [facility] Medical CenterRBC Auto (Bld) [#/Vol]Ordered By: Pamela Su on 55-37-1998GDS (Bld) [#/Vol]Erythrocytes [#/volume] in Blood by Automated countHigh3.60-5.00[facility] Centercan and CBCon 07-02-2024 Basophils (Bld) [#/Vol]0.0 10*3/uLNormal0.0-0.2The [facility] Comment on above:Performed By: #### SCAN CBC, B12, LIPID, CMP, TSH3 wRFLX #### [facility] [address] [place] [address] USABasophils/100 WBC (Bld)0.6 %Normal.The [facility] Physician GroupComment on above:Performed By: #### SCAN CBC, B12, LIPID, CMP, TSH3 wRFLX #### [facility] [address] [place] [address] USAEosinophils (Bld) [#/Vol]0.1 10*3/uLNormal0.0-0.45The [facility] Physician GroupComment on above:Performed By: #### SCAN CBC, B12, LIPID, CMP, TSH3 wRFLX #### [facility] [address] [place] [address] USAEosinophils/100 WBC (Bld)2.9 %Normal.The [facility] Physician GroupComment on above:Performed By: #### SCAN CBC, B12, LIPID, CMP, TSH3 wRFLX #### [facility] [address] [place] [address] USAErythrocyte distribution width (RBC) [Ratio]23.2 %High 11.9-15.3The [facility] Physician GroupComment on above:Performed By: #### SCAN CBC, B12, LIPID, CMP, TSH3 wRFLX #### [facility] [address] [place] [address] USAHematocrit (Bld) [Volume fraction]41.8 %Hfbvvl31.0-46.4The [facility] Physician GroupComment on above:Performed By: #### SCAN CBC, B12, LIPID, CMP, TSH3 wRFLX #### [place] [address] USAHemoglobin (Bld) [Mass/Vol]14.5 g/iZSskubi15.8-15.4The [facility] Physician GroupComment on above:Performed By: #### SCAN CBC, B12, LIPID, CMP, TSH3 wRFLX #### [facility] [address] [place] [address] USALymphocytes (Bld) [#/Vol]2.3 10*3/uLNormal1.00-4.8The [facility] Physician GroupComment on above:Performed By: #### SCAN CBC, B12, LIPID, CMP, TSH3 wRFLX #### [facility] [address] [place], [place] [id number] USALymphocytes/100 WBC (Bld)45.7 %Normal.The [facility] Physician GroupComment on above:Performed By: #### SCAN CBC, B12, LIPID, CMP, TSH3 wRFLX #### [facility] [address] [place], [place] [id number] USAMCH (RBC) [Entitic mass]27.0 qdSmqnaa94.7-34.3The [facility] Physician GroupComment on above:Performed By: #### SCAN CBC, B12, LIPID, CMP, TSH3 wRFLX #### [place] [address] USAMCV (RBC) [Entitic vol]78.1 cILjm72-993Qpx [facility] Physician GroupComment on above:Performed By: #### SCAN CBC, B12, LIPID, CMP, TSH3 wRFLX #### [place] [address] USAMean Corpuscular HGB Conc34.6 g/cIRnnazh37.0-35.0The [facility] Physician GroupComment on above:Performed By: #### SCAN CBC, B12, LIPID, CMP, TSH3 wRFLX #### [facility] [address] [place] [address] USAMonocytes (Bld) [#/Vol]0.6 10*3/uLNormal0.0-0.8The [facility] Physician GroupComment on above:Performed By: #### SCAN CBC, B12, LIPID, CMP, TSH3 wRFLX #### [place] [address] USAMonocytes/100 WBC (Bld)11.4 %Normal.The [facility] Physician GroupComment on above:Performed By: #### SCAN CBC, B12, LIPID, CMP, TSH3 wRFLX #### [place] [address] USANeutrophils (Bld) [#/Vol]2.0 10*3/uLNormal1.8-7.7The [facility] Physician GroupComment on above:Performed By: #### SCAN CBC, B12, LIPID, CMP, TSH3 wRFLX #### [facility] [address] [place] [address] USANeutrophils/100 WBC (Bld)39.4 %Normal.The [facility] Physician GroupComment on above:Performed By: #### SCAN CBC, B12, LIPID, CMP, TSH3 wRFLX #### [facility] [address] [place] [address] USANRBC%0.2 /100{WBC}Normal0-0.5The [facility] Comment on above:Performed By: #### SCAN CBC, B12, LIPID, CMP, TSH3 wRFLX #### [place] [address] USAOvalocytesSAtrium Health Kannapolis Physician Ummc Holmes CountyComment on above:Performed By: #### SCAN CBC, B12, LIPID, CMP, TSH3 wRFLX #### [place] [address] USAPlatelet EstimateNormalNormalHCA Florida Largo [facility] Physician Ummc Holmes CountyComment on above:Performed By: #### SCAN CBC, B12, LIPID, CMP, TSH3 wRFLX #### [place] [address] USAPlatelet mean volume (Bld) [Entitic vol]7.8 fLNormal 6.3-10.7The [facility] Physician GroupComment on above:Performed By: #### SCAN CBC, B12, LIPID, CMP, TSH3 wRFLX #### [place] [address] USAPlatelet MorphologyNormalNormAdventHealth New Smyrna Beach Physician GroupComment on above:Result Comment: PERFORMED BY: [place] [address] PATHOLOGIST NONPROFIT FUNDRAISER MAO DUMONT M.D.Performed By: #### SCAN CBC, B12, LIPID, CMP, TSH3 wRFLX #### [place] [address] USAPlatelets (Bld) [#/Vol]267 10*3/qMKkvasu942-718Kmb [facility] Physician GroupComment on above:Performed By: #### SCAN CBC, B12, LIPID, CMP, TSH3 wRFLX #### [place] [id number] USAPoikilocytosisSAtrium Health Kannapolis Physician [facility] [place] Comment on above:Performed By: #### SCAN CBC, B12, LIPID, CMP, TSH3 wRFLX #### [place] [address] USAPolychromasiaSAtrium Health Kannapolis Physician [facility] [place] Comment on above:Performed By: #### SCAN CBC, B12, LIPID, CMP, TSH3 wRFLX #### [facility] [address] [place] [address] USARBC (Bld) [#/Vol]5.35 10*6/uLHigh3.60-5.00The [facility] Physician GroupComment on above:Performed By: #### SCAN CBC, B12, LIPID, CMP, TSH3 wRFLX #### [facility] [address] [place] [address] USAStomatocytesSlightNormalThe [facility] Comment on above:Performed By: #### SCAN CBC, B12, LIPID, CMP, TSH3 wRFLX #### [facility] [address] [place] [address] USAWBC (Bld) [#/Vol]5.1 10*3/uLNormal3.8-11.6The [facility] Physician GroupComment on above:Performed By: #### SCAN CBC, B12, LIPID, CMP, TSH3 wRFLX #### [facility] [address] [place] [id number] USASerum or plasma albumin/globulin mass ratioOrdered By: Pamela Su on 77-89-9766Mjocymr/Globulin [Mass ratio]Serum or plasma albumin/globulin mass ratioUniversity Hospitals Conneaut Medical Centererum or plasma anion gap determinationOrdered By: Pamela Su on 58-60-2980Hvzje gap [Moles/Vol]Serum or plasma anion gap determination6.0-15.0[facility] Hospitals Conneaut Medical Centererum or plasma total cholesterol/high density lipoprotein (HDL) cholesterol mass ratOrdered By: Pamela Su on 07-02-2024 Cholesterol.total/Cholesterol in HDL [Mass ratio]Serum or plasma total cholesterol/high density lipoprotein (HDL) cholesterol mass rat<5.0University Hospitals Conneaut Medical Centerodium [Moles/volume] in Serum or PlasmaOrdered By: Pamela Su on 41-60-6792Ukndfn [Moles/Vol]Sodium [Moles/volume] in Serum or Plasma 136-145University Hospitals Conneaut Medical Centertomatocytes [Presence] in Blood by Light microscopyOrdered By: Pamela Su on 13-58-1537Dahfpfptoysu LM Ql (Bld) Red blood cell stomatocyte detectionAdena Pike Medical CenterThyroid Stim Hormone w/Rflxon 11-13-4439Ietgfcy Stim Hormone w/Rflx3.24 u[iU]/mLNormal 0.45-5.33The [facility] Physician GroupComment on above:Result Comment: PERFORMED BY: [facility] [address] [place] [address] PATHOLOGIST NONPROFIT FUNDRAISER MAO DUMONT M.D.Performed By: #### SCAN CBC, B12, LIPID, CMP, TSH3 wRFLX #### [facility] [address] [place] [address] USAThyrotropin [Units/volume] in Serum or PlasmaOrdered By: Pamela Su on 95-87-2164ILB QnThyrotropin [Units/volume] in Serum or Plasma 0.45-5.33A[facility]ike Medical CenterTriglyceride [Mass/volume] in Serum or PlasmaOrdered By: Pamela Su on 71-95-7985Eusrjmbuxppx [Mass/Vol]Triglyceride [Mass/volume] in Serum or PlasmaHigh0-149[facility] Comment on above:TRIG ATP III CLASSIFICATIONTRIG less than 150 mg/dL NormalTRIG 150-199 mg/dL Borderline highTRIG 200-500 mg/dL High TRIG greater than 500 mg/dL Very highStandard traceable to the Center for Disease Conrtrol and Prevention (CDC) test method.Urea nitrogen [Mass/volume] in Serum or PlasmaOrdered By: Pamela Su on 66-13-6315Bhun nitrogen [Mass/Vol]Urea nitrogen [Mass/volume] in Serum or Plasma7-25A[facility] Pike Medical CenterWBC Auto (Bld) [#/Vol] Ordered By: Pamela Su on 22-57-5001IAI (Bld) [#/Vol]Leukocytes [#/volume] in Blood by Automated count3.8-11.6FWooster Community HospitalAnisocytosis LM Ql (Bld)Ordered By: Юлия Troncoso on 37-73-8236Ittjvyuebhot Ql (Bld) Anisocytosis [Presence] in Blood by Light microscopyAdena Pike Medical CenterAnisocytosis [Presence] in Blood by Light microscopyOrdered By: Юлия Aba on 57-04-9317Qxjctiloprsn Ql (Bld)ModerateNormalAdena Pike Medical CenterComment on above:Performed By: #### SCAN CBC, B12, LIPID, CMP, TSH3 wRFLX #### [facility] [address] [place] [address] USABasophils Auto (Bld) [#/Vol]Ordered By: Юлия Aba on 47-13-5082Fsnaunoiu (Bld) [#/Vol]Automated basophil count0.0-0.2FWooster Community HospitalBasophils [#/volume] in Blood by Automated countOrdered By: Юлия Aba on 93-80-6407Hqaewqlgc (Bld) [#/Vol]0.1 10*3/uLNormal0.0-0.2 [facility] CenterComment on above:Performed By: #### SCAN CBC, B12, LIPID, CMP, TSH3 wRFLX #### [facility] [address] [place] [address] USABasophils/100 WBC Auto (Bld)Ordered By: Юлия Aba on 45-41-4643Vyfjojwpd/100 WBC (Bld)Automated basophil %.[facility] Medical CenterBasophils/100 leukocytes in Blood by Automated countOrdered By: Юлия Aba on 32-22-7079Ekyiuknbg/100 WBC (Bld)1.2 %Normal.[facility] Medical CenterComment on above:Performed By: #### SCAN CBC, B12, LIPID, CMP, TSH3 wRFLX #### [facility] [address] [place] [address] USAEosinophils Auto (Bld) [#/Vol]Ordered By: Юлия Troncoso on 20-25-4751Mhnvizxupdo (Bld) [#/Vol]Automated eosinophil countHigh0.0-0.45 [facility] CenterEosinophils [#/volume] in Blood by Automated countOrdered By: Юлия Troncoso on 23-73-0463Wxxpgvubzdv (Bld) [#/Vol]0.6 10*3/uL High0.0-0.45A[facility]ike Medical CenterComment on above:Performed By: #### SCAN CBC, B12, LIPID, CMP, TSH3 wRFLX #### [facility] [address] [place] [address] USAEosinophils/100 WBC Auto (Bld)Ordered By: Юлия Aba on 77-60-8201Fuzbhhoywec/100 WBC (Bld)Automated eosinophil %.[facility] Medical CenterEosinophils/100 leukocytes in Blood by Automated countOrdered By: Юлия Aba on 19-49-8351Bjyqzlljgjt/100 WBC (Bld)6.1 %Normal.[facility]ike Medical CenterComment on above:Performed By: #### SCAN CBC, B12, LIPID, CMP, TSH3 wRFLX #### [place] [address] USAErythrocyte distribution width Auto (RBC) [Ratio]Ordered By: Юлия Aba on 91-86-6601Lbjlbvloxth distribution width (RBC) [Ratio] Erythrocyte distribution width [Ratio] by Automated fldwxKwsg41.9-15.3FWooster Community HospitalErythrocyte distribution width [Ratio] by Automated count Ordered By: Юлия Aba on 07-71-7782Wxjynllobsx distribution width (RBC) [Ratio]26.9 %High11.9-15.3FWooster Community HospitalComment on above: Performed By: #### SCAN CBC, B12, LIPID, CMP, TSH3 wRFLX #### [facility] [address] [place] [address] USAErythrocyte morphology finding [Identifier] in Blood Ordered By: Юлия Aba on 54-49-7580YMT morphology finding Nom (Bld)RBC morphologyAdena Pike Medical CenterRB morphology finding Nom (Bld)N/A [facility] Medical CenterErythrocytes [#/volume] in Blood by Automated countOrdered By: Юлия Aba on 88-94-7404HHZ (Bld) [#/Vol]5.47 10*6/uLHigh 3.60-5.00A[facility] Medical CenterComment on above:Performed By: #### SCAN CBC, B12, LIPID, CMP, TSH3 wRFLX #### [facility] [address] [place] [address] USAFerritin [Mass/volume] in Serum or PlasmaOrdered By: Юлия Ramirezliz on 13-49-8493Zxdclkyj [Mass/Vol]Ferritin [Mass/volume] in Serum or GqkegmZlcy07.0-306.8A[facility]ike Medical CenterFerritin [Mass/Vol]590.5 ng/pPUflh72.0-306.8[facility] Medical CenterComment on above:Result Comment: PERFORMED BY: [place] [address] PATHOLOGIST NONPROFIT FUNDRAISER MAO DUMONT M.D.Performed By: #### SCAN CBC, B12, LIPID, CMP, TSH3 wRFLX #### [place] [id number] USAHematocrit Auto (Bld) [Volume fraction]Ordered By: Юлия Aba on 21-65-7630Fywyxhgoln (Bld) [Volume fraction]Hematocrit [Volume Fraction] of Blood by Automated count34.0-46.4FWooster Community Hospital Hematocrit [Volume Fraction] of Blood by Automated countOrdered By: Юлия Aba on 59-49-3103Xmrgtrxbhn (Bld) [Volume fraction]41.6 %Znozyi70.0-46.4 [facility] Medical CenterComment on above:Performed By: #### SCAN CBC, B12, LIPID, CMP, TSH3 wRFLX #### [address] [address] USAHemoglobin [Mass/volume] in BloodOrdered By: Юлия Aba on 16-00-7813Pkumvpeiln (Bld) [Mass/Vol]Hemoglobin [Mass/volume] in Blood 11.8-15.4FWooster Community HospitalHemoglobin (Bld) [Mass/Vol]13.7 g/dL Pyhekj46.8-15.4FWooster Community HospitalComment on above:Performed By: #### SCAN CBC, B12, LIPID, CMP, TSH3 wRFLX #### [place] [id number] USAIron [Mass/volume] in Serum or PlasmaOrdered By: Юлия Troncoso on 65-63-7903Ghjd [Mass/Vol]Iron [Mass/volume] in Serum or Qcnqxk74-196 [facility] Medical CenterIron [Mass/Vol]83 ug/lLAwieyw75-259OypbndxsxAdena Pike Medical CenterComment on above:Performed By: #### SCAN CBC, B12, LIPID, CMP, TSH3 wRFLX #### [facility] [address] [place] [address] USAIron and TIBC Profileon 06-02-2024% Iron Qhnerghwww48.0 % Taaydc16-67Guh [facility] Physician GroupComment on above:Performed By: #### SCAN CBC, B12, LIPID, CMP, TSH3 wRFLX #### [facility] [address] [place] [address] USATotal Iron Binding Noaityea530 ug/mOHsjxzs965-729Onq [facility] Physician GroupComment on above:Performed By: #### SCAN CBC, B12, LIPID, CMP, TSH3 wRFLX #### [facility] [address] [place] [id number] USALeukocytes [#/volume] corrected for nucleated erythrocytes in Blood by Automated counOrdered By: Юлия Troncoso on 49-38-4282DVD corrected for nucl RBC Auto (Bld) [#/Vol]Leukocytes [#/volume] corrected for nucleated erythrocytes in Blood by Automated coun3.8-11.6FWooster Community Hospital WBC corrected for nucl RBC Auto (Bld) [#/Vol]10.5 10*3/uL3.8-11.6FWooster Community HospitalLeukocytes [#/volume] in Blood by Automated countOrdered By: Юлия Troncoso on 68-54-4578QUX (Bld) [#/Vol]10.5 10*3/uLNormal3.8-11.6 [facility] Medical CenterComment on above:Performed By: #### SCAN CBC, B12, LIPID, CMP, TSH3 wRFLX #### [facility] [address] [place] [address] USALymphocytes Auto (Bld) [#/Vol]Ordered By: Юлия Aba on 68-27-6270Neftlddndgp (Bld) [#/Vol]Lymphocytes [#/volume] in Blood by Automated count1.00-4.8A[facility]ike Medical CenterLymphocytes [#/volume] in Blood by Automated countOrdered By: Юлия Aba on 73-86-1694Dqgqltqxovk (Bld) [#/Vol]3.2 10*3/uLNormal1.00-4.8[facility] Medical CenterComment on above:Performed By: #### SCAN CBC, B12, LIPID, CMP, TSH3 wRFLX #### [facility] [address] [place] [address] USALymphocytes/100 WBC Auto (Bld)Ordered By: Юлия Aba on 63-13-8600Prpximfeckd/100 WBC (Bld)Lymphocytes/100 leukocytes in Blood by Automated count.[facility] Medical CenterLymphocytes/100 leukocytes in Blood by Automated countOrdered By: Юлия Aba on 37-90-5857Nhvavisnirv/100 WBC (Bld)30.7 %Normal.[facility] Medical CenterComment on above: Performed By: #### SCAN CBC, B12, LIPID, CMP, TSH3 wRFLX #### [facility] [address] [place] [address] [facility] Auto (RBC) [Entitic mass]Ordered By: Юлия Aba on 97-65-0242RTZ (RBC) [Entitic mass]MCH [Entitic mass] by Automated count24.7-34.3 [facility] [Entitic mass] by Automated countOrdered By: Юлия Aba on 39-12-8752TYP (RBC) [Entitic mass]25.1 dcQiicdq51.7-34.3 [facility] CenterComment on above:Performed By: #### SCAN CBC, B12, LIPID, CMP, TSH3 wRFLX #### [facility] [address] [place] [address] [facility] Auto (RBC) [Mass/Vol]Ordered By: Юлия Troncoso on 11-93-7196USNM (RBC) [Mass/Vol]MCHC [Mass/volume] by Automated count32.0-35.0 [facility] CenterHC (RBC) [Mass/Vol]32.9 g/dL32.0-35.0 [facility] CenterMCV Auto (RBC) [Entitic vol]Ordered By: Юлия Troncoso on 28-81-6619FBC (RBC) [Entitic vol]MCV [Entitic volume] by Automated tgymjQta88-956SxqcgwvxbAdena Pike Medical CenterMCV [Entitic volume] by Automated countOrdered By: Юлия Troncoso on 23-96-6626EHR (RBC) [Entitic vol]76.1 fLLow 80-100A[facility] Medical CenterComment on above:Performed By: #### SCAN CBC, B12, LIPID, CMP, TSH3 wRFLX #### [facility] [address] [place] [address] USAMicrocytes LM Ql (Bld)Ordered By: Юлия Troncoso on 57-50-1223Fqgnibfpzu Ql (Bld)Microcytes [Presence] in Blood by Light microscopy [facility] Medical CenterMicrocytes Ql (Bld)ModerateAdena Pike Medical CenterMonocytes Auto (Bld) [#/Vol]Ordered By: Юлия Troncoso on 87-96-1693Ztomuianj (Bld) [#/Vol]Automated blood monocyte count0.0-0.8[facility] Medical CenterMonocytes [#/volume] in Blood by Automated countOrdered By: Юлия Troncoso on 39-30-2428Filadznhn (Bld) [#/Vol]0.7 10*3/uLNormal0.0-0.8 [facility] CenterComment on above:Performed By: #### SCAN CBC, B12, LIPID, CMP, TSH3 wRFLX #### [facility] [address] [place] [address] USAMonocytes/100 WBC Auto (Bld)Ordered By: Юлия Troncoso on 63-18-4448Yshkzqohv/100 WBC (Bld)Automated monocyte %.[facility] Medical CenterMonocytes/100 leukocytes in Blood by Automated countOrdered By: Юлия Troncoso on 96-25-4067Bxllfnezy/100 WBC (Bld)6.7 %Normal.[facility] Medical CenterComment on above:Performed By: #### SCAN CBC, B12, LIPID, CMP, TSH3 wRFLX #### [facility] [address] [place] [id number] USANeutrophils Auto (Bld) [#/Vol]Ordered By: Юлия Aba on 81-42-2638Rspcogxfyyh (Bld) [#/Vol]Neutrophils [#/volume] in Blood by Automated count1.8-7.7FWooster Community HospitalNeutrophils [#/volume] in Blood by Automated countOrdered By: Юлия Aba on 53-04-2211Xtpweczghnx (Bld) [#/Vol] 5.8 10*3/uLNormal1.8-7.7FWooster Community HospitalComment on above: Performed By: #### SCAN CBC, B12, LIPID, CMP, TSH3 wRFLX #### [facility] [address] [place] [id number] USANeutrophils/100 WBC Auto (Bld)Ordered By: Юлия Troncoso on 55-90-8985Durqcirgmjs/100 WBC (Bld)Automated neutrophil %.[facility] Medical CenterNeutrophils/100 leukocytes in Blood by Automated countOrdered By: Юлия Aba on 45-41-2557Nxawbxfnmoz/100 WBC (Bld)55.3 %Normal.[facility] Medical CenterComment on above:Performed By: #### SCAN CBC, B12, LIPID, CMP, TSH3 wRFLX #### [facility] [address] [place] [id number] USANucleated erythrocytes [Presence] in Blood by Automated countOrdered By: Юлия Troncoso on 99-76-6014Nkrbmbtug RBC Auto Ql (Bld)Nucleated erythrocytes [Presence] in Blood by Automated count0-0.5FWooster Community HospitalNucleated RBC Auto Ql (Bld)0.1 /100{WBC}0-0.5FWooster Community HospitalOvalocytes [Presence] in Blood by Light microscopyOrdered By: Юлия Troncoso on 47-75-7465Ldrtrovbaw LM Ql (Bld)Ovalocyte detectionFirelands Regional Medical CenterOvalocytes LM Ql (Bld)SlightAdena Pike Medical CenterPlatelet adequacy [Presence] in Blood by Light microscopyOrdered By: Юлия Troncoso on 39-23-5060Fuzwqxzvo LM Ql (Bld)Platelet adequacy [Presence] in Blood by Light microscopyNoRegency Hospital Cleveland WestPlatelets LM Ql (Bld) NormalNoRegency Hospital Cleveland WestPlatelet mean volume Auto (Bld) [Entitic vol]Ordered By: Юлия Troncoso on 31-86-8835Efacasjd mean volume (Bld) [Entitic vol]Platelet mean volume [Entitic volume] in Blood by Automated count 6.3-10.7FWooster Community HospitalPlatelet mean volume [Entitic volume] in Blood by Automated countOrdered By: Юлия Troncoso on 81-27-8406Mmygjgje mean volume (Bld) [Entitic vol]7.8 fLNormal6.3-10.7FWooster Community Hospital Comment on above:Performed By: #### SCAN CBC, B12, LIPID, CMP, TSH3 wRFLX #### [facility] [address] [place] [address] USAPlatelet morphology finding [Identifier] in BloodOrdered By: Юлия Troncoso on 43-30-9164Chohlftw morphology finding Nom (Bld)Platelet morphology finding [Identifier] in BloodNoRegency Hospital Cleveland West Platelet morphology finding Nom (Bld)NormalNoRegency Hospital Cleveland WestPlatelets Auto (Bld) [#/Vol]Ordered By: Юлия Troncoso on 06-02-2024 Platelets (Bld) [#/Vol]Platelets [#/volume] in Blood by Automated oxvnp499-420 [facility] Medical CenterPlatelets [#/volume] in Blood by Automated countOrdered By: Юлия Troncoso on 17-31-0970Mzvlfpsee (Bld) [#/Vol]332 10*3/uL Ihqbje516-178Xsivsyrdv19 Horn StreetComment on above:Performed By: #### SCAN CBC, B12, LIPID, CMP, TSH3 wRFLX #### [facility] [address] [place] [id number] USAPolychromasia [Presence] in Blood by Light microscopy Ordered By: Юлия Troncoso on 89-08-8310Yleukhfimwuuc LM Ql (Bld)Polychromasia [Presence] in Blood by Light microscopyAdena Pike Medical Center Polychromasia LM Ql (Bld)SlightAdena Pike Medical CenterRBC Auto (Bld) [#/Vol]Ordered By: Юлия Ramirezliz on 78-10-2128USG (Bld) [#/Vol]Erythrocytes [#/volume] in Blood by Automated countHigh3.60-5.00[facility] Medical Centercan and CBCon 45-48-0739Wkea Corpuscular HGB Conc32.9 g/nZAldgdm63.0-35.0 [facility] Physician GroupComment on above:Performed By: #### SCAN CBC, B12, LIPID, CMP, TSH3 wRFLX #### [place] [address] USAMicrocytosisModerateNormJackson South Medical Center Physician Group Comment on above:Performed By: #### SCAN CBC, B12, LIPID, CMP, TSH3 wRFLX #### [facility] [address] [place] [address] USANRBC%0.1 /100{WBC}Normal0-0.5[facility] Comment on above:Performed By: #### SCAN CBC, B12, LIPID, CMP, TSH3 wRFLX #### [place] [address] USAOvalocytesSlightNoLifeCare Hospitals of North Carolina Physician GroupComment on above:Performed By: #### SCAN CBC, B12, LIPID, CMP, TSH3 wRFLX #### [facility] [address] [place] [address] USAPlatelet EstimateNormalNormalNormJackson South Medical Center Physician GroupComment on above:Performed By: #### SCAN CBC, B12, LIPID, CMP, TSH3 wRFLX #### [place] [id number] USAPlatelet MorphologyNormalNormalNormJackson South Medical Center Physician GroupComment on above:Result Comment: PERFORMED BY: [place] [id number] PATHOLOGIST NONPROFIT FUNDRAISER MAO DUMONT M.D.Performed By: #### SCAN CBC, B12, LIPID, CMP, TSH3 wRFLX #### [facility] [address] [place] [id number] USAPolychromasiaSAtrium Health Kannapolis Physician Group Comment on above:Performed By: #### SCAN CBC, B12, LIPID, CMP, TSH3 wRFLX #### [facility] [address] [place] [id number] USASerum or plasma iron binding capacity measurement (mass/volume)Ordered By: Юлия Troncoos on 59-57-8518Azvl binding capacity [Mass/Vol]Iron binding capacity [Mass/volume] in Serum or Qliujx631-047Wfmokounk19 Horn StreetIron binding capacity [Mass/Vol]377 ug/eK365-97262 Smith Streeterum or plasma iron saturation measurement (mass fraction)Ordered By: Юлия Troncoso on 40-31-7928Iykv saturation [Mass fraction]Iron saturation [Mass Fraction] in Serum or Tawxhq61-28BzvapsqpsAdena Pike Medical CenterIron saturation [Mass fraction]22.0 %20-50A[facility] Medical CenterTransferrin [Mass/volume] in Serum or PlasmaOrdered By: Юлия Troncoso on 12-91-0312Smpnbznagju [Mass/Vol]Transferrin [Mass/volume] in Serum or Kkzdjh792-123CkhzcnqrjAdena Pike Medical CenterTransferrin [Mass/Vol]269 mg/oFGkqjaw149-215Emfjqaodf23 Guzman StreetComment on above:Performed By: #### SCAN CBC, B12, LIPID, CMP, TSH3 wRFLX #### [facility] [address] [place] [id number] USAWBC Auto (Bld) [#/Vol]Ordered By: Юлия Troncoso on 47-23-1133YVD (Bld) [#/Vol]Leukocytes [#/volume] in Blood by Automated count 3.8-11.6FWooster Community HospitalAuditory function testson 05-29-2024 Right Ear: Normal hearing Left Ear: Mild hearing loss from 250 Hz - 500 Hz rising to normal thresholds from 1K Hz - 2K Hz. Moderate rising to mild conductive hearing loss above 3K Hz [facility] HospitalB FRAC PROFILEon 08-16-3930PVFDLPAIIB A97.9 % 96.4 - 98.8 %[facility]HealthHEMOGLOBIN A22.1 %1.8 - 3.2 %[facility] HEMOGLOBIN F0 %0.0 - 2.0 %[facility]HealthHemoglobin S Ql (Bld)0 %0.0[facility] CenterB FRAC INTERPRETATIONComment.CoxHealthComment on above:Normal hemoglobin present; no hemoglobin variant or beta thalassemia identified. Note: Alpha thalassemia may not be detected by the Hgb Fractionation [place] panel. If alpha thalassemia is suspected, [facility] offers Alpha-Thalassemia DNA Analysis (#[id number]). Performed at: [address] [id number] Automation Clerk: Cuong Sarabia PhD, Phone: [phone] CoxHealthAlanine aminotransferase [Enzymatic activity/volume] in Serum or PlasmaOrdered By: Юлия Troncoso on 22-54-8304CRI [Catalytic activity/Vol]Alanine aminotransferase [Enzymatic activity/volume] in Serum or Plasma7Adena Pike Medical CenterALT [Catalytic activity/Vol]26 U/LNormal717 Knox StreetComment on above:Performed By: #### SCAN CBC, B12, LIPID, CMP, TSH3 wRFLX #### [place] [address] USAAlbumin [Mass/volume] in Serum or Plasma by Bromocresol green (BCG) dye binding methoOrdered By: Юлия Troncoso on 92-29-6911Zckzsfh BCG dye [Mass/Vol]Albumin [Mass/volume] in Serum or Plasma by Bromocresol green (BCG) dye binding metho3.5-5.7FWooster Community HospitalAlbumin BCG dye [Mass/Vol]4.6 g/dL3.5-5.7FWooster Community HospitalAlkaline phosphatase [Enzymatic activity/volume] in Serum or PlasmaOrdered By: Юлия Troncoso on 45-33-3945KTE [Catalytic activity/Vol]Alkaline phosphatase [Enzymatic activity/volume] in Serum or Levgov52-448JikpiodwiAdena Pike Medical CenterALP [Catalytic activity/Vol]48 U/CImlggr37-672YrlhrzxixAdena Pike Medical Center Comment on above:Performed By: #### SCAN CBC, B12, LIPID, CMP, TSH3 wRFLX #### [facility] [address] [id number] USAAspartate aminotransferase [Enzymatic activity/volume] in Serum or PlasmaOrdered By: Юиля Troncoso on 87-64-1036AUL [Catalytic activity/Vol]Aspartate aminotransferase [Enzymatic activity/volume] in Serum or Sgohvs92-89UulsbmoxdAdena Pike Medical CenterAST [Catalytic activity/Vol]18 U/L Aywudb91-74IoxwjuizoAdena Pike Medical CenterComment on above:Performed By: #### SCAN CBC, B12, LIPID, CMP, TSH3 wRFLX #### [facility] [address] [id number] USABilirubin.total [Mass/volume] in Serum or PlasmaOrdered By: Юлия Troncoso on 34-34-9193Xyawqhdya [Mass/Vol]Bilirubin.total [Mass/volume] in Serum or Plasma0.3-1.0A[facility] Pike Medical CenterBilirubin [Mass/Vol] 0.3 mg/dLNormal0.3-1.0A[facility]ike Medical CenterComment on above: Performed By: #### SCAN CBC, B12, LIPID, CMP, TSH3 wRFLX #### [facility] [address] [id number] USABlood hemoglobin A2/total hemoglobin by chromatography column (mass fraction)Ordered By: Юлия Troncoso on 25-75-4421Jnvwmoblhf A2 Chromatography column (Bld) [Mass fraction]Blood hemoglobin A2/total hemoglobin by chromatography column (mass fraction)1.8-3.2FWooster Community Hospital Hemoglobin A2 Chromatography column (Bld) [Mass fraction]2.1 %1.8-3.2FWooster Community HospitalBlood hemoglobin F/total hemoglobin ratio (mass fraction) Ordered By: Юлия Troncoso on 42-67-5121Rzhhhbqhfe F (Bld) [Mass fraction]Blood hemoglobin F/total hemoglobin0.0-2.0A[facility] Pike Medical CenterHemoglobin F (Bld) [Mass fraction]0.0 %0.0-2.0A[facility]ike Medical CenterBlood hemoglobin pattern interpretationOrdered By: Юлия Troncoso on 04-14-2024 Hemoglobin pattern (Bld) [Interp]Blood hemoglobin pattern interpretation. [facility] Pike Medical CenterComment on above:Normal hemoglobin present; no hemoglobin variant or betathalassemia identified.Note: Alpha thalassemia may not be detected by the Hgb[facility]ractionation [place] panel. If alpha thalassemia issuspected, [employer] offers Alpha-Thalassemia DNA Analysis(#[id number]).Performed at: Elig[address] [id number] Director: Cuong Sarabia PhD, Phone: [phone] pattern (Bld) [Interp]Comment .A[facility] Pike Medical CenterComment on above:Normal hemoglobin present; no hemoglobin variant or betathalassemia identified.Note: Alpha thalassemia may not be detected by the HgbFractionation [place] panel. If alpha thalassemia issuspected, [employer] offers Alpha-Thalassemia DNA Analysis(#[id number]).Performed at: [address]lig[address] [id number] Director: Cuong Sarabia PhD, Phone: [phone] [Mass/volume] in Serum or Plasma Ordered By: Юлия Troncoso on 19-38-2023Nqywmzv [Mass/Vol]Calcium [Mass/volume] in Serum or Plasma8.6-10.3FWooster Community HospitalCalcium [Mass/Vol]9.7 mg/dLNormal8.6-10.3FWooster Community HospitalComment on above:Performed By: #### SCAN CBC, B12, LIPID, CMP, TSH3 wRFLX #### [address] StreetCarbon dioxide, total [Moles/volume] in Serum or Plasma Ordered By: Юлия Troncoso on 99-82-9770JL4 [Moles/Vol]Carbon dioxide, total [Moles/volume] in Serum or Dqwzvy47.0-31.0A[facility]ike Medical CenterCO2 [Moles/Vol]28.4 mmol/BUqiggp81.0-31.0A[facility]ike Medical CenterComment on above:Performed By: #### SCAN CBC, B12, LIPID, CMP, TSH3 wRFLX #### [facility] [address] [place] [address] USAChloride [Moles/volume] in Serum or PlasmaOrdered By: Юлия Troncoso on 06-49-6054Pklyrxuv [Moles/Vol]Chloride [Moles/volume] in Serum or Okljll69-913XhncybtyzAdena Pike Medical CenterChloride [Moles/Vol]102 mmol/L Azrbgm83-755QneuhwqtkAdena Pike Medical CenterComment on above:Performed By: #### SCAN CBC, B12, LIPID, CMP, TSH3 wRFLX #### [facility] [address] [id number] USAComprehensive Metabolic Panelon 90-33-9158Fvnrjpq [Mass/Vol]4.6 g/dLNormal3.5-5.7ThSt. Joseph Regional Medical Center Physician GroupComment on above: Performed By: #### SCAN CBC, B12, LIPID, CMP, TSH3 wRFLX #### [facility] [address] [place] [address] USACreatinine Clr Calc Uispijyu675.68NormJackson South Medical Center Physician GroupComment on above:Performed By: #### SCAN CBC, B12, LIPID, CMP, TSH3 wRFLX #### [place] [id number] USAGFR/1.73 sq M.predicted MDRD (S/P/Bld) [Vol rate/Area] mL/min/{1.73_m2}NormalThe [facility] Physician GroupComment on above:Performed By: #### SCAN CBC, B12, LIPID, CMP, TSH3 wRFLX #### [facility] [address] [place], [place] [address] USACreatinine [Mass/volume] in Serum or PlasmaOrdered By: Юлия Troncoso on 64-60-4061Awogkfpctt [Mass/Vol]Creatinine [Mass/volume] in Serum or PlasmaLow0.60-1.20A[facility] Medical CenterCreatinine [Mass/Vol]0.55 mg/dLLow0.60-1.20[facility] Medical CenterComment on above:Performed By: #### SCAN CBC, B12, LIPID, CMP, TSH3 wRFLX #### [facility] [address] [place] [address] USAFerritinon 43-51-6621Xnosgmri [Mass/Vol]11.9 ng/mLNormal 11.0-306.8The [facility] Physician GroupComment on above:Performed By: #### SCAN CBC, B12, LIPID, CMP, TSH3 wRFLX #### [facility] [address] [id number] USAFolateon 25-82-6733Fyhcgi28.4 ng/mLNormal>5.9The [facility] Physician [facility] Holmes CountyComment on above:Result Comment: Folate reference range: >5.9 ng/ml The WHO technical consultation on folate and vitamin b12 deficiencies has determined that folate concentrations less than 4 ng/ml are considered deficient. PERFORMED BY: [place] [id number] PATHOLOGIST NONPROFIT FUNDRAISER MAO DUMONT M.D.Performed By: #### SCAN CBC, B12, LIPID, CMP, TSH3 wRFLX #### [facility] [address] [id number] USAFolate [Mass/volume] in Serum or PlasmaOrdered By: Юлия Troncoso on 49-04-1702Ilgxhj [Mass/Vol]Folate [Mass/volume] in Serum or Plasma >5.9A[facility] Pike Medical CenterComment on above:Folate reference range: >5.9 ng/mlThe WHO technical consultation on folate and vitamin b21mpqncltfnoxf has determined that folate concentrations lessthan 4 ng/ml are considered deficient.Folate [Mass/Vol]15.4 ng/mL>5.9[facility] Comment on above:Folate reference range: >5.9 ng/mlThe WHO technical consultation on folate and vitamin r88zhzsnbjxqior has determined that folate concentrations lessthan 4 ng/ml are considered deficient.Globulin Calc (S) [Mass/Vol]Ordered By: Юлия Troncoso on 57-69-5664Rtulccma (S) [Mass/Vol]Serum globulin measurement by calculation (mass/volume)A[facility] Pike Medical CenterGlucose [Mass/volume] in Serum or PlasmaOrdered By: Юлия Troncoso on 06-19-6772Uybyjcy [Mass/Vol]Glucose [Mass/volume] in Serum or YnvodxPwdt71-809 [facility] Medical CenterComment on above:ADA recommended reference rangeRandom Glucose Reference Range is dependent on time and content of last meal. Glucose of more than 200 mg/dL in a nonstressed, ambulatory subject supports the diagnosisof Diabetes Mellitus.Glucose [Mass/Vol]147 mg/nVIwav25-550 [facility] Medical CenterComment on above:ADA recommended reference rangeRandom Glucose Reference Range is dependent on time and content of last meal. Glucose of more than 200 mg/dL in a nonstressed, ambulatory subject supports the diagnosisof Diabetes Mellitus.Result Comment: Random Glucose Reference Range is dependent on time and content of last meal. Glucose of more than 200 mg/dL in a nonstressed, ambulatory subject supports the diagnosis of Diabetes Mellitus. ADA recommended reference rangePerformed By: #### SCAN CBC, B12, LIPID, CMP, TSH3 wRFLX #### [place] [address] USAHGB Frac Profileon 05-69-5050Wtmoawfwlw A22.1 %Normal 1.8-3.2The [facility] Physician GroupComment on above:Performed By: #### SCAN CBC, B12, LIPID, CMP, TSH3 wRFLX #### [place] [address] USAHemoglobin F0.0 %Normal0.0-2.0The [facility] Physician GroupComment on above:Performed By: #### SCAN CBC, B12, LIPID, CMP, TSH3 wRFLX #### [place] [id number] USAHemoglobin S Ql (Bld)0.0 %Normal0.0The [facility] Physician GroupComment on above:Performed By: #### SCAN CBC, B12, LIPID, CMP, TSH3 wRFLX #### [place] [address] USAHgb Frac InterpretationCommentNormal.The [facility] Physician GroupComment on above:Result Comment: Normal hemoglobin present; no hemoglobin variant or beta thalassemia identified. Note: Alpha thalassemia may not be detected by the Hgb [facility]ractionation [place] panel. If alpha thalassemia is suspected, [facility] offers Alpha-Thalassemia DNA Analysis (#[id number]). Performed at: - [facility], [place], [place] [id number] Automation Clerk: Cuong Sarabia PhD, Phone: [phone] PERFORMED BY: [place] [address] PATHOLOGIST NONPROFIT FUNDRAISER MAO DUMONT M.D.Performed By: #### SCAN CBC, B12, LIPID, CMP, TSH3 wRFLX #### [place] [id number] USAHemoglobin A measurementOrdered By: Юлия Troncoso on 36-15-1672Eeknmofgep A97.9 %Oieddk12.4-98.8[facility] Comment on above:Performed By: #### SCAN CBC, B12, LIPID, CMP, TSH3 wRFLX #### [place] [address] USAHemoglobin A sfzcfkqcata51.9 %96.4-98.8A[facility]ike Medical CenterHemoglobin S measurementOrdered By: Юлия Troncoso on 04-14-2024 Hemoglobin S (Bld) [Mass fraction]Hemoglobin S measurement0.0A[facility] Medical CenterHemoglobin S (Bld) [Mass fraction]0.0 %0.0A[facility] Medical CenterHypochromia LM Ql (Bld)Ordered By: Юлия Troncoso on 04-14-2024 Hypochromia Ql (Bld)Hypochromia [Presence] in Blood by Light microscopyAdena Pike Medical CenterHypochromia Ql (Bld)SlightAdena Pike Medical CenterIron and TIBC Profileon 04-14-2024% Iron Saturation4.5 %Xlf80-02Ooa [facility] Physician GroupComment on above:Performed By: #### SCAN CBC, B12, LIPID, CMP, TSH3 wRFLX #### [place] [id number] USAIron [Mass/Vol]25 ug/xZPhk63-422Ovt [facility] Physician GroupComment on above:Performed By: #### SCAN CBC, B12, LIPID, CMP, TSH3 wRFLX #### [facility] [address] [place] [address] USATotal Iron Binding Zjtvtudd636 ug/cQQved187-391Vxu [facility] Physician GroupComment on above:Performed By: #### SCAN CBC, B12, LIPID, CMP, TSH3 wRFLX #### [facility] [address] [place] [address] USATransferrin [Mass/Vol]401 mg/uPMfia309-594Isr [facility] Physician GroupComment on above:Performed By: #### SCAN CBC, B12, LIPID, CMP, TSH3 wRFLX #### [facility] [address] [place] [address] USANo Panel InformationOrdered By: Юлия Troncoso on 28-40-9790CDI CommentSee commentAdena Pike Medical CenterComment on above:There is microcytic anemia of uncertain etiology. Correlation with serum ferritin and iron studies is recommended to evaluate for iron deficiency. If iron studies are normal, consider thalassemia.Estimated GFR (CKD-EPI)> 60.0 mL/MinAdena Pike Medical CenterPharmacy Creatinine Clearance (Auia863.68 [facility] Medical CenterPotassium [Moles/volume] in Serum or Plasma Ordered By: Юлия Troncoso on 37-72-6602Twztwwjmp [Moles/Vol]Potassium [Moles/volume] in Serum or Plasma3.5-5.1FWooster Community Hospital Potassium [Moles/Vol]4.3 mmol/LNormal3.5-5.1FWooster Community Hospital Comment on above:Performed By: #### SCAN CBC, B12, LIPID, CMP, TSH3 wRFLX #### [facility] [address] [place] [address] USAProtein [Mass/volume] in Serum or PlasmaOrdered By: Юлия Troncoso on 99-56-1631Cuuzcce [Mass/Vol]Protein [Mass/volume] in Serum or Plasma 6.4-8.9A[facility] Medical CenterProtein [Mass/Vol]7.7 g/dLNormal6.4-8.9 [facility] CenterComment on above:Performed By: #### SCAN CBC, B12, LIPID, CMP, TSH3 wRFLX #### [place] [address] USAScan and CBCon 00-93-6782Ursvmodtzx CommentsHCA Florida [facility]argo Hospital Physician GroupComment on above:Result Comment: There is microcytic anemia of uncertain etiology. Correlation with serum ferritin and iron studies is recommended to evaluate for iron deficiency. If iron studies are normal, consider thalassemia. PERFORMED BY: [place] [address] PATHOLOGIST NONPROFIT FUNDRAISER MAO DUMONT M.D.Performed By: #### SCAN CBC, B12, LIPID, CMP, TSH3 wRFLX #### [place] [address] USAAnisocytosis Ql (Bld)ModerateNoLifeCare Hospitals of North Carolina Physician GroupComment on above:Performed By: #### SCAN CBC, B12, LIPID, CMP, TSH3 wRFLX #### [place] [address] USABasophils (Bld) [#/Vol]0.1 10*3/uLNormal0.0-0.2The [facility] Physician GroupComment on above:Performed By: #### SCAN CBC, B12, LIPID, CMP, TSH3 wRFLX #### [place] [address] USABasophils/100 WBC (Bld)1.0 %Normal.The [facility] Physician GroupComment on above:Performed By: #### SCAN CBC, B12, LIPID, CMP, TSH3 wRFLX #### [place] [address] USAEosinophils (Bld) [#/Vol]0.3 10*3/uLNormal0.0-0.45The [facility] Physician GroupComment on above:Performed By: #### SCAN CBC, B12, LIPID, CMP, TSH3 wRFLX #### [place] [address] USAEosinophils/100 WBC (Bld)2.9 %Normal.The [facility] Physician GroupComment on above:Performed By: #### SCAN CBC, B12, LIPID, CMP, TSH3 wRFLX #### [facility] [address] [place] [address] USAErythrocyte distribution width (RBC) [Ratio]17.1 %High 11.9-15.3The [facility] Physician GroupComment on above:Performed By: #### SCAN CBC, B12, LIPID, CMP, TSH3 wRFLX #### [place] [address] USAHematocrit (Bld) [Volume fraction]36.8 %Oncemb72.0-46.4The [facility] Physician GroupComment on above:Performed By: #### SCAN CBC, B12, LIPID, CMP, TSH3 wRFLX #### [place] [address] USAHemoglobin (Bld) [Mass/Vol]11.7 g/dLLow11.8-15.4The [facility] Physician GroupComment on above:Performed By: #### SCAN CBC, B12, LIPID, CMP, TSH3 wRFLX #### [place] [address] USAHypochromasiaSlightNormalThe [facility] Physician Group Comment on above:Performed By: #### SCAN CBC, B12, LIPID, CMP, TSH3 wRFLX #### [place] [address] USALymphocytes (Bld) [#/Vol]3.3 10*3/uLNormal1.00-4.8The [facility] Physician GroupComment on above:Performed By: #### SCAN CBC, B12, LIPID, CMP, TSH3 wRFLX #### [place] [address] USALymphocytes/100 WBC (Bld)31.8 %Normal.The [facility] Physician GroupComment on above:Performed By: #### SCAN CBC, B12, LIPID, CMP, TSH3 wRFLX #### [place] [address] USAMCH (RBC) [Entitic mass]21.0 pgLow24.7-34.3The [facility] Physician GroupComment on above:Performed By: #### SCAN CBC, B12, LIPID, CMP, TSH3 wRFLX #### [place] [address] USAMCV (RBC) [Entitic vol]66.2 qJEgu90-062Tit [facility] Physician GroupComment on above:Performed By: #### SCAN CBC, B12, LIPID, CMP, TSH3 wRFLX #### [place] [address] USAMean Corpuscular HGB Conc31.7 g/dLLow32.0-35.0The [facility] Physician GroupComment on above:Performed By: #### SCAN CBC, B12, LIPID, CMP, TSH3 wRFLX #### [place] [address] USAMicrocytosisModerateNormalThe [facility] Physician Group Comment on above:Performed By: #### SCAN CBC, B12, LIPID, CMP, TSH3 wRFLX #### [place] [address] USAMonocytes (Bld) [#/Vol]0.7 10*3/uLNormal0.0-0.8The [facility] Physician GroupComment on above:Performed By: #### SCAN CBC, B12, LIPID, CMP, TSH3 wRFLX #### [place] [address] USAMonocytes/100 WBC (Bld)7.1 %Normal.The [facility] Physician GroupComment on above:Performed By: #### SCAN CBC, B12, LIPID, CMP, TSH3 wRFLX #### [place] [address] USANeutrophils (Bld) [#/Vol]6.0 10*3/uLNormal1.8-7.7The [facility] Physician GroupComment on above:Performed By: #### SCAN CBC, B12, LIPID, CMP, TSH3 wRFLX #### [place] [address] USANeutrophils/100 WBC (Bld)57.2 %Normal.The [facility] Physician GroupComment on above:Performed By: #### SCAN CBC, B12, LIPID, CMP, TSH3 wRFLX #### [facility] [address] [place] [address] USANRBC%0.1 /100{WBC}Normal0-0.5The [facility] Physician Group Comment on above:Performed By: #### SCAN CBC, B12, LIPID, CMP, TSH3 wRFLX #### [place] [address] USAOvalocytesSlightHCA Florida Largo Hospital Physician GroupComment on above:Performed By: #### SCAN CBC, B12, LIPID, CMP, TSH3 wRFLX #### [place] [address] USAPlatelet EstimateIncreasedNormAdventHealth New Smyrna Beach Physician GroupComment on above:Performed By: #### SCAN CBC, B12, LIPID, CMP, TSH3 wRFLX #### [place] [address] USAPlatelet mean volume (Bld) [Entitic vol]7.2 fLNormal 6.3-10.7The [facility] Physician GroupComment on above:Performed By: #### SCAN CBC, B12, LIPID, CMP, TSH3 wRFLX #### [place] [address] USAPlatelet MorphologyNormalNoDelray Medical Center Physician GroupComment on above:Performed By: #### SCAN CBC, B12, LIPID, CMP, TSH3 wRFLX #### [place] [address] USAPlatelets (Bld) [#/Vol]459 10*3/fQOyjs886-954Txd [facility] Physician GroupComment on above:Performed By: #### SCAN CBC, B12, LIPID, CMP, TSH3 wRFLX #### [place] [address] USARBC (Bld) [#/Vol]5.56 10*6/uLHigh3.60-5.00The [facility] Physician GroupComment on above:Performed By: #### SCAN CBC, B12, LIPID, CMP, TSH3 wRFLX #### [facility] [address] [place] [address] USAWBC (Bld) [#/Vol]10.5 10*3/uLNormal3.8-11.6The [facility] Physician GroupComment on above:Performed By: #### SCAN CBC, B12, LIPID, CMP, TSH3 wRFLX #### [facility] [address] [place] [address] USASerum globulin measurement by calculation (mass/volume) Ordered By: Юлия Troncoso on 05-95-2614Jenfghvk (S) [Mass/Vol]3.1 g/dLNormal [facility] CenterComment on above:Performed By: #### SCAN CBC, B12, LIPID, CMP, TSH3 wRFLX #### [place] [address] USASerum or plasma albumin/globulin mass ratioOrdered By: Юлия Troncoso on 24-72-7379Vaagdwl/Globulin [Mass ratio]Serum or plasma albumin/globulin mass ratioAdena Pike Medical CenterAlbumin/Globulin [Mass ratio]1.5 {ratio}NormalAdena Pike Medical CenterComment on above: Performed By: #### SCAN CBC, B12, LIPID, CMP, TSH3 wRFLX #### [place] [address] USASerum or plasma anion gap determinationOrdered By: Юлия Troncoso on 99-59-3043Whlxi gap [Moles/Vol]Serum or plasma anion gap determination6.0-15.0A[facility] Medical CenterAnion gap [Moles/Vol]11.9 mmol/LNormal6.0-15.0[facility] Medical CenterComment on above:Performed By: #### SCAN CBC, B12, LIPID, CMP, TSH3 wRFLX #### [place] [address] USASodium [Moles/volume] in Serum or PlasmaOrdered By: Юлия Troncoso on 95-36-7581Xhdyhz [Moles/Vol]Sodium [Moles/volume] in Serum or Plasma 136-145[facility] Medical Centerodium [Moles/Vol]138 mmol/LNormal 136-145A[facility] Medical CenterComment on above:Performed By: #### SCAN CBC, B12, LIPID, CMP, TSH3 wRFLX #### [facility] [address] [place] [id number] USAUrea nitrogen [Mass/volume] in Serum or PlasmaOrdered By: Юлия Troncoso on 76-98-5264Wvlo nitrogen [Mass/Vol]Urea nitrogen [Mass/volume] in Serum or Plasma12-04A[facility]ike Medical CenterUrea nitrogen [Mass/Vol] 11 mg/dLNormal12-04A[facility] Medical CenterComment on above:Performed By: #### SCAN CBC, B12, LIPID, CMP, TSH3 wRFLX #### [facility] [address] [place] [id number] USAAlanine aminotransferase [Enzymatic activity/volume] in Serum or PlasmaOrdered By: Pamela Su on 65-48-4546RYA [Catalytic activity/Vol]29 U/LNormal7-[facility] Medical CenterComment on above: Order Comment: Reason for Exam Type 2 diabetes mellitus without complication, without long-Performed By: #### SCAN CBC, B12, LIPID, CMP, TSH3 wRFLX #### [facility] [address] [place] [id number] USAAlbumin [Mass/volume] in Serum or Plasma by Bromocresol green (BCG) dye binding methoOrdered By: Pamela Su on 28-84-3327Dwnnhaz BCG dye [Mass/Vol]4.6 g/dL3.5-5.7FWooster Community HospitalAlkaline phosphatase [Enzymatic activity/volume] in Serum or PlasmaOrdered By: Pamela Su on 17-97-1351BFR [Catalytic activity/Vol]46 U/TTiupej05-500AjcccuxhkAdena Pike Medical CenterComment on above:Order Comment: Reason for Exam Type 2 diabetes mellitus without complication, without long-Performed By: #### SCAN CBC, B12, LIPID, CMP, TSH3 wRFLX #### [facility] [address] [place] [address] USAAnisocytosis [Presence] in Blood by Light microscopy Ordered By: Pamela Su on 34-47-5772Vfvewkadrqfp Ql (Bld)MarkedNormalAdena Pike Medical CenterComment on above:Order Comment: Reason for Exam Type 2 diabetes mellitus without complication, without long-Performed By: #### SCAN CBC, B12, LIPID, CMP, TSH3 wRFLX #### [facility] [address] [place] [address] USAAspartate aminotransferase [Enzymatic activity/volume] in Serum or PlasmaOrdered By: Pamela Su on 89-23-2660RDD [Catalytic activity/Vol]24 U/TVxotpo27-60LrqenntmnAdena Pike Medical CenterComment on above: Order Comment: Reason for Exam Type 2 diabetes mellitus without complication, without long-Performed By: #### SCAN CBC, B12, LIPID, CMP, TSH3 wRFLX #### [facility] [address] [place] [address] USAAutomated basophil %Ordered By: Pamela Su on 03-10-2024 Basophils/100 WBC (Bld)0.3 %Normal.[facility] Medical CenterComment on above:Order Comment: Reason for Exam Type 2 diabetes mellitus without complication, without long-Performed By: #### SCAN CBC, B12, LIPID, CMP, TSH3 wRFLX #### [facility] [address] [place], [place] [address] USAAutomated basophil countOrdered By: Pamela Su on 34-19-0886Wseqftbgn (Bld) [#/Vol]0.0 10*3/uLNormal0.0-0.2FWooster Community HospitalComment on above:Order Comment: Reason for Exam Type 2 diabetes mellitus without complication, without long-Performed By: #### SCAN CBC, B12, LIPID, CMP, TSH3 wRFLX #### [facility] [address] [place], [place] [address] USAAutomated blood monocyte countOrdered By: Pamela Su on 22-42-5070Apxabthoj (Bld) [#/Vol]0.8 10*3/uLNormal0.0-0.8A[facility] Medical CenterComment on above:Order Comment: Reason for Exam Type 2 diabetes mellitus without complication, without long-Performed By: #### SCAN CBC, B12, LIPID, CMP, TSH3 wRFLX #### [facility] [address] [place] [address] USAAutomated eosinophil %Ordered By: Pamela Su on 85-33-4018Wmocwwslgtv/100 WBC (Bld)2.3 %Normal.[facility] Comment on above:Order Comment: Reason for Exam Type 2 diabetes mellitus without complication, without long-Performed By: #### SCAN CBC, B12, LIPID, CMP, TSH3 wRFLX #### [facility] [address] [place] [address] USAAutomated eosinophil countOrdered By: Pamela Su on 34-37-1205Vyqrouautwq (Bld) [#/Vol]0.2 10*3/uLNormal0.0-0.45A[facility] Medical CenterComment on above:Order Comment: Reason for Exam Type 2 diabetes mellitus without complication, without long-Performed By: #### SCAN CBC, B12, LIPID, CMP, TSH3 wRFLX #### [facility] [address] [place] [address] USAAutomated monocyte %Ordered By: Pamela Su on 03-10-2024 Monocytes/100 WBC (Bld)7.6 %Normal.[facility] Medical CenterComment on above:Order Comment: Reason for Exam Type 2 diabetes mellitus without complication, without long-Performed By: #### SCAN CBC, B12, LIPID, CMP, TSH3 wRFLX #### [facility] [address] [place] [address] USAAutomated neutrophil %Ordered By: Pamela Su on 86-67-9431Fqfggplwzwk/100 WBC (Bld)55.6 %Normal.[facility] Medical CenterComment on above:Order Comment: Reason for Exam Type 2 diabetes mellitus without complication, without long-Performed By: #### SCAN CBC, B12, LIPID, CMP, TSH3 wRFLX #### [facility] [address] [place] [address] USABilirubin.total [Mass/volume] in Serum or PlasmaOrdered By: Pamela Su on [id number] [Mass/Vol]0.3 mg/dLNormal0.3-1.0 [facility] CenterComment on above:Order Comment: Reason for Exam Type 2 diabetes mellitus without complication, without long-Performed By: #### SCAN CBC, B12, LIPID, CMP, TSH3 wRFLX #### [facility] [address] [place] [address] USACalcium [Mass/volume] in Serum or PlasmaOrdered By: Pamela Su on 47-52-8140Yzsdwyx [Mass/Vol]10.5 mg/dLHigh8.6-10.3FWooster Community HospitalComment on above:Order Comment: Reason for Exam Type 2 diabetes mellitus without complication, without long-Performed By: #### SCAN CBC, B12, LIPID, CMP, TSH3 wRFLX #### [facility] [address] [place] [address] USACarbon dioxide, total [Moles/volume] in Serum or Plasma Ordered By: Pamela Su on 74-84-0109UF7 [Moles/Vol]28.3 mmol/LDgnbut91.0-31.0 [facility]ike Medical CenterComment on above:Order Comment: Reason for Exam Type 2 diabetes mellitus without complication, without long-Performed By: #### SCAN CBC, B12, LIPID, CMP, TSH3 wRFLX #### [facility] [address] [place] [address] USAChloride [Moles/volume] in Serum or PlasmaOrdered By: Pamela Su on 21-64-1381Dbfsjcdw [Moles/Vol]101 mmol/HCaxgeb85-498ErxzbpuihAdena Pike Medical CenterComment on above:Order Comment: Reason for Exam Type 2 diabetes mellitus without complication, without long-Performed By: #### SCAN CBC, B12, LIPID, CMP, TSH3 wRFLX #### [facility] [address] [place] [address] USACholesterol [Mass/volume] in Serum or PlasmaOrdered By: Pamela Su on 81-51-7330Stixqdssxrd [Mass/Vol]139 mg/lCKbr655-258GowuyazoaAdena Pike Medical CenterComment on above:Chol less than 200 mg/dl low riskChol 201-239 mg/dl borderline riskChol 240 mg/dl and greater high riskOrder Comment: Reason for Exam Type 2 diabetes mellitus without complication, without long-Result Comment: Chol less than 200 mg/dl low risk Chol 201-239 mg/dl borderline risk Chol 240 mg/dl and greater high riskPerformed By: #### SCAN CBC, B12, LIPID, CMP, TSH3 wRFLX #### [facility] [address] [place] [address] USACholesterol in LDL Calc [Mass/Vol]Ordered By: Pamela Su on 47-48-6161Lfugbghzqwc in LDL [Mass/Vol]64 mg/dL0-100A[facility] Pike Medical CenterComment on above:LDL ATP III CLASSIFICATIONLDL less than 100 mg/dL OptimalLDL 100-129 mg/dL Near or above xpiybtxVLU305-175 mg/dL Borderline highLDL 160-189 mg/dL HighLDL greater than 189 mg/dL Very highCholesterol in VLDL Calc [Mass/Vol]Ordered By: Pamela Su on 56-92-9421Xbazxznkesa in VLDL [Mass/Vol]36 mg/dLAdena Pike Medical CenterComprehensive Metabolic Panel on 86-35-6630Qtthvwp [Mass/Vol]4.6 g/dLNormal3.5-5.7The [facility] Physician GroupComment on above:Order Comment: Reason for Exam Type 2 diabetes mellitus without complication, without long-Performed By: #### SCAN CBC, B12, LIPID, CMP, TSH3 wRFLX #### [facility] [address] [place] [address] USAGFR/1.73 sq M.predicted MDRD (S/P/Bld) [Vol rate/Area] mL/min/{1.73_m2}NormalThe [facility] Hospital Physician GroupComment on above:Order Comment: Reason for Exam Type 2 diabetes mellitus without complication, without long-Performed By: #### SCAN CBC, B12, LIPID, CMP, TSH3 wRFLX #### [facility] [address] [place] [address] USACreatinine [Mass/volume] in Serum or PlasmaOrdered By: Pamela Su on 82-82-3786Bofwlfunqe [Mass/Vol]0.55 mg/dLLow0.60-1.20A[facility] Pike Medical CenterComment on above:Order Comment: Reason for Exam Type 2 diabetes mellitus without complication, without long-Performed By: #### SCAN CBC, B12, LIPID, CMP, TSH3 wRFLX #### [facility] [address] [place] [id number] USAErythrocyte distribution width [Ratio] by Automated count Ordered By: Pamela Su on 80-39-2050Dzbitxmhcga distribution width (RBC) [Ratio]16.5 %High11.9-15.3FWooster Community HospitalComment on above: Order Comment: Reason for Exam Type 2 diabetes mellitus without complication, without long-Performed By: #### SCAN CBC, B12, LIPID, CMP, TSH3 wRFLX #### [facility] [address] [place] [address] USAErythrocytes [#/volume] in Blood by Automated countOrdered By: Pamela Su on 06-46-1827EXW (Bld) [#/Vol]5.80 10*6/uLHigh3.60-5.00 [facility] Medical CenterComment on above:Order Comment: Reason for Exam Type 2 diabetes mellitus without complication, without long-Performed By: #### SCAN CBC, B12, LIPID, CMP, TSH3 wRFLX #### [facility] [address] [place] [address] USAGlucose [Mass/volume] in Serum or PlasmaOrdered By: Pamela Su on 43-21-8770Uyglqzn [Mass/Vol]150 mg/mPXwuy00-786VzhstvuosAdena Pike Medical CenterComment on above:ADA recommended reference rangeRandom Glucose Reference Range is dependent on time and content of last meal. Glucose of more than 200 mg/dL in a nonstressed, ambulatory subject supports the diagnosisof Diabetes Mellitus.Order Comment: Reason for Exam Type 2 diabetes mellitus without complication, without long-Result Comment: Random Glucose Reference Range is dependent on time and content of last meal. Glucose of more than 200 mg/dL in a nonstressed, ambulatory subject supports the diagnosis of Diabetes Mellitus. ADA recommended reference rangePerformed By: #### SCAN CBC, B12, LIPID, CMP, TSH3 wRFLX #### [facility] [address] [place] [address] USAHematocrit [Volume Fraction] of Blood by Automated count Ordered By: Pamela Su on 19-04-2589Cyxrpxmjcl (Bld) [Volume fraction]37.5 % Iuebzu85.0-46.4FWooster Community HospitalComment on above:Order Comment: Reason for Exam Type 2 diabetes mellitus without complication, without long-Performed By: #### SCAN CBC, B12, LIPID, CMP, TSH3 wRFLX #### [facility] [address] [place] [address] USAHemoglobin [Mass/volume] in BloodOrdered By: Pamela Su on 20-23-8151Lnemlbsegy (Bld) [Mass/Vol]11.7 g/dLLow11.8-15.4FWooster Community HospitalComment on above:Order Comment: Reason for Exam Type 2 diabetes mellitus without complication, without long-Performed By: #### SCAN CBC, B12, LIPID, CMP, TSH3 wRFLX #### [facility] [address] [place] [address] USAHypochromia LM Ql (Bld)Ordered By: Pamela Su on 30-98-0297Dedodijsoxc Ql (Bld)[facility] HospitalLeukocytes [#/volume] corrected for nucleated erythrocytes in Blood by Automated coun Ordered By: Pamela Su on 61-10-5047PTM corrected for nucl RBC Auto (Bld) [#/Vol]10.7 10*3/uL3.8-11.6FWooster Community HospitalLeukocytes [#/volume] in Blood by Automated countOrdered By: Pamela Su on 54-63-5812JTO (Bld) [#/Vol]10.7 10*3/uLNormal3.8-11.6FWooster Community HospitalComment on above:Order Comment: Reason for Exam Type 2 diabetes mellitus without complication, without long-Performed By: #### SCAN CBC, B12, LIPID, CMP, TSH3 wRFLX #### [facility] [address] [place] [id number] USALipid Panelon 98-14-6239CVN Cholesterol,Ungvnqwpiu01 mg/dL Normal0-100The [facility] Physician GroupComment on above:Order Comment: Reason for Exam Type 2 diabetes mellitus without complication, without long-Result Comment: LDL ATP III CLASSIFICATION LDL less than 100 mg/dL Optimal LDL 100-129 mg/dL Near or above optimal LDL 130-159 mg/dL Borderline high LDL 160-189 mg/dL High LDL greater than 189 mg/dL Very highPerformed By: #### SCAN CBC, B12, LIPID, CMP, TSH3 wRFLX #### [facility] [address] [place] [id number] USATriglyceride w/Hncryl923 mg/dLHigh0-149The [facility] Physician GroupComment on above:Order Comment: Reason for Exam Type 2 diabetes mellitus without complication, without long-Result Comment: TRIG ATP III CLASSIFICATION TRIG less than 150 mg/dL Normal TRIG 150-199 mg/dL Borderline high TRIG 200-500 mg/dL High TRIG greater than 500 mg/dL Very high Standard traceable to the Center for Disease Conrtrol and Prevention (CDC) test method.Performed By: #### SCAN CBC, B12, LIPID, CMP, TSH3 wRFLX #### [place] [id number] USAVLDL NPKCJOBSMMF76 mg/dLNormalThSt. Joseph Regional Medical Center Physician GroupComment on above:Order Comment: Reason for Exam Type 2 diabetes mellitus without complication, without long-Performed By: #### SCAN CBC, B12, LIPID, CMP, TSH3 wRFLX #### [place] [id number] USALymphocytes [#/volume] in Blood by Automated countOrdered By: Pamela Su on 81-59-3427Sstyjjzrdfa (Bld) [#/Vol]3.7 10*3/uLNormal1.00-4.8 [facility] Medical CenterComment on above:Order Comment: Reason for Exam Type 2 diabetes mellitus without complication, without long-Performed By: #### SCAN CBC, B12, LIPID, CMP, TSH3 wRFLX #### [facility] [address] [place] [address] USALymphocytes/100 leukocytes in Blood by Automated count Ordered By: Pamela Su on 72-52-6407Wqkrjfoiqzk/100 WBC (Bld)34.2 %Normal. [facility] Medical CenterComment on above:Order Comment: Reason for Exam Type 2 diabetes mellitus without complication, without long-Performed By: #### SCAN CBC, B12, LIPID, CMP, TSH3 wRFLX #### [facility] [address] [place] [id number] [facility] [Entitic mass] by Automated countOrdered By: Pamela Su on 56-48-9111HUN (RBC) [Entitic mass]20.3 pgLow24.7-34.3FWooster Community HospitalComment on above:Order Comment: Reason for Exam Type 2 diabetes mellitus without complication, without long-Performed By: #### SCAN CBC, B12, LIPID, CMP, TSH3 wRFLX #### [facility] [address] [place] [id number] [facility] Auto (RBC) [Mass/Vol]Ordered By: Pamela Su on 62-74-9858ULMV (RBC) [Mass/Vol]31.3 g/dLLow32.0-35.0A[facility] Pike Medical CenterMCV [Entitic volume] by Automated countOrdered By: Pamela Su on 85-06-3696UGA (RBC) [Entitic vol]64.7 hTSis36-972BruhqfoanAdena Pike Medical CenterComment on above:Order Comment: Reason for Exam Type 2 diabetes mellitus without complication, without long-Performed By: #### SCAN CBC, B12, LIPID, CMP, TSH3 wRFLX #### [facility] [address] [place] [address] USAMicrocytes LM Ql (Bld)Ordered By: Pamela Su on 85-05-2054Waoishypgq Ql (Bld)MarkedAdena Pike Medical CenterNeutrophils [#/volume] in Blood by Automated countOrdered By: Pamela Su on 03-10-2024 Neutrophils (Bld) [#/Vol]5.9 10*3/uLNormal1.8-7.7FWooster Community HospitalComment on above:Order Comment: Reason for Exam Type 2 diabetes mellitus without complication, without long-Performed By: #### SCAN CBC, B12, LIPID, CMP, TSH3 wRFLX #### [facility] [address] [place] [address] USANo Panel InformationOrdered By: Pamela Su on 03-10-2024 Estimated GFR (CKD-EPI)> 60.0 mL/MinAdena Pike Medical CenterPharmacy Creatinine Clearance (ChemN/AFWooster Community HospitalNucleated erythrocytes [Presence] in Blood by Automated countOrdered By: Pamela Su on 00-10-0639Kvnrvvuzr RBC Auto Ql (Bld)0.0 /100{WBC}0-0.5FWooster Community HospitalPlatelet adequacy [Presence] in Blood by Light microscopyOrdered By: Pamela Su on 93-06-4297Asxstgbsk LM Ql (Bld)IncreasedNoRegency Hospital Cleveland WestPlatelet mean volume [Entitic volume] in Blood by Automated countOrdered By: Pamela Su on 18-66-6105Pxaqmzvb mean volume (Bld) [Entitic vol]8.1 fLNormal6.3-10.7FWooster Community HospitalComment on above:Order Comment: Reason for Exam Type 2 diabetes mellitus without complication, without long-Performed By: #### SCAN CBC, B12, LIPID, CMP, TSH3 wRFLX #### [facility] [address] [place] [id number] USAPlatelet morphology finding [Identifier] in BloodOrdered By: Pamela Su on 87-38-5145Wzcmcutw morphology finding Nom (Bld)NormalNoHolzer Medical Center – JacksonPlatelets [#/volume] in Blood by Automated countOrdered By: Pamela Su on 56-16-6682Jlqvacold (Bld) [#/Vol]491 10*3/uL Yhfw687-047QkqphsfziAdena Pike Medical CenterComment on above:Order Comment: Reason for Exam Type 2 diabetes mellitus without complication, without long-Performed By: #### SCAN CBC, B12, LIPID, CMP, TSH3 wRFLX #### [facility] [address] [place] [address] USAPoikilocytosis [Presence] in Blood by Light microscopy Ordered By: Pamela Su on 47-18-4369Sglhvtpgkolfkq LM Ql (Bld)Moderate [facility] Medical CenterPotassium [Moles/volume] in Serum or Plasma Ordered By: Pamela Su on 18-33-4007Grqovnmyd [Moles/Vol]4.5 mmol/LNormal 3.5-5.1FWooster Community HospitalComment on above:Order Comment: Reason for Exam Type 2 diabetes mellitus without complication, without long-Performed By: #### SCAN CBC, B12, LIPID, CMP, TSH3 wRFLX #### [facility] [address] [place] [address] USAProtein [Mass/volume] in Serum or PlasmaOrdered By: Pamela Su on 60-27-6954Kknqygw [Mass/Vol]8.0 g/dLNormal6.4-8.9A[facility] Pike Medical CenterComment on above:Order Comment: Reason for Exam Type 2 diabetes mellitus without complication, without long-Performed By: #### SCAN CBC, B12, LIPID, CMP, TSH3 wRFLX #### [facility] [address] [place] [address] USARBC morphologyOrdered By: Pamela Su on 70-01-1298DQG morphology finding Nom (Bld)N/AFMarymount Hospitalcan and CBCon 35-01-6144IuejblojrlmqxFxicsiYakwvoTdu [facility] Physician GroupComment on above:Order Comment: Reason for Exam Type 2 diabetes mellitus without complication, without long-Performed By: #### SCAN CBC, B12, LIPID, CMP, TSH3 wRFLX #### [facility] [address] [place] [id number] USAMean Corpuscular HGB Conc31.3 g/dLLow32.0-35.0The [facility] Hospital Physician GroupComment on above:Order Comment: Reason for Exam Type 2 diabetes mellitus without complication, without long-Performed By: #### SCAN CBC, B12, LIPID, CMP, TSH3 wRFLX #### [facility] [address] [place] [phone] USAMicrocytosisMarkedNoLifeCare Hospitals of [facility] Physician Group Comment on above:Order Comment: Reason for Exam Type 2 diabetes mellitus without complication, without long-Performed By: #### SCAN CBC, B12, LIPID, CMP, TSH3 wRFLX #### [facility] [address] [place] [address] USANRBC%0.0 /100{WBC}Normal0-0.5The [facility] Comment on above:Order Comment: Reason for Exam Type 2 diabetes mellitus without complication, without long-Performed By: #### SCAN CBC, B12, LIPID, CMP, TSH3 wRFLX #### [facility] [address] [place] [address] USAPlatelet EstimateIncreasedNormalHCA Florida Largo Hospital Physician GroupComment on above:Order Comment: Reason for Exam Type 2 diabetes mellitus without complication, without long-Performed By: #### SCAN CBC, B12, LIPID, CMP, TSH3 wRFLX #### [place] [address] USAPlatelet MorphologyNormalNormalHCA Florida Largo Hospital Physician GroupComment on above:Order Comment: Reason for Exam Type 2 diabetes mellitus without complication, without long-Result Comment: PERFORMED BY: [place] [address] PATHOLOGIST NONPROFIT FUNDRAISER RANDOLPH BAH M.D.Performed By: #### SCAN CBC, B12, LIPID, CMP, TSH3 wRFLX #### [place] [address] USAPoikilocytosisModerateHCA Florida Largo Hospital Physician Group Comment on above:Order Comment: Reason for Exam Type 2 diabetes mellitus without complication, without long-Performed By: #### SCAN CBC, B12, LIPID, CMP, TSH3 wRFLX #### [facility] [address] [place] [address] USASerum globulin measurement by calculation (mass/volume) Ordered By: Pamela Su on 84-45-3451Eeelzyaj (S) [Mass/Vol]3.4 g/dLNoHolzer Medical Center – JacksonComment on above:Order Comment: Reason for Exam Type 2 diabetes mellitus without complication, without long-Performed By: #### SCAN CBC, B12, LIPID, CMP, TSH3 wRFLX #### [facility] [address] [place] [address] USASerum or plasma albumin/globulin mass ratioOrdered By: Pamela Su on 33-27-8208Exuqcqb/Globulin [Mass ratio]1.4 {ratio}Normal [facility] Medical CenterComment on above:Order Comment: Reason for Exam Type 2 diabetes mellitus without complication, without long-Performed By: #### SCAN CBC, B12, LIPID, CMP, TSH3 wRFLX #### [facility] [address] [place] [address] USASerum or plasma anion gap determinationOrdered By: Pamela Su on 34-15-2810Twoeg gap [Moles/Vol]12.2 mmol/LNormal6.0-15.0A[facility]ike Medical CenterComment on above:Order Comment: Reason for Exam Type 2 diabetes mellitus without complication, without long-Performed By: #### SCAN CBC, B12, LIPID, CMP, TSH3 wRFLX #### [facility] [address] [place] [address] USASerum or plasma high density lipoprotein (HDL) cholesterol measurementOrdered By: Pamela Su on 07-46-7122Ohsquckcuns in HDL [Mass/Vol] 39 mg/oELhjrma31-91Jqterwfgx[address] [place], [place] [address]Comment on above:HDL CHOL ATP-III CLASSIFICATION Cardiovascular RiskHDL > or equal to 60 mg/dL LOWHDL < 40 mg/dL HIGHOrder Comment: Reason for Exam Type 2 diabetes mellitus without complication, without long-Result Comment: HDL CHOL ATP-III CLASSIFICATION Cardiovascular Risk HDL > or equal to 60 mg/dL LOW HDL < 40 mg/dL HIGHPerformed By: #### SCAN CBC, B12, LIPID, CMP, TSH3 wRFLX #### [facility] [address] [place] [address] USASerum or plasma total cholesterol/high density lipoprotein (HDL) cholesterol mass ratOrdered By: Pamela Su on 03-10-2024 Cholesterol.total/Cholesterol in HDL [Mass ratio]3.6 {ratio}Normal<5.0A[facility] Pike Medical CenterComment on above:Order Comment: Reason for Exam Type 2 diabetes mellitus without complication, without long-Performed By: #### SCAN CBC, B12, LIPID, CMP, TSH3 wRFLX #### [facility] [address] [place] [id number] USASodium [Moles/volume] in Serum or PlasmaOrdered By: Pamela Su on 35-62-9572Upmqns [Moles/Vol]137 mmol/XBogkbo256-287OvjwfqwxsAdena Pike Medical CenterComment on above:Order Comment: Reason for Exam Type 2 diabetes mellitus without complication, without long-Performed By: #### SCAN CBC, B12, LIPID, CMP, TSH3 wRFLX #### [facility] [address] [place] [id number] USAThyroid Stim Hormone w/Rflxon 90-70-9487Ddluoqy Stim Hormone w/Rflx3.08 u[iU]/mLNormal0.45-5.33The [facility] Physician GroupComment on above:Order Comment: Reason for Exam Type 2 diabetes mellitus without complication, without long-Result Comment: PERFORMED BY: [place] [address] PATHOLOGIST NONPROFIT FUNDRAISER RANDOLPH BAH M.D.Performed By: #### SCAN CBC, B12, LIPID, CMP, TSH3 wRFLX #### [facility] [address] [place] [address] USAThyrotropin [Units/volume] in Serum or PlasmaOrdered By: Pamela Su on 56-53-2088RTI Qn3.08 m[IU]/L0.45-5.33A[facility] Pike Medical CenterTriglyceride [Mass/volume] in Serum or PlasmaOrdered By: Pamela Su on 40-82-4570Ratbjnvhjkij [Mass/Vol]180 mg/dLHigh0-149A[facility]ike Medical CenterComment on above:TRIG ATP III CLASSIFICATIONTRIG less than 150 mg/dL NormalTRIG 150-199 mg/dL Borderline highTRIG 200-500 mg/dL High TRIG greater than 500 mg/dL Very highStandard traceable to the Center for Disease Conrtrol and Prevention (CDC) test method.Urea nitrogen [Mass/volume] in Serum or Plasma Ordered By: Pamela Su on 68-70-5601Bwca nitrogen [Mass/Vol]14 mg/dLNormal7-25 [facility] Medical CenterComment on above:Order Comment: Reason for Exam Type 2 diabetes mellitus without complication, without long-Performed By: #### SCAN CBC, B12, LIPID, CMP, TSH3 wRFLX #### [facility] [address] [place] [id number] USAVitamin B12 ser/plasOrdered By: Pamela Su on 03-10-2024 Cobalamin (Vitamin B12) [Mass/Vol]303 pg/mDDfqene215-677NjomnhvwrAdena Pike Medical CenterComment on above:Order Comment: Reason for Exam Type 2 diabetes mellitus without complication, without long-Performed By: #### SCAN CBC, B12, LIPID, CMP, TSH3 wRFLX #### [facility] [address] [place] [id number] [facility] Urineon 80-92-5019Jonztqmy identified Cx Nom (U) Microbiology PROCEDURE: Urine [...] or tested, I=Intermediate, ESBL=Extended spectrum beta-lactamase, R=Resistant, TFG=Thymidine-dependent strain, HERBERT=Beta-lactamase positive, TIFFANIE=mcg/m;(mg/L), S*=Predicted susceptible interp, [...] Locations R1: This test was performed at: [facility], [address] [place] [address], [facility]- , , GqhqrsRmwshvSelect Medical Specialty Hospital - Boardman, IncComment on above:Performed By: #### [id number] #### [facility] [address] [place] [address]ED Clinical Summaryon [id number] Clinical SummaryED Clinical Summary [address] [address] ED Clinical Summary Person Information Name: BRITNEY TONG Jennifer/[facility] Age: 28 Years : 1995 Sex: Female Language: Hungarian PCP: NONE, XXXX Marital Status: Single Visit [...] 01:56:19 02/29/2024 01:56:19 02/29/2024 01:56:19 AD[address]ESS: [address] [facility] [id number] PHYS DOC NOTES: MEDICAL INFORMATION: Prescriptions Given: New Medications [id number], [address], [place] [id number], [phone] metformin (metformin 1000 mg Tab) 1 Tablets By Mouth 2 times a day. Refills: 0. PATIENT EDUCATION INFORMATION: Instructions: Type 2 Diabetes Mellitus, Diagnosis, Adult; Diabetes Mellitus Basics; Diabetes Mellitus and Nutrition, Adult Follow up: With: Address: When: Lilian Gomez [address] [place] [address] [place] [address] Business (1) In 3 days 03/03/2024 Comments: Take the metformin twice a day. Please follow-up with your primary care doctor for further evaluation management. Please return to the ED for any new or worsening symptoms. With: Address: When: XXXX [facility] [place] In 3 days DIAGNOSIS: DiabetesNormalFisher Canyon Medical CenterED Note-Physicianon 81-30-4599VI Note-PhysicianED Note-Physician Basic Information Time Seen: Jemma Stout [...] history presenting to the ED for evaluation ofelevated blood sugar. Patient states she has not been feeling well with chest pain, palpitations and general fatigue for the last several weeks. Several days ago family member checked her blood sugarand noted it was in the 300s. Is [...] and Complexity of Problems Differential Diagnosis: [] [facility] Data External documents reviewed: [] My EKG [...] is given referral. She is to follow-up withher primary care doctor for further evaluation management. [...] BID, # 28 tab(s), Refills(s) 0, Pharmacy: [id number], cm, 02/28/24 23:04:00 EDT, Height/Length Dosing, 64.3, [...] Oral, BID Follow-up With When Contact Information Lilianmk Gomez In 3 days 03/03/2024 EDT [address] [place] [address] [place] [address]- Business (1) Additional Instructions: Take the metformin [...] 32.2 gm/dL (02/28/24 23:46:00) (more content not included)...[facility]erry HospitalComment on above:Result Comment: Electronically Signed By: Jemma Stout DO\pamela\Date and Time Signed: 02/29/24 01:07 EDTED Patient Summaryon [id number] Patient SummaryED Patient Summary [address] [address] Patient Discharge Instructions Person Information Name: BRITNEY TONG Age: 28 Years Arrival Date: 02/28/2024 22:53:58 Discharge Diagnosis: Diabetes Primary Care Physician: NONE, XXXX Provider Information Primary Provider: Jemma Stout DO Advanced Cephalometric Analyst:Carmita The exam and treatment you received in the Emergency Department were for an urgent problem and are not intended as complete care. It is important that you follow up with a doctor, nurse practitioner,or physician?s assistant statistician for ongoing care. If your symptoms become worse or you do not improve as expected and you are unable to reach your usual health care provider, you should return to the Emergency Department. We are available 24 hours a day. BRITNEY TONG has been given the following list of patient education materials, prescriptions and follow-up instructions: Follow-up Instructions: With: Address: When: Lilian Gomez [address] [place] [address] [place], [facility], [facility] [address] [place] [address] [facility] () In 3 days 03/03/2024 Comments: Take the metformin twice a day. Please follow-up with your primary care doctor for further evaluation management. Please return to the ED for any new or worsening symptoms. With: Address: When: XXXX [facility] [place] In 3 days In the event that [...] opioids can be used to help relieve nufdlhay-bd-vkmpoj pain and are often prescribed following a [...] and have fewer risks and side effects. Optionsmay include: ? Pain relievers such as acetaminophen, [...] unused prescription opioids: Find your community drug take- back program or yourpharmacy mail-back program, or flush them down the toilet, following guidance from the Food and Drug (more content not included)...Normal Grant HospitalUA with Cult Rflxon 81-71-3171Hfqqtlmrt Ql (U) NegativeNormalNegativeGrant HospitalComment on above:Performed By: #### [id number] #### [facility] [address] [place], [place] [address]Zgmwecv (U)ClearNormalClearGrant HospitalComment on above:Performed By: #### [id number] #### [facility] [address] [place], [place] [address]Sehxs (U)Light-YellowNormalYellowGrant Hospital Comment on above:Result Comment: Microscopic readings are only performed on those samples that meet specific criteria set forth by [facility].Performed By: #### [id number] #### [facility] [address] [place], [place] [address]Wzwbdlfepn cells.squamous Auto (Urine sed) [#/Area]0-2Invalid Interpretation CodeGrant HospitalComment on above:Performed By: #### [id number] #### [facility] [address] [place], [place] [address]Hpkzxen Ql (U)4+ mg/dLAbnormalNegativeGrant HospitalComment on above:Performed By: #### [id number] #### [facility] [address] [place], [place] [address]Snjxucwcyz Auto test strip (U) [Mass/Vol]3+ mg/dLAbnormal NegativeGrant HospitalComment on above:Performed By: #### [id number] #### [facility] [address] [place], [place] [address]Uyrjupm Auto test strip Ql (U)NegativeNormalNegativeGrant HospitalComment on above:Performed By: #### [id number] #### [facility] [address] [place], [place] [address]Cezorrdxl esterase Auto test strip Ql (U)NegativeNormalNegative Grant HospitalComment on above:Performed By: #### [id number] #### [facility] [address] [place] [address]Cizhe Auto Ql (U)NegativeNormalNegativeGrant HospitalComment on above:Performed By: #### [id number] #### [facility] [address] [place] [address]Kexcvwb Auto test strip Ql (U)NegativeNormalNegativeGrant HospitalComment on above:Performed By: #### [id number] #### [facility] [address] [place] [address]tU (U)6.0 [pH]Invalid Interpretation Code5.0-9.0Grant HospitalComment on above:Performed By: #### [id number] #### [facility] [address] [place] [address]Jagzncx Ql (U)[facility] PartnersrmalNegFirelands Regional [facility] Comment on above:Performed By: #### [id number] #### [facility] [address] [place] [address]GCI Ql (U)>54Uefoiobp2-7IopdxkTriHealth Good Samaritan HospitalComment on above:Performed By: #### [id number] #### [facility] [address] [place] [address]Viaxsmsb gravity (U) [Rel density]1.027Invalid Interpretation Code1.005-1.030Grant HospitalComment on above:Performed By: #### [id number] #### [facility] [address] [place] [address]Eantijrevxwg (U) [Mass/Vol]NegativeNormalNegativeGrant HospitalComment on above:Performed By: #### [id number] #### [facility] [address] [place] [address]VCW Auto (Urine sed) [#/Area]5-25Fddcalvv1-6Uibnjt [facility] Pr[facility] HospitalComment on above:Performed By: #### [id number] #### [facility] [address] [place], [place] [address]HJEOJVLILUShfxomj By: SYSTEM SYSTEM on 18-03-6883Rdvtndwuz Ql (U)NegativeNormalNegativemg/dLFTMC UA Auto SSClarity (U)Clear (02/29/24 12:30 AM)NormalClearFTMC UA Auto SSColor (U)Light-Yellow 1 (02/29/24 12:30 AM)NormalYellowFT UA Auto SSComment on above:Interpretive Data: Microscopic readings are only performed on those samples that meet specific criteria set forth by [facility].Epithelial cells.squamous Auto (Urine sed) [#/Area]0-2 graded/HPFInvalid Interpretation CodeFT UA Auto SSGlucose Ql (U)4+ mg/dLInvalid Interpretation Code Negativemg/dLFT UA Auto SSHemoglobin Auto test strip (U) [Mass/Vol]3+ mg/dL Invalid Interpretation CodeNegativemg/dLFTMC UA Auto SSKetones Auto test strip Ql (U)NegativeNormalNegativemg/dLFT UA Auto SSLeukocyte esterase Auto test strip Ql (U)NegativeNormalNegativeLeu/uLFT UA Auto SSMucus Auto Ql (U)Negative NormalNegativegraded/LPFFTMC UA Auto SSNitrite Auto test strip Ql (U)Negative NormalNegativemg/dLFTMC UA Auto SSpH (U)6.0 *NA* (02/29/24 12:30 AM)Invalid Interpretation Code5.0 - 9.0FT UA Auto SSProtein Ql (U)NegativeNormalNegativemg/dLFTMC UA Auto SSRBC Ql (U)>75 graded/HPFInvalid Interpretation Code0-3graded/HPFFTMC UA Auto SSSpecific gravity (U) [Rel density]1.027 *NA* (02/29/24 12:30 AM)Invalid Interpretation Code1.005 - 1.030FTMC UA Auto SS Urobilinogen (U) [Mass/Vol]NegativeNormalNegativemg/dLFT UA Auto SSWBC Auto (Urine sed) [#/Area]6-15 graded/HPFInvalid Interpretation Code0-5graded/HPFFTMC UA Auto SSURINALYSISOrdered By: Jemma Stout on 48-25-2590VZ Spec DescClean Catch (02/29/24 12:30 AM)NormalCED[facility] [place] UA Auto SS xr Chest Single Viewon [id number] Chest Single View Exam Date/Time: 02/29/2024 00:02 [...] BARRETT Technologist: WILDA Technical Comments Radiation Dose: edda Carson in mGy = na DAP = naNormalFisher [facility] Pr[facility] HospitalCHEMISTRYOrdered By: SYSTEM SYSTEM on 54-56-3113Cmdsyph [Mass/Vol]4.1 g/dLNormal3.3 - 5.0 gm/dLRemisol Chem Albumin/Globulin [Mass ratio]1.2 {ratio}Normal1.1 - 2.2Remisol ChemALP [Catalytic activity/Vol]48 [iU]/nIrxjmb60 - 98 Int._Unit/LRemisol ChemALT No additional P-5'-P [Catalytic activity/Vol]19 [iU]/dNormal6 - 46 Int._Unit/L Remisol ChemAnion gap [Moles/Vol]11 mmol/LNormal6 - 16 mEq/LRemisol ChemAST [Catalytic activity/Vol]14 [iU]/dNormal5 - 43 Int._Unit/LRemisol ChemBeta HB Qnt 0.13 mmol/LNormal0.02 - 0.27 mmol/LRemisol ChemBilirubin [Mass/Vol]0.3 mg/dL Normal0.0 - 1.1 mg/dLRemisol ChemBilirubin.direct [Mass/Vol]0.1 mg/dLNormal0.0 - 0.4 mg/dLRemisol ChemBilirubin.indirect [Mass or moles/Vol]0.2 mg/dLNormal0.1 - 0.9 mg/dLRemisol ChemCalcium [Mass/Vol]8.7 mg/dLLow8.9 - 11.1 mg/dLRemisol Chem Chloride [Moles/Vol]102 mmol/VRvbppm290 - 111 mmol/LRemisol ChemCO2 [Moles/Vol] 25 mmol/AGrcdbq51 - 31 mmol/LRemisol ChemCreatinine [Mass/Vol]0.5 mg/dLNormal0.5 - 1.3 mg/dLRemisol NhjcgVTF311 mL/min/1.73 b5Epuwaw>=59mL/min/1.73 r3Vgcfhin ChemGlobulin (S) [Mass/Vol]3.4 g/dLNormal1.4 - 4.0 gm/dLRemisol ChemGlucose [Mass/Vol]233 mg/xRLmlx55 - 199 mg/dLRemisol ChemPotassium [Moles/Vol]3.6 mmol/L Normal3.5 - 5.3 mmol/LRemisol ChemProtein [Mass/Vol]7.5 g/dLNormal6.0 - 7.8 gm/dLRemisol ChemSodium [Moles/Vol]134 mmol/IWpi615 - 145 mmol/LRemisol Chem Troponin HSpg/mLLow10.10 - 27.10 pg/mLRemisol ChemComment on above:Interpretive Data: The 95% CI (Confidence Interval) PPV (Positive Predictive Value) for myocardial infarction in females is 38 pg/mL, in males 51 pg/mL. The results should be used in conjunction withclinical conditions of myocardial infarction. (Access High Sensitivity Troponin I Instructions For Use, Earle Gilda, December 2017)Urea nitrogen [Mass/Vol]10 mg/dLNormal5 - 21 mg/dLRemisol ChemUrea nitrogen/Creatinine [Mass ratio]20 mg/alTiuloy43 - 20Remisol ChemCHEMISTRY Ordered By: Keith Dominguez on 84-07-3518PjA6z (Bld) [Mass fraction]11.3 %High <=5.9%[facility] ChemAutoSSCHEMISTRYOrdered By: Klaudia Calderon on 50-39-7115Ewtvnwy [Mass/Vol]215 mg/yHRfwe94 - 99 mg/dLCEDAR RIDGE HOSPITAL – [place] POC SubsectionComment on above:Result Comment: Notified RN/SALVADOR Device [id number] 1Invalid Interpretation Code [facility] POC SubsectionPOC User [id number] 1Invalid Interpretation CodeFT POC SubsectionPOC UsernameMCINTYRE, TRENTONInvalid Interpretation CodeCEDAR RIDGE [facility]OSPITAL [facility] [place] POC SubsectionFT Blood GasesOrdered By: Viry Guzmán on 32-58-5116Ltbcai Test Not Applicable (02/28/24 11:47 PM)NormalCEDAR RIDGE [facility] [place] Resp Auto SSDrawn bylabInvalid Interpretation Code [facility] Resp Auto SSFIO2 BG21 1Invalid Interpretation CodeCEDAR RIDGE [facility] [place] Resp Auto SSpCO2 Christofer 48.0 mm[Hg]Oxeykd37.0 - 50.0 mmHgCEDAR RIDGE [facility] [place] Resp Auto SSpH (Bld)7.327 [pH]Normal7.320 - 7.430[facility] Resp Auto SSSample SiteOTHER (02/28/24 11:47 PM)NormalCED[facility]ID[facility] [place] Resp Auto SSSample TypeVenous Draw (02/28/24 11:47 PM)NormalCEDAR [facility]ID[facility] [place] Resp Auto SSHEMATOLOGYOrdered By: SYSTEM SYSTEM on 09-49-9167Xnckxuwif/100 WBC (Bld)0.9 %Normal0.0 - 2.0 %Remisol Heme Basophils/Leukocytes Auto (Bld) [Pure # fraction]0.1 E9/LNormal0.0 - 0.2 E9/L Remisol HemeEosinophils (Bld) [#/Vol]0.3 E9/LNormal0.0 - 0.5 E9/LRemisol Heme Eosinophils/100 WBC (Bld)2.7 %Normal0.0 - 8.0 %Remisol HemeErythrocyte distribution width (RBC) [Ratio]16.6 %High10.9 - 14.2 %Remisol HemeHematocrit (Bld) [Volume fraction]36.9 %Xfmcdf95.0 - 46.0 %Remisol HemeHemoglobin (Bld) [Mass/Vol]11.9 g/dLLow12.0 - 16.0 gm/dLRemisol HemeHypochromia Auto Ql (Bld) PRESENT *NA* (02/28/24 11:46 PM)Invalid Interpretation CodeRemisol HemeLymphocytes (Bld) [#/Vol]3.9 E9/LNormal1.0 - 4.0 E9/LRemisol HemeLymphocytes/100 WBC (Bld)36.7 % Mnpxyb73.0 - 50.0 %Remisol HemeMCH (RBC) [Entitic mass]20.8 pgLow27.0 - 34.0 pg Remisol HemeMCHC (RBC) [Mass/Vol]32.2 g/lGYbplft80.4 - 36.0 gm/dLRemisol HemeMCV (RBC) [Entitic vol]64.6 fLLow80.0 - 100.0 fLRemisol HemeMicrocytes Ql (Bld) PRESENT *NA* (02/28/24 11:46 PM)Invalid Interpretation CodeRemisol HemeMonocytes (Bld) [#/Vol]0.7 E9/LNormal0.2 - 1.0 E9/LRemisol HemeMonocytes/100 WBC (Bld)6.6 % Normal4.0 - 14.0 %Remisol HemeNeutrophils (Bld) [#/Vol]5.7 E9/LNormal2.0 - 7.5 E9/LRemisol HemeNeutrophils/100 WBC (Bld)53.1 %Nlucar36.0 - 75.0 %Remisol Heme Wpdefcgh254.0 E9/ADhvpve149.0 - 500.0 E9/LRemisol HemePlatelet mean volume (Bld) [Entitic vol]8.1 fLNormal6.4 - 10.8 fLRemisol HemeRBC (Bld) [#/Vol]5.7 E12/L Normal4.3 - 5.9 E12/LRemisol HemeRBC size Nom (Bld)SEE MORPHOLOGY *NA* (02/28/24 11:46 PM)Invalid Interpretation CodeRemisol HemeWBC corrected for nucl RBC Auto (Bld) [#/Vol]10.6 E9/LNormal4.0 - 11.0 E9/LRemisol HemeSEROLOGYOrdered By: Keith Dominguez on 87-86-3049Lfvy HCG ( test) QlNegative (02/28/24 11:46 PM)NormalFTMC Man SeroUA with Cult Rflxon 80-06-5071Xscw of Urine collection methodClean CatchNormalFisher [facility] Pr[facility] HospitalComment on above:Performed By: #### [id number] #### [facility] [address] [place], [place] [address]Hcqwqdpvle 09-89-3833VkfvvcilIxsetbAwmGzypfs [facility] Comment on above:Result Comment: [facility] [address] [place] [address] Gynecologic Cytology Consultation Patient Name:DWAIN TONGB:1995 (Age: 28)Gender:FTaken:4Reported:4Physician(s):Margret Gabriel APRN- CNPCopy To: Rec. #:[id number]: #[id number] Final Cytologic Interpretation ThinPrep Pap Test (Cervical): Satisfactory for evaluation. A transformazion zone component is not identified via imaging-assistedreview, using [employer] Thin Prep Imaging System, within 22 microscopic plaza of view. NEGATIVE FOR INTRAEPITHELIAL LESION OR MALIGNANCY. pj/12/18/2023 Interpretation performed at [facility], [address] [place] [address], License number: [id number]. Electronically Signed Out By ROBYN Maher(ASCP) Date of Last Menstrual Period: 11/27/23 Other Clinical Conditions: Z01.419 Hair Tinter exam wo/abn findings Source of Specimen ThinPrep Pap Test (Cervical) Thin Prep Pap (FRAME RUNNER) Fee Code(s): G0145 The Pap test is a screening test with an inherent, but low, probability of error. The Pap test is primarily effective for the diagnosis and prevention of squamous cell carcinoma. Regular screening iscritical for prevention. ThinPrep liquid-based slides, which meet the Automatic Casting Machine Operator criteria for automated screening, have been screened by the ThinPrep Imaging System (as of 01/27/07) along with an additional manual rescreening by a edge banding off bearer and, if indicated, by a pathologist. Vital Signs Date TimeVital SignValuePerforming ZnwqmonuxWrfxnaqe67-66-2494 10:030400Body wensst009.6 [facility]08-06-2025 10:03-0400Body mass index (BMI) [Ratio]23.62 kg/m2[facility]08-06-2025 10:030400Body yemfyq06.41 [facility]PAccess [facility]08-06-2025 10:03-0400Diastolic blood pmtqdgur11 mm[Hg][facility] 12-16-2024 10:03-0400Systolic blood ghkcpzhy520 mm[Hg][facility]05-14-2025 09:30-6637CgU3% (BldA) [Mass fraction]97 %Renato Terry [address]05-14-2025 09:30-0400 Diastolic blood agqzhaxb29 mm[Hg]Renato Terry [address]05-14-2025 09:30-0400Heart rate90 /minRenato Terry [address] [place], [place] 2667805-14-2025 09:30-0400Mean blood wysmcspn18 mm[Hg]Renato Terry [address] [place], [place] 2667805-14-2025 09:30-0400 Respiratory rate15 /minRenato Terry [address] [place], [place] 2667805-14-2025 09:30-0400 Systolic blood rfspbkxa653 mm[Hg]Renato Terry [address] [place], [place] 2667805-14-2025 09:00-0400Heart rate91 /Stanislaw Terry [address] [place], [place] 2667805-14-2025 09:00-2390KhH7% (BldA) [Mass fraction]98 %Renato Terry [address] [place], [place] 4831605-14-2025 09:00-0400 Diastolic blood ukstvddu48 mm[Hg]Renato Terry [address] [place], [place] 4831605-14-2025 09:00-0400 Respiratory rate17 /Stanislaw Terry [address] [place], [place] 4831605-14-2025 09:00-0400 Systolic blood yomxzyeg328 mm[Hg]Renato Terry [address] [place], [place] 4831605-14-2025 08:00-8499HjR0% (BldA) [Mass fraction]94 %Renato Terry [address] [place], [place] 4831605-14-2025 08:00-0400Heart rate98 /Stanislaw Terry [address] [place], [place] 4831605-14-2025 08:00-0400 Hourly RoundingRenato Terry [address] [place], [place] 4831605-14-2025 08:00-0400 Respiratory rate18 /Stanislaw Terry [address] [place], [place] 4831605-14-2025 07:46-0400Body rkdxjmabedr77.24 [degF]Renato Terry [address] [place], [place] 4831605-14-2025 07:46-0400Heart heut851 /Stanislaw Terry [address] [place], [place] 4831605-14-2025 07:46-0400 Hourly RoundingRenato Terry [address] [place], [place] 4831605-07-2025 10:00-0400Body guzabw453.6 [facility]05-07-2025 10:00-0400Body mass index (BMI) [Ratio]23.34 kg/m2[facility]05-07-2025 10:00-0400Body urwjxl15.69 kgL[facility] Health System05-07-2025 10:00-0400Diastolic blood cuqxqeuh54 mm[Hg][facility] 09-16-2024 10:00-0400Systolic blood nmtpgjel719 mm[Hg][facility]02-26-2025 00:10-0500Diastolic blood dhosdmnl66 mm[Hg]Fabrice Cavanaugh [address] [place], [place] 2667802-26-2025 00:10-0500Heart rate91 /minJocasandra Afshan [address] [place], [place] 2667802-26-2025 00:10-0500Mean blood ajqlkpjc657 mm[Hg]Fabrice Cavanaugh [address] [place], [place] 2667802-26-2025 00:10-0500 Respiratory rate18 /minJocasandra Afshan [address] [place], [place] 2667802-26-2025 00:10-0706IxT6% (BldA) [Mass fraction]100 %Fabrice Cavanaugh [facility]02-26-2025 00:10-0500 Systolic blood vbffynir206 mm[Hg]Fabrice Cavanaugh [address] [place], [place] 2667802-25-2025 23:49-0500Heart rate94 /minJohn Afshan [facility]02-25-2025 23:49-0500 Respiratory rate18 /minJocasandra Amine [address] [place], [place] 2667802-25-2025 23:49-4324HxE1% (BldA) [Mass fraction]98 %Fabrice Cavanaugh [address] [place], [place] 2667802-25-2025 23:00-0500 Diastolic blood mm[Hg]Fabrice Cavanaugh [address] [place], [place] 2667802-25-2025 23:00-0500Mean blood cprnkjom76 mm[Hg]Fabrice Cavanaugh [facility]02-25-2025 23:00-0500 Systolic blood vtkzabnj944 mm[Hg]Fabrice Cavanaugh [facility]02-25-2025 22:00-0500 Diastolic blood mm[Hg]Fabrice Cavanaugh [facility]02-25-2025 22:00-0500Mean blood hjuslpfk96 mm[Hg]Fabrice Cavanaugh [address] [place], [place] 4791702-25-2025 22:00-0500 Systolic blood uygisajf363 mm[Hg]Fabrice Cavanaugh [address] [place], [place] 2667802-25-2025 21:08-0500Body gsimppdhdzg10.88 [degF]Fabrice Cavanaugh [facility]02-25-2025 21:08-0500Heart jnuk225 /minJocasandra Afshan [facility]02-07-2025 09:43-0500Body ioqchn439.6 cmPaul Bivipinenjair DO Work Phone: [facility]Okpecpwtzv63-97-5676 09:43-0500Body mass index (BMI) [Ratio]24.03 kg/m2Paac Biedenjair DO Work Phone: [facility]Sjfiadmvvr05-90-3523 09:43-0500Body bzqozg17.5 kg Boby Bitravon DO Work Phone: [facility]HealthPztlzuzxtt77-60-2443 14:18-0500Body hqjlri121.56 cmLaura Spasic OIL DRILLING ENGINEER-C Work Phone: [facility]01-28-2025 14:18-0500 Body mass index (BMI) [Ratio]24.5 kg/e2Szulk Spasic OIL DRILLING ENGINEER-C Work Phone: [facility]01-28-2025 14:18-0500 Body sqbeajqkcvu37.7 [degF]Pamela Spasic OIL DRILLING ENGINEER-C Work Phone: [phone] [place], [place] 2104001-28-2025 14:18-0500 Body gmqkig88.86 kgLaura Spasic OIL DRILLING ENGINEER-C Work Phone: [phone])[address] [place], [place] 2104001-28-2025 14:18-0500 Diastolic blood jpnyckos00 mm[Hg]Pamela Spasic OIL DRILLING ENGINEER-C Work Phone: 1(210)[address] [place], [place] 2104001-28-2025 14:18-0500 Heart wcdi368 /minLaura Spasic OIL DRILLING ENGINEER-C Work Phone: [phone] [place], [place] 2104001-28-2025 14:18-0500 Respiratory rate16 /minLaura Spasic OIL DRILLING ENGINEER-C Work Phone: [phone] [place], [place] 2104001-28-2025 14:18-0500 SaO2% (BldA) [Mass fraction]97 %Pamela Spasic OIL DRILLING ENGINEER-C Work Phone: [phone] [place], [place] 2104001-28-2025 14:18-0500 Systolic blood umzznqoo061 mm[Hg]Pamela Spasic OIL DRILLING ENGINEER-C Work Phone: [phone](319)[address] [place], [place] 2104001-03-2025 15:00-0500 Body bxbmmryhxac61.4 [degF]Pamela Spasic OIL DRILLING ENGINEER-C Work Phone: 1(818)[address] [place], [place] 2104001-03-2025 15:00-0500 Diastolic blood eyqbqnqk87 mm[Hg]Pamela Spasic OIL DRILLING ENGINEER-C Work Phone: 1(649)[address] [place], [place] 2104001-03-2025 15:00-0500 Heart afzf142 /minLaura Spasic OIL DRILLING ENGINEER-C Work Phone: 1(785)[address] [place], [place] 2104001-03-2025 15:00-0500 Respiratory rate16 /minLaura Spasic OIL DRILLING ENGINEER-C Work Phone: 1(696)[address] [place], [place] 2104001-03-2025 15:00-0500 SaO2% (BldA) [Mass fraction]99 %Pamela Spasic OIL DRILLING ENGINEER-C Work Phone: [phone]01-03-2025 15:00-0500 Systolic blood qiwuisck926 mm[Hg]Pamela Spasic OIL DRILLING ENGINEER-C Work Phone: 1(774)[address] [place], [place] 2104012-17-2024 14:16-0500 Body oojbej860.56 cmLaura Spasic OIL DRILLING ENGINEER-C Work Phone: 1(911)[address] [place], [place] 2104012-17-2024 14:16-0500 Body mass index (BMI) [Ratio]24.3 kg/s3Qcchu Spasic OIL DRILLING ENGINEER-C Work Phone: 1([phone])[address] [place], [place] 2104012-17-2024 14:16-0500 Body zagmlnvzpsp69.5 [degF]Pamela Spasic OIL DRILLING ENGINEER-C Work Phone: 1(045)[address] [place], [place] 2104012-17-2024 14:16-0500 Body .41 kgLaura Spasic OIL DRILLING ENGINEER-C Work Phone: [phone])[address] [place], [place] 2104012-17-2024 14:16-0500 Diastolic blood fshojlkl57 mm[Hg]Pamela Spasic OIL DRILLING ENGINEER-C Work Phone: 1(532)[address]12-17-2024 14:16-0500 Heart rate90 /minLaura Spasic OIL DRILLING ENGINEER-C Work Phone: 1(798)[address] [place], [place] 2104012-17-2024 14:16-0500 Respiratory rate16 /minLaura Spasic OIL DRILLING ENGINEER-C Work Phone: 1(062)[address] [place], [place] 2104012-17-2024 14:16-0500 SaO2% (BldA) [Mass fraction]99 %Pamela Spasic OIL DRILLING ENGINEER-C Work Phone: 1(440)[address] [place], [place] 2104012-17-2024 14:16-0500 Systolic blood tzkoncfj743 mm[Hg]Pamela Spasic OIL DRILLING ENGINEER-C Work Phone: [phone])[address]12-03-2024 08:52-0500 Body burdfy731.56 cmLaura Spasic OIL DRILLING ENGINEER-C Work Phone: [phone] [place], [place] 5942112-03-2024 08:52-0500 Body mass index (BMI) [Ratio]24.5 kg/w4Cqhyo Spasic OIL DRILLING ENGINEER-C Work Phone: [phone])[address]12-03-2024 08:52-0500 Body szknvpqaoke53.8 [degF]Pamela Spasic OIL DRILLING ENGINEER-C Work Phone: 1([phone])[address]12-03-2024 08:52-0500 Body .86 kgLaura Spasic OIL DRILLING ENGINEER-C Work Phone: 1(997)[address] [place], [place] 2104012-03-2024 08:52-0500 Diastolic blood wnhnvyfb04 mm[Hg]Pamela Spasic OIL DRILLING ENGINEER-C Work Phone: 1(196)[address] [place], [place] 2104012-03-2024 08:52-0500 Heart rate91 /minLaura Spasic OIL DRILLING ENGINEER-C Work Phone: [phone])[address] [place], [place] 2104012-03-2024 08:52-0500 Respiratory rate20 /minLaura Spasic OIL DRILLING ENGINEER-C Work Phone: [phone])[address]12-03-2024 08:52-0500 SaO2% (BldA) [Mass fraction]98 %Pamela Spasic OIL DRILLING ENGINEER-C Work Phone: [phone])[address]12-03-2024 08:52-0500 Systolic blood kymegply596 mm[Hg]Pamela Spasic OIL DRILLING ENGINEER-C Work Phone: [phone])[address]10-19-2024 01:29-0400 Heart rate89 /minKaylinn Dokken [facility]10-19-2024 01:29-0400 Respiratory rate16 /minKaylinn Dokken [facility]10-19-2024 01:29-2212FaS7% (BldA) [Mass fraction]99 %Kaylinn Dokken [address] [place], [place] 2667810-18-2024 23:47-3850HaC0% (BldA) [Mass fraction]65.4 %Jemma Stout [facility] Resp Auto [id number] 22:58-0400Body temperature 98.06 [degF]Jemma Stout [address]10-18-2024 22:58-0400 Diastolic blood alhmjywn84 mm[Hg]Jemma Stout [address] [place], [place] 4831610-18-2024 22:58-0400Heart rate77 /Diana Stout [address] [place], [place] 4831610-18-2024 22:58-0400 Respiratory rate18 /Diana Stout [address]10-18-2024 22:58-5586WpI0% (BldA) [Mass fraction]99 %Jemma Stout [address] [place], [place] 4831610-18-2024 22:58-0400 Systolic blood xeyoheim956 mm[Hg]Jemma Stout [address] [place], [place] 4831607-31-2024 13:32-0400Body motifq946.6 [facility]07-31-2024 13:32-0400Body mass index (BMI) [Ratio]23.69 kg/m2[facility]07-31-2024 13:32-0400Body axgxcm08.6 kgL[facility]07-31-2024 13:32-0400Diastolic blood mm[Hg][facility] 12-11-2023 13:32-0400Systolic blood kjbquept271 mm[Hg][facility] Encounters Encounter DateEncounter [facility] ProviderFacilityStart: 03-15-2025 End: 37-23-3012zudmrdharoFELMV E SPASICFacility:FTMCStart: 03-08-2025 End: 30-33-9167Txrnrzrsz department patient visitFabrice ParenteFacility:FTMCStart: 02-19-2025 End: 97-60-1482yeknviynuiEVJOBGE E. MORRISFacility:FTMCStart: 02-12-2025 End: 26-94-9789idmlgtvbiaFBRVTLA Kevin GIVENSFacility:FTMCStart: 02-05-2025 End: 46-73-4638ptkqkyipxuDHDTKMT Kevin GIVENSFacility:FTMCStart: 01-28-2025 End: 77-95-9953Zpdxdzift department patient visitRenato Stubbs HarrisonFacility:[facility] [place] Start: 01-25-2025 End: 39-61-7484navglaqduvTYEAKM A HYLTONFacility:FTMCStart: 01-14-2025 End: 34-78-9066ufplrlbgsiVAJ YASHIRA GIVENSFacility:FTMCStart: 12-17-2024 ambulatoryCNP YASHIRA GIVENSFacility:FTMCStart: 12-16-2024 End: 78-26-8362Axrujna encounter procedurePAccess Hospital [facility] Work Phone: Start: 12-16-2024 End: 08-91-9653Qucmqetr preventive med est patient 18-39 yrsPsouth[facility] [place] [employer] [facility] CyldeComment on above:Well woman exam with routine gynecological exam (Primary Dx); Standardized adult depression screening tool completedStart: 12-16-2024 End: 17-55-5551ndvvkfzdbqZpbClgpll Hospital Ambulatory PPGStart: 12-16-2024 Encounter for gynecological examination (general) (routine) without abnormal findingsSelect [facility] PPGStart: 11-17-2024 End: 12-78-8384fjshjinadaTkdsh E Spasic OIL DRILLING ENGINEER-C Work Phone: [facility] Work Phone: Start: 11-17-2024 End: 94-34-0190Vlpmdase ReferredLaura E Spasic [facility] Start: 11-03-2024 End: 53-81-3771Ctlinvmmw department patient visitFabrice Cavanaugh [facility] Start: 73-99-2147itqyxfchkuJSFCVDXVV NO FAMILY [facility]art: 40-26-8650Fhycoozvsj Recurring Oscar Logan MDFOR[facility] CredibleStart: 28-30-1901Nrjltfpjoo RecurringЮлия Troncoso [facility]ITALCan[facility] Work Phone: Start: 85-99-0589rmavleixgnVlzzj E Spasic [facility]: 09-29-2024 End: 81-28-5918ftbqmylmodMllmc E SpasicFacility:[facility]art: 09-29-2024 End: 28-73-2390Ksmsweqn ReferredLaura E Spasic [facility] Start: 09-23-2024 End: 19-27-1107Gopllktio department patient visitRenato SiddharthaWild Terry [facility] Start: 09-22-2024 End: 50-87-4279cpxapjmtzqFSQO M KROTZERWexner Medical Centertart: 09-17-2024 End: 76-35-9238Qmzmpb Vickie Wagner [facility] Work Phone: [facility] Obstetrics/GynecologyComment on above:BV (bacterial vaginosis) (Primary Dx)Start: 09-16-2024 End: 35-55-4309Vzgzzw outpatient visit 15 minutesTaylor Regional Hospital Ob MidwifeProMedica Women's Services - CyldeComment on above:Pelvic pain (Primary Dx); Dyspareunia, female; Vaginal burning; Screening for STD (sexually transmitted disease)Start: 09-16-2024 End: 32-15-6714seiyjqyhfaIiwYpyorp Hospital Ambulatory PPGStart: 09-16-2024 End: 48-11-7559ynvchvcsvkQQBQColer-[facility] HospitalStart: 08-04-2024 End: 17-22-7116sdbukbnewyKBTG S BIEDENBACHNot AvailableStart: 07-20-2024 End: 71-10-1169hsypgiducdIMLU S BIEDENBACHNot AvailableStart: 07-07-2024 End: 59-51-6893Sslyyolma department patient visitFabrice Cavanaugh [facility] Start: 07-02-2024 End: 17-10-2045nntpbdcuykYerul E Spasic OIL DRILLING ENGINEER-C Work Phone: [facility] Work Phone: Start: 07-02-2024 End: 27-02-0772Zxubbqoi ReferredLaura Spasic OIL DRILLING ENGINEER-C Work Phone: [facility] SouthStart: 51-32-6714Cygyeqitob RecurringLaura Spasic OIL DRILLING ENGINEER-C Work Phone: [facility] [place] [facility] Work Phone: Start: 06-19-2024 End: 21-90-1287Uflvwy flowsheetPaul S Biedenbach DO Work Phone: [facility] SANDUSKYStart: 06-19-2024 End: 02-36-4521Sgkowc flowsheetPaul S Biedenbach DO Work Phone: [facility] SANDUSKYStart: 06-19-2024 End: 52-62-0519Oyddjl outpatient new 45 minutesPaul S Biedenbach DO Work Phone: [facility] SANDUSKYComment on above: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 (Primary Dx); Conductive hearing loss of left ear with unrestricted hearing of right earStart: 06-19-2024 End: 88-29-3021xkyidqsacjNGWG Khloe MCPHERSONKennedy AvailableStart: 06-09-2024 Registered RecurringLaura Spasic OIL DRILLING ENGINEER-C Work Phone: [facility] Work Phone: Start: 06-09-2024 End: 04-80-2039sixrpskygsOazqa E Spasic OIL DRILLING ENGINEER-C Work Phone: [facility] Work Phone: Start: 06-09-2024 End: 63-22-5750Ptpemcn encounter procedureLaura Spasic OIL DRILLING ENGINEER-C Work Phone: [facility] Work Phone: Start: 06-02-2024 End: 19-16-5910Ebtlrzdx Result EncounterЮлия Troncoso OIL DRILLING ENGINEER Work Phone: [facility] External Department UnsolicitedStart: 06-02-2024 End: 55-25-3670Ssjmlcdk Result EncounterЮлия Troncoso OIL DRILLING ENGINEER Work Phone: [facility] External Department UnsolicitedStart: 05-29-2024 End: 37-75-4733Jwpwgvxx SupportDejuan Velasquez [email or web address] CCC-A Work Phone: noMS AUDComment on above:Conductive hearing loss of left ear with unrestricted hearing of right ear (Primary Dx); Perforation of left tympanic membraneStart: 05-29-2024 End: 56-25-0638Fxbwzs flowsheetParisa Velasquez [email or web address] CCC-A Work Phone: [facility] AUDStart: 05-29-2024 End: 59-60-0428Lxxivq WeHostelsheetDepeacehealthrankdesk Ron [email or web address] CCC-A Work Phone: noMS AUDStart: 04-28-2024 End: 85-51-9048Mjxvryg encounter procedureLaura Spasic OIL DRILLING ENGINEER-C Work Phone: [facility] Work Phone: Start: 04-14-2024 End: 17-34-7062Lvvrdbwz Result EncounterЮлия Troncoso OIL DRILLING ENGINEER Work Phone: NOIK External Department UnsolicitedStart: 04-14-2024 End: 93-86-9946Eqxowqeq Result EncounterЮлия Troncoso OIL DRILLING ENGINEER Work Phone: [facility] External Department UnsolicitedStart: 04-14-2024 End: 44-59-4717Osmhczt encounter procedureLaura Spasic OIL DRILLING ENGINEER-C Work Phone: [facility] GroupCancer [place] [facility] Work Phone: Start: 03-10-2024 End: 60-36-8205iruhekdldbCMYIAXWKE NO [facility] Work Phone: Start: 03-10-2024 End: 96-60-6680Fqmvihpk ReferredPHYSICIAN NO [facility] ServicesStart: 02-28-2024 End: 99-85-3426Bhchdtflv department patient visitJemma Velasquez Dokelseyjose [facility] Start: 88-02-4198Cbfpzftfkx RecurringPHYSICIAN NO [facility]- CredibleStart: 12-11-2023 End: 58-27-8890Ffgmnizjy encounterNicole Dearth LPNProMedica Women's Services - CyldeStart: 12-11-2023 End: 55-03-4127Ovlipbvdr for gynecological examination (general) (routine) without abnormal findingsTaylor Regional Hospital MidwifeOhioHealth Grady [facility] Work Phone: Start: 12-11-2023 End: 27-73-0507Pkzqrrt preventive medicine new pt age 18-39yrsPsouthwestern regional medical [facility] Ob Attendant Campground [facility] - CyldeComment on above:Well woman exam with routine gynecological exam (Primary Dx); Cervical smear, as part of routine gynecological examination; Standardized adult depression screening tool completed; Does not have primary care providerStart: 12-11-2023 End: 14-24-3175Qceftec encounter procedureTaylor Regional Hospital MidwifeL[facility] Municipal [facility] Start: 12-11-2023 End: 85-82-3851givbrokpgeYKKEGalion Hospitaltart: 10-28-2188Cdmbpdsir for gynecological examination (general) (routine) without abnormal findingsKettering Health [facility] Procedures DateProcedureProcedure DetailPerforming ClinicianStart: 57-86-1916Ocmwo depression screening assessmentTaylor Regional Hospital MidwifeStart: 33-46-3717RDEJGUDJ FUNCTION TESTSDejuan Dent [facility] Work Phone: start: 68-30-7602QAA FRAHina Troncoso NP Work Phone: Start: 48-37-7797Wnwxb depression screening assessment Jessika Reid LPNStart: 99-52-2831Vttohxsbyiw observation [Identifier] in Cervix by Cyto stainPsouthwestern regional medical center – [facility] Attendant Campground Plan of Treatment DateCare ActivityDetailAuthorStart: 75-30-3972Fiwaemvrr for malignant neoplasm of cervixPap SmearUniversity Hospitals Cleveland Medical Center SystemStart: 62-44-8187Zmqsw BMI Screening Adult BMI ScreeningUniversity Hospitals Cleveland Medical Center SystemStart: 70-47-2864Pcabbwrdow Screening Depression ScreeningUniversity Hospitals Cleveland Medical Center SystemStart: 79-49-7167Tzakhyg Screening Tobacco ScreeningUniversity Hospitals Cleveland Medical Center SystemStart: 98-69-7834Bsbpx BMI Screening Adult BMI ScreeningUniversity Hospitals Cleveland Medical Center SystemStart: 20-56-0525Edmubdk Screening Tobacco ScreeningUniversity Hospitals Cleveland Medical Center SystemStart: 86-59-4769Zrjzflpwm vaccination Influenza VaccineProHenry County Hospital SystemStart: 41-10-7483Oqsss BMI Screening Adult BMI ScreeningUniversity Hospitals Cleveland Medical Center SystemStart: 92-06-5069Htektvemne Screening Depression ScreeningUniversity Hospitals Cleveland Medical Center SystemStart: 19-57-2768Lobcaly Screening Tobacco ScreeningUniversity Hospitals Cleveland Medical Center SystemStart: 11-11-2024 End: 99-58-0201Agodxvu encounter /02/2025 9:30 AM EDT Office [facility] [address] [place] [address] DhzFmdech Women's Services - CyldeStart: 32-39-3730GenwbmeocUniversity Hospitals Conneaut Medical Centertart: 09-22-2024 End: 99-53-4178Bpbvhmt encounter ijoulnwak88/13/2025 10:30 AM EDT Appointment [facility] - Ultrasound [address] [place] [address] Margret Wagner, MANAGER OF ENTERPRISE-OPERATIONS LABEL CLERK [address] [place] [address] [facility] - UltrasoundStart: 09-16-2024 End: 33-87-9450XA Pelvis transabdominal and transvaginalUltrasound pelvic with transvaginal Imaging Routine Pelvic pain Dyspareunia, female Expected: 2024, Expires: 09/16/2025[facility] Work Phone: Comment on above:Expected: 09/16/2024, Expires: 09/16/2025Start: 87-84-2244MetpgzwvyUniversity Hospitals Conneaut Medical Centertart: 07-21-2024 [facility]ertart: 07-20-2024 End: 14-57-6419Dftqdat encounter /10/2025 9:30 AM EDT Office Visit [facility] [address] [place] [phone] Boby Mcpherson, DO [address] [place] [address] [facility] ANAUSKYStart: 06-19-2024 End: 86-99-4247Modogmc encounter procedureNOMS ENT RALEIGHYComment on above: ArrivedStart: 06-01-2024 End: 15-35-9403Vvdmnxr encounter wnjoyneng41/20/2025 9:30 AM EST Office Visit [facility] [address] [place] [phone] Boby Mcpherson DO [address] [place] [address] [facility] RALEIGHYStart: 05-29-2024 End: 44-10-4147Ybxmythl SupportMULTICARE VALLEY HOSPITAL AUDComment on above:ArrivedStart: 91-38-7885XovccosxlUniversity Hospitals Conneaut Medical Centertart: 99-83-8922NztplnfxfUniversity Hospitals Conneaut Medical Centertart: 38-98-7040KwleioakwUniversity Hospitals Conneaut Medical Centertart: 37-90-7191Qadgwiykz vaccinationInfluenza VaccineUniversity Hospitals Cleveland Medical Center SystemStart: 12-11-2023 End: 18-62-8294Wgxztktwclijp procedure, preparation of smear, genital sourcePap Smear Pathology and Cytology Routine Cervical smear, as part of routine gynecological examination Expected: 12/11/2023 (Approximate), Expires: 12/10/2024[facility] Work Phone: Comment on above:Expected: 12/11/2023 (Approximate), Expires: 12/10/2024Start: 04-09-8501Uycaikjbh for malignant neoplasm of cervix Pap SmearHenry County HospitalReferBright [facility] Medical Centertart: 05-12-0254ZDfK,Tdap and Td Vaccines (1 - Tdap)DTaP,Tdap and Td Vaccines (1 - Tdap)[facility] Medical CenterNutrisystem [facility] Women'S HospitalCB W Auto Differential panel - BloodCBC auto differential Lab Routine 04/14/2024 10:24 AM [facility]SP[facility] Spock Work Phone: CBC W Auto Differential panel - BloodCBC auto differential Lab Routine 06/02/2024 1:22 PM UpowerSkillBridge Work Phone: Chlamydia trachomatis DNA [Presence] in Unspecified specimen by BRIEN with probe detectionChlamydia/GC by PCR Pravin Swab Microbiology Routine Screening for STD (sexually transmitted disease) 09/16/2024 10:19 AM EDT [facility]S HospitalComprehensive metabolic 2000 panel - Serum or Plasma Comprehensive metabolic panel Lab Routine 04/14/2024 10:24 AM RocketboomWA Spock Work Phone: Comprehensive metabolic 1999 panel - Serum or Plasma [facility] CenterComprehensive metabolic 1999 panel - Serum or PlasmaAdena Pike Medical CenterIron and Iron binding capacity panel - Serum or PlasmaIron and TIBC Lab Routine 04/14/2024 10:24 AM [facility]owerC[facility] Iron and Iron binding capacity panel - Serum or PlasmaIron and TIBC Lab Routine 06/02/2024 1:22 PM Firework Work Phone: Microscopic observation [Identifier] in Unspecified specimen by Gram stainGram stain Microbiology Routine Vaginal burning 09/16/2024 10:19 AM Playrificformerly [facility] Co[facility] Central HospitalExercise the World [facility]'S HospitalTrichomonas by PCRTrichomonas by PCR Microbiology Routine Screening for STD (sexually transmitted disease) 09/16/2024 10:[address] Rita's Medical CenterYeast CultureYeast Culture Microbiology Routine Vaginal burning 09/16/2024 10:19 AM [facility] Payers DatePayer CategoryPayerPolicy ID2025Medicaid [facility] [id number] [id number] [id number]-[id number] Private Health [id number] 81-15-4496Vevwdya8.2.840.951331.1.13.424.2.7.3.767300.02506-50-6380Weswiao [id number] 2.16.840.1.975828.3.579.2. [id number] 2.16.840.1.599218.3.57[id number] 2.16.840.1.686115.3.57[id number] 2.16.840.1.480239.3.57[id number] 2.16.840.1.975352.3.579.[id number] 2.16.840.1.087543.3.57[id number] 2.16.840.1.448398.3.57[id number] 2.16.840.1.474754.3.57[id number] 2.16.840.1.762984.3.57[id number] 2.16.840.1.287021.3.57[id number] 2.16.840.1.515732.3.57[id number] 2.16.840.1.453142.3.57[id number] 2.16.840.1.600777.3.579.2.[id number] 2.16.840.1.983219.3.57[id number] 2.16.840.1.314220.3.579.[id number] 2.16.840.1.905891.3.57[id number] 2.16.840.1.605518.3.579.2.[id number] 2.840.1.476890.3.579.2.00926-54-2137Fyjdxjx91102457 2.16840.1.050989.3.579.2.62460-22-0949Tskkfzm31581912 2.16.840.1.435585.3.579.2.96511-47-0904Frbvrgl63242211 2.16.840.1.033452.3.579.2.09524-87-9802Rdbhgkz82432065 2.16840.1.389613.3.579.2.74298-01-1418Elqonth64693712 2.16840.1.799865.3.579.2.13784-99-1392Veqhepn48728756 2.16840.1.844955.3.579.2.55969-09-9808Cidwvxj04420252 2.16.840.1.136485.3.579.2.61239-00-3562Uhwljsl06993257 2.16840.1.115066.3.579.2.07305-20-4100Pshpkxv42666108 2.16.840.1.040644.3.579.2.49780-52-1700Mslvhtt73514483 2..840.1.542675.3.579.2.84279-61-7390Otpyktp56163763 2.16.840.1.201000.3.579.2.727UnknownHCAP/HFA/FAP YtpaxcY399831 165s4034-fbu6-5ei8-p400-95184w426875Qhcwvkz92517187 2.16.840.1.105562.3.579.2.656Mkokvxp21346169 2.16.840.1.418085.3.579.2.531 Hitktht40824515 2.16840.1.368003.3.579.2.476Eqfswxi39002203 2.840.1.238303.3.579.2.019Cquqyjn54652369 2.840.1.558489.3.579.2.531 [id number] 2.840.1.591947.3.579.2.531 Social History DateTypeDetailFacilityTobacco smoking statusUniversity Hospitals Cleveland Medical Center SystemStart: 12-11-2023 End: 41-79-6643Qqx Assigned At BirthFeSt. Charles Hospital CenterStart: 08-28-2022 End: 08-55-0934Nzakwit smoking status NHISNever smoked tobacco (finding) [facility] CenterStart: 67-43-9441Cjk Assigned At BirthFeOhioHealth Nelsonville Health CenterTobacco smoking status NHISTobacco smoking consumption unknownSPANISH FORK HOSPITAL HealthcareStart: 99-61-6633Kip assigned at birthNot on fileUniversity Hospitals Cleveland Medical Center SystemStart: 12-03-2023 End: 80-78-7672RdtOgiuds (finding)[facility] Centertart: 12-11-2023 End: 78-48-2344Dydnfbj use and exposureSmokeless tobacco non-userProMedica Health SystemStart: 06-19-2024 End: 48-01-2783Dfgcnofro beverage intakeEx-drinker (finding)[facility] Start: 12-11-2023 End: 92-42-9159Sfydivj of Social functionCritical access hospitaltart: 75-25-9743Rkvqjzfxq beverage intakeCurrent drinker of alcohol (finding)[facility] HospitalAdolescent depression screening jgjkigampi66UvoKcaiwcCritical access hospitaltart: 56-34-1223Yzsftti CommentoccasionalCritical access hospitaltart: 22-44-2551Bkctise CommentOcassionalLancaster Municipal Hospital Goals DatePatient GoalDesired Activity/State Functional Status UpgqGmwimosfpbQdliacDdekcuxr79-74-9621Yaynqnt Health Questionnaire 2 item (PHQ- 2) [Reported][facility]08-06-2025Little interest or pleasure in doing thingsSeveral days 12/16/2024 9:48 AM EDT Mychart, Generic Several days [facility]08-06-2025Feeling down, depressed, or hopelessSeveral days 12/16/2024 9:48 AM EDT Mychart, Generic Several daysLancaster Municipal Hospital 13-28-9665Veloxei falling or staying asleep, or sleeping too muchNot at all 12/16/2024 9:48 AM EDT Mychart, Generic Not at allLancaster Municipal Hospital 35-56-0960Nqeidgs tired or having little energyNearly every day 12/16/2024 9:48 AM EDT Mychart, Generic Nearly every dayLancaster Municipal Hospital08-06-2025Poor appetite or overeatingSeveral days 12/16/2024 9:48 AM EDT Mychart, Generic Several daysLancaster Municipal Hospital08-06-2025Feeling bad about yourself-or that you are a failure or have let yourself or your family downNearly every day 12/16/2024 9:48 AM EDT Mychart, Generic Nearly every dayL[facility]aster Municipal Hospital 29-29-6607Pnncmwh concentrating on things, such as reading the newspaper or watching televisionNot at all 12/16/2024 9:48 AM EDT Mychart, Generic Not at all [facility]08-06-2025Moving or speaking so slowly that other people could have noticed. Or the opposite - being so fidgety or restless that you have been moving around a lot more than usualNot at all 12/16/2024 9:48 AM EDT Mychart, Generic Not at allLancaster Municipal HospitalHfirgb00-58-1887Oldrbqqi that you would be better off , or of hurting yourself in some wayNearly every day 12/16/2024 9:48 AM EDT Mychart, Generic Nearly every dayL[facility]aster Municipal Hospital 80-73-0925Ofx difficult have these problems made it for you to do your work, take care of things at home, or get along with other people?Not difficult at all 12/16/2024 9:48 AM EDT Mychart, Generic Not difficult at allLancaster Municipal HospitalFtizng47-79-6185Barqubeqfg StatusN/[facility]02-25-2025 Functional StatusN/[facility]10-18-2024Functional StatusN/A [facility] Clinical Notes 12-11-2023 to 03-08-2025 Note Date & GlytEwdxSzmzjaaf93-12-8574 NoteED Patient Education Note Infectious Disease Upper Respiratory Infection, Adult An upper respiratory infection (URI) is a common viral infection of the nose, throat, and upper airpassages that lead to the lungs. The most common type of URI is the common cold. URIs usually get better on their own, without medical treatment. What are the causes? A URI is caused by a virus. You may catch a virus by: ??? Breathing in droplets from an infected person's cough or sneeze. ??? Touching something that has been exposed to the virus (is contaminated) and then touching your mouth, nose, or eyes. What increases the risk? You are more likely to get a URI if: ??? You are very young or very old. ??? You have close contact with others, such as at work, school, or a health care facility. ??? You smoke. ??? You have long-term (chronic) heart or lung disease. ??? You have a weakened disease-fighting system (immune system). ??? You have nasal allergies or asthma. ??? You are experiencing a lot of stress. ??? You have poor nutrition. What are the signs or symptoms? A URI usually involves some of the following symptoms: ??? Runny or stuffy (congested) nose. ??? Cough. ??? Sneezing. ??? Sore throat. ??? Headache. ??? Fatigue. ??? Fever. ??? Loss of appetite. ??? Pain in your forehead, behind your eyes, and over your cheekbones (sinus pain). ??? Muscle aches. ??? Redness or irritation of the eyes. ??? Pressure in the ears or face. How is this diagnosed? This condition may be diagnosed based on your medical history and symptoms, and a physical exam. Your health care provider may use a swab to take a mucus sample from your nose (nasal swab). This sample can be tested to determine what virus is causing the illness. How is this treated? URIs usually get better on their own within 7?10 days. Medicines cannot cure URIs, but your health care provider may recommend certain medicines to help relieve symptoms, such as: ??? Uwni-wdo-ahwdlib cold medicines. ??? Cough suppressants. Coughing is a type of defense against infection that helps to clear the respiratory system, so take these medicines only as recommended by your health care provider. ??? Fever-reducing medicines. Follow these instructions at home: Activity ??? Rest as needed. ??? If you have a fever, stay home from work or school until your fever is gone or until your health care provider says your URI cannot spread to other people (is no longer contagious). Your health care provider may have you wear a face mask to prevent your infection from spreading. Relieving symptoms ??? Gargle with a mixture of salt and water 3?4 times a day or as needed. To make salt water, completely dissolve ??1 tsp (3?6 g) of salt in 1 cup (237 mL) of warm water. ??? Use a cool-mist humidifier to add moisture to the air. This can help you breathe more easily. Eating and drinking ??? Drink enough fluid to keep your urine pale yellow. ??? Eat soups and other clear broths. General instructions ??? Take jblz-xtt-xhyvirg and prescription medicines only as told by your health care provider. These include cold medicines, fever reducers, and cough suppressants. ??? Do not use any products that contain nicotine or tobacco. These products include cigarettes, chewing tobacco, and vaping devices, such as e-cigarettes. If you need help quitting, ask your health care provider. ??? Stay away from secondhand smoke. ??? Stay up to date on all immunizations, including the yearly (annual) flu vaccine. ??? Keep all follow-up visits. This is important. How to prevent the spread of infection to others URIs can be contagious. To prevent the infection from spreading: ??? Wash your hands with soap and water for at least 20 seconds. If soap and water are not available, use hand oil exploration engineer. ??? Avoid touching your mouth, face, eyes, or nose. ??? Cough or sneeze into a tissue or your sleeve or elbow instead of into your hand or into the air. Contact a health care provider if: ??? You are getting worse instead of better. ??? You have a fever or chills. ??? Your mucus is brown or red. ??? You have yellow or brown discharge coming from your nose. ??? You have pain in your face, especially when you bend forward. ??? You have swollen neck glands. ??? You have pain while swallowing. ??? You have white areas in the back of your throat. Get help right away if: ??? You have shortness of breath that gets worse. ??? You have severe or persistent: ? Headache. ? Ear pain. ? Sinus pain. ? Chest pain. ??? You have chronic lung disease along with any of the following: ? Making high-pitched whistling sounds when you breathe, most often when you breathe out (wheezing). ? Prolonged cough (more than 14 days). ? Coughing up blood. ? A change in your usual mucus. ??? You have a stiff n (more content not included)...[facility] 01-29-2025 NoteED Patient Education Note Endocrinology Hyperglycemia Hyperglycemia occurs when the level of sugar (glucose) in the blood is too high. Glucose is a type of sugar that provides the body's main source of energy. Certain hormones (insulin and glucagon) control the level of glucose in the blood. Insulin lowers blood glucose, and glucagon increases blood glucose. Hyperglycemia can result from not having enough insulin in the bloodstream, or from the bodynot responding normally to insulin. Hyperglycemia occurs most often in people who have diabetes (diabetes mellitus), but it can happen in people who do not have diabetes. It can develop quickly, and it can be life-threatening if it causes you to become severely dehydrated (diabetic ketoacidosis or hyperglycemic hyperosmolar state). Severe hyperglycemia is a medical emergency. For most people with diabetes, a blood glucose level above 240 mg/dL is considered hyperglycemia. What are the causes? If you have diabetes, hyperglycemia may be caused by: ??? Medicines that increase blood glucose or affect your diabetes control. ??? Getting less physical activity. ??? Eating more than planned. ??? Being sick or injured, having an infection, or having surgery. ??? Stress. ??? Not giving yourself enough insulin (if you are taking insulin). If you have undiagnosed diabetes, this may be the reason you have hyperglycemia. If you do not have diabetes, hyperglycemia may be caused by: ??? Certain medicines, including: ? Steroid medicines. ? Beta-blockers. ? Epinephrine. ? Thiazide diuretics. ??? Stress. ??? Having a serious illness, an infection, or surgery. ??? Diseases of the pancreas. What increases the risk? Hyperglycemia is more likely to develop in people who have risk factors for diabetes, such as: ??? Having a family member with diabetes. ??? Certain conditions in which the body's disease-fighting system (immune system) attacks itself (autoimmune disorders). ??? Being overweight or obese. ??? Having an inactive (sedentary) lifestyle. ??? Having been diagnosed with insulin resistance. ??? Having a history of prediabetes, gestational diabetes, or polycystic ovarian syndrome (PCOS). What are the signs or symptoms? Hyperglycemia may not cause any symptoms. If you do have symptoms, they may include: ??? Increased thirst. ??? Needing to urinate more often than usual. ??? Hunger. ??? Feeling very tired. ??? Blurry vision. Other symptoms may develop if hyperglycemia gets worse, such as: ??? Dry mouth. ??? Abdominal pain. ??? Loss of appetite. ??? Fruity-smelling breath. ??? Weakness. ??? Unexpected weight loss. ??? Tingling or numbness in the hands or feet. ??? Headache. ??? Cuts or bruises that are slow to heal. How is this diagnosed? Hyperglycemia is diagnosed with a blood test to measure your blood glucose level. This blood test is usually done while you are having symptoms. Your health care provider may also do a physical exam and review your medical history. You may have more tests to determine the cause of your hyperglycemia, such as: ??? A fasting blood glucose (FBG) test. You will not be allowed to eat (you will fast) for at least8 hours before a blood sample is taken. ??? An A1C blood test. This provides information about blood glucose control over the previous 2?3 months. ??? An oral glucose tolerance test (OGTT). This measures your blood glucose at two times: ? After fasting. This is your baseline blood glucose level. ? 2 hours after drinking a beverage that contains glucose. How is this treated? Treatment depends on the cause of your hyperglycemia. Treatment may include: ??? Taking medicine to regulate your blood glucose levels. If you take insulin or other diabetes medicines, your medicine or dosage may be adjusted. ??? Lifestyle changes, such as exercising more, eating healthier foods, or losing weight. ??? Treating an illness or infection. ??? Checking your blood glucose more often. ??? Stopping or reducing steroid medicines. If your hyperglycemia becomes severe and it results in diabetic ketoacidosis or hyperglycemic hyperosmolar state, you must be hospitalized and given IV fluids and IV insulin. Follow these instructions at home: General instructions ??? Take xlej-lvw-wqazsyc and prescription medicines only as told by your health care provider. ??? Do not use any products that contain nicotine or tobacco. These products include cigarettes, chewing tobacco, and vaping devices, such as e-cigarettes. If you need help quitting, ask your health care provider. ??? If you drink alcohol: ? Limit how much you have to: ? 0?1 drink a day for women who are not . ? 0?2 drinks a day for men. ? Know how much alcohol is in a drink. In the [place] one drink equals one 12 oz bottle of beer (355mL), one 5 oz glass of wine (148 mL), or one 1? oz glass of hard liquor (44 mL). ??? Learn to manage stress. If you need help with this (more content not included)...[facility]09-[facility]25 NoteOncology Progress Note Chief Complaint New pt here for iron def anemia, pt states that she has been feeling exhausted everyday. Diagnoses H/O iron deficiency (Z86.39: Personal history of other endocrine, nutritional and metabolic disease) Ordered: CBC w/ Auto Diff CBC w/ Auto Diff Comprehensive Metabolic Panel Comprehensive Metabolic Panel eGFR Ferritin Ferritin Folate Level Iron Level Iron Level Iron Percent Saturation Iron Percent Saturation Protein Electrophoresis Transferrin Transferrin TSH With T4fr Reflex Vitamin B12 Level Low serum vitamin B12 (E53.8: Deficiency of other specified B group vitamins) Ordered: cyanocobalamin, 1,000 mcg = 1 mL, Injection, ONC IntraMuscular, Day of Tx, Routine, Start date 05/06/25, 05/06/25 8:15:00 EST cyanocobalamin, 1,000 mcg = 1 mL, Injection, ONC IntraMuscular, Day of Tx, Routine, Start date 04/08/25, 04/08/25 8:15:00 EST cyanocobalamin, 1,000 mcg = 1 mL, Injection, ONC IntraMuscular, Day of Tx, Routine, Start date 02/10/26, 02/10/26 8:15:00 EDT cyanocobalamin, 1,000 mcg = 1 mL, Injection, ONC IntraMuscular, Day of Tx, Routine, Start date 03/11/25, 03/11/25 8:15:00 EDT cyanocobalamin, 1,000 mcg = 1 mL, Injection, ONC IntraMuscular, Day of Tx, Routine, Start date 01/13/26, 01/13/26 8:15:00 EDT cyanocobalamin, 1,000 mcg = 1 mL, Injection, ONC IntraMuscular, Day of Tx, Routine, Start date 02/11/25, 02/11/25 8:15:00 EDT cyanocobalamin, 1,000 mcg = 1 mL, Injection, ONC IntraMuscular, Day of Tx, Routine, Start date 12/16/25, 12/16/25 8:15:00 EDT cyanocobalamin, 1,000 mcg = 1 mL, Injection, ONC IntraMuscular, Day of Tx, Routine, Start date 11/18/25, 11/18/25 8:15:00 EDT cyanocobalamin, 1,000 mcg = 1 mL, Injection, ONC IntraMuscular, Day of Tx, Routine, Start date 06/03/25, 06/03/25 8:15:00 EST cyanocobalamin, 1,000 mcg = 1 mL, Injection, ONC IntraMuscular, Day of Tx, Routine, Start date 09/23/25, 09/23/25 8:15:00 EDT cyanocobalamin, 1,000 mcg = 1 mL, Injection, ONC IntraMuscular, Day of Tx, Routine, Start date 08/26/25, 08/26/25 8:15:00 EDT cyanocobalamin, 1,000 mcg = 1 mL, Injection, ONC IntraMuscular, Day of Tx, Routine, Start date 07/29/25, 07/29/25 8:15:00 EDT cyanocobalamin, 1,000 mcg = 1 mL, Injection, ONC IntraMuscular, Day of Tx, Routine, Start date 07/01/25, 07/01/25 8:15:00 EST cyanocobalamin, 1,000 mcg = 1 mL, Injection, ONC IntraMuscular, Day of Tx, Routine, Start date 10/21/25, 10/21/25 8:15:00 EDT cyanocobalamin, 1,000 mcg = 1 mL, Injection, ONC IntraMuscular, Once, Stop date 01/14/25 15:00:00 EDT, Routine, Start date 01/14/25 15:00:00 EDT Zero Hour, Day of Tx Zero Hour, Day of Tx Zero Hour, Day of Tx Zero Hour, Day of Tx Zero Hour, Day of Tx Zero Hour, Day of Tx Zero Hour, Day of Tx Zero Hour, Day of Tx Zero Hour, Day of Tx Zero Hour, Day of Tx Zero Hour, Day of Tx Zero Hour, Day of Tx Zero Hour, Day of Tx Zero Hour, Day of Tx Adult Chemotherapy Hypersensitivity Management Adult Chemotherapy Hypersensitivity Management Adult Chemotherapy Hypersensitivity Management Adult Chemotherapy Hypersensitivity Management Adult Chemotherapy Hypersensitivity Management Adult Chemotherapy Hypersensitivity Management Adult Chemotherapy Hypersensitivity Management Adult Chemotherapy Hypersensitivity Management Adult Chemotherapy Hypersensitivity Management Adult Chemotherapy Hypersensitivity Management Adult Chemotherapy Hypersensitivity Management Adult Chemotherapy Hypersensitivity Management Adult Chemotherapy Hypersensitivity Management Adult Chemotherapy Hypersensitivity Management CBC w/ Auto Diff CBC w/ Auto Diff Comprehensive Metabolic Panel Comprehensive Metabolic Panel eGFR Ferritin Ferritin Folate Level Injection Visit 15 Minutes Injection Visit 15 Minutes Injection Visit 15 Minutes Injection Visit 15 Minutes Injection Visit 15 Minutes Injection Visit 15 Minutes Injection Visit 15 Minutes Injection Visit 15 Minutes Injection Visit 15 Minutes Injection Visit 15 Minutes Injection Visit 15 Minutes Injection Visit 15 Minutes Injection Visit 15 Minutes Injection Visit 15 Minutes Iron Level Iron Level Iron Percent Saturation Iron Percent Saturation Protein Electrophoresis Transferrin Transferrin TSH With T4fr Reflex Vitamin B12 Level Oncological History/ROS/PE/Assessment and Plan HPI Mrs Tong transferred care to [facility] [place] due to insurance issues. [place] [facility] [place] iron deficiency and B12 deficiency. She has a past medical history of vertigo, migraines, DM 2,depression, PTSD. There was a questionable history of thalassemia. Hemoglobin electrophoresis did not show results consistent with that. Also reports prazosin and hydrazine on her medication list forinsomnia. Labs show a white count of 9.7, hemoglobin of 15.3, hematocrit of 44.8, her protein came back 7.9, creatinine of 0.4, calcium, sugar of 178, no recent iron panels. Hemoglobin electrop (more content not included)...[facility]Result Comment: Electronically Signed By: YASHIRA GIVENS CNP\.br\Date and Time Signed: 01/15/2516:09 [id number] History of Present illness Narrative* Margret Wagner, LEONARD - 12/16/2024 10:00 AM EDT Annual Well Woman Visit 12/16/2024 Subjective Britney Tong is a pleasant 29 y.o. 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 Periods are regular every 28-30 days, lasting 7 days. Dysmenorrhea: severe, occurring first 1-2 days of flow. Cyclic symptoms include anxiety, bloating, breast tenderness, and headache. No intermenstrual bleeding, spotting, or abnormal discharge. Has occasional pelvic pain. Patient declined STD testing today. Complaints today: none Relationship status: in a relationship The patient reports that there is not domestic violence in her life. 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 Lengthy discussion with patient about this.I recommend patient to go to the ED. Patient refuses, states they will send her away again. Patientwas admitted to inpatient psych unit a couple weeks ago for a week and states that made everything worse. She sees a psychiatrist in [place] and they are working together to get her medications adjusted. Patient reports although she thinks about ending her life, she will not make any attempts. Her last suicide attempt was about 2 years. ago. LMP 11/17/2024 OB History 0 Para 0 Term 0 0 AB 0 Living 0 SAB 0 IAB 0 Ectopic 0 Multiple 0 Live Births 0 The following portions of the patient's history were reviewed and updated as appropriate: allergies, current medications, past family history, past medical history, past social history, past surgicalhistory and problem list. MEDICAL HX Past Medical History: Diagnosis Date Anemia Back pain Depression Diabetes (CMS-HCC) Disease of thyroid gland GERD (gastroesophageal reflux disease) SURGICAL HX Past Surgical History: Procedure Laterality Date TYMPANOPLASTY FAMILY HX Family History Problem Relation Age of Onset No Known Problems Father No Known Problems Mother MEDS Current Outpatient Medications Medication Sig Dispense Refill famotidine (PEPCID) 40 mg tablet Take 1 tablet (40 mg total) by mouth. ferrous sulfate 325 (65 FE) MG tablet Take 1 tablet (325 mg total) by mouth daily with breakfast. ibuprofen (MOTRIN) 800 mg tablet TAKE 1 TABLET BY MOUTH 3 TIMES A DAY NEEDED WITH MILK OR FOOD ketorolac (TORADOL) 10 mg tablet TAKE 1 TABLET BY MOUTH EVERY 6 HOURS WITH FOOD OR MILK NEEDED FOR 5 DAYS levothyroxine (SYNTHROID, LEVOTHROID) 25 MCG tablet Take 1 tablet (25 mcg total) by mouth. metFORMIN (GLUCOPHAGE) 1000 mg tablet Take 0.5 tablets (500 mg total) by mouth. omeprazole (PriLOSEC) 20 mg capsule TAKE 1 CAPSULE BY MOUTH 1/2 TO 1 HOUR BEFORE MORNING MEAL EACH DAY prazosin (MINIPRESS) 1 mg capsule 2 capsules (2 mg total) once daily at bedtime. scopolamine (TRANSDERM-SCOP) 1 mg/3 days Apply 1 patch topically. tirzepatide (MOUNJARO) 2.5 mg/0.5 mL pen injector venlafaxine XR (EFFEXOR XR) 75 mg 24 hr capsule 2 capsules (150 mg total). gabapentin (NEURONTIN) 100 mg capsule 1 capsule (100 mg total) every 12 (twelve) hours. (Patient not taking: Reported on 12/16/2024) metoprolol tartrate (LOPRESSOR) 25 mg tablet Take 1 tablet (25 mg total) by mouth in the morning and 1 tablet (25 mg total) before bedtime. (Patient not taking: Reported on 12/16/2024) No current facility-administered medications for this visit. ALLERGIES No Known Allergies Review of Systems Constitutional: Negative. Respiratory: Negative. Negative for chest tightness and shortness of breath. Cardiovascular: Negative. Negative for chest pain and palpitations. Gastrointestinal: Negative. Negative for constipation, diarrhea, nausea and vomiting. Endocrine: Negative. Genitourinary: Negative. Negative for dyspareunia, menstrual problem and pelvic pain. Musculoskeletal: Negative. Skin: Negative. Allergic/Immunologic: Negative. Neurological: Negative. Hematological: Negative. Psychiatric/Behavioral: Negative. Objective BP 112/60 Ht 162.6 cm (5' 4 ) Wt 62.4 kg (137 lb 9.6 oz) LMP 11/17/2024 (Exact Date) BMI 23.62 kg/m Physical Exam Assessment/Plan: Britney was seen today for annual exam. Diagnoses and all orders for this visit: Well woman exam with routine gynecological exam Standardized adult depression screening tool completed Patient's s/o present and states patient is never alone, either he or his mother are always with her and they are working closely with psych to get patient the help she needs. BMI is in the acceptable range. Patient declines offer for contraception. Recommend breast self-awareness. Notify provider for any breast changes or concerns Discussed healthy lifestyle modifications. Educational material distributed. 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 Follow up as needed. Next pap due 2026 per ASCCP guidelines. Discussed taking a multivitamin. Discussed Calcium and Vitamin D for prevention of osteoporosis. Discussed recommendations for HPV vaccine between 9-45 yo. Can be received at [address] [facility] or the [employer] department. Discussed need for yearly mammogram after 40 yo. Discussed colon cancer screening recommendations to begin at 45 yo, patient to discuss with PCP. All questions answered. BRISEYDA QUINTERO POTATO PICKER LEONARD Boss APRN-CNP 12/16/24 1538 documented in this encounterSt [facility]bury HospitalVirtify06-24-2025 NoteProgress Note-Nurse Patient on ipad with [facility]05-14-[facility]25 Evaluation + Plan noteExtracted from:Title:ED NoteAuthor:Rodolfo ASHFORD, Gal AriasDate:09/23/24 Acute URI (J06.9: Acute uppe r respiratory infection, unspecified) Nonspecific chest pain (R07.9: Chest pain, unspecified) Orders: brompheniramine/dextromethorphan/PSE, 5 mL, Oral, QID for cold symptoms, 200 mL, Refill(s) 0, [facility]/pharmacy #[id number], 163, cm, 09/23/24 7:48:00 EDT, Height/Length Dosing, 63.9, kg, 09/23/24 7:48:00 EDT, Weight Dosing methylPREDNISolone, = 1 tab(s), Oral, As Directed, Take as directed on pack, # 1 EA, Refills(s) 0, Pharmacy: [facility]/pharmacy #[id number], 163, cm, 09/23/24 7:48:00 EDT, Height/Length Dosing, 63.9, kg, 09/23/24 7:48:00 EDT, Weight Dosing [facility] 05-14-2025 Hospital Discharge instructions Patient Education 09/23/2024 09:43:02 Upper Respiratory Infection, Adult Upper Respiratory Infection, Adult An upper respiratory infection (URI) is a common viral infection of the nose, throat, and upper airpassages that lead to the lungs. The most common type of URI is the common cold. URIs usually get better on their own, without medical treatment. What are the causes? A URI is caused by a virus. You may catch a virus by: Breathing in droplets from an infected person's cough or sneeze. Touching something that has been exposed to the virus (is contaminated) and then touching your mouth, nose, or eyes. What increases the risk? You are more likely to get a URI if: You are very young or very old. You have close contact with others, such as at work, school, or a health care facility. You smoke. You have long-term (chronic) heart or lung disease. You have a weakened disease-fighting system (immune system). You have nasal allergies or asthma. You are experiencing a lot of stress. You have poor nutrition. What are the signs or symptoms? A URI usually involves some of the following symptoms: Runny or stuffy (congested) nose. Cough. Sneezing. Sore throat. Headache. Fatigue. Fever. Loss of appetite. Pain in your forehead, behind your eyes, and over your cheekbones (sinus pain). Muscle aches. Redness or irritation of the eyes. Pressure in the ears or face. How is this diagnosed? This condition may be diagnosed based on your medical history and symptoms, and a physical exam. Your health care provider may use a swab to take a mucus sample from your nose (nasal swab). This sample can be tested to determine what virus is causing the illness. How is this treated? URIs usually get better on their own within 7 10 days. Medicines cannot cure URIs, but your health care provider may recommend certain medicines to help relieve symptoms, such as: Dayw-lpl-qnlnnli cold medicines. Cough suppressants. Coughing is a type of defense against infection that helps to clear the respiratory system, so take these medicines only as recommended by your health care provider. Fever-reducing medicines. Follow these instructions at home: Activity Rest as needed. If you have a fever, stay home from work or school until your fever is gone or until your health care provider says your URI cannot spread to other people (is no longer contagious). Your health care provider may have you wear a face mask to prevent your infection from spreading. Relieving symptoms Gargle with a mixture of salt and water 3 4 times a day or as needed. To make salt water, completely dissolve 1 tsp (3 6 g) of salt in 1 cup (237 mL) of warm water. Use a cool-mist humidifier to add moisture to the air. This can help you breathe more easily. Eating and drinking Drink enough fluid to keep your urine pale yellow. Eat soups and other clear broths. General instructions Take cvrg-fhm-yrkcoct and prescription medicines only as told by your health care provider. These include cold medicines, fever reducers, and cough suppressants. Do not use any products that contain nicotine or tobacco. These products include cigarettes, chewing tobacco, and vaping devices, such as e-cigarettes. If you need help quitting, ask your health careprovider. Stay away from secondhand smoke. Stay up to date on all immunizations, including the yearly (annual) flu vaccine. Keep all follow-up visits. This is important. How to prevent the spread of infection to others URIs can be contagious. To prevent the infection from spreading: Wash your hands with soap and water for at least 20 seconds. If soap and water are not available, use hand oil exploration engineer. Avoid touching your mouth, face, eyes, or nose. Cough or sneeze into a tissue or your sleeve or elbow instead of into your hand or into the air. Contact a health care provider if: You are getting worse instead of better. You have a fever or chills. Your mucus is brown or red. You have yellow or brown discharge coming from your nose. You have pain in your face, especially when you bend forward. You have swollen neck glands. You have pain while swallowing. You have white areas in the back of your throat. Get help right away if: You have shortness of breath that gets worse. You have severe or persistent: ?Headache. ?Ear pain. ?Sinus pain. ?Chest pain. You have chronic lung disease along with any of the following: ?Making high-pitched whistling sounds when you breathe, most often when you breathe out (wheezing). ?Prolonged cough (more than 14 days). ?Coughing up blood. ?A change in your usual mucus. You have a stiff neck. You have changes in your: ?Vision. ?Hearing. ?Thinking. ?Mood. These symptoms may be an emergency. Get help right away. Call 911. Do not wait to see if the symptoms will go away. Do not drive yourself to the hospital. Summary An upper respiratory infection (URI) is a common infection of the nose, throat, and upper air passages that lead to the lungs. A URI is caused by a virus. URIs usually get better on their own within 7 10 days. Medicines cannot cure URIs, but your health care provider may recommend certain medicines to help relieve symptoms. This information is not intended to replace advice given to you by your health care provider. Make sure you discuss any questions you have with your health care provider. Document Revised: 11/29/2021 Document Reviewed: 11/29/2021 [employer] Patient Education 2023 [employer]. 09/23/2024 09:43:02 Nonspecific Chest Pain, Adult, Gqhr-cv-Ipuz Nonspecific Chest Pain Chest pain can be caused by many different conditions. Some causes of chest pain can be life-threatening. These will require treatment right away. Serious causes of chest pain include: Heart attack. A tear in the body's main blood vessel. Redness and swelling (inflammation) around your heart. Blood clot in your lungs. Other causes of chest pain may not be so serious. These include: Heartburn. Anxiety or stress. Damage to bones or muscles in your chest. Lung infections. Chest pain can feel like: Pain or discomfort in your chest. Crushing, pressure, aching, or squeezing pain. Burning or tingling. Dull or sharp pain that is worse when you move, cough, or take a deep breath. Pain or discomfort that is also felt in your back, neck, jaw, shoulder, or arm, or pain that spreads to any of these areas. It is hard to know whether your pain is caused by something that is serious or something that is not so serious. So it is important to see your doctor right away if you have chest pain. Follow these instructions at home: Medicines Take ccvd-mbj-pjegxrz and prescription medicines only as told by your doctor. If you were prescribed an antibiotic medicine, take it as told by your doctor. Do not stop taking the antibiotic even if you start to feel better. Lifestyle Rest as told by your doctor. Do not use any products that contain nicotine or tobacco, such as cigarettes, e- cigarettes, and chewing tobacco. If you need help quitting, ask your doctor. Do not drink alcohol. Make lifestyle changes as told by your doctor. These may include: ?Getting regular exercise. Ask your doctor what activities are safe for you. ?Eating a heart-healthy diet. A diet and child nutrition assistant (dietitian) can help you to learn healthy eating options. ?Staying at a healthy weight. ?Treating diabetes or high blood pressure, if needed. ?Lowering your stress. Activities such as yoga and relaxation techniques can help. General instructions Pay attention to any changes in your symptoms. Tell your doctor about them or any new symptoms. Avoid any activities that cause chest pain. Keep all follow-up visits as told by your doctor. This is important. You may need more testing if your chest pain does not go away. Contact a doctor if: Your chest pain does not go away. You feel depressed. You have a fever. Get help right away if: Your chest pain is worse. You have a cough that gets worse, or you cough up blood. You have very bad (severe) pain in your belly (abdomen). You pass out (faint). You have either of these for no clear reason: ?Sudden chest discomfort. ?Sudden discomfort in your arms, back, neck, or jaw. You have shortness of breath at any time. You suddenly start to sweat, or your skin gets clammy. You feel sick to your stomach (nauseous). You throw up (vomit). You suddenly feel lightheaded or dizzy. You feel very weak or tired. Your heart starts to beat fast, or it feels like it is skipping beats. These symptoms may be an emergency. Do not wait to see if the symptoms will go away. Get medical help right away. Call your local emergency services (911 in the [place] Do not drive yourself to the hospital. Summary Chest pain can be caused by many different conditions. The cause may be serious and need treatment right away. If you have chest pain, see your doctor right away. Follow your doctor's instructions for taking medicines and making lifestyle changes. Keep all follow-up visits as told by your doctor. This includes visits for any further testing if your chest pain does not go away. Be sure to know the signs that show that your condition has become worse. Get help right away if you have these symptoms. This information is not intended to replace advice given to you by your health care provider. Make sure you discuss any questions you have with your health care provider. Document Revised: 03/14/2023 Document Reviewed: 03/14/2023 [email or web address] Patient Education 2023 [employer]. Follow Up Care 09/23/2024 07:43:47 With:PAMELA SU Address: [address] [place] [address]- Business (1) When:09/26/2024 09:36:25 Comments:Call Dr for diagnosis based follow up [facility] 05-14-2025 NoteED Patient Education Note Gastroenterology Nonspecific Chest Pain Chest pain can be caused by many different conditions. Some causes of chest pain can be life-threatening. These will require treatment right away. Serious causes of chest pain include: ??? Heart attack. ??? A tear in the body's main blood vessel. ??? Redness and swelling (inflammation) around your heart. ??? Blood clot in your lungs. Other causes of chest pain may not be so serious. These include: ??? Heartburn. ??? Anxiety or stress. ??? Damage to bones or muscles in your chest. ??? Lung infections. Chest pain can feel like: ??? Pain or discomfort in your chest. ??? Crushing, pressure, aching, or squeezing pain. ??? Burning or tingling. ??? Dull or sharp pain that is worse when you move, cough, or take a deep breath. ??? Pain or discomfort that is also felt in your back, neck, jaw, shoulder, or arm, or pain that spreads to any of these areas. It is hard to know whether your pain is caused by something that is serious or something that is not so serious. So it is important to see your doctor right away if you have chest pain. Follow these instructions at home: Medicines ??? Take nzki-zij-oamkpcm and prescription medicines only as told by your doctor. ??? If you were prescribed an antibiotic medicine, take it as told by your doctor. Do not stop taking the antibiotic even if you start to feel better. Lifestyle ??? Rest as told by your doctor. ??? Do not use any products that contain nicotine or tobacco, such as cigarettes, e-cigarettes, andchewing tobacco. If you need help quitting, ask your doctor. ??? Do not drink alcohol. ??? Make lifestyle changes as told by your doctor. These may include: ? Getting regular exercise. Ask your doctor what activities are safe for you. ? Eating a heart-healthy diet. A diet and child nutrition assistant (dietitian) can help you to learn healthy eating options. ? Staying at a healthy weight. ? Treating diabetes or high blood pressure, if needed. ? Lowering your stress. Activities such as yoga and relaxation techniques can help. General instructions ??? Pay attention to any changes in your symptoms. Tell your doctor about them or any new symptoms. ??? Avoid any activities that cause chest pain. ??? Keep all follow-up visits as told by your doctor. This is important. You may need more testing if your chest pain does not go away. Contact a doctor if: ??? Your chest pain does not go away. ??? You feel depressed. ??? You have a fever. Get help right away if: ??? Your chest pain is worse. ??? You have a cough that gets worse, or you cough up blood. ??? You have very bad (severe) pain in your belly (abdomen). ??? You pass out (faint). ??? You have either of these for no clear reason: ? Sudden chest discomfort. ? Sudden discomfort in your arms, back, neck, or jaw. ??? You have shortness of breath at any time. ??? You suddenly start to sweat, or your skin gets clammy. ??? You feel sick to your stomach (nauseous). ??? You throw up (vomit). ??? You suddenly feel lightheaded or dizzy. ??? You feel very weak or tired. ??? Your heart starts to beat fast, or it feels like it is skipping beats. These symptoms may be an emergency. Do not wait to see if the symptoms will go away. Get medical help right away. Call your local emergency services (911 in the [place] Do not drive yourself to the hospital. Summary ??? Chest pain can be caused by many different conditions. The cause may be serious and need treatment right away. If you have chest pain, see your doctor right away. ??? Follow your doctor's instructions for taking medicines and making lifestyle changes. ??? Keep all follow-up visits as told by your doctor. This includes visits for any further testing if your chest pain does not go away. ??? Be sure to know the signs that show that your condition has become worse. Get help right away if you have these symptoms. This information is not intended to replace advice given to you by your health care provider. Make sure you discuss any questions you have with your health care provider. Document Revised: 03/14/2023 Document Reviewed: 03/14/2023 [email or web address] Patient Education ? 2023 [employer]. Infectious Disease Upper Respiratory Infection, Adult An upper respiratory infection (URI) is a common viral infection of the nose, throat, and upper airpassages that lead to the lungs. The most common type of URI is the common cold. URIs usually get better on their own, without medical treatment. What are the causes? A URI is caused by a virus. You may catch a virus by: ??? Breathing in droplets from an infected person's cough or sneeze. ??? Touching something that has been exposed to the virus (is contaminated) and then touching your mouth, nose, or eyes. What increases the risk? You are more likely to get a URI if: ??? You are very young or very old. ??? 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 Patient's last menstrual period was 09/12/2024 (exact date).. Shepresents with c/o painful intercourse for the past 6 months. Patient reports severe irritation / burning with penetration. Patient has tried OTC monistat without relief. She denies vaginal discharge, itching or odor. She also has intermittent pelvic pain and pain with with deep penetration. Periods are regular. Patient recently got engaged, states her fiance is very patient with her regarding hesitation to have intercourse. Current contraception: coitus interruptus (abstinence currently for the past few months d/t discomfort) OB History 0 Para 0 Term 0 0 AB 0 Living 0 SAB 0 IAB 0 Ectopic 0 Multiple 0 Live Births 0 MEDICAL HX Past Medical History: Diagnosis Date Anemia Depression Diabetes (CMS-HCC) SURGICAL HX Past Surgical History: Procedure Laterality Date TYMPANOPLASTY FAMILY HX Family History Problem Relation Age of Onset No Known Problems Father No Known Problems Mother MEDS Current Outpatient Medications Medication Sig Dispense Refill famotidine (PEPCID) 40 mg tablet Take 1 tablet (40 mg total) by mouth. ferrous sulfate 325 (65 FE) MG tablet Take 1 tablet (325 mg total) by mouth daily with breakfast. gabapentin (NEURONTIN) 100 mg capsule 1 capsule (100 mg total) every 12 (twelve) hours. ibuprofen (MOTRIN) 800 mg tablet TAKE 1 TABLET BY MOUTH 3 TIMES A DAY NEEDED WITH MILK OR FOOD ketorolac (TORADOL) 10 mg tablet TAKE 1 TABLET BY MOUTH EVERY 6 HOURS WITH FOOD OR MILK NEEDED FOR 5 DAYS metFORMIN (GLUCOPHAGE) 1000 mg tablet Take 0.5 tablets (500 mg total) by mouth. metoprolol tartrate (LOPRESSOR) 25 mg tablet Take 1 tablet (25 mg total) by mouth in the morning and 1 tablet (25 mg total) before bedtime. omeprazole (PriLOSEC) 20 mg capsule TAKE 1 CAPSULE BY MOUTH 1/2 TO 1 HOUR BEFORE MORNING MEAL EACH DAY prazosin (MINIPRESS) 1 mg capsule 2 capsules (2 mg total) once daily at bedtime. scopolamine (TRANSDERM-SCOP) 1 mg/3 days 1 patch to skin behind the ear as needed Transdermal every72 hours for 30 days tirzepatide (MOUNJARO) 2.5 mg/0.5 mL pen injector venlafaxine XR (EFFEXOR XR) 75 mg 24 hr capsule 2 capsules (150 mg total). No current facility-administered medications for this visit. ALLERGIES No Known Allergies Review of Systems Constitutional: Negative. Negative for chills and fever. Respiratory: Negative. Cardiovascular: Negative. Gastrointestinal: Negative. Genitourinary: Positive for dyspareunia and pelvic pain. Negative for menstrual problem. Neurological: Negative. Psychiatric/Behavioral: Negative. Objective BP 114/72 Ht 162.6 cm (5' 4 ) Wt 61.7 kg (136 lb) LMP 09/12/2024 (Exact Date) BMI 23.34 kg/m Physical Exam Vitals and nursing note reviewed. Constitutional: Appearance: Normal appearance. Pulmonary: Effort: Pulmonary effort is normal. Genitourinary: General: Normal vulva. Labia: Right: No rash or lesion. Left: No rash or lesion. Vagina: Normal. Cervix: No cervical motion tenderness, friability, lesion or erythema. Uterus: Tender. Adnexa: Right adnexa normal. Right: No mass, tenderness or fullness. Left: Tenderness present. Comments: Patient currently menstruating Musculoskeletal: General: Normal range of motion. Skin: General: Skin is warm and dry. Neurological: Mental Status: She is alert and oriented to person, place, and time. Psychiatric: Mood and Affect: Affect is flat. Speech: Speech normal. Behavior: Behavior is slowed. Thought Content: Thought content normal. Judgment: Judgment normal. Assessment/Plan: Britney was seen today for pain with intercourse. Diagnoses and all orders for this visit: Pelvic pain - Ultrasound pelvic with transvaginal; Future Dyspareunia, female - Ultrasound pelvic with transvaginal; Future Vaginal burning - Gram stain - Yeast Culture Screening for STD (sexually transmitted disease) - Chlamydia/GC by PCR Pravin Swab - Trichomonas by PCR Await cultures and ultrasound. Follow up / treat as indicated. All questions answered. Educational material provided. RTO for annual (due November 2024) or sooner as needed. LEONARD Boss APRN-CNP Lisa M Krotzer, APRN-CNP 09/16/24 1022 [facility] Evaluation + Plan noteExtracted from:Title:ED NoteAuthor:Swapna ASHFORD, Jermain Santamaria.Date:07/08/24 Left hip pain (M25.552: Pain in left hip) Low back pain (M54.50: Low back pain, unspecified) Lumbar radiculopathy (M54.16: Radiculopathy, lumbar region) Orders: acetaminophen-oxycodone, 1 tab(s), Tab, Oral, Once, Stop date 07/07/24 22:25:00 EST, STAT, Start date 07/07/24 22:25:00 EST acetaminophen-oxycodone, 1 tab(s), Oral, q6hr for 3 day(s), 10 tab(s), Refill(s) 0, [facility]/pharmacy #[id number], 163, cm, 07/07/24 21:13:00 EST, Height/Length Dosing, 63.9, kg, 07/07/24 21:13:00 EST, Weight Dosing acetaminophen-oxycodone, 1 tab(s), Tab, Oral, Once, Stop date 07/07/24 23:51:00 EST, STAT, Start date 07/07/24 23:51:00 EST dexamethasone, 10 mg = 1 mL, Injection, IntraMuscular, Once, Stop date 07/07/24 22:26:00 EST, STAT,Start date 07/07/24 22:26:00 EST, Administer over no less than one minute, 07/07/24 22:26:00 EST ketorolac, 30 mg = 1 mL, Injection, IntraMuscular, Once, Stop date 07/07/24 22:26:00 EST, STAT, Start date 07/07/24 22:26:00 EST, 07/07/24 22:26:00 EST methylPREDNISolone, = 1 packet(s), Oral, As Directed, as directed on package labeling, X 6 day(s), # 21 tab(s), Refills(s) 0, Pharmacy: [facility]/pharmacy #[id number], 163, cm, 07/07/24 21:13:00 EST, Height/Length Dosing, 63.9, kg, 07/07/24 21:13:00 EST, Weight Dosing naproxen, 500 mg = 1 tab(s), Oral, BID, X 10 day(s), # 20 tab(s), Refills(s) 0, Pharmacy: [facility]/pharmacy #[id number], 163, cm, 07/07/24 21:13:00 EST, Height/Length Dosing, 63.9, kg, 07/07/24 21:13:00 EST, Weight Dosing tizanidine, 2 mg = 0.5 tab(s), Tab, Oral, Once, Stop date 07/07/24 23:51:00 EST, STAT, Start date 07/07/24 23:51:00 EST, 02/25/25 23:51:00 EST tizanidine, 2 mg = 1 tab(s), Oral, q8hr, X 7 day(s), # 21 tab(s), Refills(s) 0, Pharmacy: [facility]/pharmacy #[id number], 163, cm, 07/07/24 21:13:00 EST, Height/Length Dosing, 63.9, kg, 07/07/24 21:13:00 EST, Weight Dosing XR Hip 2-3 Views Left + Pelvis XR Spine Lumbosacral 2 or 3 Views [facility] 02-26-2025 Hospital Discharge instructions Patient Education 07/08/2024 00:13:21 Lumbosacral Radiculopathy Lumbosacral Radiculopathy Lumbosacral radiculopathy is a condition that involves the spinal nerves and nerve roots in the lowback and bottom of the spine. The condition develops when these nerves and nerve roots move out of place or become inflamed and cause symptoms. What are the causes? This condition may be caused by: Pressure from a disk that bulges out of place (herniated disk). A disk is a plate of soft cartilagethat separates bones in the spine. Disk changes that occur with age (disk degeneration). A narrowing of the bones of the lower back (spinal stenosis). A tumor. An infection. An injury that places sudden pressure on the disks that cushion the bones of your lower spine. What increases the risk? You are more likely to develop this condition if: You are a male who is 30 50 years old. You are a female who is 50 60 years old. You use improper technique when lifting things. You are overweight or live a sedentary lifestyle. You smoke. Your work requires frequent lifting. You do repetitive activities that strain the spine. What are the signs or symptoms? Symptoms of this condition include: Pain that goes down from your back into your legs (sciatica), usually on one side of the body. Thisis the most common symptom. The pain may be worse when you sit, cough, or sneeze. Tingling and numbness in your legs. Muscle weakness in your legs. Loss of bladder control or bowel control. How is this diagnosed? This condition may be diagnosed based on: Your symptoms and medical history. A physical exam. If the pain lasts, you may have tests, such as: MRI. X-ray. CT scan. A type of CT scan used to examine the spinal canal after injecting a dye into your spine (myelogram). A test to measure how electrical impulses move through a nerve (nerve conduction study). A test to measure the electrical activity in muscles (electromyogram). How is this treated? In many cases, treatment is not needed for this condition. With rest, the condition usually gets better over time. If treatment is needed, it may include: Working with a physical therapist to improve strength and flexibility. Taking pain medicine. Applying heat or ice or both to the affected areas. Having chiropractic spinal manipulation. Using transcutaneous electrical nerve stimulation (TENS) therapy. Getting a steroid injection in the spine. Having surgery. This may be needed if other treatments do not help. Different types of surgery may be done depending on the cause of this condition. Follow these instructions at home: Activity Avoid bending and any other activities that make the problem worse. Maintain a proper position when standing or sitting. ?When standing, keep your upper back and neck straight with your shoulders pulled back. Avoid slouching. ?When sitting, keep your back straight and relax your shoulders. Do not round your shoulders or pull them backward. Do not sit or molasses coloring operator one place for long periods of time. Take brief periods of rest throughout the day. This will reduce your pain. It is usually better to rest by lying down or standing, not sitting. Mix in mild activity or stretching between long periods of rest. This will help to prevent stiffness and pain. Get regular exercise. Ask your health care provider what activities are safe for you. If you were shown how to do any exercises or stretches, do them as told by your health care provider. You may have to avoid lifting. Ask your health care provider how much you can safely lift. Always use proper lifting technique, which includes: ?Bending your knees. ?Keeping the load close to your body. ?Avoiding twisting. Managing pain If directed, put ice on the affected area. To do this: ?Put ice in a plastic bag. ?Place a towel between your skin and the bag. ?Leave the ice on for 20 minutes, 2 3 times a day. ?Remove the ice if your skin turns bright red. This is very important. If you cannot feel pain, heat, or cold, you have a greater risk of damage to the area. If directed, apply heat to the affected area as often as told by your health care provider. Use theheat source that your health care provider recommends, such as a moist heat pack or a heating pad. ?Place a towel between your skin and the heat source. ?Leave the heat on for 20 30 minutes. ?Remove the heat if your skin turns bright red. This is especially important if you are unable to feel pain, heat, or cold. You have a greater risk of getting burned. Take zzam-cpn-kbojuqd and prescription medicines only as told by your health care provider. General instructions Sleep on a firm mattress in a comfortable position. Try lying on your side with your knees slightlybent. If you lie on your back, put a pillow under your knees. Ask your health care provider if the medicine prescribed to you requires you to avoid driving or using machinery. If your health care provider prescribed a diet or exercise program, follow it as told. Keep all follow-up visits. This is important. Contact a health care provider if: Your pain does not get better over time, even when taking pain medicines. Get help right away if: You develop severe pain. Your pain suddenly gets worse. You develop increasing weakness in your legs. You lose the ability to control your bladder or bowel. You have difficulty walking or balancing. You have a fever. Summary Lumbosacral radiculopathy is a condition that occurs when the spinal nerves and nerve roots in the lower part of the spine move out of place or become inflamed and cause symptoms. Symptoms include pain, numbness, and tingling that go down from your back into your legs (sciatica), muscle weakness, and loss of bladder control or bowel control. If directed, apply ice or heat or both to the affected area as told by your health care provider. Follow instructions about activity, rest, and proper lifting technique. This information is not intended to replace advice given to you by your health care provider. Make sure you discuss any questions you have with your health care provider. Document Revised: 11/02/2021 Document Reviewed: 11/02/2021 [employer] Patient Education 2023 [employer] 07/08/2024 00:13:21 Hip Pain Hip Pain The hip is the joint between the upper legs and the lower pelvis. The bones, cartilage, tendons, and muscles of your hip joint support your body and allow you to move around. Hip pain can range from a minor ache to severe pain in one or both of your hips. The pain may be felt on the inside of the hip joint near the groin, or on the outside near the buttocks and upper thigh. You may also have swelling or stiffness in your hip area. Follow these instructions at home: Managing pain, stiffness, and swelling If told, put ice on the painful area. ?Put ice in a plastic bag. ?Place a towel between your skin and the bag. ?Leave the ice on for 20 minutes, 2 3 times a day. If told, apply heat to the affected area as often as told by your health care provider. Use the heat source that your provider recommends, such as a moist heat pack or a heating pad. ?Place a towel between your skin and the heat source. ?Leave the heat on for 20 30 minutes. ?If your skin turns bright red, remove the ice or heat right away to prevent skin damage. The risk of damage is higher if you cannot feel pain, heat, or cold. Activity Do exercises as told by your provider. Avoid activities that cause pain. General instructions Take tciu-evz-wjujhcr and prescription medicines only as told by your provider. Keep a journal of your symptoms. Write down: ?How often you have hip pain. ?The location of your pain. ?What the pain feels like. ?What makes the pain worse. Sleep with a pillow between your legs on your most comfortable side. Keep all follow-up visits. Your provider will monitor your pain and activity. Contact a health care provider if: You cannot put weight on your leg. Your pain or swelling gets worse after a week. It gets harder to walk. You have a fever. Get help right away if: You fall. You have a sudden increase in pain and swelling in your hip. Your hip is red or swollen or very tender to touch. This information is not intended to replace advice given to you by your health care provider. Make sure you discuss any questions you have with your health care provider. Document Revised: 01/01/2023 Document Reviewed: 01/01/2023 [employer] Patient Education 2023 [employer] Follow Up Care 07/07/2024 20:48:15 With:Reg Boswell Address: [address], [address] [place] [address]- [phone] Business (1) When:07/10/2024 With:PAMELA SU Address: [address] [place] [address]- Business (1) When:Within 3 Day(s) [facility] 02-26-2025 NoteED Patient Education Note Orthopedics Lumbosacral Radiculopathy Lumbosacral radiculopathy is a condition that involves the spinal nerves and nerve roots in the lowback and bottom of the spine. The condition develops when these nerves and nerve roots move out of place or become inflamed and cause symptoms. What are the causes? This condition may be caused by: ??? Pressure from a disk that bulges out of place (herniated disk). A disk is a plate of soft cartilage that separates bones in the spine. ??? Disk changes that occur with age (disk degeneration). ??? A narrowing of the bones of the lower back (spinal stenosis). ??? A tumor. ??? An infection. ??? An injury that places sudden pressure on the disks that cushion the bones of your lower spine. What increases the risk? You are more likely to develop this condition if: ??? You are a male who is 30?50 years old. ??? You are a female who is 50?60 years old. ??? You use improper technique when lifting things. ??? You are overweight or live a sedentary lifestyle. ??? You smoke. ??? Your work requires frequent lifting. ??? You do repetitive activities that strain the spine. What are the signs or symptoms? Symptoms of this condition include: ??? Pain that goes down from your back into your legs (sciatica), usually on one side of the body. This is the most common symptom. The pain may be worse when you sit, cough, or sneeze. ??? Tingling and numbness in your legs. ??? Muscle weakness in your legs. ??? Loss of bladder control or bowel control. How is this diagnosed? This condition may be diagnosed based on: ??? Your symptoms and medical history. ??? A physical exam. If the pain lasts, you may have tests, such as: ??? MRI. ??? X-ray. ??? CT scan. ??? A type of CT scan used to examine the spinal canal after injecting a dye into your spine (myelogram). ??? A test to measure how electrical impulses move through a nerve (nerve conduction study). ??? A test to measure the electrical activity in muscles (electromyogram). How is this treated? In many cases, treatment is not needed for this condition. With rest, the condition usually gets better over time. If treatment is needed, it may include: ??? Working with a physical therapist to improve strength and flexibility. ??? Taking pain medicine. ??? Applying heat or ice or both to the affected areas. ??? Having chiropractic spinal manipulation. ??? Using transcutaneous electrical nerve stimulation (TENS) therapy. ??? Getting a steroid injection in the spine. ??? Having surgery. This may be needed if other treatments do not help. Different types of surgery may be done depending on the cause of this condition. Follow these instructions at home: Activity ??? Avoid bending and any other activities that make the problem worse. ??? Maintain a proper position when standing or sitting. ? When standing, keep your upper back and neck straight with your shoulders pulled back. Avoid slouching. ? When sitting, keep your back straight and relax your shoulders. Do not round your shoulders or pull them backward. ??? Do not sit or molasses coloring operator one place for long periods of time. ??? Take brief periods of rest throughout the day. This will reduce your pain. It is usually betterto rest by lying down or standing, not sitting. ??? Mix in mild activity or stretching between long periods of rest. This will help to prevent stiffness and pain. ??? Get regular exercise. Ask your health care provider what activities are safe for you. If you were shown how to do any exercises or stretches, do them as told by your health care provider. ??? You may have to avoid lifting. Ask your health care provider how much you can safely lift. ??? Always use proper lifting technique, which includes: ? Bending your knees. ? Keeping the load close to your body. ? Avoiding twisting. Managing pain ??? If directed, put ice on the affected area. To do this: ? Put ice in a plastic bag. ? Place a towel between your skin and the bag. ? Leave the ice on for 20 minutes, 2?3 times a day. ? Remove the ice if your skin turns bright red. This is very important. If you cannot feel pain, heat, or cold, you have a greater risk of damage to the area. ??? If directed, apply heat to the affected area as often as told by your health care provider. Usethe heat source that your health care provider recommends, such as a moist heat pack or a heating pad. ? Place a towel between your skin and the heat source. ? Leave the heat on for 20?30 minutes. ? Remove the heat if your skin turns bright red. This is especially important if you are unable to feel pain, heat, or cold. You have a greater risk of getting burned. ??? Take xkzd-yuq-zykwmam and prescription medicines only as told by your health care provider. General instructions ??? Sleep on a firm mattress in a comfortable position. Try lying on your side with your (more content not included)...[facility]02-07-2025 History of Present illness Narrative* Boby Mcpherson, DO - 06/19/2024 10:00 AM EST Subjective Patient ID: Britney Tong is a 29 y.o. female who presents for Ear Problem (New Patient : TM perf) HPI 29-year-old female presents today for evaluation of left tympanic membrane perforation. She believes the hole has been in her ear for quite some time. Does describe decreased hearing in her left ear compared to right. Not having any pain. Believes it occurred dramatically when diving into water. Presents today for further evaluation and treatment. Review of Systems Patient denies any pain or fever. She does describe decreased hearing in her left ear compared to the right. Not having any otorrhea. Denies any dizziness. The rest of her review of systems is negative Allergies as of 06/19/2024 (No Known Allergies) History reviewed. No pertinent past medical history. Current Outpatient Medications: cyclobenzaprine (Flexeril) 10 MG tablet, TAKE 1 TABLET BY MOUTH TWICE A DAY NEEDED FOR 30 DAYS, Disp: , Rfl: ferrous sulfate 325 (65 Fe) MG tablet, , Disp: , Rfl: ibuprofen 800 MG tablet, TAKE 1 TABLET BY MOUTH 3 TIMES A DAY NEEDED WITH MILK OR FOOD, Disp: , Rfl: ketorolac (Toradol) 10 MG tablet, TAKE 1 TABLET BY MOUTH EVERY 6 HOURS WITH FOOD OR MILK NEEDED FOR 5 DAYS, Disp: , Rfl: metFORMIN (Glucophage) 1000 MG tablet, Take 1,000 mg by mouth, Disp: , Rfl: prazosin (Minipress) 1 MG capsule, TAKE 1 CAPSULE BY MOUTH EVERYDAY AT BEDTIME, Disp: , Rfl: Trulicity 1.5 MG/0.5ML solution auto-injector, INJECT 1 PEN SUBCUTANEOUSLY ONCE A WEEK DIRECTED,Disp: , Rfl: venlafaxine XR (Effexor XR) 75 MG 24 hr capsule, TAKE 1 CAPSULE BY MOUTH EVERY DAY WITH FOOD FOR 30DAYS, Disp: , Rfl: History reviewed. No pertinent surgical history. Social History Socioeconomic History Marital status: Unmarried Spouse name: Not on file Number of children: Not on file Years of education: Not on file Highest education level: Not on file Occupational History Not on file Tobacco Use Smoking status: Never Smokeless tobacco: Never Substance and Sexual Activity Alcohol use: Not Currently Drug use: Defer Sexual activity: Not on file Other Topics Concern Not on file Social History Narrative Not on file Social Drivers of Health Financial Resource Strain: Not on file Food Insecurity: No Food Insecurity (12/11/2023) Received from [facility] Hunger Screening Within the past 12 months we worried whether our food would run out before we got money to buy more.: Never True Within the past 12 months the food we bought just didn't last and we didn't have money to get more.: Never True Transportation Needs: Not on file Physical Activity: Not on file Stress: Not on file Social Connections: Not on file Intimate Partner Violence: Not on file Housing Stability: Not on file Objective ENT Physical Exam General Examination: General overview: Normal, age-appropriate, no evidence of distress Head: Normocephalic, atraumatic Eyes: Pupils are equally round and reactive to light and accommodation, extraocular muscles are intact Ears: External ear architecture within normal limits, ear canals are patent, moderate size central perforation of the left tympanic membrane. No evidence of middle ear abnormality. Review of her audiogram does reveal evidence of conductive hearing loss on the left with flat tympanogram. Normal hearing on the right. Nose: External nose unremarkable, nares patent, septum intact, no evidence of congestion. Oral cavity: Mucosa moist, no evidence of ulcer, mass, or lesion Throat: Clear Neck/thyroid: Neck supple, full range of motion, no cervical lymphadenopathy, no evidence of thyromegaly Lymph nodes: No cervical lymphadenopathy Skin: Warm and dry, no evidence of suspicious lesions, no rash Heart: No jugular venous distention, point of maximal impulse normal Lungs: Good air movement, no audible wheezing, no shortness of breath Chest: Normal shape and expansion Abdomen: Normal, soft, nontender, nondistended Musculoskeletal: Cervical spine normal, full range of motion Extremities: No clubbing, cyanosis, or edema Peripheral pulses: 2+ radial, 2+ carotid Neurologic: Alert and oriented, cranial nerves 2-12 are grossly intact Psych: Alert and oriented, normal affect, no evidence of distress Assessment/Plan Diagnoses and all orders for this visit: 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 All of the risks, options, reasonable expectations are discussed in detail. Risks include but are not limited to incomplete repair, bleeding, infection, hearing loss, loss of sense of taste, tinnitus, and . documented in this [id number] History of Present illness Narrative* Parisa Dent, CCC-A - 05/29/2024 3:00 PM EST History: Pt was referred to ENT because of left TM perforation. Onset was childhood. Pt only recently has insurance that may cover surgery to fix the hole in her eardrum. Pt notices some decrease in her left hearing. Otoscopic Exam: Right Ear: Partially occlusive cerumen Left Ear: TM perforation Pure Tone Audiometry Right Ear: Normal hearing Left Ear: Mild hearing loss from 250 Hz - 500 Hz rising to normal thresholds from 1K Hz - 2K Hz. Moderate rising to mild conductive hearing loss above 3K Hz Speech Audiometry Right SRT = 15 dB and word discrimination score at 50 dBHL = 100% Left SRT = 20 dB and word discrimination score at 60 dBHL (masked) = 100% Tympanometry Right Ear: Type A tympanogram Left Ear: Type B tympanogram documented in this [id number] Evaluation note* Diagnosis Onset Date Resolution Status Admit Date Anemia acuteDecember 2023 8:36amIron deficiency anemiaacuteDecember 2023 8:36amIron deficiency anemia due to chronic blood lossacutecember 2023 8:36amThalassemiaacuteDecember 2023 8:36amAnemiaacuteDecember 2023 2:14pmIron deficiency anemiaacuteDecember 2023 2:14pmIron deficiency anemia due to chronic blood lossacutecember 2023 2:14pmThalassemiaacute [place] 2023 2:14pmAnemiaacuteJanuary 2024 2:10pmIron deficiency anemiaacuteJanuary 2024 2:10pmIron deficiency anemia due to chronic blood lossacuteJanuary 2024 2:10pmThalassemiaacuteJanuary 2024 2:10pm [facility] Work Phone: 1(971) 311-544310-19-2024 Hospital Discharge instructions Patient Education 02/29/2024 01:50:28 Type 2 Diabetes Mellitus, Diagnosis, Adult Type 2 Diabetes Mellitus, Diagnosis, Adult Type 2 diabetes (type 2 diabetes mellitus) is a long-term, or chronic, disease. In type 2 diabetes,one or both of these problems may be [...] your medical history, a physical exam, and yourblood glucose level. Your blood glucose may be [...] be managed by a specialist called an direct selling counselor. Type 2 diabetes may be treated by [...] meet with a certified diabetes care and adapted physical education aide? What diabetes medicines do I need, and when should I take them? What equipment will I need to manage my diabetes at home? How often do I need to check my blood glucose? Where can I find a support group for people with diabetes? What number can I call if I have questions? When is my next appointment? General instructions Take dnnv-ozn-cnpgisf and prescription medicines only as told by your health care provider. Keep all follow-up visits. This is important. Where to find more information For help and guidance and for more information about diabetes, please visit: [place] Diabetes Association (ADA): www.diabetes.org [place] Association of Diabetes Care and Education Specialists [...] disease. In type 2 diabetes, the pancreas doesnot make enough of a hormone called insulin, [...] provider. Document Revised: 07/24/2021 Document Reviewed: 07/24/2021 [employer] Patient Education 2023 [employer]. 02/29/2024 01:50:28 Diabetes Mellitus Basics Diabetes Mellitus [...] gives you energy. If you have diabetes, glucosecannot get into cells. This causes high blood [...] or below 70 mg/dL (3.9 mmol/L). Symptoms mayinclude: Feeling: ?Hungry. ?Sweaty and clammy. ?Irritable or [...] will go away. Get medical help right away.Call your local emergency services (911 in the [place] Do not drive yourself to the hospital. Questions to ask your health care provider Should I talk with a separator operator? What equipment will I need to care for myself at home? What diabetes medicines do I need? When should I take them? How often do I need to check my blood glucose levels? What number can I call if I have questions? When is my follow-up visit? Where can I find a support group for people with diabetes? Where to find more information [place] Diabetes Association: www.diabetes.org Association of Diabetes Care [...] provider. Document Revised: 08/30/2020 Document Reviewed: 08/30/2020 [employer] Patient Education 2023 [employer]. 02/29/2024 01:50:28 Diabetes Mellitus and Nutrition, Adult [...] level more than any other type of food.Eating carbs raises the amount of glucose in [...] (hypoglycemia), especially if you use insulin or takecertain diabetes medicines by mouth. Hypoglycemia can be [...] in one serving. Choose foods that have alow amount or none of these fats. Check the number of milligrams (mg) of salt (sodium) in one serving. Most people should limit totalsodium intake to less than 2,300 mg per [...] times every day. Avoid going long periods oftime without eating. Eat foods that are high [...] kale, chard, cesar greens, mustard greens, and cabbage.Beets. Cauliflower. Broccoli. Carrots. Green beans. Tomatoes. Peppers. Onions. Cucumbers. [place] sprouts. Grains Whole grains, such as whole-wheat [...] meet with a certified diabetes care and adapted physical education aide? Do I need to meet with a dietitian? What number can I call if I have questions? When are the best times to check my blood glucose? Where to find more information: [place] Diabetes Association: diabetes.org Academy of Nutrition and Dietetics: eatright.org National [place] of Diabetes and Digestive and Kidney Diseases: niddk.nih.gov Association of Diabetes Care & Education Specialists: diabeteseducator.org Summary It is important to have healthy eating habits because your blood sugar (glucose) levels are greatlyaffected by what you eat and drink. It [...] provider. Document Revised: 11/30/2020 Document Reviewed: 11/30/2020 [employer] Patient Education 2023 [employer]. Follow Up Care 02/28/2024 22:56:06 With:Lilian Gomez Address: [address] , [facility] [address] [place] [address] Business (1) When:03/03/2024 Comments:Take the metformin twice a day. Please follow-up with your primary care doctor for further evaluation management. Please return to the ED for any new or worsening symptoms. With:XXXX NONE Address: [place] When:Within 3 Day(s) [facility] 10-19-2024 NoteED Patient Education Note Endocrinology Type 2 Diabetes Mellitus, Diagnosis, Adult Type 2 diabetes (type 2 diabetes mellitus) is a long-term, or chronic, disease. In type 2 diabetes,one or both of these problems may be [...] your medical history, a physical exam, and yourblood glucose level. Your blood glucose may be checked with one or more of the following blood tests: ? A fasting blood glucose (FBG) test. You will not be allowed to eat (you will fast) for 8 hours orlonger before a blood sample is taken. ? A random blood glucose test. This test checks blood glucose at any time of day regardless of whenyou ate. ? An A1C (hemoglobin A1C) blood [...] be managed by a specialist called an direct selling counselor. Type 2 diabetes may be treated by [...] meet with a certified diabetes care and adapted physical education aide? ? What diabetes medicines do I need, [...] my next appointment? General instructions ? Take qjng-mez-shrvtvy and prescription medicines only as told by your health care provider. ? Keep all follow-up visits. This is important. Where to find more information For help and guidance and for more information about diabetes, please visit: ? [place] Diabetes Association (ADA): www.diabetes.org ? [place] Association of Diabetes Care and Education Specialists (ADCES): www.diabeteseducator.org ? International Diabetes Federation (IDF): www.idf.org Contact a health care provider if: ? Your blood glucose is at o (more content not included)...[facility]10-18-2024 Evaluation + Plan noteExtracted from:Title:ED NoteAuthor:Jemma Stout DO ADate:02/28/24 Diabetes (E11.9: Type 2 diab etes mellitus without complications) Orders: metformin, 1,000 mg = 2 tab(s), Tab, Oral, Once, Stop date 02/29/24 0:49:00 EDT, STAT, Start date 02/29/24 0:49:00 EDT, 02/29/24 0:49:00 EDT metformin, 1,000 mg = 1 tab(s), Oral, BID, # 28 tab(s), Refills(s) 0, Pharmacy: [facility]/pharmacy #[id number], cm, 02/28/24 23:04:00 EDT, Height/Length Dosing, 64.3, [...] Diagnostic Tests Pending * Urine Culture 02/29/24 [facility] [id number] Miscellaneous Notes* Telephone Encounter - Jessika Reid LPN - 12/11/2023 2:19 PM EDT Called [facility] and got an emergency visit with KERMIT Díaz today at 315pm for an emergency visit for suicidal thoughts. Pt aware of this appt information, boyfriend aware of this visit and Pts ride Isauro aware of this appt and gave him the address and stated he will take her there. I verbalized several times how important this visit is to pt, BF and Pts ride. All verbalized understanding. documented in this encounterHenry County HospitalReferBright [id number] Telephone encounter Note* Telephone Encounter - Jessika Reid LPN - 12/11/2023 2:19 PM EDT Called [facility] and got an emergency visit with KERMIT Díaz today at 315pm for an emergency visit for suicidal thoughts. Pt aware of this appt information, boyfriend aware of this visit and Pts ride Isauro aware of this appt and gave him the address and stated he will take her there. I verbalized several times how important this visit is to pt, BF and Pts ride. All verbalized understanding. [facility]07-31-2024 History of Present illness Narrative* Margret Gabriel, BOLA-OPERATIONS LABEL CLERK - 12/11/2023 1:45 PM EDT Annual Well Woman Visit 12/11/2023 Subjective Britney Tong is a 28 y.o. 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 Periods are regularevery 28-30 days, lasting 7 days. Dysmenorrhea:none. Cyclic symptoms include none. Denies intermenstrual bleeding, spotting, or abnormal discharge. Denies pelvic pain. Patient declines STD testing today. Complaints today: none Relationship status: in a relationship The patient reports that there is not domestic violence in her life. 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 She reports she has tried to get a knife and stab herself but s/o stopped her. She also has thought of walking out in traffic in order to endher life. Patient states she has a detailed plan. Her last attempt was about 2 months ago. She has tried to get help before but no one would see her as she didn't have insurance. LMP 11/27/2023 OB History 0 Para 0 Term 0 0 AB 0 Living 0 SAB 0 IAB 0 Ectopic 0 Multiple 0 Live Births 0 The following portions of the patient's history were reviewed and updated as appropriate: allergies, current medications, past family history, past medical history, past social history, past surgicalhistory and problem list. MEDICAL HX History reviewed. No pertinent past medical history. SURGICAL HX History reviewed. No pertinent surgical history. FAMILY HX History reviewed. No pertinent family history. MEDS No current outpatient medications on file. No current facility-administered medications for this visit. ALLERGIES No Known Allergies Review of Systems Constitutional: Negative. Respiratory: Negative. Negative for chest tightness and shortness of breath. Cardiovascular: Negative. Negative for chest pain and palpitations. Gastrointestinal: Negative. Negative for constipation, diarrhea, nausea and vomiting. Endocrine: Negative. Genitourinary: Negative. Negative for dyspareunia, menstrual problem and pelvic pain. Musculoskeletal: Negative. Skin: Negative. Allergic/Immunologic: Negative. Neurological: Negative. Hematological: Negative. Psychiatric/Behavioral: Positive for suicidal ideas. Objective BP 120/90 Ht 162.6 cm (5' 4 ) Wt 62.6 kg (138 lb) LMP 11/27/2023 (Approximate) BMI 23.69 kg/m Physical Exam Vitals and nursing note reviewed. Constitutional: Appearance: Normal appearance. HENT: Head: Normocephalic and atraumatic. Cardiovascular: Rate and Rhythm: Normal rate and regular rhythm. Pulses: Normal pulses. Heart sounds: Normal heart sounds. Pulmonary: Effort: Pulmonary effort is normal. Breath sounds: Normal breath sounds. Chest: Breasts: Breasts are symmetrical. Right: Normal. No mass, skin change or tenderness. Left: Normal. No mass, skin change or tenderness. Abdominal: General: Bowel sounds are normal. Palpations: Abdomen is soft. Genitourinary: General: Normal vulva. Labia: Right: No rash or lesion. Left: No rash or lesion. Vagina: Normal. Cervix: Normal. Uterus: Normal. Not enlarged and not tender. Adnexa: Right adnexa normal and left adnexa normal. Right: No mass, tenderness or fullness. Left: No mass, tenderness or fullness. Musculoskeletal: General: Normal range of motion. Cervical back: Normal range of motion and neck supple. Skin: General: Skin is warm and dry. Neurological: Mental Status: She is alert and oriented to person, place, and time. Psychiatric: Attention and Perception: Attention normal. Mood and Affect: Mood normal. Speech: Speech normal. Behavior: Behavior is slowed and withdrawn. Thought Content: Thought content includes suicidal ideation. Thought content includes suicidal plan. Judgment: Judgment normal. Assessment/Plan: Diagnoses and all orders for this visit: Well woman exam with routine gynecological exam Cervical smear, as part of routine gynecological examination - Pap Smear; Future Standardized adult depression screening tool completed Does not have primary care provider - Ambulatory Referral to [facility] Primary Care; Future Lengthy conversation with patient about PHQ9 score and her thoughts of self harm. Patient encouraged to go to the ED immediately after this visit but she declines. We did call and get her an emergency visit scheduled for today at [facility] with Bre Jolly and patient / boyfriend state they will try to go . BMI is in the acceptable range. Breast self exam technique reviewed and patient encouraged to perform self-exam monthly. Discussed healthy lifestyle modifications. Educational material distributed. 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 Follow up as needed. Await pap. Discussed ASCCP guidelines. Discussed taking a multivitamin. Discussed Calcium and Vitamin D for prevention of osteoporosis. HPV vaccine is recommended between 9-45 yo. Can be received at [facility] or the [facility] department. Patient declines offer for contraception. Discussed need for yearly mammogram after 40 yo. Discussed colon cancer screening recommendations to begin at 45 yo, patient to discuss with PCP. All questions answered. GERALDINE Grier APRN-CNP Lisa M Franco, APRN-CNP 12/11/23 1519 LEONARD Mcdonald 12/11/23 1534 documented in this encounterLanc[facility] Hospital07-31-2024 Miscellaneous Notes* Addendum Note - LEONARD Mcdonald - 12/11/2023 1:45 PM EDTAddended by: MARGRET GABRIEL on: 12/11/2023 03:34 PM Modules accepted: Orders documented in this encounterLancaster Municipal Hospital07-31-2024 Note* Addendum Note - LEONARD Mcdonald - 12/11/2023 1:45 PM EDTAddended by: MARGRET GABRIEL on: 12/11/2023 03:34 PM Modules accepted: Orders [facility] noteNo assessment information available [facility] Work Phone: Evaluation note* Diagnosis Conductive hearing loss of left ear with unrestricted hearing of right ear- Primary Perforation of left tympanic membrane documented in this encounter [facility]* Diagnosis 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 documented in this encounter [facility] Healthcare[facility]* Diagnosis Well woman exam with routine gynecological exam- Primary Routine gynecological examination Cervical smear, as part of routine gynecological examination Screening for malignant neoplasm of the cervix Standardized adult depression screening tool completed Does not have primary care provider documented [facility] encounter [facility]* Diagnosis Pelvic pain- Primary Dyspareunia, female Vaginal burning Other specified symptom associated with female genital organs Screening for STD (sexually transmitted disease) documented in this encounter [facility]* Diagnosis BV (bacterial vaginosis)- Primary Unspecified vaginitis and vulvovaginitis documented in this encounter [facility]* Diagnosis Well woman exam with routine gynecological exam- Primary Routine gynecological examination Standardized adult depression screening tool completed documented in this encounter [facility] Narrative No data available for this section [facility] Discharge instructions No data available for this section [facility] InstructionsNot on filedocumented in this encounter [facility] HospitalInstructions* Attachments The following attachments cannot be sent through Care Everywhere. * Suicide Prevention (Hungarian) documented in [facility] encounterUniversity [facility] SystemInstructions* Attachments The following attachments cannot be sent through Care Everywhere. * Dyspareunia (painful sex) (Hungarian) documented in this encounterUniversity Hospitals [facility] SystemInstructionsNot on file documented in this encounterLancaster Municipal HospitalInstructions* Attachments The following attachments cannot be sent through Care Everywhere. * Suicide prevention (Hungarian) * Choosing control (Hungarian) documented in this encounterUniversity Hospitals Cleveland [facility] SystemProgress note No data available for this section [facility] Reason for referral (narrative)* Consultation (Routine) - Pending ReviewSpecialtyDiagnoses / ProceduresReferred By ContactReferred To Contact Diagnoses Does not have primary care provider Margret Gabriel, [address] [place] [address] Referral IDStatusReasonStart DateExpiration DateVisits RequestedVisits [id number] Review [facility] HospitalReason for referral (narrative)No reason for referral information availablePromedica Flower [facility] Ctr Work Phone: Summary Purpose Family History No Family History Records Found Advance Directives No Advanced Directives Records Found Advance Directive Response Recorded Date/ Time Advance Directives No August 29, 2 023 12:08am Advance Directive Response Recorded Date/ Time Advance Directives No August 28, 2 023 11:08pm Chief Complaint and Reason for Visit Chief Complaint bh Type 2 diabetes mellitus without complication, wit Chief Complaint Admit Date NEW - Thalassemia April 14, 2024 8 :36am Follow Up 2 Weeks April 28, 2024 2:14pm Follow Up 6 Weeks June 09, 2024 2 :10pm Thalassemia June 09, 2024 2 :32pm Reason for Visit Admit Date Anemia April 14, 2024 8 :36am Iron deficiency anemia April 14 8:36am Iron deficiency anemia due to chronic bl ood loss April 14, 2024 8:36am Thalassemia April 14, 2024 8 :36am Anemia April 28, 2024 2:14pm Iron deficiency anemia April 28 2:14pm Iron deficiency anemia due to chronic bl ood loss April 28, 2024 2:14pm Thalassemia April 28, 2024 2:14pm Anemia June 09, 2024 2 :10pm Iron deficiency anemia June 09 2:10pm Iron deficiency anemia due to chronic bl ood loss June 09, 2024 2:10pm Thalassemia June 09, 2024 2 :10pm Chief Complaint Admit Date NEW - Thalassemia April 14, 2024 8 :36am Follow Up 2 Weeks April 28, 2024 2:14pm Follow Up 6 Weeks June 09, 2024 2 :10pm Thalassemia June 23, 2024 3:45pm E11.9 July 02, 2024 10:49am Chief Complaint Admit Date E11.9 September 29, 2024 11:23 am Thalassemia October 07, 2024 10:04 am bh November 03, 2024 10:0 9am Additional Source Comments INFORMATION SOURCE (unrecogn ized section and content) DATE CREATED AUTHOR 03/02/2024 [facility] DATE CREATED AUTHOR AUTHOR'S ORGANIZ ATION 08/05/2024 [facility] DATE CREATED AUTHOR AUTHOR'S ORGANIZ ATION 09/19/2024 [facility] DATE CREATED AUTHOR AUTHOR'S ORGANIZ ATION 09/23/2024 [facility] DATE CREATED AUTHOR AUTHOR'S ORGANIZ ATION 09/24/2024 [facility] DATE CREATED AUTHOR AUTHOR'S ORGANIZ ATION 11/04/2024 [facility] DATE CREATED AUTHOR AUTHOR'S ORGANIZ ATION 12/18/2024 [facility] DATE CREATED AUTHOR AUTHOR'S ORGANIZ ATION 01/16/2025 [facility] DATE CREATED AUTHOR AUTHOR'S ORGANIZ ATION 01/17/2025 [facility] DATE CREATED AUTHOR AUTHOR'S ORGANIZ ATION 01/26/2025 [facility] DATE CREATED AUTHOR AUTHOR'S ORGANIZ ATION 01/28/2025 [facility] DATE CREATED AUTHOR AUTHOR'S ORGANIZ ATION 01/30/2025 [facility] DATE CREATED AUTHOR AUTHOR'S ORGANIZ ATION 02/02/2025 [facility] DATE CREATED AUTHOR AUTHOR'S ORGANIZ ATION 03/17/2025 [facility] Care Teams (unrecognized sec tion and content) Team Status: Inactive Member Role Status Dates ANASTACIA James Attending Provider Active Start: September 29, 2024 End: September 29, 2024 Team Status: Active Member Role Status Dates ANASTACIA James Referring Provider Active Start: October 07, 2024 Юлия Troncoso , APRNAttenshauna ProviderActiveStart: October 07, 2024 Team Status: Active Member Role Status Dates PHYSICIAN NO FAMILY Primary Care Provider Active Start: November 03, 2024 Leixi Appiah ProviderActiveStart: November 03, 2024 Team Status: Inactive Member Role Status Dates Pamela Su OIL DRILLING ENGINEER-C Attending Provider Active Start: November 17, 2024 End: November 17, 2024 Personnel Name: PAMELA SU CNP Address[address] [place] [id number] Telecom: Personnel Name: PAMELA SU CNP Address: Address: [address] [place] [place] [id number] Team Status: Active Member Role Status Dates Pamela Su , OIL DRILLING ENGINEER-C Primary Care Provider Active Team Status: Inactive Member Role Status Dates Юлия Troncoso APRN Attending Provider Acti ve Start: April 14, 2024 End: April 14, 2024Pamela Su , OIL DRILLING ENGINEER-CPrimary Care ProviderActiveStart: April 14, 2024 End: April 14, 2024SerHenrico Doctors' Hospital—Parham CampusReferring ProviderActiveStart: April 14, 2024 End: April 14, 2024 Team Status: Inactive Member Role Status Dates Pamela Su , OIL DRILLING ENGINEER-C Primary Care Provider Active Start: April 28, 2024 End: April 28, 2024Cece Jackson ProviderActive Start: April 28, 2024 End: April 28, 2024 Team Status: Inactive Member Role Status Dates Pamela Su , OIL DRILLING ENGINEER-C Primary Care Provider Active Start: June 09, 2024 End: June 09, 2024Cece Jackson ProviderActive Start: June 09, 2024 End: June 09, 2024 Team Status: Active Member Role Status Dates Pamela Su , OIL DRILLING ENGINEER-C Primary Care Provi lissett, Referring Provider Active Start: June 09, 2024 Cece Jackson ProviderActiveStart: June 09, 2024 Team Status: Active Member Role Status Dates PHYSICIAN NO FAMILY Primary Care Provider Active Start: January 07, 2024 Lexii Appiah ProviderActiveStart: January 07, 2024 Team Status: Inactive Member Role Status Dates ANASTACIA James Attending Provider Active Start: March 10, 2024 End: March 10, 2024 Goals (unrecognized section and content) Goals may be documented in a n alternate section Reason for Visit (unrecogniz ed section and content) ReasonCommentsEar ProblemNew Patient : TM perfReasonCommentsPain with IntercourseReasonCommentsAnnual Exam FOR RECORDS PERTAINING TO PATIENTS WHO ARE [...] BE BASED ON THE PRIMARY CLINICAL RECORDS. [facility] [employer] [facility]. provides no warranty or guarantee of the accuracy or completeness of information in this document.
--- OUTSIDE RECORDS SUMMARY | 2025-03-21 22:15 | XMS_ITS | Patient Health Record ---
Author Organization [facility] es Address [address] [place] [address] Care Team Providers Care Guest Attendant Name Role Phone Maliha Glass Primary Care Provider [phone] Mylene Leary Unavailable [phone] Dr. Roland Montenegro Unavailable [phone] Mali Mackay Unavailable [phone] Jasmin Sheffield Unavailable Wilian Sarkar Unavailable [phone] Hollcorrina Meaghan Unavailable [phone] Italian, Bia Unavailable [phone] Allergies No Known Allergies Results Component Value Reference Range Flag Notes Complete Blood Count and Sca n Reviewed date:07/03/2024 05:35:58 PM Interpretation: Performing Lab:, [facility], [address] [place] Notes/Report: Platelet Estimate Normal Normal Platelet MorphologyNormalNormalWhite Blood Count5.13.8-11.6 10*3/uLNUncorrected WBC5.13.8-11.6 10*3/uLNRed Blood Count5.353.60-5.00 10*6/gPARwwdoepjqk57.511.8- 15.4 g/hNMFhuljwfmwn78.834.0-46.4 %NMean Corpuscular Kekqsj34.180-100 fLLMean Corpuscular Vmjqzecxvc01.024.7-34.3 pgNMean Corpuscular HGB Conc34.632.0-35.0 g/dLNRed Cell Distribution Width23.211.9-15.3 %HPlatelet Exygh689676-069 10*3/uL NMean Platelet Volume7.86.3-10.7 fLNNeutrophils % (Auto)39.4. %Lymphocytes % (Auto)45.7. %Monocytes % (Auto)11.4. %Eosinophils % (Auto)2.9. %Basophils % (Auto)0.6. %NRBC%0.20-0.5 /100{WBC}NNeutrophils # (Auto)2.01.8-7.7 10*3/uLN Lymphocytes # (Auto)2.31.00-4.8 10*3/uLNMonocytes # (Auto)0.60.0-0.8 10*3/uLN Eosinophils # (Auto)0.10.0-0.45 10*3/uLNBasophils # (Auto)0.00.0-0.2 10*3/uLN PolychromasiaSlightPoikilocytosisSlightOvalocytesSlightStomatocytesSlight Complete Blood Count Auto Diff Reviewed date:07/03/2024 05:35:29 PM Interpretation: Performing Lab:, [facility], [address] [place] Notes/Report:White Blood Count5.13.8-11.6 10*3/uLNUncorrected WBC5.13.8-11.6 10*3/uLNRed Blood Count5.353.60-5.00 10*6/vYJSwdmubwgxk47.511.8-15.4 g/dLN Moaebzklpq39.834.0-46.4 %NMean Corpuscular Zdvgal54.180-100 fLLMean Corpuscular Ebiemrrljp66.024.7-34.3 pgNMean Corpuscular HGB Conc34.632.0-35.0 g/dLNRed Cell Distribution Width23.211.9-15.3 %HPlatelet Hvglm689120-658 10*3/uLNMean Platelet Volume7.86.3-10.7 fLNThyroid Stim Hormone w/Rflx Reviewed date:07/03/2024 05:35:49 PM Interpretation: Performing Lab: Notes/Report:Thyroid Stim Hormone w/Rflx3.240.45-5.33 u[iU]/mLNLipid Panel Reviewed date:07/03/2024 05:36:08 PM Interpretation: Performing Lab: Notes/Report:Nmqtajypojz267305-542 mg/dLL Chol less than 200 mg/dl low risk Chol 201-239 mg/dl borderline risk Chol 240 mg/dl and greater high risk HDL Gujfnxrugrf1209-19 mg/dLN HDL CHOL ATP-III CLASSIFICATION Cardiovascular Risk HDL > or equal to 60 mg/dL LOW HDL < 40 mg/dL HIGH Triglyceride w/Hiyoux9893-801 mg/dLH TRIG ATP III CLASSIFICATION TRIG less than 150 mg/dL Normal TRIG 150-199 mg/dL Borderline high TRIG 200-500 mg/dL High TRIG greater than 500 mg/dL Very high Standard traceable to the Center for Disease Conrtrol and Prevention (CDC) test method. LDL Cholesterol,Ngrxwvqeum576-604 mg/dLN LDL ATP III CLASSIFICATION LDL less than 100 mg/dL Optimal LDL 100-129 mg/dL Near or above optimal LDL 130-159 mg/dL Borderline high LDL 160-189 mg/dL High LDL greater than 189 mg/dL Very high VLDL ZEWTUZDFIIZ99Bkso/HDL Ratio4.4<5.0Comprehensive Metabolic Panel Reviewed date:07/03/2024 05:35:42 PM Interpretation: Performing Lab:, [facility], [address] [place] Notes/Report:Khzymrw81842-031 mg/dLH Random Glucose Reference Range is dependent on time and content of last meal. Glucose of more than 200 mg/dL in a nonstressed, ambulatory subject supports the diagnosis of Diabetes Mellitus. ADA recommended reference range Blood Urea Kheonrdb03-31 mg/dLNCreatinine0.480.60-1.20 mg/lKXLlppkp467658-252 mmol/LNPotassium3.93.5-5.1 mmol/BFHdavzcgt71471-976 mmol/LNCarbon Mnsajfa62.9 21.0-31.0 mmol/LNCalcium9.28.6-10.3 mg/dLNTotal Protein7.36.4-8.9 g/dLNAlbumin Level4.43.5-5.7 g/dLNGlobulin2.9Albumin/Globulin Ratio1.5Bilirubin,Total0.30.3- 1.0 mg/dLNAspartate Amino Bbeajpqzfhg0817-04 U/LNAlanine Tyfeimqofqesbseb179-32 U/LNAlkaline Gngmaiyiscy5729-968 U/LNEstimated GFR>60.0Anion Gap12.06.0-15.0 meq/LNMRI Spine Lumbar w/o Contrast Reviewed date:03/17/2025 08:39:42 AM Interpretation: Performing Lab: Notes/Report: Source Facility: [facility] -[address] [place] [address] See Below For Report Original Ordering Provider: CHETAN QUANSICThyroid II Reviewed date:01/25/2025 02:45:07 PM Interpretation: Performing Lab: Notes/Report: [facility] [address] [place] [address] Original Ordering Provider: CHETAN Velasquez HYLTONTSH1.340.34-5.60 mcIU/mLNT46.7 4.6-9.1 microgram/dLNT3 Milwky21.232.0-48.4 %NFTI6.705.90-13.10 ng/dLNPerforming Labsee noteUNK - [facility] unless otherwise specified [address] [place] [address] Dgntajcpta A1c Reviewed date:07/02/2024 10:15:22 AM Interpretation:8.1 Performing Lab: Notes/Report: 8.1Hemoglobin A1c8.15 - 7.9 %A1C with Estimated Average Glu Reviewed date:09/30/2024 07:01:09 PM Interpretation: Performing Lab:, [facility], [place] Notes/Report: Reason for Exam Type 2 diabetes mellitus without complication, without long-Hemoglobin A1C7.14.3-5.6 %H Increased risk for diabetes: 5.7 - 6.4 diabetes: >6.4 glycemic control for adults with diabetes: <7.0 Estimated Average Firjbjx621Gkbmjzatwrdtb Metabolic Panel Reviewed date:09/30/2024 07:01:01 PM Interpretation: Performing Lab:, [facility], [place] Notes/Report: Reason for Exam Type 2 diabetes mellitus without complication, without tuii-Blpbrfn96470-137 mg/dLH Random Glucose Reference Range is dependent on time and content of last meal. Glucose of more than 200 mg/dL in a nonstressed, ambulatory subject supports the diagnosis of Diabetes Mellitus. ADA recommended reference range Blood Urea Dfvkpwfh733-42 mg/dLNCreatinine0.560.60-1.20 mg/jREAltsme704359-682 mmol/LNPotassium3.93.5-5.1 mmol/FTBhxnuxvv78261-026 mmol/LNCarbon Fbkfjum83.3 21.0-31.0 mmol/LNCalcium9.08.6-10.3 mg/dLNTotal Protein7.66.4-8.9 g/dLNAlbumin Level4.63.5-5.7 g/dLNGlobulin3.0Albumin/Globulin Ratio1.5Bilirubin,Total0.40.3- 1.0 mg/dLNAspartate Amino Jdtdpmgjadr7265-57 U/LNAlanine Lectxuxmtguzxzmx948-36 U/LNAlkaline Eddcgdsorbt5883-982 U/LNEstimated GFR>60.0Anion Gap13.66.0-15.0 meq/LNThyroid Stim Hormone w/Rflx Reviewed date:10/02/2024 11:30:45 AM Interpretation: Performing Lab: Notes/Report: Reason for Exam Type 2 diabetes mellitus without complication, without long-Thyroid Stim Hormone w/Rflx5.390.45-5.33 u[iU]/mLH Complete Blood Count Auto Diff Reviewed date:09/30/2024 01:08:20 PM Interpretation: Performing Lab:, [facility], [address] [place] Notes/Report: Reason for Exam Type 2 diabetes mellitus without complication, without long-White Blood Count10.93.8-11.6 10*3/uLNUncorrected WBC 10.93.8-11.6 10*3/uLNRed Blood Count4.873.60-5.00 10*6/vIILhhgxykjyr35.211.8- 15.4 g/wDXPsfijdskuu64.034.0-46.4 %NMean Corpuscular Mgoxuc16.280-100 fLNMean Corpuscular Nodbeadyvq40.124.7-34.3 pgNMean Corpuscular HGB Conc33.832.0-35.0 g/dLNRed Cell Distribution Width12.511.9-15.3 %NPlatelet Horjd824058-276 10*3/uL NMean Platelet Volume7.56.3-10.7 fLNNeutrophils % (Auto)50.0. %Lymphocytes % (Auto)39.5. %Monocytes % (Auto)8.2. %Eosinophils % (Auto)1.3. %Basophils % (Auto)1.0. %NRBC%0.00-0.5 /100{WBC}NNeutrophils # (Auto)5.51.8-7.7 10*3/uLN Lymphocytes # (Auto)4.31.00-4.8 10*3/uLNMonocytes # (Auto)0.90.0-0.8 10*3/uLH Eosinophils # (Auto)0.10.0-0.45 10*3/uLNBasophils # (Auto)0.10.0-0.2 10*3/uLN Free T4 (Free Thyroxine) Reviewed date:09/30/2024 07:00:41 PM Interpretation: Performing Lab: Notes/Report: Reason for Exam Type 2 diabetes mellitus without complication, without long-Free T4 (Free Thyroxine)1.010.61-1.12 ng/dLNIron and TIBC Profile Reviewed date:11/20/2024 08:50:20 AM Interpretation: Performing Lab: Notes/Report: Reason for Exam Type 2 diabetes mellitus without complication, without long- Reason for Exam Thalassemia, unspecified yabzGhyp4743-814 ug/dLNTotal Iron Binding Gzakaoai664916-044 ug/dLN% Iron Wxxqelbnzf44.020-50 %HNhndpscwzit479971- 362 mg/dLNComplete Blood Count Auto Diff Reviewed date:11/18/2024 08:12:35 AM Interpretation: Performing Lab:, [facility], [address] [place] Notes/Report: Reason for Exam Type 2 diabetes mellitus without complication, without long-White Blood Count8.73.8-11.6 [CFU]/mLNUncorrected WBC 8.73.8-11.6 10*3/uLNRed Blood Count4.903.60-5.00 10*6/jEWYnpstyrgva63.211.8-15.4 g/oCRBwqtvgpmip13.434.0-46.4 %NMean Corpuscular Awmrml93.680-100 fLNMean Corpuscular Ondgphbvmx43.924.7-34.3 pgNMean Corpuscular HGB Conc33.432.0-35.0 g/dLNRed Cell Distribution Width12.111.9-15.3 %NPlatelet Biktb390811-430 10*3/uL NMean Platelet Volume7.76.3-10.7 fLNNeutrophils % (Auto)60.2. %Lymphocytes % (Auto)28.4. %Monocytes % (Auto)7.8. %Eosinophils % (Auto)2.7. %Basophils % (Auto)0.9. %NRBC%0.10-0.5 /100{WBC}NNeutrophils # (Auto)5.21.8-7.7 10*3/uLN Lymphocytes # (Auto)2.51.00-4.8 10*3/uLNMonocytes # (Auto)0.70.0-0.8 10*3/uLN Eosinophils # (Auto)0.20.0-0.45 10*3/uLNBasophils # (Auto)0.10.0-0.2 10*3/uLN Thyroid Stim Hormone w/Rflx Reviewed date:11/18/2024 08:12:13 AM Interpretation: Performing Lab: Notes/Report: Reason for Exam Type 2 diabetes mellitus without complication, without long- Reason for Exam Thalassemia, unspecified typeThyroid Stim Hormone w/Rflx1.31 0.45-5.33 u[iU]/mLNComprehensive Metabolic Panel Reviewed date:11/18/2024 08:12:23 AM Interpretation: Performing Lab:, [facility], [address], [place] Notes/Report: Reason for Exam Type 2 diabetes mellitus without complication, without long- Reason for Exam Thalassemia, unspecified jnusOffyfbr83528-643 mg/dLH Random Glucose Reference Range is dependent on time and content of last meal. Glucose of more than 200 mg/dL in a nonstressed, ambulatory subject supports the diagnosis of Diabetes Mellitus. ADA recommended reference range Blood Urea Dapklvxj346-08 mg/dLNCreatinine0.480.60-1.20 mg/pOLMecpdx744201-282 mmol/LNPotassium4.13.5-5.1 mmol/MDHfjszree14837-305 mmol/LNCarbon Hnutpuz58.0 21.0-31.0 mmol/LNCalcium9.38.6-10.3 mg/dLNTotal Protein7.46.4-8.9 g/dLNAlbumin Level4.53.5-5.7 g/dLNGlobulin2.9Albumin/Globulin Ratio1.6Bilirubin,Total0.50.3- 1.0 mg/dLNAspartate Amino Tjegtnqyzsc7724-72 U/LNAlanine Ftojbmclmwvpsgwa716-01 U/LNAlkaline Erwfcrpgxnv9429-915 U/LNEstimated GFR>60.0Anion Gap13.16.0-15.0N Vitamin B12 Reviewed date:11/18/2024 08:12:47 AM Interpretation: Performing Lab: Notes/Report: Reason for Exam Type 2 diabetes mellitus without complication, without long- Reason for Exam Thalassemia, unspecified typeVitamin E26335739-339 pg/mLN Hemoglobin A1c Reviewed date:12/24/2024 06:08:32 PM Interpretation:7.3 Performing Lab: Notes/Report: 7.3Hemoglobin A1c7.35 - 7.9 % Reason For Referral No Information Medications Medication SIG (Take, Route, Frequency, Duration) Notes Start Date End Date Status Prazosin HCl 5 MG Capsule 1 capsule at b edtime Orally Once a day; Duration: 90 days ActiveFamotidine 40 MG TabletTAKE 1 TABLET BY MOUTH EVERYDAY AT BEDTIME; Duration: 30ActivehydrOXYzine HCl 10 MG Tablet1 tablet as needed Orally Once a day; Duration: 90 daysActiveVenlafaxine HCl ER 75 MG Capsule Extended Release 24 Hour 1 capsule with food Orally Once a day; Duration: 30 days total 225 mg 5ActiveOLANZapine 2.5 MG Tablet1 tablet Orally Once a day; Duration: 30 days5ActiveOmeprazole 20 MG Capsule Delayed ReleaseTAKE 1 CAPSULE BY MOUTH 1/2 TO 1 HOUR BEFORE MORNING MEAL EACH DAY; Duration: 30ActiveTylenol 325 MG Tablet1 tablet as needed Orally every 6 hrsNot-Taking/PRNCariprazine HCl 3 MG Capsule1 capsule Orally Once a day; Duration: 30 days01/25/2025Not-Taking/PRN metFORMIN HCl 500 MG TabletTAKE 1 TABLET BY MOUTH TWICE A DAY; Duration: 90 ActiveScopolamine 1 MG/3DAYS Patch 72 Hour 1 patch to skin behind the ear Transdermal every 72 hours; Duration: 30 days As needed ActiveFerrous Sulfate 325 (65 Fe) MG Tablet1 tablet Orally daily; Duration: 30 daysActiveLevothyroxine Sodium 25 MCG Tablet1 tablet in the morning on an empty stomach Orally Once a day; Duration: 30 5ActiveSynthroid 25 MCG TabletTAKE 1 TABLET BY MOUTH EVERY DAY IN THE MORNING ON EMPTY STOMACH; Duration: 90ActiveMetoprolol Succinate ER 25 MG Tablet Extended Release 24 Hour 1/2 tablet Orally Once a day; Duration: 30 5ActiveVenlafaxine HCl ER 150 MG Capsule Extended Release 24 HourTAKE 1 CAPSULE BY MOUTH EVERY DAY WITH FOOD FOR 30 DAYS; Duration: 30 daysActive Social History Tobacco Use: Social History Observation Description Date Details (start date - stop date) Never Smoker NA - NA Sex Assigned At : Social History Observation Description Sex Assigned At Female Social History GeneralSocial InfoQuestionAnswerNotesTransition of Care:ER/UC/hospital since last office visit?NoSpecialist seen since last [...] hurting yourself in some wayNot at allTotal Floqd53Yixbhouwaqxuj Moderate DepressionSubstance abuse/mental health issues of patient/familyPatient [...] Problem Status W/U Status Risk Notes Problem Primary insomnia (1568803) Primary insomn ia (F51.01) ActiveconfirmedProblemLumbar radiculopathy (238843118)Lumbar radiculopathy (M54.16)ActiveconfirmedProblemChronic pain (09859749)Other chronic pain (G89.29) ActiveconfirmedProblemGastroesophageal reflux disease without esophagitis (974050221)Gastroesophageal reflux disease without esophagitis (K21.9)Active confirmedProblemAcquired hypothyroidism (197330174)Acquired hypothyroidism (E03.9)ActiveconfirmedProblemInsomnia (362633936)Insomnia, unspecified type (G47.00)ActiveconfirmedProblemDisorder of lumbar disc (023276962)Lumbar disc disease (M51.9)ActiveconfirmedProblemPosttraumatic stress disorder (50670983) PTSD (post-traumatic stress disorder) (F43.10)ActiveconfirmedProblemType II diabetes mellitus without complication (979988971)Type 2 diabetes mellitus without complication, without long-term current use of insulin (E11.9)Active confirmedProblemNightmares (000354375)Nightmares (F51.5)ActiveconfirmedProblem Thalassemia (07080676)Thalassemia, unspecified type (D56.9)Activeconfirmed ProblemChronic depression (077849815)Chronic depression (F32.A)Activeconfirmed Vital Signs Heart Rate 116 /min 03/18/2025 Jzcettwixxt39.5 degrees Gcmwbkgugq59/06/2025Respiratory Rate20 /min01/21/2025 Pifxcsjs90 %03/18/2025lood pressure oqqjcrokh49 mm Hg03/18/20253644Reymfi14 in 03/18/2025lood pressure mcufjawv062 mm Hg03/18/20252146Hfaxbs110.2 lbs105/18/2024MI 24.75 kg/m203/18/2025 Encounters Encounter Location Date Provider Diagnosis [facility] [address] [place] [address] 07/08/2024 [facility] [place] [address]/12/2024 [facility] without complication, without long-term current use of insulin E11.9[facility] [place] [address]/[facility] [address] [place] [address]/cAcquired hypothyroidism E03.9[facility] [address] [place] [address]/[facility] [place] [address] 11/05/2024[facility] [address] [place] [address]/06/2024[facility] [address] [place] [address]/02/2025[facility] [address] [place] [address]/[facility] [address] [place] [address]/[facility] [place] [address]/[facility] [place] [address]/ Maliha SpasicLumbar radiculopathy M54.16 and Lumbar disc disease M51.9[place] [address] [facility] [place] [address]/02/2025Laura SpasicFKidder County District Health UnitHwbqhde[address] [facility] [place] [address]/Tracey HyltonAlexandra [place] [address] [facility] [place] [address]/Laura SpasicFHS Zmcyclt[address]86 [facility] [place] [address]/09/2024Laura SpasicType 2 diabetes mellitus without complication, without long-term current use of insulin E11.9[facility] [address] [place] [address]/Tracey HyltonAlexandra [place] [address] [facility] [address]/Laura SpasicType 2 diabetes mellitus without complication, without long-term current use of insulin E11.9FHMichael V[place] [address]65 [place] [address]/02/2025Laura SpasicChronic depression F32.AF09 [address] [place] [address]/03/2025 Maliha SpasicType 2 diabetes mellitus without complication, without long-term current use of insulin E11.9[address] [place] [address] [place] [address]/03/2025Laura SpasicLumbar radiculopathy M54.16 ; Lumbar disc disease M51.9 ; Vertigo R42 and Type 2 diabetes mellitus without complication, without long-term current use of insulin E11.9[place] [address] [facility] [place] [address]/08/2023Melissa HolladaPTSD (post-traumatic stress disorder) F43.10S [address] [place] [address]/ Meaghan HolladaPTSD (post-traumatic stress disorder) F43.10[address] [place] [address]/09/2024Melissa HolladaPTSD (post-traumatic stress disorder) F43.10[address] [place] [address] 09/22/2024Melissa HolladaPTSD (post-traumatic stress disorder) F43.10[facility] [address] [facility] [place] [place] [address]/Melissa HolladaChronic depression F32.[address] [address] 12/24/2024Laura SpasicTachycardia R00.0 ; Type 2 diabetes mellitus without complication, without long-term current use ofinsulin E11.9 ; Thalassemia, unspecified type D56.9 ; Chronic depression F32.A and Vitamin B [address] [address]/03/2025Laura SpasicLumbar disc disease M51.9 ; Lumbar radiculopathy M54.16 ; Vitamin B 12 deficiency E53.8 ; Type 2 diabetes mellitus without complication, without long- term current use of insulin E11.9 [address] [address]/Tracey HyltonChronic depression F32.A and Insomnia, unspecified type G47.00[address] [facility] [place] [address]/10/2024Tracey HyltonNightmares F51.5 and PTSD (post-traumatic stress disorder) F43.[address] [place] [address] 01/25/2025Tracey HyltonChronic depression F32.[place] [id number] [facility] [address]/Tracey HyltonChronic depression F32.A and Insomnia, unspecified type G47.00[facility] [address] [address]/Joseph RizkAcute gingivitis, plaque induced K05.00[facility] [address] [place] [address]/Tracey HyltonChronic depression F32.A and PTSD (post-traumatic stress disorder) F43.10[facility] [address] [place] [address]/12/2024Joseph RizkEncounter for dental examination and cleaning with abnormal findings Z01.21 ; Disturbances in tooth eruption K00.6 and Dental caries on pit and fissure surface penetrating into dentin K02.52[facility] [address] [address] 12Laura SpasicPTSD (post-traumatic stress disorder) F43.10 ; Type 2 diabetes mellitus without complication, without long-term current use of insulin E11.9 and Primary insomnia F51.01[facility] [address] [address]/Laura SpasicPrimary insomnia F51.01 ; Chronic depression F32.A ; PTSD (post-traumatic stress disorder) F43.10 ;Other complications following infusion, transfusion and therapeutic injection, initial encounter T80 .89XA ; Unspecified adverse effect of drug or medicament, initial encounter T88.7XXA ; Low back pain, unspecified M54.50 and Atypical chest pain R07.89[facility] [address] [address]/Laura Spasic Type 2 diabetes mellitus without complication, without long-term current use of insulin E11.9 ; PTSD (post-traumatic stress disorder) F43.10 ; Unspecified adverse effect of drug or medicament, initial encounter T88.7XXA and Gastroesophageal reflux disease without esophagitis K21.9[facility] [address] [address]/02/2025Laura SpasicTachycardia R00.0 and Type 2 diabetes mellitus without complication, without long-term current use of insulin E11.9[facility] [place] [address] 09/29/2024Laura SpasicType 2 diabetes mellitus without complication, without long-term current use of insulin E11.9 ; Thalassemia, unspecified type D56.9 and Lumbar radiculopathy M54.16[place] [address] [place] [address]/12/2024Laura SpasicType 2 diabetes mellitus without complication, without long-term current use of insulin E11.9 ; Acquired hypothyroidism E03.9 ; Chronic depression F32.A ; PTSD (post-traumatic stress disorder) F43.10and Thalassemia, unspecified type D56.9 Assessments Encounter Date Diagnosis (ICD Code) Assessment Notes Treatment Notes Treatment Clinical Notes Section Notes 08/20/2024 Tachycardia (ICD-10 - R00.0) pt has been tachy last couple of visit, discussed to avoid caffeine, reports fluttering at times, on pulse-ox her HR 110-118 no ectopy when I listened. Will start low dose metoprolol, 1/2 at bedtime.08/20/2024Type 2 diabetes mellitus without complication, without long-term current use of insulin (ICD-10 - E11.9) Due for a1c next month, continue mounjaro. monitor at home. short term f/u 09/17/2024Type 2 diabetes mellitus without complication, without long-term current use of insulin (ICD-10 - E11.9)09/22/2024PTSD (post-traumatic stress disorder) (ICD-10 - F43.10)09/29/2024Type 2 diabetes mellitus without complication, without long-term current use of insulin (ICD-10 - E11.9)AIC goal of 7.0. Continue same medications as prescribed. Labs ordered to review renal function. Urine for microalbumin within the year. Continue home monitoring of blood sugars; if <70 or >450go to the ER. Pt enc to have annual eye exams as well as enc to not cut toe nails, routine foot care and checks with podiatry, if you develop any sores/concern RTO. F/U 3 months. given insurance changes will refer to [facility] to determine to assist with covering.09/29/2024 Thalassemia, unspecified type (ICD-10 - D56.9)patient with increased fatigue, she is not compliant with her medications and takes iron as needed.She is advised to f/u with srxpwbjint92/23/2025Acquired hypothyroidism (ICD-10 - E03.9) 5Chronic depression (ICD-10 - F32.A)5Chronic depression (ICD- 10 - F32.A)Continue medication increase effexor to 75mg, potential side effects were discussed as well as proper administration of medication. Pt verbalizes understanding. Pt is aware not to stop medication suddenly and to come to office to be weaned down, abrupt discontinuation can cause withdrawal symptoms.Stable mood today, no c/o SI/HI, if feelings occur pt to call 911/ER. Discussed coping mechanisms such as exercise, group therapy, and counseling.06/17/2024PTSD (post- traumatic stress disorder) (ICD-10 - F43.10)07/02/2024PTSD (post-traumatic stress disorder) (ICD-10 - F43.10)Continue medication and increase, potential side effects were discussed as well as proper administration of medication. Pt verbalizes understanding. Pt is aware not to stop medication suddenly and tocome to office to be weaned down, abrupt discontinuation can cause withdrawal symptoms. Stable moodtoday, no c/o SI/HI, if feelings occur pt to call 911/ER. Discussed coping mechanisms such as exercise, group therapy, and counseling. 07/02/2024Type 2 diabetes mellitus without complication, without long-term current use of insulin (ICD-10 - E11.9)A!C is above goal of 7.0, optimal goal is 6.5%. Medication reviewed. Medication changed today. reacting to trulicy rash at injection site, elevated a1c >7.5, change to mounjaro. Pt is enc to monitor BS at home, if <70 or >450 go to the ER. Will get update labs today including renal, liver,and thyroid function. Microalbumin within last year.07/21/2024 Lumbar radiculopathy (ICD-10 - M54.16)Acute Low Back Pain: Exercises material was printed, Low Back Pain: Exercises material was printed.Pt was in ER, XR obtained without obvious findings. given percocet with minimal releif, c/o pain inthe leg, will trial her on gabapentin, is sensitive to meds so will do 300 mg at bed and 1 in the am and see how she does. she was printed a home exercise program and exercises demonstrated in office, she is to complete them twice a day spending 20-30 minutes at each session. She is unable to afford PT at this time. will see how home exercise program goes. ENc to walk daily. Loss of bowel or bladder go to the Er. Pt has muscle relaxer. Ice/heat alternating as needed. Loss of bowel or bladder goto the ER4PTSD (post-traumatic stress disorder) (ICD-10 - F43.10)Continue medication but add effexor, gene site reviewed, potential side effects were discussed as well as proper administration of medication. Pt verbalizes understanding. Pt is aware not to stop medication suddenly and to come to office to be weaned down, abrupt discontinuation can cause withdrawal symptoms. Stable mood today, no c/o SI/HI, if feelings occur pt to call 911/ER. Discussed coping mechanisms such as exercise, group therapy, and counseling.04/14/2024Type 2 diabetes mellitus without complication, without long-term current use of insulin (ICD-10 - E11.9)A!C goal of 7.0, optimal goal is 6.5%. Pt is enc to monitor BS at home, if <70 or >450 go to the ER.04/15/2024 PTSD (post-traumatic stress disorder) (ICD-10 - F43.10)4PTSD (post- traumatic stress disorder) (ICD-10 - F43.10)05/28/2024Primary insomnia (ICD-10 - F51.01)good sleep hygiene discussed. Avoid stimulants such as tv, electronic, exercises before bed. Relaxation techniques also discussed. pt enc to take 5mg to 10 mg melatonin. If symptoms persist will discuss prescription sleep aides, she did not like the restoril, felt groggy. going to try a sleep schedule. 07/21/2024Lumbar disc disease (ICD-10 - M51.9)Herniated Disc: Exercises material was printed, see above5Acquired hypothyroidism (ICD-10 - E03.9)monitor TSH and titrate medication as needed Pt understands to take the medication chiara thing in am on an empty stomach for best results. Potential side effects discussed. Pt aware of symptoms of under-active thyroid including, heat/cold intolerance, wt gain, thinning hair/hair loss, brittle nails. If you experience the above symptoms, return to office for lab work and possible adjustment of medication.11/17/2024Type 2 diabetes mellitus without complication, without long-term current use of insulin (ICD-10 - E11.9)AIC goal of 7.0. Continue same medications as prescribed. Labs ordered to review renal function. Urine for microalbumin within the year. Continue home monitoring of blood sugars; if <70 or >450go to the ER. Pt enc to have annual eye exams as well as enc to not cut toe nails, routine foot care and checks with podiatry, if you develop any sores/concern RTO. F/U 3 [id number] depression (ICD-10 - F32.A) will start Vraylar 1.5mg daily was given 4 weeks from sample stock. Gene sight results reviewed. continue Venlafaxine as previously prescribed. f/u in 1 month and PRN Will start patient on *Vraylar 1.5mg today. Discussed risks and side effects of medication including possible nausea, headache, upset stomach, diarrhea, constipation, anxiety, irritability, and sexual dysfunction. Most mild side effects improve over 4-6 weeks of use. Please monitor for worsening ofsymptoms, especially suicidal ideations or morbid thoughts, and call office and or go to the emergency department immediately if this occurs. Patient verbalized understanding, in agreement with plan. 12/15/2024Type 2 diabetes mellitus without complication, without long-term current use of insulin (ICD-10 - E11.9)12/18/2024Encounter for dental examination and cleaning with abnormal findings (ICD-10 - Z01.21)12/24/2024 Tachycardia (ICD-10 - R00.0)patient has not been on medication and since her HR is more tachy, her thyroid is better controlled, will restart and have her f/u to recheck tolerance, advised to take at bedtime.5Chronic depression (ICD-10 - F32.A) refilled Vraylar 3mg check Thyroid w/TSH f/u in 1 month and PRN Continue medication, potential side effects were discussed as well as proper administration of medication. Pt verbalizes understanding. Pt is aware not to stop medication suddenly and to come to office to be weaned down, abrupt discontinuation can cause withdrawal symptoms. Stable mood today, no c/o SI/HI, if feelings occur pt to call 911/ER. Discussed coping mechanisms such as exercise, group therapy, and counseling. 5Acute gingivitis, plaque induced (ICD-10 - K05.00)02/03/2025Lumbar radiculopathy (ICD-10 - M54.16)02/03/2025Lumbar disc disease (ICD-10 - M51.9) 02/19/2025hronic depression (ICD-10 - F32.A)02/20/2025Type 2 diabetes mellitus without complication, without long-term current use of insulin (ICD-10 - E11.9) 02/22/2025Insomnia, unspecified type (ICD-10 - G47.00) continue medication as prescribed. f/u in 1 month and PRN good sleep hygiene discussed. Avoid stimulants such as tv, electronic, exercises before bed. Relaxation techniques also discussed. pt enc to take 5mg to 10 mg melatonin. 02/22/2025hronic depression (ICD-10 - F32.A) Continue medication will trial Olanzapine f/u in 1 month and PRN potential side effects were discussed as well as proper administration of medication. Pt verbalizesunderstanding. Pt is aware not to stop medication suddenly and to come to office to be weaned down,abrupt discontinuation can cause withdrawal symptoms. Stable mood today, no c/o SI/HI, if feelings occur pt to call 911/ER. Discussed coping mechanisms such as exercise, group therapy, and counseling. 5Chronic depression (ICD-10 - F32.A) will increase Vraylar to 3mg QD. given samples from sample stock will trial Hydroxyzine 10mg at bedtime. f/u in 1 month and PRN. Mood has room for improvement, will increase *Vraylar to 3mg daily. Discussed risks and side effects of medication. Patient denies SI/HI today. Follow up if mood does not improve. Patient verbalized understanding. 01/09/2025Type 2 diabetes mellitus without complication, without long-term current use of insulin (ICD-10 - E11.9)01/21/2025Lumbar radiculopathy (ICD-10 - M54.16)01/21/2025Lumbar disc disease (ICD-10 - M51.9) History of back pain, previously severe enough for ER visit. Previously prescribed gabapentin, now discontinued. Ongoing management includes physical therapy and possible MRI. - Discontinue gabapentin as it is . - Refer to physical therapy for back pain management. - Order MRI of the lumbar spine if insurance approves. 03/18/2025Nightmares (ICD-10 - F51.5) will increase Prazosin to 5mg good sleep hygiene discussed. Avoid stimulants such as tv, electronic, exercises before bed. Relaxation techniques also discussed. 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 Treatment interruptions due to insurance issues. Monthly injections and transfusions scheduled for the next year. - Continue monthly vitamin B12 injections. - Continue scheduled transfusions for the next year. 11/17/2024hronic depression (ICD-10 - F32.A)Continue medication, refill the 37. 5 she is missing this dose, taking a total of 225, , potential side effects were discussed as well as proper administration of medication. Pt verbalizes understanding. Pt is aware not to stop medication suddenly and to come to office to be weaned down, abrupt discontinuation can cause withdrawal symptoms. Stable mood today, no c/o SI/HI, if feelings occur pt tocall 911/ER. Discussed coping mechanisms such as exercise, group therapy, and counseling. she will continue with counseling, also has appt with [facility]. Pt has good support at home, her boyfiriend is with her. suicide hotline card provided to patient. No SI/HI today.12/01/2024PTSD (post-traumatic stress disorder) (ICD-10 - F43.10) continue Prazosin as previouslyv prescribed from nightmare/terrors f/u in 1 month and PRN currently not doing counseling at this time. 12/24/2024Type 2 diabetes mellitus without complication, without long-term current use of insulin (ICD-10 - E11.9)will change to ozempic, pt to start after completing mounjaro since she paid 100 for the medications, she is advised to monitor blood sugars at home.12/18/2024Disturbances in tooth eruption (ICD-10 - K00.6)4Primary insomnia (ICD-10 - F51.01)good sleep hygiene discussed. Avoid stimulants such as tv, electronic, exercises before bed. Relaxation techniques also discussed. pt enc to take 5mg to 10 mg melatonin. trial restoril, per gene sitedoxipin and trazedone not recommended. We discussed possible minipress if dreams continue or worsen, consider sleep study. Discussed good sleep hygiene, meditation, yoga, prior to bed, sleep in quietroom, dark. avoid mind stimulants such as phone and tv.05/28/2024PTSD (post-traumatic stress disorder) (ICD-10 - F43.10)add prasozin at bedtime for her nightmares and vivid dreams ,advised to continue with counseling.07/21/2024Vertigo (ICD-10 - R42)pt has major ear repair for a blown ear drum, will provide scopalomine patch to alleviate symptoms,change every 72 hours. pt vu in poc07/02/2024Unspecified adverse effect of drug or medicament, initial encounter (ICD-10 - T88.7XXA) 09/29/2024Lumbar radiculopathy (ICD-10 - M54.16)Continue with conservative measures. Rest, ice, heat as needed, back exercises are encouraged. Continue medications, take as prescribed. XR done in ER w/o any findings. pt states nothing works for her pain, recommend PT with new insurance cannot afford to go. Her Step mom with her and requesting pain medication. Need to determine underlying cause and treat accordingly. Loss of bowel or bladder estephania medication emergency, go to the ER.07/02/2024Gastroesophageal reflux disease without esophagitis (ICD-10 - K21.9)Continue medications. Avoid spicy foods and dietary triggers, limit ETOH intake, remain upright after meals for at least 45 minutes, avoid sleeping flat, elevated HOB with pillow if able. IF you experience NV, bloody emesis go to the ER.05/28/2024Other complications following infusion, transfusion and therapeutic injection, initial encounter (ICD-10 - T80.89XA) 12/18/2024Dental caries on pit and fissure surface penetrating into dentin (ICD- 10 - K02.52)11/17/2024PTSD (post-traumatic stress disorder) (ICD-10 - F43.10)see above07/21/2024Type 2 diabetes mellitus without complication, without long-term current use of insulin (ICD-10 - E11.9)A1c is above 7.5, she has been on Trulicity last 90 days, she is having a reacation at injection site, with large hives. At this time she meets criteria to change to mounjaro for better A1C control, its a different active ingredient therefore hopeful no inj reaction at site. A sample of 2.5 mg provided in office. Continue diabetic diet and exercise. Monitor blood sugars <70 or >450 go to the ER. Continue metformin. 12/24/2024Thalassemia, unspecified type (ICD-10 - D56.9)B12 in office today pt has f/u scheduled with hematology.12/28/2024Insomnia, unspecified type (ICD-10 - G47.00) will trial Hydroxyzine 10mg QHS good sleep hygiene discussed. Avoid stimulants such as tv, electronic, exercises before bed. Relaxation techniques also discussed. pt enc to take 5mg to 10 mg melatonin. If symptoms persist will discuss prescription sleep aides 03/18/2025PTSD (post-traumatic stress disorder) (ICD-10 - F43.10) Post Traumatic Stress Disorder: -SSRI s -SNRI s -propranolol -Mirtazapine (for insomnia) continue medications as prescribed denies needing refills today f/u in 1 month and PRN 01/21/2025Type 2 diabetes mellitus without complication, without long-term current use of insulin (ICD-10 - E11.9) Diabetes managed with Ozempic. A1C last checked, expected to remain stable until March. - Continue Ozempic 0.25 mg weekly. - Increase Ozempic to 0.5 mg after four weeks if tolerated. - Recheck hemoglobin A1C at next visit. - Order fasting labs including A1C, thyroid panel, and lipid panel at next visit. 01/21/2025Tachycardia (ICD-10 - R00.0) History of racing heart and skipped beats. Improved heart rate since resuming metoprolol. - Continue metoprolol as prescribed. 12/24/2024hronic depression (ICD-10 - F32.A)Continue medication, potential side effects were discussed as well as proper administration of medication. Pt verbalizes understanding. Pt is aware not to stop medication suddenly and to come to office to be weaned down, abrupt discontinuation can cause withdrawal symptoms. Stable mood today, no c/o SI/HI, if feelings occur pt to call 911/ER. Discussed coping mechanisms such as exercise, group therapy, and counseling. pt will f/u with [facility], no adjustments to medication today.11/17/2024Thalassemia, unspecified type (ICD-10 - D56.9)recommend f/u with hematology suppose to continue iron and b12 injections, this will contribute to mood. Pt states she call to schedule.05/28/2024Unspecified adverse effect of drug or medicament, initial encounter (ICD-10 - T88.7XXA)start topical steriod at inj site to reduce redness and itchiness. d/c trulicty, sample of ozempic provided, will have pt start ozempic 0.5 mg. If no inj reactation will send script, pt agree with POC, aware not to start until until when her turlicity would be due.05/28/2024Low back pain, unspecified (ICD-10 - M54.50)Continue with conservative measures. Rest, ice, heat as needed, back exercises are encouraged. Continue medications, take as prescribed.advised to get her xray to further eval. Enc to f/u with pain. Loss of bowel or bladder is a medication emergency, go to the ER. 12/24/2024Vitamin B 12 deficiency (ICD-10 - E53.8)see thalassemia.05/28/2024 Atypical chest pain (ICD-10 - R07.89)likely panic induced, last ER visit ECG done and was normal, no family hx of sudden cardiac . Discussed when to go to ER.08/20/2024OtherBody Mass Index: Care Instructions material was published, Body Mass Index: Care Instructions material was [id number]/29/2024OtherBody Mass Index: Care Instructions material was published, Body Mass Index: Care Instructions material was [id number]/17/2024OtherBody Mass Index: Care Instructions material was published, Body Mass Index: Care Instructions material was [id number]/24/2024OtherBody Mass Index: Care Instructions material was published, Body Mass Index: Care Instructions material was [id number]/21/2025 OtherBody Mass Index: Care Instructions material was published, Body Mass Index: Care Instructions material was printed Plan Of Treatment Pending Test Test Name Order Date Thyroid Panel With TSH 01/25/2025 Glucose Fingerstick 08/20/2024 A1C with Estimated Average Glu MRI Spine Lumbar w/o Contrast 02/03/2025 Next Appt Details Provider Name:Maliharachael Glass, 03/30/2025 10:30:00 AM, [address], [address], [place], [address], Provider Name:Hali Rand, 04/13/2025 04:30:00 PM, [address], [place], [address], Provider Name:Cyndi capone, 04/19/2025 11:45:00 AM, [address], [place], [address], Provider Name:Roland Montenegro, 0 06/23/2025 01:30:00 PM, [address], [place], [address], Provider Name:Roland Montenegro, 0 06/30/2025 03:00:00 PM, [address], [facility] [place], [address], Insurance Providers Payer Name Payer Address Payer Phone Subscriber Number Group Number Insured Name Patient Relationship to Insured Coverage Start Date Coverage End Date [facility] [address] [address] [place] [phone] [id number] Mary SINGH - patient is the [id number] 2024[facility] [address] [place] [id number], RHODASelf - patient is the [id number] 2024 Medications Administered Medication Instructions Date of Administration Dosage Notes Cyanocobalamin [id number] mg Medical (General) History Medical History History ICD Code VERTIGO DMDEPRESSIONSurgical History Surgery Date(Month/Year) left ear surgery Hospitalization History Reason Date(Month/Year) [facility] [place] Respiratory In[place] 03/01 25 [facility] [place] Su[place] 10/2024
== END 2025-03-21 22:47 | disposition home or self-care (01) ==
PROVIDERS: Emergency Provider Emergency Medicine; PCP Nurse Practitioner Adult Health
DX: R10.84 Generalized abdominal pain (principal); R16.0 Hepatomegaly, not elsewhere classified; K76.0 Fatty (change of) liver, not elsewhere classified; R10.31 Right lower quadrant pain; R11.0 Nausea; R19.7 Diarrhea, unspecified
CPT/HCPCS: 36415; 74177; 80053; 81003; 83690; 84703; 85025; 99285; Q9967